=== PATIENT | male | born 1940 | race Two or more races ===

== ENCOUNTER → 2016-10-25 | Outpatient (CLI) | payer OTHER ==
[2016-10-25 13:36] LABS: BASO % 0.5 %; BASO ABS # 0.03 K/uL (0-0.2); COMPLETE YES; EOS % 5.6 %; HEMATOCRIT 38.6 % (42-52); IG% 0.2 %; LYMPH % 40.2 %; LYMPH ABS # 2.28 K/uL (1.2-3.4); MEAN CORPUSCULAR HEMOGLOBIN 32.6 pg (25-34); MEAN CORPUSCULAR HGB CONC 33.9 g/dl (32-36); MEAN PLATELET VOLUME 10.4 fL (7.4-10.4); MONO % 11.1 %; NEUT % 42.4 %; PLATELET COUNT 248 K/uL (130-400); RED BLOOD COUNT 4.02 M/uL (4.7-6.1); WHITE BLOOD COUNT 5.67 K/uL (4.8-10.8)
[2016-10-25 13:40] LABS: PROTHROMBIN TIME (PATIENT) 11.2 SECONDS (9.0-12.0)
[2016-10-25 14:06] LABS: ALB/GLOB RATIO 0.8 (0.9-2); ALT/SGPT 30 U/L (12-78); AST/SGOT 23 U/L (15-37); BLOOD UREA NITROGEN 22 mg/dl (7-18); BUN/CREATININE RATIO 18.2 (10-20); CALCIUM 9.4 mg/dl (8.5-10.1); CARBON DIOXIDE 30 mmol/L (21-32); CHLORIDE 107 mmol/L (98-107); CHOLESTEROL 169 mg/dl (0-200); GLUCOSE 85 mg/dl (70-99); POTASSIUM 4.1 mmol/L (3.5-5.1); SODIUM 141 mmol/L (136-145); TRIGLYCERIDES 74 mg/dl (0-150); VERY LOW DENSITY LIPOPROT CALC 15 mg/dl
[2016-10-25 14:10] LABS: ALKALINE PHOSPHATASE 66 U/L (45-117); CHOLESTEROL/HDL RATIO 3.3; HDL CHOLESTEROL 51 mg/dl; LDL CHOLESTEROL CALCULATED 103 mg/dl
== END | disposition home or self-care (01) ==
LOC: C.LABBC 10:56
PROVIDERS: ATTEND Internal Medicine Geriatric Medicine
DX: I10 Essential (primary) hypertension (principal); Z86.73 Personal history of transient ischemic attack (TIA), and cerebral infarction without residual deficits; Z86.718 Personal history of other venous thrombosis and embolism

== ENCOUNTER → 2016-11-01 | Outpatient (CLI) | payer OTHER ==
[2016-11-01 14:54] LABS: ALT/SGPT 28 U/L (12-78); AST/SGOT 20 U/L (15-37); BLOOD UREA NITROGEN 25 mg/dl (7-18); BUN/CREATININE RATIO 21.2 (10-20); CARBON DIOXIDE 26 mmol/L (21-32); CHLORIDE 109 mmol/L (98-107); GLUCOSE 98 mg/dl (70-99); SODIUM 142 mmol/L (136-145)
[2016-11-01 14:57] LABS: ALB/GLOB RATIO 0.8 (0.9-2); ALKALINE PHOSPHATASE 71 U/L (45-117)
== END | disposition home or self-care (01) ==
LOC: C.LABBC 10:45
PROVIDERS: ATTEND Physician Assistant Medical
DX: I10 Essential (primary) hypertension (principal)

== ENCOUNTER 2023-11-29 10:49 | Observation (INO) ==
[2023-11-29 11:25] LABS: Basophils # (auto) 0.05 K/uL (0.00-0.20); Basophils % (auto) 0.9 %; Eosinophils # (auto) 0.14 K/uL (0.00-0.50); Eosinophils % (auto) 2.4 %; Hematocrit (blood only) 36.3 % (42.0-52.0); Hemoglobin 11.5 g/dl (14.0-18.0); Immature Granulocytes # (auto) 0.01 K/uL (0.01-0.20); Immature Granulocytes % (auto) 0.2 %; Lymphocytes # (auto) 1.15 K/uL (1.20-3.40); Lymphocytes % (auto) 20.1 %; Mean Corpuscular Hemoglobin 27.6 pg (25.0-34.0); Mean Corpuscular Hgb Conc 31.7 g/dL (32.0-36.0); Mean Corpuscular Volume 87.1 fL (80.0-100.0); Mean Platelet Volume 10.2 fL (9.4-12.4); Monocytes # (auto) 0.69 K/uL (0.11-0.59); Monocytes % (auto) 12.1 %; Neutrophils # (auto) 3.68 K/uL (1.40-6.50); Neutrophils % (auto) 64.3 %; Platelet Count 219 K/uL (130-400); RDW Standard Deviation 51.1 fL (36.4-46.3); Red Blood Count 4.17 M/uL (4.70-6.10); White Blood Count 5.72 K/ul (4.8-10.8)
--- NOTE | 2023-11-29 11:46 | XRay Report ---
SINGLE VIEW CHEST CLINICAL HISTORY: Dyspnea FINDINGS: An AP, portable, upright chest radiograph is compared to study dated 05/09/2023. The examina tion is degraded by portable technique and apical lordotic positioning. The heart is mildly enlarged. The pulmonary vasculature is noncongested. Chronic interstitial thickening is similar to previous. T here is mild bibasilar scarring/atelectasis. The lungs and pleural spaces are otherwise clear. No pne umothorax is seen. The skeletal structures are osteopenic. The bony thorax is grossly intact. IMPRESSION: No acute cardiopulmonary abnormality. ACT 112: Negative or not required by law. Electronically signed by: Bharathi Nguyen M.D. 11/29/2023 11:44 AM
[2023-11-29 11:47] LABS: Albumin Globulin Ratio 1.3 (0.9-2); Albumin Level 3.9 gm/dl (3.4-5.0); BUN Creatinine Ratio 27.4 (10-20); Bilirubin,Total 0.6 mg/dl (0.2-1.0); Calcium 9.2 mg/dl (8.6-10.3); Creatinine Clr Calc Pharmacy 57.2 ml/min; Est GFR (African American) 75.4 ml/min; Magnesium 1.9 mg/dl (1.7-2.4); Total Protein 6.9 gm/dl (6.0-8.3)
[2023-11-29 11:53] LABS: Troponin I High Sensitivity 8.3 pg/ml (0-20)
--- NOTE | 2023-11-29 12:06 | Emergency Department Note ---
Impression & Plan SOB (shortness of breath), Diaphoresis ED Provider Note NAME: FREDRICK DELCID AGE: 83 SEX: Male INFORMANT: Patient ED PROVIDER(S): Austen James MD CHIEF COMPLAINT: Shortness of breath/dyspnea PLAN: Disposition: Admitted Outpatient prescription management: none Referral: None MEDICAL DECISION MAKING: Patient presented because of exertional shortness of breath/dyspnea along with diaphoresis. Patient had blood work and chest imaging Workup was initiated. ECG was normal. Patient's CBC and chemistry panel were unremarkable. BNP and troponin were negative x 1. The patient symptoms do raise concerns about possible cardiac etiology. He has known coronary disease. Discussed further management and testing in the hospital. Patient in agreement. [facility] Patient was evaluated in the ER admitted for further management. Care/management discussed with: structural manager. Patient has a care alert for chronic liquid and solid dysphagia without aspiration. Diagnosed with esophageal dysfunction. Level of care consideration(s): After review of the information above and other included data, I feel the patient requires escalation of care to admission Triage Nursing notes: reviewed and agree them. Vital Signs: reviewed and remarkable for hypertension Additional History obtained from: none Chronic Medical/Social Conditions affecting care: Hypertension, CAD Prior/ Outside/ External records reviewed: none Differential Diagnosis: Reactive airway disease, pneumonia, pneumothorax, COPD, CHF, infections, cardiac ischemia, pulmonary embolism, musculoskeletal, gastrointestinal, as well as other pathologies. Diagnostics, independently interpreted by me: EC Lead ECG performed and revealed Normal sinus rhythm at 70, normal [place], QRS normal. No elevation or depression. No PACs or PVCs Cardiac Monitoring: Cardiac monitoring ordered by me: The patient was placed on continuous cardiac monitoring and observed. It revealed a normal sinus rhythm at 77 beats per minute without ectopy or evidence of dysrhythmia. Medical decision rules: none Imaging studies: Chest x-ray. Findings: A chest x-ray was performed and revealed no pneumothorax, effusion, infiltrate, pulmonary edema, free air under the diaphragm, or wide mediastinum. Impression: No acute disease. HPI: 83 year old Male arrives for evaluation of shortness of breath/dyspnea. Patient states he was moving furniture and it was heavy. He became diaphoretic and short of breath. He also noted some left-sided neck pain. He laid down and raise his legs up. He also used his inhaler. Patient states after about an hour his symptoms abated. Patient denies any significant history like this before. He does note feeling some discomfort with swallowing. Patient does have a history of dysphagia. He states he does have a calcium blockages in his coronaries. Patient does take isosorbide and did take it today. Pt denies LOC, headache, fevers, chills, visual changes, neck pain, chest pain, nausea, vomiting, abdominal pain, back pain, melena, hematochezia, urinary symptoms, numbness, weakness, lymphadenopathy, rash, or other complaints.. PAST MEDICAL HISTORY: See Below, TIA, hypertension PAST SURGICAL HISTORY: See Below, SOCIAL HISTORY: See Below, HOME MEDICATIONS: See Below ALLERGIES: See Below VITALS: See Below PHYSICAL EXAMINATION: GENERAL: Awake, alert, well-appearing, in no distress HENT: Normocephalic, atraumatic. Oropharynx unremarkable. EYES: Normal conjunctiva. Sclera non-icteric. NECK: Inspection normal. Non-tender. Supple. No nuchal rigidity. FROM. No masses. RESPIRATORY: Clear to auscultation. No wheezes. No rales. Normal respiratory effort. CARDIAC: Normal rate. Normal rhythm. No murmurs. No rubs. Extremities warm and well perfused. Pulses equal. No JVD. GI: Soft, non-distended. No tenderness to palpation. No rebound or guarding. No masses. RECTAL: Deferred. MUSCULOSKELETAL: Atraumatic. Chest examination reveals no tenderness. The back is symmetrical on inspection without obvious abnormality. There is no CVA tenderness to palpation. No joint edema. LOWER EXTREMITIES: Calves are equal size bilaterally and non-tender. No edema. No discoloration. NEURO: Normal sensorium. No sensory or motor deficits noted. SKIN: No rash or jaundice noted. PROCEDURES: none CRITICAL CARE: none OBSERVATION NOTE: none Past Med/Surg History Medical History (Updated 11/29/23 @ 15:35 by Divine Spencer PA-C) History of stroke History of GI bleed Tremor MGUS (monoclonal gammopathy of unknown significance) Asthma Hx TIA/stroke w/o resid Anemia Anxiety Depression Hypertension Sleep apnea Migraine Surgical History History of esophagogastroduodenoscopy (EGD) Family History Other Stroke Social History Smoking Status: Former smoker Tobacco Type: Cigarettes Second Hand Exposure: No; Do You Dip or Chew Tobacco: No; Tobacco Cessation Education Requested by Patient: No Hx Alcohol Use: No Hx Substance Use: No Preferred Language: Lao Communication Ability: Effective Railroader Required: No Beliefs That Will Affect Care: Uatsdin Uatsdin Beliefs: does not eat Pork marital status: Current Living Situation: Spouse and Family Current Living Situation Comment: , daughter and son current occupational status: retired Other Information That Helps Us Care for You: No (does not eat pork) Feels Safe at Home: Yes Assistive Devices: Cane Allergies Allergies Allergy/AdvReac Type Severity Reaction Status Date / Time amlodipine Allergy Unknown Verified 11/29/23 13:41 Home Meds Home Medications Medication Instructions Recorded Confirmed carvedilol 6.25 mg tablet 6.25 mg PO BID 05/09/23 11/29/23 clopidogrel 75 mg tablet 75 mg PO DAILY 05/09/23 11/29/23 nitroglycerin 0.4 mg sublingual 0.4 mg sublingual DIRECTED PRN 05/09/23 11/29/23 tablet Chest Pain rosuvastatin 20 mg tablet 20 mg PO HS 05/09/23 11/29/23 vitamin E 268 mg (400 unit) capsule 268 mg PO DAILY 05/09/23 11/29/23 zinc 50 mg tablet 50 mg PO DAILY 05/09/23 11/29/23 albuterol sulfate 90 mcg/actuation 2 puff inhalation Q6H PRN 11/29/23 11/29/23 aerosol inhaler shortness of breath or coughing carbidopa 25 mg-levodopa 100 mg 1 tab PO TID 11/29/23 11/29/23 tablet montelukast 10 mg tablet 10 mg PO HS 11/29/23 11/29/23 quetiapine 25 mg tablet 50 mg PO HS 11/29/23 11/29/23 valsartan 160 mg tablet 160 mg PO QAM 11/29/23 11/29/23 Previous Rx's Medication Instructions Recorded isosorbide mononitrate 30 mg 30 mg PO QAM #30 tabs 05/11/23 tablet,extended release 24 hr simethicone 80 mg chewable tablet 80 mg PO Q6H PRN dyspepsia #30 tabs 05/11/23 (Gas Relief (simethicone)) Results & Data (ED) Vital Signs Vital Signs - 24 hr 11/29/23 10:55 11/29/23 10:58 11/29/23 11:03 Temperature 36.6 C Temperature Source Oral Pulse Rate 77 76 76 Pulse Rate [Right Finger] Pulse Rhythm [Right Finger] Pulse Strength [Right Finger] Respiratory Rate 22 22 Respiratory Effort / Characteristics Non-Labored Respiratory Depth Normal Respiratory Pattern Blood Pressure 150/76 H Blood Pressure [Right Arm] Blood Pressure Mean 100 Blood Pressure Mean [Right Arm] Blood Pressure Position [Right Arm] Pulse Oximetry 97 97 Oxygen Delivery Method Room Air Room Air Sepsis Recent Fever Within 48 Hours No Sepsis New/Unexplained Change in Mental Status N/A Sepsis Action Taken by Nursing No Action Required 11/29/23 11:36 11/29/23 11:36 11/29/23 12:10 Temperature Temperature Source Pulse Rate Pulse Rate [Right Finger] Pulse Rhythm [Right Finger] Pulse Strength [Right Finger] Respiratory Rate Respiratory Effort / Characteristics Non-Labored Spontaneous Respiratory Depth Respiratory Pattern Blood Pressure Blood Pressure [Right Arm] Blood Pressure Mean Blood Pressure Mean [Right Arm] Blood Pressure Position [Right Arm] Pulse Oximetry 96 97 Oxygen Delivery Method Room Air Sepsis Recent Fever Within 48 Hours Sepsis New/Unexplained Change in Mental Status Sepsis Action Taken by Nursing 11/29/23 12:14 11/29/23 12:45 11/29/23 13:10 Temperature Temperature Source Pulse Rate Pulse Rate [Right Finger] 64 66 76 Pulse Rhythm [Right Finger] Regular Regular Pulse Strength [Right Finger] Normal Respiratory Rate 18 17 18 Respiratory Effort / Characteristics Non-Labored Spontaneous Non-Labored Spontaneous Non-Labored Spontaneous Respiratory Depth Normal Normal Normal Respiratory Pattern Regular Regular Regular Blood Pressure Blood Pressure [Right Arm] 157/82 H 170/77 H Blood Pressure Mean Blood Pressure Mean [Right Arm] 107 108 Blood Pressure Position [Right Arm] Sitting Lying Pulse Oximetry 98 96 96 Oxygen Delivery Method Room Air Room Air Room Air Sepsis Recent Fever Within 48 Hours Sepsis New/Unexplained Change in Mental Status Sepsis Action Taken by Nursing Laboratory Data 11/29/23 11:03 11/29/23 11:03 Lab Results 11/29/23 11/29/23 Range/Units 11:03 14:04 WBC 5.72 (4.8-10.8) K/ul RBC 4.17 L (4.70-6.10) M/uL Hgb 11.5 L (14.0-18.0) g/dl Hct 36.3 L (42.0-52.0) % MCV 87.1 (80.0-100.0) fL MCH 27.6 (25.0-34.0) pg MCHC 31.7 L (32.0-36.0) g/dL RDW Std Deviation 51.1 H (36.4-46.3) fL RDW Coeff of Claire 16.0 H (11.5-14.5) % Plt Count 219 (130-400) K/uL MPV 10.2 (9.4-12.4) fL Immature Gran % (Auto) 0.2 % Neut % (Auto) 64.3 % Lymph % (Auto) 20.1 % [place] % (Auto) 12.1 % Eos % (Auto) 2.4 % Baso % (Auto) 0.9 % Neut # (Auto) 3.68 (1.40-6.50) K/uL Lymph # (Auto) 1.15 L (1.20-3.40) K/uL [place] # (Auto) 0.69 H (0.11-0.59) K/uL Eos # (Auto) 0.14 (0.00-0.50) K/uL Baso # (Auto) 0.05 (0.00-0.20) K/uL Immature Gran # (Auto) 0.01 (0.01-0.20) K/uL Sodium 137 (136-145) mmol/L Potassium 4.0 (3.5-5.1) mmol/L Chloride 107 (98-107) mmol/L Carbon Dioxide 25 (21-32) mmol/L Anion Gap 5 (3-11) BUN 29 H (6-23) mg/dl Creatinine 1.06 (0.6-1.4) mg/dl Est Cr Clr Drug Dosing 57.2 ml/min Est GFR ( Amer) 75.4 ml/min Est GFR (Non-Af Amer) 65.0 ml/min BUN/Creatinine Ratio 27.4 H (10-20) Glucose 96 (70-99(Fasting)) mg/dl Calcium 9.2 (8.6-10.3) mg/dl Magnesium 1.9 (1.7-2.4) mg/dl Total Bilirubin 0.6 (0.2-1.0) mg/dl AST 21 (13-39) U/L ALT 6 L (7-52) U/L Alkaline Phosphatase 58 (34-104) U/L Troponin I High Sens 8.3 10.7 (0-20) pg/ml B-Natriuretic Peptide 58 (0-100) pg/ml Total Protein 6.9 (6.0-8.3) gm/dl Albumin 3.9 (3.4-5.0) gm/dl Globulin 3.0 (2.5-4.0) gm/dl Albumin/Globulin Ratio 1.3 (0.9-2) Administered Medications Discontinued Medications Hydralazine HCl (Hydralazine Hcl 20 Mg/Ml Vial) 10 mg IV NOW STA Stop: 11/29/23 15:18 Last Admin: 11/29/23 16:44 Dose: 10 mg Documented By: SKPiper Hydralazine HCl (Hydralazine Hcl 20 Mg/Ml Vial) 10 mg IV NOW STA Stop: 11/29/23 19:05 Last Admin: 11/29/23 19:38 Dose: 10 mg Documented By: Imaging Data Radiologist's Impression: Chest X-Ray 11/29/23 11:11 SINGLE VIEW CHEST CLINICAL HISTORY: Dyspnea FINDINGS: An AP, portable, upright chest radiograph is compared to study dated 05/09/2023. The examination is degraded by portable technique and apical lordotic positioning. The heart is mildly enlarged. The pulmonary vasculature is noncongested. Chronic interstitial thickening is similar to previous. There is mild bibasilar scarring/atelectasis. The lungs and pleural spaces are otherwise clear. No pneumothorax is seen. The skeletal structures are osteopenic. The bony thorax is grossly intact. IMPRESSION: No acute cardiopulmonary abnormality. ACT 112: Negative or not required by law. Electronically signed by: Bharathi Nguyen M.D. 11/29/2023 11:44 AM Discharge Plan Visit Data Chief Complaint: Shortness of Breath/Dyspnea ED Provider: Austen James Discharge Problem: SOB (shortness of breath), Diaphoresis Discharge Instructions Interventions: ED Discharge Assessment Last Done: 11/29/23 15:40
--- NOTE | 2023-11-29 13:56 | History & Physical Report ---
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 In ER afebrile, BP's elevated, other vitals stable. No leukocytosis, Hgb: 11.5, Initial HS troponin negative. No signficant electrolyte changes. BNP: 58. EKG sinus rhythm without significant ST changes noted CXR: No infiltrate or significant pulmonary edema noted DDX: angina, hypertensive urgency/emergency, R/O ACS, esophageal spasm Currently in ER patient denies CP, SOB, dizziness, diaphoresis. Obtain CT head. CT head without acute abnormality Orthostatics Give dose hydralazine now and monitor BP Monitor Vitals Repeat EKG in am Will trend troponin Echo Continue rosuvastatin, carvedilol, Plavix If troponins uptrending or develops CP or EKG changes consider Cardiology consult CBC, BMP in am (3) Hypertension: Plan: BP elevated in ER Give dose hydralazine now and monitor BP Continue home carvedilol, valsartan (4) Asthma: (5) COPD (chronic obstructive pulmonary disease): Plan: No signs current exacerbation Continue montelukast (6) History of GI bleed: Plan: Reports 08/2023 melena, GI bleed while in [place] requiring EGD and blood trans fusions. Patient reports had ulcer Not currently on PPI as patient self discontinued. He denies melena, hematochezia, abdominal pain Hgb: 11.5. Uncertain of recent baseline since his GI bleed. Prior baseline last year was 13 Repeat CBC in a.m. (7) History of stroke: Plan: History of TIA and stroke Continue Plavix, rosuvastatin (8) Tremor: Plan: History tremor. Previously diagnosed with Parkinson's in [place] Has been on carbidopa/levodopa Following with neurology. Most recently saw [facility] neurology, Dr Kwan and suspects possible essential tremor instead of Parkinsonism. 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 See addendum I spent a total of 79 minutes reviewing notes, outpatient records, labs, medication, coordinating, documenting and providing care for this patient excluding time spent in the performance of separately billed services. 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 History obtained from patient, inpatient and outpatient chart review. Patient states this morning had intercourse and did not have any symptoms. States approximately 2 to 3 hours later he tried to push heavy furniture and he had onset of shortness of breath, diaphoresis and he reports some left neck discomfort and what he describes as dizziness. Patient states he lowered himself to floor and elevated his legs. He states tried to use albuterol inhaler but did not notice any improvement. Patient states symptoms lasted approximately 30-60 minutes. He denies any chest pain, headache, palpitations, syncope. He reports he typically uses elliptical machine 15 minutes twice a day and has not had any exertional chest pain or shortness of breath. Reports last year was having intermittent chest pains with exertion that was relieved by nitro however for the past 4 to 6 months has not noted any chest pain or exertional symptoms. Patient has not used nitro since last year. He does state sometimes he will have dizziness which resolves with him lying supine and elevating his legs. Patient denies recent trauma. History hospitalization 05/09/2023 for hypertensive urgency, chest pain. At that time it was recommended patient resume isosorbide and recommended patient have outpatient dobutamine stress echo for further workup. Patient states never had stress testing. He reports while in [place] in August 2023 had GI bleed, melena and required blood transfusion and had EGD revealing ulcer. Patient states previously on PPI however he discontinued at recommendation of his daughter who is pharmacist and instead eats cabbage and other items to "deal with stomach acid". He reports chronic back pain that he feels is at baseline. He reports chronic leg weakness and uses cane for ambulation. Denies increased extremity weakness. Denies any recent melena, hematochezia. Denies fever/chills, diaphoresis, N/V/D/C, vision changes, orthopnea, palpitations, cough, sore throat, rhinorrhea, abdominal pain, paresthesias, extremity edema, rashes, urinary symptoms. Allergies Allergy/AdvReac Type Severity Reaction Status Date / Time amlodipine Allergy Unknown Verified 11/29/23 13:41 Home Medications Medication Instructions Recorded Confirmed Type carvedilol 6.25 mg tablet 6.25 mg PO BID 05/09/23 11/29/23 History clopidogrel 75 mg tablet 75 mg PO DAILY 05/09/23 11/29/23 History nitroglycerin 0.4 mg sublingual 0.4 mg sublingual DIRECTED PRN 05/09/23 11/29/23 History tablet Chest Pain rosuvastatin 20 mg tablet 20 mg PO HS 05/09/23 11/29/23 History vitamin E 268 mg (400 unit) capsule 268 mg PO DAILY 05/09/23 11/29/23 History zinc 50 mg tablet 50 mg PO DAILY 05/09/23 11/29/23 History isosorbide mononitrate 30 mg 30 mg PO QAM #30 tabs 05/11/23 11/29/23 Rx tablet,extended release 24 hr simethicone 80 mg chewable tablet 80 mg PO Q6H PRN dyspepsia #30 tabs 05/11/23 11/29/23 Rx (Gas Relief (simethicone)) albuterol sulfate 90 mcg/actuation 2 puff inhalation Q6H PRN 11/29/23 11/29/23 History aerosol inhaler shortness of breath or coughing carbidopa 25 mg-levodopa 100 mg 1 tab PO TID 11/29/23 11/29/23 History tablet montelukast 10 mg tablet 10 mg PO HS 11/29/23 11/29/23 History quetiapine 25 mg tablet 50 mg PO HS 11/29/23 11/29/23 History valsartan 160 mg tablet 160 mg PO QAM 11/29/23 11/29/23 History Past Med/Surg History Medical History (Updated 11/29/23 @ 15:35 by Divine Spencer PA-C) History of stroke History of GI bleed Tremor MGUS (monoclonal gammopathy of unknown significance) Asthma Hx TIA/stroke w/o resid Anemia Anxiety Depression Hypertension Sleep apnea Migraine Surgical History History of esophagogastroduodenoscopy (EGD) Family History Other Stroke Social History Smoking Status: Former smoker Tobacco Type: Cigarettes Second Hand Exposure: No; Do You Dip or Chew Tobacco: No; Tobacco Cessation Education Requested by Patient: No Hx Alcohol Use: No Hx Substance Use: No Preferred Language: Belgian Communication Ability: Effective Software Architect Required: No Beliefs That Will Affect Care: Taoism Taoism Beliefs: does not eat Pork marital status: Current Living Situation: Spouse and Family Current Living Situation Comment: , daughter and son current occupational status: retired Other Information That Helps Us Care for You: No (does not eat pork) Feels Safe at Home: Yes Assistive Devices: Cane Review of Systems Review of Systems: All systems reviewed & are unremarkable except as noted in HPI & below Physical Exam Physical Exam: General: no acute distress, WDWN Head: normocephalic, atraumatic Eyes: PERRL, EOM's intact, conjunctiva non-injected, anicteric ENT: normal inspection external ears, nose, mucous membranes moist Neck: supple, trachea midline Lungs: clear, no respiratory distress, no wheezing/rhonchi/rales CV: RRR, + murmur, no JVD, no pretibial edema Abd: normal BS, soft, non-tender Ext: no cyanosis, no calf tenderness Neuro: A&O x 3, no focal deficits noted, normal affect Skin: warm, dry Results & Data Results & Data Vital Signs (Past 12 Hours) Vital Signs Temp Pulse Pulse Resp BP BP Pulse Ox 11/29/23 13:10 76 18 170/77 H 96 11/29/23 12:45 66 17 96 11/29/23 12:14 64 18 157/82 H 98 11/29/23 12:10 97 11/29/23 11:36 96 11/29/23 11:03 76 22 97 11/29/23 10:58 36.6 C 76 22 150/76 H 97 11/29/23 10:55 77 O2 Del Method 11/29/23 13:10 Room Air 11/29/23 12:45 Room Air 11/29/23 12:14 Room Air 11/29/23 12:10 Room Air 11/29/23 11:36 11/29/23 11:03 Room Air 11/29/23 10:58 Room Air 11/29/23 10:55 Laboratory Results Short CBC 11/29/23 Range/Units 11:03 WBC 5.72 (4.8-10.8) K/ul Hgb 11.5 L (14.0-18.0) g/dl Hct 36.3 L (42.0-52.0) % Plt Count 219 (130-400) K/uL BMP 11/29/23 11:03 Sodium 137 Potassium 4.0 Chloride 107 Carbon Dioxide 25 BUN 29 H Creatinine 1.06 Glucose 96 Calcium 9.2 Liver Function 11/29/23 Range/Units 11:03 Total Bilirubin 0.6 (0.2-1.0) mg/dl AST 21 (13-39) U/L ALT 6 L (7-52) U/L Alkaline Phosphatase 58 (34-104) U/L Albumin 3.9 (3.4-5.0) gm/dl Diagnostic Findings Chest X-Ray 11/29/23 11:11 SINGLE VIEW CHEST CLINICAL HISTORY: Dyspnea FINDINGS: An AP, portable, upright chest radiograph is compared to study dated 05/09/2023. The examination is degraded by portable technique and apical lordotic positioning. The heart is mildly enlarged. The pulmonary vasculature is noncongested. Chronic interstitial thickening is similar to previous. There is mild bibasilar scarring/atelectasis. The lungs and pleural spaces are otherwise clear. No pneumothorax is seen. The skeletal structures are osteopenic. The bony thorax is grossly intact. IMPRESSION: No acute cardiopulmonary abnormality. ACT 112: Negative or not required by law. Electronically signed by: Bharathi Nguyen M.D. 11/29/2023 11:44 AM ECG Additional Comments: sinus rhythm, rate 70, no significant ST changes noted Supervising Physician Co-Signing Physician Notes I have seen and examined the patient and have discussed the case with the provider above. I have reviewed the advanced practitioner's documentation, and I agree with, and take responsibility for that plan of care. 83 yo M with long standing h/o hypertension. He reports this is typically well controlled on his current antihypertensive regimen. He engaged in significant activity this morning and presents with elevated BP as high as 213/99. He has a h/o stroke in the past and is on medications for stroke prophylaxis. Prior visits reveal BP has been elevated while he was hospitalized last fall. He denies chest pain, shortness of breath or headache and workup today reveals no evidence of end-organ damage. BP has improved with two doses of hydralazine. Will cont his home antihypertensive regimen and monitor BP closely overnight. Specifically, he has no evidence of ACS (, negative troponins and normal EKG), CT head with no acute findings, normal CBC/BMP aside from some mild anemia which is expected after recent GI bleed. All labs/rads/meds reviewed and agree with plan as noted above. Cont followup with oncology regarding MGUS. DO Jaiden
[2023-11-29] MEDS ORDERED: ONDANSETRON INJ 2 MG/ML 2 ML VIAL IV PRN (15:40)
[2023-11-29] MEDS ORDERED: ACETAMINOPHEN 325 MG TAB PO PRN (15:40)
[2023-11-29] MEDS ORDERED: POLYETHYLENE (MIRALAX) 17 GM PACK PO PRN (15:40)
--- NOTE | 2023-11-29 16:21 | CT Scan Report ---
CT head/brain wo con CLINICAL HISTORY: 83 years-old Male with dizziness. Acute dizziness TECHNIQUE: Multiple axial CT images of the head were obtained without contrast. A dose lowering tech nique was utilized adhering to the principles of ALARA. CT DOSE: 625.8 mGy.cm COMPARISON: 05/09/2023 FINDINGS: No acute intracranial hemorrhage, midline shift, intracranial mass, hydrocephalus, territorial ischem ia or abnormal extra-axial collection. Involutional changes with chronic microvascular ischemic disea se. The calvarium is intact. Left-sided lens repair. Polypoid mucosal thickening of the maxillary sinuses . The mastoid air cells are clear. IMPRESSION: No acute intracranial abnormality. ACT 112: Negative or not required by law. The above report was generated using voice recognition software. It may contain grammatical, syntax o r spelling errors. Electronically signed by: Trevor Gibbons M.D. 11/29/2023 4:20 PM
[2023-11-29] MEDS: hydrALAZINE HCL 20 MG/ML VIAL IV STA ×2 (16:44→19:38)
[2023-11-29] MEDS ORDERED: CARBIDOPA/LEVODOPA 25-250 1 EA TAB PO SCH (21:00)
[2023-11-29] MEDS: QUEtiapine FUMARATE 25 MG TABLET PO SCH (21:21)
[2023-11-29] MEDS: carvediloL 6.25 MG TAB PO SCH (21:21)
[2023-11-29] MEDS: ROSUVASTATIN CALCIUM 20 MG TAB PO SCH (21:22)
[2023-11-29] MEDS: CARBIDOPA/LEVODOPA 25/100MG TAB PO SCH (21:22)
[2023-11-29] MEDS: MONTELUKAST SODIUM 10 MG TABLET PO SCH (21:23)
[2023-11-29] MEDS: HEPARIN SOD 5,000 UNIT/0.5 ML VIAL SQ SCH (21:24)
[2023-11-30] MEDS ORDERED: MELATONIN 3 MG TAB PO PRN (01:33)
--- NOTE | 2023-11-30 06:01 | Electrocardiogram Report ---
Test Reason : Blood Pressure : / mmHG Vent. Rate : 070 BPM Atrial Rate : 070 BPM P-R Int : 168 ms QRS Dur : 078 ms QT Int : 396 ms P-R-T Axes : 038 017 041 degrees QTc Int : 427 ms Normal sinus rhythm Normal ECG When compared with ECG of 11-MAY-2023 06:09, ST no longer elevated in Lateral leads Nonspecific T wave abnormality no longer evident in Lateral leads Confirmed by Rene Gonzalez ([id number]) on 11/30/2023 6:01:34 AM Referred By: Confirmed By:Jeffery Gonzalez
--- NOTE | 2023-11-30 06:07 | Electrocardiogram Report ---
Test Reason : Blood Pressure : / mmHG Vent. Rate : 066 BPM Atrial Rate : 066 BPM P-R Int : 168 ms QRS Dur : 080 ms QT Int : 410 ms P-R-T Axes : 052 018 023 degrees QTc Int : 429 ms Normal sinus rhythm Normal ECG When compared with ECG of 29-NOV-2023 10:55, (unconfirmed) No significant change was found Confirmed by Rene Gonzalez ([id number]) on 11/30/2023 6:07:20 AM Referred By: REFERRED SELF Confirmed By:Jeffery Gonzalez
--- NOTE | 2023-11-30 06:17 | Electrocardiogram Report ---
Test Reason : Blood Pressure : / mmHG Vent. Rate : 068 BPM Atrial Rate : 068 BPM P-R Int : 160 ms QRS Dur : 092 ms QT Int : 434 ms P-R-T Axes : 054 028 026 degrees QTc Int : 461 ms Normal sinus rhythm Normal ECG When compared with ECG of 29-NOV-2023 15:30, No significant change was found Confirmed by Rene Gonzalez ([id number]) on 11/30/2023 6:17:05 AM Referred By: REFERRED SELF Confirmed By:Jeffery Gonzalez
[2023-11-30 06:50] LABS: BUN Creatinine Ratio 21.9 (10-20); Calcium 9.2 mg/dl (8.6-10.3); Creatinine Clr Calc Pharmacy 57.8 ml/min; Est GFR (African American) 76.2 ml/min; Est GFR (Non-African American) 65.8 ml/min; Potassium 3.7 mmol/L (3.5-5.1)
[2023-11-30 07:39] LABS: Hematocrit (blood only) 36.4 % (42.0-52.0); Hemoglobin 11.8 g/dl (14.0-18.0); Mean Corpuscular Hemoglobin 27.7 pg (25.0-34.0); Mean Corpuscular Hgb Conc 32.4 g/dL (32.0-36.0); Mean Corpuscular Volume 85.4 fL (80.0-100.0); Mean Platelet Volume 10.1 fL (9.4-12.4); Platelet Count 225 K/uL (130-400); RDW Coefficient of Variation 16.3 % (11.5-14.5); RDW Standard Deviation 50.3 fL (36.4-46.3); Red Blood Count 4.26 M/uL (4.70-6.10); White Blood Count 5.42 K/ul (4.8-10.8)
--- OUTSIDE RECORDS SUMMARY | 2023-11-30 07:55 | External Medical Summary | Summary of Care ---
Author Name Unknown Organization [facility] Address [address] [place] [address] Phone [phone] Care Team Providers Care Vice President Lending Name Role Phone Jasmyn Rich MD Primary Care Provider Reason for Visit * Reason Onset Date Comments No Show 10/03/2023 Encounter Details Date Type Department Care Team (Late st Contact Info) Description 10/03/2023 Telephone Hematology/Oncology [facility] [place] [address] [facility] [place] [phone] Jun Martin [facility] [address] [facility] [address] No Show Allergies Active Allergy Reactions Criticality Noted Date Comments Amlodipine Unknown 05/09/2023 Hydrocortisone 07/09/2023 documented as of this encounter (statuses as of 2023) Medications Medication Sig Dispensed Refills Start Date End Date Status MULTIVITAMINS PO CAPS 1 tablet daily 0 Active B Complex 100 TR Oral Tablet Extended Release Take by mouth. 0 Acti ve Vitamin C 1000 MG Oral Tablet Take 1 Tablet by mouth in the morning. 0 Active Vitamin D 50 MCG (2000 UT) Oral Capsule Take 2,000 Units by mouth daily. 0 Active Selenium 200 MCG Oral Capsule Take by mouth . 0 Active Glucosamine 750 MG Oral Tablet Take by mouth . 0 Active L-Arginine 1000 MG Oral Tablet Take by mouth . 0 Active Ashwagandha 500 MG Oral Capsule Take by mouth. 0 Active Carboxymethylcellu lose Sod PF 0.5 % Ophthalmic Solution (Refresh Plus)Indications:D ry eyes Instill 1 Drop into both eyes daily as needed for Dry eyes. 70 Each 5 11/28/2022 Active Nitroglycerin 0.4 MG Sublingual Tablet Sublingual (Nitrostat)Indicat ions:Chest pain, unspecified type Place 1 Tablet under the tongue as needed for Pain, Chest. May repeat 3 times. If chest pain continues, call 911. 25 Tablet 11 11/28/2022 Active Clopidogrel Bisulfate 75 MG Oral Tablet (pLAVix)Indication s:Carotid atherosclerosis, bilateral,PVD (peripheral vascular disease) (HCC),History of transient ischemic attack (TIA) Take 1 Tablet by mouth in the morning. 90 Tablet 3 11/28/2022 Active Carvedilol 6.25 MG Oral Tablet (Coreg)Indications :HTN, goal below 130/80 Take 1 Tablet by mouth in the morning and 1 Tablet before bedtime. 180 Tablet 3 11/28/2022 Active Rosuvastatin Calcium 20 MG Oral Tablet (Crestor)Indicatio ns:PVD (peripheral vascular disease) ([facility]),History of transient ischemic attack (TIA) Take 1 Tablet by mouth at bedtime. 90 Tablet 3 12/07/2022 Active Additional Information Patient not taking.Reported on 08/20/2023 Vitamin E 100 UNIT Oral Capsule Take 1 Capsule by mouth in the morning. 0 Active Zinc 50 MG Oral Tablet Take 1 Tablet by mouth in the morning. 0 Active QUEtiapine Fumarate 25 MG Oral Tablet (SEROquel)Indicati ons:Panic disorder,RADHA (generalized anxiety disorder) Take 1 Tablet by mouth at bedtime. 90 Tablet 3 12/31/2022 Active Additional Information Patient not taking.Reported on 08/20/2023 Simethicone 80 MG Oral Tablet Chewable (Mylicon) Take 1 Tablet by mouth every 6 hours as needed for Gas. 0 Active Valsartan 160 MG Oral Tablet (Diovan)Indication s:HTN, goal below 130/80 Take 1 Tablet by mouth in the morning. 90 Tablet 3 05/16/2023 Active Gabapentin 100 MG Oral Capsule (Neurontin) 1 tab at bedtime x 5 days then 1 tab twice daily x 5 day, then 1 tab three times daily 90 Capsule 2 05/27/2023 Active Additional Information Patient not taking.Reported on 08/20/2023 Isosorbide Mononitrate ER 30 MG Oral Tablet Extended Release 24 Hour (Imdur)Indications :Angina pectoris (HCC) Take 1 Tablet by mouth in the morning. 90 Tablet 3 05/29/2023 Active Albuterol Sulfate HFA 108 (90 Base) MCG/ACT Inhalation Aerosol SolutionIndication s:COPD with asthma Inhale 2 Puffs by mouth every 6 hours as needed for Cough or Shortness of Breath. 18 g 5 05/29/2023 Active Additional Information Patient not taking.Reported on 08/20/2023 Carbidopa-Levodopa 25-100 MG Oral Tablet (Sinemet) Take 1 Tablet by mouth in the morning and 1 Tablet at noon and 1 Tablet before bedtime. 270 Tablet 2 06/19/2023 Active Apple Cider Vinegar Plus Oral Tablet Take by mouth. 1 tbsp daily with lemon water 0 Active Pantoprazole Sodium 40 MG Oral Tablet Delayed Release (Protonix) Take 1 Tablet by mouth in the morning and 1 Tablet before bedtime. For 8 weeks then take 1 time a day 1 hour prior to breakfast. 180 Tablet 0 07/05/2023 Active Tadalafil 5 MG Oral Tablet (Cialis) Take 1 Tablet by mouth daily as needed for Erectile Dysfunction. 0 Active Horny Goat [place] Oral Capsule Take by mouth. 0 Active Zuleika 500 MG Oral Capsule Take by mouth. 0 Active Fluticasone Propionate HFA 110 MCG/ACT Inhalation Aerosol (Flovent HFA)Indications:Wh eezing Inhale 2 Puffs by mouth in the morning and 2 Puffs before bedtime. 12 g 2 07/23/2023 Active Captopril 25 MG Oral Tablet (Capoten) 1 Tablet. 0 05/09/2023 Active Valsartan-hydroCHL OROthiazide 160-25 MG Oral Tablet 1 Tablet. 0 05/09/2023 Active Delsym Cough/Chest Congest DM 5-100 MG/5ML Oral Liquid (Dextromethorphan- guaiFENesin) Take by mouth. 0 Active Montelukast Sodium 10 MG Oral Tablet (Singulair) Take 1 Tablet by mouth at bedtime. 90 Tablet 3 08/15/2023 Active Nirmatrelvir&Riton avir 300/100 20 x 150 MG & 10 x 100MG Oral Tablet Therapy Pack (Paxlovid)Indicati ons:COVID-19 virus infection Take 2 pink tablets of Nirmatrelvir and 1 white tablet of Ritonavir two times a day by mouth. 30 Tablet 0 08/16/2023 Active busPIRone HCl 5 MG Oral Tablet (Buspar) Take 1 Tablet by mouth in the morning and 1 Tablet before bedtime. 0 Active Magnesium 250 MG Oral Tablet Take 1 Tablet by mouth in the morning. 0 Active Folic Acid 400 MCG Oral Tablet Take 1 Tablet by mouth in the morning. 0 Active Ibuprofen 200 MG Oral Tablet (Motrin) Take 1 Tablet by mouth every 4 hours as needed. 0 Active predniSONE 10 MG Oral Tablet (Deltasone)Indicat ions:Acute bronchitis due to COVID-19 virus Take 5 tabs for 2 days, 4 tabs for 2 days, 3 tabs for 2 days, 2 tabs for 2 days 1 tab for 2 days(was on pred in 2021) 30 Tablet 0 08/20/2023 Active Hospital, Clinic, or Other Facility Administered Medication Ordered Dose Route Frequency Start Date End Date Status Albuterol Sulfate (Proventil) (2.5 MG/3ML) 0.083% inhalation solution 2.5 mgIndications:COPD, frequent exacerbations (HCC) 2.5 mg NEBULIZER PRN 12/07/2022 12/07/2023 Active documented as of this encounter (statuses as of 2023) Active Problems Problem Noted Date Diagnosed Date 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 07/09/2023 Erectile dysfunction due to diseases classified elsewhere 07/09/2023 Bilateral carpal tunnel syndrome 05/16/2023 COPD, group B, by GOLD 2017 classification 12/17 Overview: Per COPD GOLD Classification Achalasia of esophagus 12/07/2022 Parkinson's disease 11/28/2022 Multiple myeloma not having achieved remission 0 11/28/2022 Dementia without behavioral disturbance 11/29/19 23 Fatty liver 05/14/2022 Primary insomnia 05/14/2022 RADHA (generalized anxiety disorder) 06/08/2019 Panic disorder 06/08/2019 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 History of transient ischemic attack (TIA) 04/20 HTN, goal below 130/80 01/25/2016 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 Allergic rhinitis 06/29/2013 Monoclonal gammopathy 09/25/2012 Neuropathy 09/25/2012 documented as of this encounter (statuses as of 2023) Resolved Problems Problem Noted Date Diagnosed Date Resolved Date Dementia without behavioral disturbance 11/28/2022 11/28/2022 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 06/08/2019 Syncope and collapse 11/28/2012 019 Anemia 09/25/2012 05/14/2022 Hypertension 09/25/2012 06/08/2019 TIA (transient ischemic attack) 09/25/2012 04/20/2019 documented as of this encounter (statuses as of 2023) Immunizations Name Administration Dates Next Due COVID-19, MRNA-LNP, 23-24, P F, 30 MCG/0.3 mL, 12 YRS AND ABOVE, IM (PFIZER-Comirnaty) 08/15/2023 Pneumococcal Polysaccharide PPV23 (Pneumovax) ,07/08/2013 RSV Vac., Bivalent, Perfusion F, Pf,0.5 Ml (Abry svo) 07/23/2023 Seasonal Influenza, Quadrivalent Hd (Fluzone Hd) 04/23/2022,09/01/2021 Seasonal Influenza, Split, IIV3, With Preserve, Inj 04/09/2013 Seasonal Influenza, Trivalent, Adjuvanted, 65+ y rs 04/28/2019 documented as of this encounter Social History Tobacco Use Types Packs/Day Years Used Date Smoking Tobacco: Former Cigarettes 3 17 1 - 05/30/1982 Smokeless Tobacco: Never Alcohol Use Standard Drinks/Week Comments No 0 (1 standard drink = 0.6 oz pur e alcohol) PHQ-2 Answer Date Recorded PHQ Adult Total Score 0 03/05/2022 Hunger Vital Sign Answer Date Recorded Within the past 12 months, y ou worried that your food would run out before you got the money to buy more. Never true 05/14/20 23 Within the past 12 months, t he food you bought just didn't last and you didn't have money to get more. Never true 05/14/2023 Sex and Gender Information Value Date Recorded Sex Assigned at Not on file Gender Identity Not on file Sexual Orientation Not on file Job Start Date Occupation Industry Not on file Not on file Not on file documented as of this encounter Miscellaneous Notes * Telephone Encounter - Lila Palencia OSA - 2023 11:39 AM EST Called [employer] Lmom for patient. Sent letter. * Telephone Encounter - Lila Palencia OSA - 10/08/2023 10:33 AM EST Called [employer] Lmom for patient. * Telephone Encounter - Lila Palencia OSA - 10/07/2023 9:30 AM EST Called and had to lmom for patient. * Telephone Encounter - Gabriella Rendon LPN - 10/03/2023 2:02 PM EST Sent patient message through portal to contact our office to reschedule missed appointment from 10/03/23 * Telephone Encounter - Amalia Reyes LPN - 10/03/2023 1:53 PM EST Pt did not show for MD appt with Dr. Martin. Scheduling: Can you please reach out to see if patient would like to reschedule? NS: FYI documented in this encounter Plan of Treatment Upcoming Encounters Date Type Department Care Team (Late st Contact Info) Description 10/11/2023 2:20 PM EST Office Visit General Internal Medicine [facility] [place] [facility] [address] [place] [address] Jasmyn Rich MD [address] [facility] [place] [address] 10/15/2023 3:20 PM EST Office Visit Pulmonary Medicine, [address] [place] [address] Kenrick Santos MD [address] [place] [address] 11/05/2023 11:15 AM EDT Office Visit Urology, [facility] [address] [place] [address] Tank Brandt MD [address] [facility] [address] [place], [place] [id number] 11/15/2023 2:20 PM EDT Office Visit General Internal Medicine [facility] 200 [facility] [place] [address] Jasmyn Rich MD [address] [facility] [place] [address] 11/27/2023 10:40 AM EDT Office Visit Neurology [facility] [address] [facility] [place] [address] Nitish Kwan MD [address] [place] [address] 12/03/2023 1:40 PM EDT Office Visit Gastroenterology, [facility] [address] [place] [address] Adriana Marte MD 132 [place] [address] Health Maintenance Due Date Last Done Comments Albumin/Creatinine Ratio 1958 Alpha-1 Antitrypsin 1959 DTaP,Tdap,and Td Vaccines (1 - Tdap) 1960 Zoster Vaccines (1 of 2) 1960 *COPD SEVERITY VERIFIED BY PFT 05/30/2019 *SPIROMETRY ONCE FOR ASTHMA-ADULT 07/05/2022 Pneumococcal Vaccine: 65+ Years (3 of 3 - PCV) 09/01/2022 09/01/2021, 07/08/2013 Depression Screening 03/05/2023 03/05/2022 Influenza Vaccine (FLU shot) (#1) 2023 04/23/2022, 09/01/2021, 04/28/2019, Additional history exists COVID-19 Vaccine (2 - Pfizer risk series) 09/05/2023 08/15/2023 GFR 05/16/2024 05/16/2023, 11/11, 10/04/2022, Additional history exists O2 ASSESSMENT COMPLETED IN PAST YEAR FOR COPD 06/25/2024 06/25/2023 GARDASIL-HPV IMMUNIZATION SERIES Aged Out No longer eligible based on patient's age to complete this topic Hepatitis B Aged Out No longer eligi ble based on patient's age to complete this topic MENINGOCOCCAL (MENACTRA/MENVEO) Aged Out No longer eligible based on patient's age to complete this topic documented as of this encounter Medical Devices Not on filedocumented as of this encounter Advance Directives Latest Code Status on File Code Status Date Activated Date Inactivated Comments Full Code 11/28/2012 2:07 AM 11/28/2012 6:25 PM This order reflects the patients wishes and were consensually agreed upon. Question Answer Comments Discussion of Advance Directives occurred with: Patient Care Teams Vice President Lending Relationship Specialty Start Date End Date Jasmyn Rich MD [address] [facility] [place], [place] [address] PCP - General Internal Medicine 08/20/23 documented as of this encounter
--- OUTSIDE RECORDS SUMMARY | 2023-11-30 07:55 | External Medical Summary | Summary of Care ---
Author Name Unknown Organization [facility] Address [address] [place] [address] Phone [phone] Care Team Providers Care Commercial Real Estate Lender Name Role Phone Jasmyn Rich MD Primary Care Provider [phone] Reason for Visit * Reason Onset Date Comments No Show 10/03/2023 Encounter Details Date Type Department Care Team (Late st Contact Info) Description 10/03/2023 Telephone Hematology/Oncology [facility] [place] [address] [facility] [place] [phone] Jun Martin MD [address] [facility] [place] [address] No Show Allergies Active Allergy Reactions Criticality Noted Date Comments Amlodipine Unknown 05/09/2023 Hydrocortisone 07/09/2023 documented as of this encounter (statuses as of 10/08/2023) Medications Medication Sig Dispensed Refills Start Date [...] Oral Tablet (Crestor)Indicatio ns:PVD (peripheral vascular disease) ([facility]),History of transient ischemic attack (TIA) Take 1 [...] for Erectile Dysfunction. 0 Active Horny Goat [place] Oral Capsule Take by mouth. 0 Active [...] as of this encounter (statuses as of 10/08/2023) Active Problems Problem Noted Date Diagnosed Date [...] as of this encounter (statuses as of 10/08/2023) Resolved Problems Problem Noted Date Diagnosed Date Resolved Date Dementia without behavioral disturbance 11/28/2022 11/28/2022 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 06/08/2019 Syncope and collapse 11/28/2012 019 Anemia 09/25/2012 05/14/2022 Hypertension 09/25/2012 06/08/2019 TIA (transient ischemic attack) 09/25/2012 04/20/2019 documented as of this encounter (statuses as of 10/08/2023) Immunizations Name Administration Dates Next Due COVID-19, [...] PM EST Office Visit General Internal Medicine [address] [place] [address] Jasmyn Rich MD 200 [facility] [place] [address] 10/15/2023 3:20 PM EST Office Visit Pulmonary Medicine, [address] [place] [address] Kenrick Santos MD [address] [place] [address] 11/05/2023 11:15 AM EDT Office Visit Urology, [facility] [address] [place] [address] Tank Brandt MD [address] [facility] [address] [place] [address] 11/15/2023 2:20 PM EDT Office Visit General Internal Medicine [facility] [address] [facility] [place] [address] Jasmyn Rich MD [address] [facility] [place] [address] 11/27/2023 10:40 AM EDT Office Visit Neurology [facility] [address] [facility] [place] [address] Nitish Kwan MD [address] [place] [address] 12/03/2023 1:40 PM EDT Office Visit Gastroenterology, [facility] 132 [facility] [place] [address] Adriana Marte MD [address] [place] [address] Health Maintenance Due Date Last Done Comments [...] Advance Directives occurred with: Patient Care Teams Commercial Real Estate Lender Relationship Specialty Start Date End Date Jasmyn Rich MD [address] [place] [address] PCP - General Internal Medicine 08/20/23 documented as of this encounter
--- OUTSIDE RECORDS SUMMARY | 2023-11-30 07:55 | External Medical Summary | Summary of Care ---
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 Name Role Phone Jasmyn Rich MD Primary Care Provider [phone] Reason for Referral * Precert (Within 10 days (routine)) - Authorized Specialty Diagnoses / Procedures Referred By David stovall Referred To Contact Radiology Diagnoses Secondary parkinsonism, unspecified secondary Parkinsonism type (HCC) Procedures NM BRAIN SPECT WITH DATSCAN Nitish Kwan MD [address] [place] [address] Referral ID Status Reason Start Date Expiration Date V isits Requested Visits Authorized [id number] Authorized 12/04/2023 999 999 Reason for Visit * Reason Comments NEW PATIENT Referred by Mayi Dyer for parkinson's disease with dyskinesia and fluctuating manifestations Encounter Details Date Type Department Care Team (Late st Contact Info) Description 11/27/2023 10:40 AM EDT Office Visit Neurology [facility] [address] [place] [address] Nitish wKan MD [address] [place] [address] Secondary parkinsonism, unspecified secondary Parkinsonism type (HCC)*; Spinal stenosis of lumbar region with neurogenic claudication Allergies Active Allergy Reactions Criticality Noted Date Comments Amlodipine Unknown 05/09/2023 Hydrocortisone 07/09/2023 documented as of this encounter (statuses as of 11/27/2023) Medications Medication Sig Dispensed Refills Start Date [...] Glucosamine 750 MG Oral Tablet Take by mouth. 0 Active L-Arginine 1000 MG Oral Tablet Take by mouth. 0 Active Ashwagandha 500 MG Oral Capsule Take by mouth. 0 Activ e Carboxymethylcell ulose Sod PF 0.5 % Ophthalmic Solution (Refresh Plus)Indications: Dry eyes Instill 1 Drop into both eyes daily as needed for Dry eyes. 70 Each 5 11/28/2022 Active Nitroglycerin 0.4 MG Sublingual Tablet Sublingual (Nitrostat)Indica tions:Chest pain, unspecified type Place 1 Tablet under the tongue as needed for Pain, Chest. May repeat 3 times. If chest pain continues, call 911. 25 Tablet 11 11/28/2022 Active Additional Information Patient not taking.Reported on 11/27/2023 Clopidogrel Bisulfate 75 MG Oral Tablet (pLAVix)Indicatio ns:Carotid atherosclerosis, bilateral,PVD (peripheral vascular disease) (HCC),History of transient ischemic attack (TIA) Take 1 Tablet by mouth in the morning. 90 Tablet 3 11/28/2022 Active Rosuvastatin Calcium 20 MG Oral Tablet (Crestor)Indicati ons:PVD (peripheral vascular disease) (HCC),History of transient ischemic attack (TIA) Take 1 Tablet by mouth at bedtime. 90 Tablet 3 12/07/2022 Active Vitamin E 100 UNIT Oral Capsule Take 1 Capsule by mouth in the morning. 0 Active Zinc 50 MG Oral Tablet Take 1 Tablet by mouth in the morning. 0 Active QUEtiapine Fumarate 25 MG Oral Tablet (SEROquel)Indicat ions:Panic disorder,RADHA (generalized anxiety disorder) Take 1 Tablet by mouth at bedtime. 90 Tablet 3 12/31/2022 Active Simethicone 80 MG Oral Tablet Chewable (Mylicon) Take 1 Tablet by mouth every 6 hours as needed for Gas. 0 Active Valsartan 160 MG Oral Tablet (Diovan)Indicatio ns:HTN, goal below 130/80 Take 1 Tablet by [...] MG Oral Tablet Extended Release 24 Hour (Imdur)Indication s:Angina pectoris (HCC) Take 1 Tablet by mouth in the morning. 90 Tablet 3 05/29/2023 Active Albuterol Sulfate HFA 108 (90 Base) MCG/ACT Inhalation Aerosol SolutionIndicatio ns:COPD with asthma (HCC) Inhale 2 Puffs by mouth every 6 hours as needed for Cough or Shortness of Breath. 18 g 5 05/29/2023 Active Carbidopa-Levodop a 25-100 MG Oral Tablet (Sinemet) Take 1 [...] for Erectile Dysfunction. 0 Active Horny Goat [place] Oral Capsule Take by mouth. 0 Active Zuleika 500 MG Oral Capsule Take by mouth. 0 Active Fluticasone Propionate HFA 110 MCG/ACT Inhalation Aerosol (Flovent HFA)Indications:W heezing Inhale 2 Puffs by mouth in the morning and 2 Puffs before bedtime. 12 g 2 07/23/2023 Active Captopril 25 MG Oral Tablet (Capoten) 1 Tablet. 0 05/09/2023 Active Valsartan-hydroCH LOROthiazide 160-25 MG Oral Tablet 1 Tablet. 0 05/09/2023 Active Delsym Cough/Chest Congest DM 5-100 MG/5ML Oral Liquid (Dextromethorphan -guaiFENesin) Take by mouth. 0 Active Montelukast Sodium 10 MG Oral Tablet (Singulair) Take 1 Tablet by mouth at bedtime. 90 Tablet 3 08/15/2023 Active Additional Information Patient not taking.Reported on 11/27/2023 busPIRone HCl 5 MG Oral Tablet (Buspar) [...] 0 Active predniSONE 10 MG Oral Tablet (Deltasone)Indica tions:Acute bronchitis due to COVID-19 virus Take 5 tabs for 2 days, 4 tabs for 2 days, 3 tabs for 2 days, 2 tabs for 2 days 1 tab for 2 days(was on pred in 2021) 30 Tablet 0 08/20/2023 Active Additional Information Patient not taking.Reported on 11/27/2023 Carvedilol 6.25 MG Oral Tablet (Coreg)Indication s:HTN, goal below 130/80 TAKE 1 TABLET BY MOUTH IN THE MORNING AND BEFORE BEDTIME 180 Tablet 3 11/15/2023 Active Kristen Root 550 MG Oral Capsule Take by mouth. 0 Activ e B-12 1000 MCG Oral Tablet Take by mouth. 0 Active Triple [place]-3-6-9 Oral Capsule Take by mouth. 0 Active NATURAL SUPPLEMENT Take by mouth daily. Baclofen tablets from Rachael for muscle relaxant and antipastic 0 Active Milk Thistle 300 MG Oral Capsule Take by mouth. 0 Activ e Caltrate 600+D Plus Minerals 600-800 MG-UNIT Oral Tablet Chewable Take by mouth. 0 Active NATURAL SUPPLEMENT Take by mouth daily. Modern mushrooms 0 Active Turmeric Curcumin 500 MG Oral Capsule Take by mouth. 0 Active Vitamin A 3 MG (58345 UT) Oral Capsule (Aquasol-A) Take 1 Capsule by mouth in the morning. 0 Active Nirmatrelvir&Keaton navir 300/100 20 x 150 MG & 10 x 100MG Oral Tablet Therapy Pack (Paxlovid)Indicat ions:COVID-19 virus infection Take 2 pink tablets of Nirmatrelvir and 1 white tablet of Ritonavir two times a day by mouth. 30 Tablet 0 08/16/2023 4 Discontinue d(Medicatio n List Clean Up) Hospital, Clinic, or Other Facility Administered Medication Ordered Dose Route Frequency Start Date End Date Status Albuterol Sulfate (Proventil) (2.5 MG/3ML) 0.083% inhalation solution 2.5 mgIndications:COPD, frequent exacerbations (HCC) 2.5 mg NEBULIZER PRN 12/07/2022 12/07/2023 Active documented as of this encounter (statuses as of 11/27/2023) Active Problems Problem Noted Date Diagnosed Date [...] as of this encounter (statuses as of 11/27/2023) Resolved Problems Problem Noted Date Diagnosed Date Resolved Date Dementia without behavioral disturbance 11/28/2022 11/28/2022 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 06/08/2019 Syncope and collapse 11/28/2012 019 Anemia 09/25/2012 05/14/2022 Hypertension 09/25/2012 06/08/2019 TIA (transient ischemic attack) 09/25/2012 04/20/2019 documented as of this encounter (statuses as of 11/27/2023) Immunizations Name Administration Dates Next Due COVID-19, [...] 17 1 - 05/30/1982 Smokeless Tobacco: Never Tobacco Cessation:Counseling Given: Not Answered Alcohol Use Standard Drinks/Week Comments No 0 [...] on file documented as of this encounter Last Filed Vital Signs Vital Sign Reading Time Taken Comments Blood Pressure 128/82 11/27/2023 10:46 AM EDT Pulse 74 11/27/2023 10:46 AM EDT Temperature 36.8 C (98.2 F) 11/27/2023 10:46 AM E DT Respiratory Rate 16 11/27/2023 10:46 AM EDT Oxygen Saturation 96% 11/27/2023 10:46 AM EDT Inhaled Oxygen Concentration - - Weight 84.4 kg (186 lb) 11/27/2023 10:46 AM EDT Height - - Body Mass Index 28.49 08/15/2023 1:01 PM EST documented in this encounter Progress Notes * Nitish Kwan MD - 11/27/2023 10:51 AM EDT 11/27/2023 10:51 AM Amanda Bhagat 83 year old male Ref: MAYI DYER[[id number]] [address] [place] [address] (office) [phone] (fax) Asked by Jasmyn Rich MD to render opinion regarding evaluation and management of tremors CC: Chief Complaint Patient presents with NEW PATIENT Referred by Mayi Dyer for parkinson's disease with dyskinesia and fluctuating manifestations HPI: The patient is an 83-year-old gentleman with Parkinson's which was diagnosed by a doctor in [place]. . He was started on Sinemet when he was in [place], was initially only taking 2 tablets a day. Luca, Ms. Dyer increased him to carbidopa levodopa 25/100 3 times a day. He was seen by other providers of this clinic 10 years ago for headache management. He also has a history of TIA in 1989 with transient left-sided weakness affecting primarily the arm. History of longstanding hypertension over 35 years. His son has spinal muscular atrophy, his daughter is mentally challenged. His mother had a stroke. 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 Nonsmoker since 1981, no alcohol intake or drugs. He has a history of multiple myeloma and COPD. Has chronic back pain issues. My colleague felt that the tremor also has an essential tremor element affecting both hands, right more than left. She recommended gabapentin but he has not on it any longer. He had a cranial MRI without contrast August 10 of last year. Overall moderate degree of microvascular ischemic changes and mild global volume loss and ex vacuo enlargement of the ventricles.He tested positive for COVID 19 in early August. He struggles with constipation. Shaking started 2 years ago. Takes Plavix for stroke prevention. His father also had tremors. He has walking difficulty because his legs give out on him. He uses a cane. 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] 07/23/2023 BPH with obstruction/lower urinary tract symptoms [N40.1, N13.8] 07/09/2023 Erectile dysfunction due to diseases classified elsewhere [N52.1] 07/09/2023 Bilateral carpal tunnel syndrome [G56.03] 05/16/2023 COPD, group B, by GOLD 2017 classification (HCC) [J44.9] 12/17/2022 Per COPD GOLD Classification Achalasia of esophagus [K22.0] 12/07/2022 Parkinson's disease (HCC) [G20.A1] 11/28/2022 Multiple myeloma not having achieved remission (HCC) [C90.00] 11/28/2022 Dementia without behavioral disturbance (HCC) [F03.90] 11/28/2022 Fatty liver [K76.0] 05/14/2022 Primary insomnia [F51.01] 05/14/2022 RADHA (generalized anxiety disorder) [F41.1] 06/08/2019 Panic disorder [F41.0] 06/08/2019 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 Glucosamine 750 MG Oral Tablet Take by mouth. L-Arginine 1000 MG Oral Tablet Take by mouth. Ashwagandha 500 MG Oral Capsule Take by mouth. Carboxymethylcellulose Sod PF 0.5 % Ophthalmic Solution (Refresh Plus) Instill 1 Drop into both eyes daily as needed for Dry eyes. 70 Each 5 Clopidogrel Bisulfate 75 MG Oral Tablet (pLAVix) Take 1 Tablet by mouth in the morning. 90 Tablet 3 Rosuvastatin Calcium 20 MG Oral Tablet (Crestor) Take 1 Tablet by mouth at bedtime. 90 Tablet 3 Vitamin E 100 UNIT Oral Capsule Take 1 Capsule by mouth in the morning. QUEtiapine Fumarate 25 MG Oral Tablet (SEROquel) Take 1 Tablet by mouth at bedtime. 90 Tablet 3 Valsartan 160 MG Oral Tablet (Diovan) Take 1 Tablet by mouth in the morning. 90 Tablet 3 Isosorbide Mononitrate ER 30 MG Oral Tablet Extended Release 24 Hour (Imdur) Take 1 Tablet by mouthin the morning. 90 Tablet 3 Albuterol Sulfate HFA 108 (90 Base) MCG/ACT Inhalation Aerosol Solution Inhale 2 Puffs by mouth every 6 hours as needed for Cough or Shortness of Breath. 18 g 5 Carbidopa-Levodopa 25-100 MG Oral Tablet (Sinemet) Take 1 Tablet by mouth in the morning and 1 Tablet at noon and 1 Tablet before bedtime. 270 Tablet 2 Pantoprazole Sodium 40 MG Oral Tablet Delayed Release (Protonix) Take 1 Tablet by mouth in the morning and 1 Tablet before bedtime. For 8 weeks then take 1 time a day 1 hour prior to breakfast. 180 Tablet 0 Zuleika 500 MG Oral Capsule Take by mouth. Fluticasone Propionate HFA 110 MCG/ACT Inhalation Aerosol (Flovent HFA) Inhale 2 Puffs by mouth in the morning and 2 Puffs before bedtime. 12 g 2 Magnesium 250 MG Oral Tablet Take 1 Tablet by mouth in the morning. Folic Acid 400 MCG Oral Tablet Take 1 Tablet by mouth in the morning. Carvedilol 6.25 MG Oral Tablet (Coreg) TAKE 1 TABLET BY MOUTH IN THE MORNING AND BEFORE BEDTIME 180Tablet 3 Kristen Root 550 MG Oral Capsule Take by mouth. B-12 1000 MCG Oral Tablet Take by mouth. Triple [place]-3-6-9 Oral Capsule Take by mouth. NATURAL SUPPLEMENT Take by mouth daily. Baclofen tablets from Rachael for muscle relaxant and antipastic Milk Thistle 300 MG Oral Capsule Take by mouth. Caltrate 600+D Plus Minerals 600-800 MG-UNIT Oral Tablet Chewable Take by mouth. NATURAL SUPPLEMENT Take by mouth daily. Modern mushrooms Turmeric Curcumin 500 MG Oral Capsule Take by mouth. Vitamin A 3 MG (97895 UT) Oral Capsule (Aquasol-A) Take 1 Capsule by mouth in the morning. MULTIVITAMINS PO CAPS 1 tablet daily (Patient not taking: Reported on 08/20/2023) Vitamin C 1000 MG Oral Tablet Take 1 Tablet by mouth in the morning. (Patient not taking: Reported on 08/20/2023) Vitamin D 50 MCG (2000 UT) Oral Capsule Take 2,000 Units by mouth daily. (Patient not taking: Reported on 08/20/2023) Selenium 200 MCG Oral Capsule Take by mouth . (Patient not taking: Reported on 11/27/2023) Nitroglycerin 0.4 MG Sublingual Tablet Sublingual (Nitrostat) Place 1 Tablet under the tongue as needed for Pain, Chest. May repeat 3 times. If chest pain continues, call 911. (Patient not taking: Reported on 11/27/2023) 25 Tablet 11 Zinc 50 MG Oral Tablet Take 1 Tablet by mouth in the morning. (Patient not taking: Reported on 08/20/2023) Simethicone 80 MG Oral Tablet Chewable (Mylicon) Take 1 Tablet by mouth every 6 hours as needed forGas. (Patient not taking: Reported on 08/20/2023) Gabapentin 100 MG Oral Capsule (Neurontin) 1 tab at bedtime x 5 days then 1 tab twice daily x 5 day, then 1 tab three times daily (Patient not taking: Reported on 08/20/2023) 90 Capsule 2 Apple Cider Vinegar Plus Oral Tablet Take by mouth. 1 tbsp daily with lemon water (Patient not taking: Reported on 08/20/2023) Tadalafil 5 MG Oral Tablet (Cialis) Take 1 Tablet by mouth daily as needed for Erectile Dysfunction. (Patient not taking: Reported on 11/27/2023) Horny Goat [place] Oral Capsule Take by mouth. (Patient not taking: Reported on 08/20/2023) Captopril 25 MG Oral Tablet (Capoten) 1 Tablet. (Patient not taking: Reported on 11/27/2023) Valsartan-hydroCHLOROthiazide 160-25 MG Oral Tablet 1 Tablet. (Patient not taking: Reported on 08/20/2023) Delsym Cough/Chest Congest DM 5-100 MG/5ML Oral Liquid (Dextromethorphan- guaiFENesin) Take by mouth. (Patient not taking: Reported on 11/27/2023) Montelukast Sodium 10 MG Oral Tablet (Singulair) Take 1 Tablet by mouth at bedtime. (Patient not taking: Reported on 11/27/2023) 90 Tablet 3 busPIRone HCl 5 MG Oral Tablet (Buspar) Take 1 Tablet by mouth in the morning and 1 Tablet before bedtime. (Patient not taking: Reported on 11/27/2023) Ibuprofen 200 MG Oral Tablet (Motrin) Take 1 Tablet by mouth every 4 hours as needed. (Patient not taking: Reported on 11/27/2023) predniSONE 10 MG Oral Tablet (Deltasone) Take 5 tabs for 2 days, 4 tabs for 2 days, 3 tabs for 2 days, 2 tabs for 2 days 1 tab for 2 days(was on pred in 2021) (Patient not taking: Reported on 11/27/2023) 30 Tablet 0 Current Facility-Administered Medications Medication Dose Route Frequency Provider Last Rate Last Admin Albuterol Sulfate (Proventil) (2.5 MG/3ML) 0.083% inhalation solution 2.5 mg 2.5 mg Nebulizer PRN Kenrick Santos MD ALLERGIES: Review of patient's allergies indicates: Allergen Reactions Amlodipine Unknown Hydrocortisone Social History Socioeconomic History Marital status: Spouse name: Not on file Number of children: 2 Years of education: Not on file Highest education level: Not on file Occupational History 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 Tobacco Use Smoking status: Former Current packs/day: 0.00 Average packs/day: 3.0 packs/day for 17.0 years (51.0 ttl pk-yrs) Types: Cigarettes Start date: 05/30/1965 Quit date: 05/30/1982 Years since quittin.5 Smokeless tobacco: Never Substance and Sexual Activity Alcohol use: No Drug use: No Sexual activity: Not on file Other Topics Concern Service Not Asked Blood Transfusions Not Asked Caffeine Concern Not Asked Occupational Exposure Not Asked Hobby Hazards Not Asked Sleep Concern Yes Comment: takes clonopin Stress Concern No Weight Concern Not Asked Special Diet Not Asked Back Care Not Asked Exercise Not Asked Bike Helmet Not Asked Seat Belt Yes Self-Exams Not Asked Social History Narrative He lives in [place], and his family lives nearby. 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 Otherwise, all other systems are negative or as noted above. BP 128/82 (BP Site: Right Arm, BP Position: Sitting) | Pulse 74 | Temp 36.8 C (98.2 F) (Tympanic) | Resp 16 | Wt 84.4 kg (186 lb) | SpO2 96% | BMI 28.49 kg/m | BSA 2.01 m The patient is a 83 year old male who is well developed and appears to be their stated age. NEUROLOGIC EXAMINATION: Mental status: Intact higher integrative functions. Orientated to person, place, and time. Recent and remote memory functions are intact. Attention, concentration, language, and fund of knowledge arenormal. Judgment and insight are intact. Mood and affect are normal. No clear hypomimia or hypophonia No voice tremor, mild side to side head tremor Bilateral action > postural hand tremor. Bilateral overflow cogging. Some difficulty with rapid alternating movements on the R. Mild bradykinesia LE with good strength but with walking he has some shuffling tendency. Reduced ROM in R>L shoulder. I have personally reviewed his cranial MRI which showed a moderate degree of small vessel ischemic demyelinizations. IMPRESSION: He has essential tremors, not sure whether he also has Parkinson's He has small vessel cerebrovascular disease. He has likely lumbar spinal claudication. RECOMMENDATIONS: I will order a JOSE scan to rule out Parkinson's. I will also order an EMG of both lower limbs. He can stay on Carbidopa/Levodopa for now as it does not interfere with JOSE scan. Once he is ruled out for Parkinson's we will stop Carbidopa/Levodopa and start him on Primidone. Propranolol is relatively contraindicated because of COPD. He should stay on Clopidogrel. Next f/u in 4 months. I spent approximately 45 minutes with this patient greater than half the time was spent reviewing diagnosis, physical exam, imaging, and treatment Thank-you for the pleasure of this consultation. I will keep you updated on your patient's progress. Nitish Kwan MD Neurology [facility] [address] [facility] [address] Please send copy to requesting physician, Jasmyn Rich MD documented in this encounter Nursing Notes * Elida Espitia LPN - 11/27/2023 10:34 AM EDT Chief Complaint Patient presents with NEW PATIENT Referred by Mayi Dyer for parkinson's disease with dyskinesia and fluctuating manifestations documented in this encounter Plan of Treatment Upcoming Encounters Date Type Department Care Team (Late st Contact Info) Description 12/03/2023 1:40 PM EDT Office Visit Gastroenterology, [facility] [address] [facility] [place] [address] Adriana Marte MD [address] [place] [address] 12/10/2023 4:20 PM EDT Office Visit General Internal Medicine [facility] [address] [place] [address] Jasmyn Rich MD [address] [facility] [place] [address] 12/19/2023 2:30 PM EDT Office Visit Ophthalmology, [facility] [address] [facility] [place] [address] Abdias Catherine, DO [address] [facility] [address] 12/20/2023 2:05 PM EDT NeuroDiagnostic Study Neurophysiology [facility] [address] [place] [address] Austen Cox MD [address] [facility] [address] [place] [address] 12/31/2023 7:45 AM EDT Office Visit Hematology/Oncology [facility] [address] [place] [id number] Jun Martin MD [address] [facility] [place] [address] 04/02/2024 3:40 PM EDT Office Visit Neurology [facility] [address] [facility] [place] [address] Nitish Kwan MD [address] [place] [address] Scheduled Orders Name Type Priority Associated Diagnoses Orde r Schedule NM BRAIN SPECT WITH DATSCAN Medical Imaging Routine Secondary parkinsonism, unspecified secondary Parkinsonism type (HCC) Expected: 12/04/2023, Expires: 12/26/2024 Health Maintenance Due Date Last Done Comments Albumin/Creatinine Ratio 1958 Alpha-1 Antitrypsin 1959 DTaP,Tdap,and Td Vaccines (1 - Tdap) 1960 Zoster Vaccines (1 of 2) 1960 *COPD SEVERITY VERIFIED BY PFT 05/30/2019 *SPIROMETRY ONCE FOR ASTHMA-ADULT 07/05/2022 Pneumococcal Vaccine: 65+ Years (3 of 3 - PCV) 09/01/2022 09/01/2021, 07/08/2013 Depression Screening 03/05/2023 03/05/2022 COVID-19 Vaccine (2 - Pfizer risk series) 09/05/2023 08/15/2023 Influenza Vaccine (FLU shot) (Season Ended) 2024 04/23/2022, 09/01/2021, 04/28/2019, Additional history exists GFR 05/16/2024 05/16/2023, 11/11, 10/04/2022, Additional history [...] Not on filedocumented as of this encounter Visit Diagnoses Diagnosis Secondary parkinsonism, unspecified secondary Parkinsonism type (HCC)- Primary Spinal stenosis of lumbar region with neurogenic claudication Spinal stenosis, lumbar region, with neurogenic claudication documented in this encounter Advance Directives Latest Code Status on File Code Status Date Activated Date Inactivated Comments Full Code 11/28/2012 2:07 AM 11/28/2012 6:25 PM This order reflects the patients wishes and were consensually agreed upon. Question Answer Comments Discussion of Advance Directives occurred with: Patient Care Teams Tilting Saw Operator Relationship Specialty Start Date End Date Jasmyn Rich MD [address] [place] [address] PCP - General Internal Medicine 08/20/23 documented as of this encounter"
--- OUTSIDE RECORDS SUMMARY | 2023-11-30 07:55 | External Medical Summary | Summary of Care ---
Author Name Unknown Organization [facility] Address [address] [place] [address] Phone [phone] Care Team Providers Care Turntable Worker Name Role Phone Jasymn Rich MD Primary Care Provider [phone] Reason for Visit * Reason Onset Date Comments Insurance 11/28/2023 Encounter Details Date Type Department Care Team (Late st Contact Info) Description 11/28/2023 Telephone Family Practice [address] [facility], Elvie [address] [place] [address] Zuhair Nelson DO [address] [place] [address] Insurance Allergies Active Allergy Reactions Criticality Noted Date Comments Amlodipine Unknown 05/09/2023 Hydrocortisone 07/09/2023 documented as of this encounter (statuses as of 11/28/2023) Medications Medication Sig Dispensed Refills Start Date [...] Oral Capsule Take by mouth. 0 Active Carboxymethylcellul ose Sod PF 0.5 % Ophthalmic Solution (Refresh Plus)Indications:Dr erwin eyes Instill 1 Drop into both eyes daily as needed for Dry eyes. 70 Each 5 11/28/2022 Active Nitroglycerin 0.4 MG Sublingual Tablet Sublingual (Nitrostat)Indicati ons:Chest pain, unspecified type Place 1 Tablet under the tongue as needed for Pain, Chest. May repeat 3 times. If chest pain continues, call 911. 25 Tablet 11 11/28/2022 Active Additional Information Patient not taking.Reported on 11/27/2023 Clopidogrel Bisulfate 75 MG Oral Tablet (pLAVix)Indications :Carotid atherosclerosis, bilateral,PVD (peripheral vascular disease) ([facility]),History of transient ischemic attack (TIA) Take 1 Tablet by mouth in the morning. 90 Tablet 3 11/28/2022 Active Rosuvastatin Calcium 20 MG Oral Tablet (Crestor)Indication s:PVD (peripheral vascular disease) ([facility]),History of transient ischemic attack (TIA) Take 1 Tablet by mouth at bedtime. 90 Tablet 3 12/07/2022 Active Vitamin E 100 UNIT Oral Capsule Take 1 Capsule by mouth in the morning. 0 Active Zinc 50 MG Oral Tablet Take 1 Tablet by mouth in the morning. 0 Active QUEtiapine Fumarate 25 MG Oral Tablet (SEROquel)Indicatio ns:Panic disorder,RADHA (generalized anxiety disorder) Take 1 Tablet by mouth at bedtime. 90 Tablet 3 12/31/2022 Active Simethicone 80 MG Oral Tablet Chewable (Mylicon) Take 1 Tablet by mouth every 6 hours as needed for Gas. 0 Active Valsartan 160 MG Oral Tablet (Diovan)Indications :HTN, goal below 130/80 Take 1 Tablet [...] MG Oral Tablet Extended Release 24 Hour (Imdur)Indications: Angina pectoris (HCC) Take 1 Tablet by mouth in the morning. 90 Tablet 3 05/29/2023 Active Albuterol Sulfate HFA 108 (90 Base) MCG/ACT Inhalation Aerosol SolutionIndications :COPD with asthma ([facility]) Inhale 2 Puffs by mouth every 6 hours as needed for Cough or Shortness of Breath. 18 g 5 05/29/2023 Active Carbidopa-Levodopa 25-100 MG Oral Tablet (Sinemet) Take [...] for Erectile Dysfunction. 0 Active Horny Goat [place] Oral Capsule Take by mouth. 0 Active Zuleika 500 MG Oral Capsule Take by mouth. 0 Active Fluticasone Propionate HFA 110 MCG/ACT Inhalation Aerosol (Flovent HFA)Indications:Whe ezing Inhale 2 Puffs by mouth in the morning and 2 Puffs before bedtime. 12 g 2 07/23/2023 Active Captopril 25 MG Oral Tablet (Capoten) 1 Tablet. 0 05/09/2023 Active Valsartan-hydroCHLO ROthiazide 160-25 MG Oral Tablet 1 Tablet. 0 05/09/2023 Active Delsym Cough/Chest Congest DM 5-100 MG/5ML Oral Liquid (Dextromethorphan-g uaiFENesin) Take by mouth. 0 Active Montelukast Sodium [...] 0 Active predniSONE 10 MG Oral Tablet (Deltasone)Indicati ons:Acute bronchitis due to COVID-19 virus Take 5 tabs for 2 days, 4 tabs for 2 days, 3 tabs for 2 days, 2 tabs for 2 days 1 tab for 2 days(was on pred in 2021) 30 Tablet 0 08/20/2023 Active Additional Information Patient not taking.Reported on 11/27/2023 Carvedilol 6.25 MG Oral Tablet (Coreg)Indications: HTN, goal below 130/80 TAKE 1 TABLET BY MOUTH IN THE MORNING AND BEFORE BEDTIME 180 Tablet 3 11/15/2023 Active Kristen Root 550 MG Oral Capsule Take by mouth. 0 Active B-12 1000 MCG Oral Tablet Take by mouth. 0 Active Triple [place]-3-6-9 Oral Capsule Take by mouth. 0 Active NATURAL SUPPLEMENT Take by mouth daily. Baclofen tablets from Rachael for muscle relaxant and antipastic 0 Active Milk Thistle 300 MG Oral Capsule Take by mouth. 0 Active Caltrate 600+D Plus Minerals 600-800 MG-UNIT Oral Tablet Chewable Take by mouth. 0 Active NATURAL SUPPLEMENT Take by mouth daily. Modern mushrooms 0 Active Turmeric Curcumin 500 MG Oral Capsule Take by mouth. 0 A ctive Vitamin A 3 MG (00645 UT) Oral Capsule (Aquasol-A) Take 1 Capsule by mouth in the morning. 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 Gave patient son Lopez Vasquez the [facility] Gold advisor phone number. documented in this encounter Plan of Treatment Upcoming Encounters Date Type Department Care Team (Late st Contact Info) Description 12/02/2023 2:00 PM EDT Nurse Only [facility] [address] [place] [address] [place] [address] [place] [id number] Nurse Elvie [facility] Pr[address] [place] [address] 12/02/2023 2:20 PM EDT Office Visit Family Practice Elvie Sequeira [address] [place] [address] Zuhair Nelson DO [address] [place] [address] 12/03/2023 1:40 PM EDT Office Visit Gastroenterology, [facility] 132 [facility] [place] [address] Adriana Marte MD 132 [facility] [place] [address] 12/10/2023 4:20 PM EDT Office Visit General Internal Medicine [facility]ia [place] [address] [place] [address] Jasmyn Rich MD [address] [facility] [place] [address] 12/19/2023 2:30 PM EDT Office Visit Ophthalmology, [facility] 132 [place] [address] Abdias Catherine, DO [facility] [place] [address] 12/20/2023 2:05 PM EDT NeuroDiagnostic Study Neurophysiology [facility] [address] [place] [address] Austen Cox MD [address] [place] [address] 12/24/2023 10:30 AM EDT Imaging [facility] 2nd Floor Cardiology, [address] [place] [address] 12/24/2023 2:30 PM EDT Imaging [facility] 2nd Floor [facility], [address] [place] [address] 12/31/2023 7:45 AM EDT Office Visit Hematology/Oncology [facility] [address] [place] [phone] Jun Martin MD 200 [facility] [place] [address] 04/02/2024 3:40 PM EDT Office Visit Neurology [facility] 200 [facility] [place] [address] Nitish Kwan MD [address] [place] [address] Health Maintenance Due Date Last Done Comments [...] Advance Directives occurred with: Patient Care Teams Turntable Worker Relationship Specialty Start Date End Date Jasmyn Rich MD 200 [facility] [place] [address] PCP - General Internal Medicine 08/20/23 documented as of this encounter
--- OUTSIDE RECORDS SUMMARY | 2023-11-30 07:55 | External Medical Summary | Summary of Care ---
Author Name Unknown Organization [facility] Address [address] [place] [address] Phone [phone] Care Team Providers Care Landscaping Supervisor Name Role Phone Jasmyn Rich MD Primary Care Provider [phone] Reason for Visit * Reason Onset Date Comments No Show 10/03/2023 Encounter Details Date Type Department Care Team (Late st Contact Info) Description 10/03/2023 Telephone Hematology/Oncology [facility] [place] 200 [facility] [place] [phone] Jun Martin [facility] [address] [facility] [address] No Show Allergies Active Allergy Reactions Criticality Noted Date Comments Amlodipine Unknown 05/09/2023 Hydrocortisone 07/09/2023 documented as of this encounter (statuses as of 10/29/2023) Medications Medication Sig Dispensed Refills Start Date [...] for Erectile Dysfunction. 0 Active Horny Goat [place] Oral Capsule Take by mouth. 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 Patient is rescheduled for 12/31/23. * Telephone Encounter - Lila Palencia KARISHMA - 2023 11:39 AM EST Called X3. [...] if patient would like to reschedule? NS: [email or web address] documented in this encounter Plan of Treatment Upcoming Encounters Date Type Department Care Team (Late st Contact Info) Description 11/05/2023 11:15 AM EDT Office Visit Urology, [facility] [address] [place] [address] Tank Brandt MD 27 [facility] [address] [place] [address] 11/27/2023 10:40 AM EDT Office Visit Neurology [facility] 200 [facility] [place] [address] Nitish Kwan MD [address] [place] [address] 12/03/2023 1:40 PM EDT Office Visit Gastroenterology, [facility] 132 [place] [address] Adriana Marte MD 132 [place] [address] 12/03/2023 3:00 PM EDT Office Visit General Internal Medicine [facility] 200 [facility] [place] [address] Jasmyn Rich MD [address] [place] [address] [place] [address] 12/31/2023 7:45 AM EDT Office Visit Hematology/Oncology [address] [place] [address] Jun Martin MD 200 [facility] [place] [address] Health Maintenance Due Date Last Done Comments [...] risk series) 09/05/2023 08/15/2023 GFR 05/16/2024 05/16/2023, /, 10/04/2022, Additional history exists O2 ASSESSMENT COMPLETED [...] Advance Directives occurred with: Patient Care Teams Landscaping Supervisor Relationship Specialty Start Date End Date Jasmyn Rich MD 200 [facility] [place], [place] [address] PCP - General Internal Medicine 08/20/23 documented as of this encounter
--- OUTSIDE RECORDS SUMMARY | 2023-11-30 07:55 | External Medical Summary | Summary of Care ---
Author Name Unknown Organization [facility] Address [address] [place] [address] Phone [phone] Care Team Providers Care Deaf And Hard Of Hearing Teacher Name Role Phone Jasmyn Rich MD Primary Care Provider [phone] Reason for Visit * Reason Onset Date Comments Appointment 11/28/2023 Encounter Details Date Type Department Care Team (Late st Contact Info) Description 11/28/2023 Telephone [facility] [place] [address] [place] [address] Nitish Kwan MD [address] [place] [address] Appointment Allergies Active Allergy Reactions Criticality Noted Date [...] morning. 0 Active Vitamin D 50 MCG (1999 UT) Oral Capsule Take 2,000 Units by [...] (pLAVix)Indications :Carotid atherosclerosis, bilateral,PVD (peripheral vascular disease) ([facility]),History of transient ischemic attack (TIA) Take 1 Tablet by mouth in the morning. 90 Tablet 3 11/28/2022 Active Rosuvastatin Calcium 20 MG Oral Tablet (Crestor)Indication s:PVD (peripheral vascular disease) ([facility]),History of transient ischemic attack (TIA) Take [...] MCG/ACT Inhalation Aerosol SolutionIndications :COPD with asthma ([facility]) Inhale 2 Puffs by mouth every [...] for Erectile Dysfunction. 0 Active Horny Goat [place] Oral Capsule Take by mouth. 0 Active [...] Tablet Take by mouth. 0 Active Triple [place]-3-6-9 Oral Capsule Take by mouth. 0 Active [...] 0 A ctive Vitamin A 3 MG (17290 UT) Oral Capsule (Aquasol-A) Take 1 Capsule [...] encounter Miscellaneous Notes * Telephone Encounter - Chey Alejandre OSA - 11/28/2023 9:14 AM EDT Please call and schedule a datscan documented in this encounter Plan of Treatment Upcoming Encounters Date Type Department Care Team (Late st Contact Info) Description 12/03/2023 1:40 PM EDT Office Visit Gastroenterology, [facility] 132 [facility] [place] [address] Adriana Marte MD 132 [facility] [place] [address] 12/10/2023 4:20 PM EDT Office Visit General Internal Medicine [facility] [address] [place] [address] Jasmyn Rich MD [address] [place] [address] 12/19/2023 2:30 PM EDT Office Visit Ophthalmology, [facility] 132 [facility] [place] [address] Abdias Catherine, 21 [facility] [place] [address] 12/20/2023 2:05 PM EDT NeuroDiagnostic Study Neurophysiology [facility] [address] [place] [address] Austen Cox MD [address] [place] [address] 12/31/2023 7:45 AM EDT Office Visit Hematology/Oncology [facility] [place] [address] [place] [phone] Jun Martin MD [address] [place] [address] 04/02/2024 3:40 PM EDT Office Visit Neurology [facility] 200 [place] [address] Nitish Kwan MD [address] [place] [address] Health Maintenance Due Date Last Done Comments [...] 04/28/2019, Additional history exists GFR 05/16/2024 05/16/2023, 04/, 10/04/2022, Additional history exists O2 ASSESSMENT COMPLETED [...] Advance Directives occurred with: Patient Care Teams Deaf And Hard Of Hearing Teacher Relationship Specialty Start Date End Date Jasmyn Rich MD 200 [facility], [place] [id number] PCP - General Internal Medicine 08/20/23 documented as of this encounter
--- OUTSIDE RECORDS SUMMARY | 2023-11-30 07:55 | External Medical Summary | Summary of Care ---
Author Name Unknown Organization [facility] Address [address] [place] [address] Phone [phone] Care Team Providers Care Cook Cold Meat Name Role Phone Jasmyn Rich MD Primary Care Provider [phone] Reason for Visit * Reason Comments eRx-Medication Refill Encounter Details Date Type Department Care Team (Late st Contact Info) Description 11/15/2023 Refill General Internal Medicine [facility] 200 [facility] [place] [address] Jasmyn Rich MD 200 [place] [address] HTN, goal below 130/80 Allergies Active Allergy Reactions Criticality Noted Date Comments Amlodipine Unknown 05/09/2023 Hydrocortisone 07/09/2023 documented as of this encounter (statuses as of 11/15/2023) Medications Medication Sig Dispensed Refills Start Date [...] Oral Tablet Take by mouth . 0 Activ e L-Arginine 1000 MG Oral Tablet Take by mouth . 0 Activ e Ashwagandha 500 MG Oral Capsule Take by mouth. 0 Activ e Carboxymethylcel lulose Sod PF 0.5 % Ophthalmic Solution (Refresh Plus)Indications :Dry eyes Instill 1 Drop into both eyes daily as needed for Dry eyes. 70 Each 5 11/28/2022 Active Nitroglycerin 0.4 MG Sublingual Tablet Sublingual (Nitrostat)Indic ations:Chest pain, unspecified type Place 1 Tablet under the tongue as needed for Pain, Chest. May repeat 3 times. If chest pain continues, call 911. 25 Tablet 11 11/28/2022 Active Clopidogrel Bisulfate 75 MG Oral Tablet (pLAVix)Indicati ons:Carotid atherosclerosis, bilateral,PVD (peripheral vascular disease) ([facility]),History of transient ischemic attack (TIA) Take 1 Tablet by mouth in the morning. 90 Tablet 3 11/28/2022 Active Rosuvastatin Calcium 20 MG Oral Tablet (Crestor)Indicat ions:PVD (peripheral vascular disease) ([facility]),History of transient ischemic attack (TIA) Take 1 Tablet by mouth at bedtime. 90 Tablet 3 12/07/2022 Active Additional Information Patient not taking.Reported on 08/20/2023 Vitamin E 100 UNIT Oral Capsule Take 1 Capsule by mouth in the morning. 0 Active Zinc 50 MG Oral Tablet Take 1 Tablet by mouth in the morning. 0 Active QUEtiapine Fumarate 25 MG Oral Tablet (SEROquel)Indica tions:Panic disorder,RADHA (generalized anxiety disorder) Take 1 Tablet by mouth at bedtime. 90 Tablet 3 12/31/2022 Active Additional Information Patient not taking.Reported on 08/20/2023 Simethicone 80 MG Oral Tablet Chewable (Mylicon) Take 1 Tablet by mouth every 6 hours as needed for Gas. 0 Active Valsartan 160 MG Oral Tablet (Diovan)Indicati ons:HTN, goal below 130/80 Take 1 Tablet by [...] MG Oral Tablet Extended Release 24 Hour (Imdur)Indicatio ns:Angina pectoris (HCC) Take 1 Tablet by mouth in the morning. 90 Tablet 3 05/29/2023 Active Albuterol Sulfate HFA 108 (90 Base) MCG/ACT Inhalation Aerosol SolutionIndicati ons:COPD with asthma ([facility]) Inhale 2 Puffs by mouth every 6 hours as needed for Cough or Shortness of Breath. 18 g 5 05/29/2023 Active Additional Information Patient not taking.Reported on 08/20/2023 Carbidopa-Levodo pa 25-100 MG Oral Tablet (Sinemet) Take 1 [...] for Erectile Dysfunction. 0 Active Horny Goat [place] Oral Capsule Take by mouth. 0 Active Zuleika 500 MG Oral Capsule Take by mouth. 0 Active Fluticasone Propionate HFA 110 MCG/ACT Inhalation Aerosol (Flovent HFA)Indications: Wheezing Inhale 2 Puffs by mouth in the morning and 2 Puffs before bedtime. 12 g 2 07/23/2023 Active Captopril 25 MG Oral Tablet (Capoten) 1 Tablet. 0 05/09/2023 Active Valsartan-hydroC HLOROthiazide 160-25 MG Oral Tablet 1 Tablet. 0 05/09/2023 Active Delsym Cough/Chest Congest DM 5-100 MG/5ML Oral Liquid (Dextromethorpha n-guaiFENesin) Take by mouth. 0 Active Montelukast Sodium 10 MG Oral Tablet (Singulair) Take 1 Tablet by mouth at bedtime. 90 Tablet 3 08/15/2023 Active Nirmatrelvir&Rit onavir 300/100 20 x 150 MG & 10 x 100MG Oral Tablet Therapy Pack (Paxlovid)Indica tions:COVID-19 virus infection Take 2 pink tablets of [...] 0 Active predniSONE 10 MG Oral Tablet (Deltasone)Indic ations:Acute bronchitis due to COVID-19 virus Take 5 tabs for 2 days, 4 tabs for 2 days, 3 tabs for 2 days, 2 tabs for 2 days 1 tab for 2 days(was on pred in 2021) 30 Tablet 0 08/20/2023 Active Carvedilol 6.25 MG Oral Tablet (Coreg)Indicatio ns:HTN, goal below 130/80 TAKE 1 TABLET BY MOUTH IN THE MORNING AND BEFORE BEDTIME 180 Tablet 3 11/15/2023 Active Carvedilol 6.25 MG Oral Tablet (Coreg)Indicatio ns:HTN, goal below 130/80 Take 1 Tablet by mouth in the morning and 1 Tablet before bedtime. 180 Tablet 3 11/28/2022 11/15/19 24 Discontinued Hospital, Clinic, or Other Facility Administered Medication Ordered Dose Route Frequency Start Date End Date Status Albuterol Sulfate (Proventil) (2.5 MG/3ML) 0.083% inhalation solution 2.5 mgIndications:COPD, frequent exacerbations (HCC) 2.5 mg NEBULIZER PRN 12/07/2022 12/07/2023 Active documented as of this encounter (statuses as of 11/15/2023) Active Problems Problem Noted Date Diagnosed Date [...] as of this encounter (statuses as of 11/15/2023) Resolved Problems Problem Noted Date Diagnosed Date Resolved Date Dementia without behavioral disturbance 11/28/2022 11/28/2022 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 06/08/2019 Syncope and collapse 11/28/2012 019 Anemia 09/25/2012 05/14/2022 Hypertension 09/25/2012 06/08/2019 TIA (transient ischemic attack) 09/25/2012 04/20/2019 documented as of this encounter (statuses as of 11/15/2023) Immunizations Name Administration Dates Next Due COVID-19, [...] encounter Miscellaneous Notes * Telephone Encounter - Martita Boogie [facility] - 11/15/2023 2:45 PM EDT Signed Prescriptions: Disp Refills Carvedilol 6.25 MG Oral Tablet (Coreg) 180 Ta*3 Sig: TAKE 1 TABLET BY MOUTH IN THE MORNING AND BEFORE BEDTIMEAuthorizing Provider: Marilyn RICH User: MARTITA BOOGIE documented in this encounter Plan of Treatment Upcoming Encounters Date Type Department Care Team (Late st Contact Info) Description 11/27/2023 10:40 AM EDT Office Visit Neurology [address] [place] [address] Nitish Kwan MD [address] [place] [address] 12/03/2023 1:40 PM EDT Office Visit Gastroenterology, [facility] 132 [facility] [place] [address] Adriana Marte MD 132 [place] [address] 12/10/2023 4:40 PM EDT Office Visit General Internal Medicine [facility] 200 [facility] [place] [address] Jasmyn Rich MD 200 [facility] [place] [address] 12/19/2023 2:30 PM EDT Office Visit Ophthalmology, [facility] 132 [place] [address] Abdias Catherine, 21 [facility] [address] 12/31/2023 7:45 AM EDT Office Visit Hematology/Oncology [facility] [place] 200 [facility] [place] [phone] Jun Martin MD 200 [facility] [place] [address] Health Maintenance Due Date Last Done Comments [...] as of this encounter Visit Diagnoses Diagnosis HTN, goal below 130/80 Unspecified essential hypertension documented in this encounter Advance Directives Latest Code Status on File Code Status Date Activated Date Inactivated Comments Full Code 11/28/2012 2:07 AM 11/28/2012 6:25 PM This order reflects the patients wishes and were consensually agreed upon. Question Answer Comments Discussion of Advance Directives occurred with: Patient Care Teams Cook Cold Meat Relationship Specialty Start Date End Date Jasmyn Rich MD 200 [place] [address] PCP - General Internal Medicine 08/20/23 documented as of this encounter
--- OUTSIDE RECORDS SUMMARY | 2023-11-30 07:56 | External Medical Summary | Summary of Care ---
Author Name Unknown Organization [facility] Address [address] [place] [address] Phone [phone] Care Team Providers Care Customs Consultant Name Role Phone Jasmyn Rich MD Primary Care Provider [phone] Reason for Visit * Reason Comments Acute The pt stated he has been having severe stomach pain. The pt stated yesterday he had CP and SOB as well. Encounter Details Date Type Department Care Team (Late st Contact Info) Description 08/20/2023 11:00 AM EST Office Visit General Internal Medicine [facility] [address] [place] [address] Jasmyn Rich MD [address] [place] [address] Acute bronchitis due to COVID-19 virus*; Wheezing; History of abdominal pain; RADHA (generalized anxiety disorder) Allergies Active Allergy Reactions Criticality Noted Date Comments Amlodipine Unknown 05/09/2023 Hydrocortisone 07/09/2023 documented as of this encounter (statuses as of 08/20/2023) Medications Medication Sig Dispensed Refills Start Date [...] Oral Tablet (Crestor)Indicatio ns:PVD (peripheral vascular disease) (HCC),History of transient ischemic [...] for Erectile Dysfunction. 0 Active Horny Goat Levant Oral Capsule Take by mouth. 0 Active [...] as of this encounter (statuses as of 08/20/2023) Active Problems Problem Noted Date Diagnosed Date [...] as of this encounter (statuses as of 08/20/2023) Resolved Problems Problem Noted Date Diagnosed Date Resolved Date Dementia without behavioral disturbance 11/28/2022 11/28/2022 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 06/08/2019 Syncope and collapse 11/28/2012 019 Anemia 09/25/2012 05/14/2022 Hypertension 09/25/2012 06/08/2019 TIA (transient ischemic attack) 09/25/2012 04/20/2019 documented as of this encounter (statuses as of 08/20/2023) Immunizations Name Administration Dates Next Due COVID-19, [...] Date Smoking Tobacco: Former Cigarettes 3 17 Q uit: 05/30/1982 Smokeless Tobacco: Never Alcohol Use Standard [...] Sign Reading Time Taken Comments Blood Pressure 158/82 08/20/2023 11:21 AM EST Pulse 66 08/20/2023 11:21 AM EST Temperature 35.6 C (96.1 F) 08/20/2023 11:[address] Respiratory Rate - - Oxygen Saturation 97% 08/20/2023 11:21 AM EST Inhaled Oxygen Concentration - - Weight 85.8 kg (189 lb 3.2 oz) 08/20/2023 11:21 AM EST Height - - Body Mass Index 28.98 08/15/2023 1:01 PM EST documented in this encounter Progress Notes * Jasmyn Rich MD - 08/20/2023 11:28 AM EST SUBJECTIVE: Amanda Bhagat is a 82 year old male. Chief Complaint Patient presents with Acute The pt stated he has been having severe stomach pain. The pt stated yesterday he had CP and SOB as well. HPI: Patient presents today for acute appointment for abdominal pain. Recently seen for acute coughon August 15, tested positive for COVID-19, given Paxlovid. Seroquel, atorvastatin on hold 7d Today presents with the symptoms of abdominal pain for the past few days, states is intermittent, can be 6/10, history of constipation took magnesium citrate, bowel movement was normal, had scant amount of bleeding per rectum on wiping. No blood in the stool. Home blood pressure was high, he took an medication that he had from [place] kcapoten 25 mg about 3-4 tablets for 3 days ago., has been urinat ing well. No fever or chills. States has chronic shortness of breath, has not been using albuterol inhaler. 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 RADHA (generalized anxiety disorder) F41.1 Panic disorder F41.0 Fatty liver K76.0 Primary insomnia F51.01 Parkinson's disease G20.A1 Multiple myeloma not having achieved remission (HCC) C90.00 Dementia without behavioral disturbance (HCC) F03.90 Achalasia of esophagus K22.0 COPD, group B, by GOLD 2017 classification ([facility]) J44.9 Bilateral carpal tunnel syndrome G56.03 BPH with obstruction/lower urinary tract symptoms N40.1, N13.8 Erectile dysfunction due to diseases classified elsewhere N52.1 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 Ashwagandha 500 MG Oral Capsule Take by mouth. Nitroglycerin 0.4 MG Sublingual Tablet Sublingual (Nitrostat) Place 1 Tablet under the tongue as needed for Pain, Chest. May repeat 3 times. If chest pain continues, call 911. 25 Tablet 11 Clopidogrel Bisulfate 75 MG Oral Tablet (pLAVix) Take 1 Tablet by mouth in the morning. 90 Tablet 3 Carvedilol 6.25 MG Oral Tablet (Coreg) Take 1 Tablet by mouth in the morning and 1 Tablet before bedtime. 180 Tablet 3 Valsartan 160 MG Oral Tablet (Diovan) Take 1 Tablet by mouth in the morning. 90 Tablet 3 Isosorbide Mononitrate ER 30 MG Oral Tablet Extended Release 24 Hour (Imdur) Take 1 Tablet by mouthin the morning. 90 Tablet 3 Carbidopa-Levodopa 25-100 MG Oral Tablet (Sinemet) Take 1 Tablet by mouth in the morning and 1 Tablet at noon and 1 Tablet before bedtime. 270 Tablet 2 Tadalafil 5 MG Oral Tablet (Cialis) Take 1 Tablet by mouth daily as needed for Erectile Dysfunction. Fluticasone Propionate HFA 110 MCG/ACT Inhalation Aerosol (Flovent HFA) Inhale 2 Puffs by mouth in the morning and 2 Puffs before bedtime. 12 g 2 Captopril 25 MG Oral Tablet (Capoten) 1 Tablet. Delsym Cough/Chest Congest DM 5-100 MG/5ML Oral Liquid (Dextromethorphan- guaiFENesin) Take by mouth. Montelukast Sodium 10 MG Oral Tablet (Singulair) Take 1 Tablet by mouth at bedtime. 90 Tablet 3 Nirmatrelvir&Ritonavir 300/100 20 x 150 MG & 10 x 100MG Oral Tablet Therapy Pack (Paxlovid)Take 2 pink tablets of Nirmatrelvir and 1 white tablet of Ritonavir two times a day by mouth. 30 Tablet 0 busPIRone HCl 5 MG Oral Tablet (Buspar) Take 1 Tablet by mouth in the morning and 1 Tablet before bedtime. Magnesium 250 MG Oral Tablet Take 1 Tablet by mouth in the morning. Folic Acid 400 MCG Oral Tablet Take 1 Tablet by mouth in the morning. Ibuprofen 200 MG Oral Tablet (Motrin) Take 1 Tablet by mouth every 4 hours as needed. MULTIVITAMINS PO CAPS 1 tablet daily (Patient not taking: Reported on 08/20/2023) B Complex 100 TR Oral Tablet Extended Release Take by mouth. Vitamin C 1000 MG Oral Tablet Take 1 Tablet by mouth in the morning. (Patient not taking: Reported on 08/20/2023) Vitamin D 50 MCG (2000 UT) Oral Capsule Take 2,000 Units by mouth daily. (Patient not taking: Reported on 08/20/2023) Glucosamine 750 MG Oral Tablet Take by mouth . (Patient not taking: Reported on 08/20/2023) L-Arginine 1000 MG Oral Tablet Take by mouth . (Patient not taking: Reported on 08/20/2023) Carboxymethylcellulose Sod PF 0.5 % Ophthalmic Solution (Refresh Plus) Instill 1 Drop into both eyes daily as needed for Dry eyes. 70 Each 5 Rosuvastatin Calcium 20 MG Oral Tablet (Crestor) Take 1 Tablet by mouth at bedtime. (Patient not taking: Reported on 08/20/2023) 90 Tablet 3 Vitamin E 100 UNIT Oral Capsule Take 1 Capsule by mouth in the morning. (Patient not taking: Reported on 08/20/2023) Zinc 50 MG Oral Tablet Take 1 Tablet by mouth in the morning. (Patient not taking: Reported on 08/20/2023) QUEtiapine Fumarate 25 MG Oral Tablet (SEROquel) Take 1 Tablet by mouth at bedtime. (Patient not taking: Reported on 08/20/2023) 90 Tablet 3 Simethicone 80 MG Oral Tablet Chewable (Mylicon) Take 1 Tablet by mouth every 6 hours as needed forGas. (Patient not taking: Reported on 08/20/2023) Gabapentin 100 MG Oral Capsule (Neurontin) 1 tab at bedtime x 5 days then 1 tab twice daily x 5 day, then 1 tab three times daily (Patient not taking: Reported on 08/20/2023) 90 Capsule 2 Albuterol Sulfate HFA 108 (90 Base) MCG/ACT Inhalation Aerosol Solution Inhale 2 Puffs by mouth every 6 hours as needed for Cough or Shortness of Breath. (Patient not taking: Reported on 08/20/2023) 18g 5 Apple Cider Vinegar Plus Oral Tablet Take by mouth. 1 tbsp daily with lemon water (Patient not taking: Reported on 08/20/2023) Pantoprazole Sodium 40 MG Oral Tablet Delayed Release (Protonix) Take 1 Tablet by mouth in the morning and 1 Tablet before bedtime. For 8 weeks then take 1 time a day 1 hour prior to breakfast. 180 Tablet 0 Horny Goat Levant Oral Capsule Take by mouth. (Patient not taking: Reported on 08/20/2023) Zuleika 500 MG Oral Capsule Take by mouth. (Patient not taking: Reported on 08/20/2023) Valsartan-hydroCHLOROthiazide 160-25 MG Oral Tablet 1 Tablet. (Patient not taking: Reported on 08/20/2023) Current Facility-Administered Medications Medication Dose Route Frequency Provider Last Rate Last Admin Albuterol Sulfate (Proventil) (2.5 MG/3ML) 0.083% inhalation solution 2.5 mg 2.5 mg Nebulizer PRN Kenrick Santos MD Review of patient's allergies indicates: Allergen Reactions Amlodipine Unknown Hydrocortisone OBJECTIVE: BP 158/82 | Pulse 66 | Temp 35.6 C (96.1 F) | Wt 85.8 kg (189 lb 3.2 oz) | SpO2 97% | BMI 28.98kg/m | BSA 2.03 m PHYSICAL EXAM: General: alert, healthy, no distress, well developed Heart: regular rhythm and rate,No murmurs. Lungs: Diffuse rhonchi throughout the lung palacios Extremities: no edema Abdomen: Soft, non-tender, normal bowel sounds, no masses or organomegaly ASSESSMENT/PLAN: Acute bronchitis due to COVID-19 virus (Primary) - predniSONE 10 MG Oral Tablet (Deltasone); Take 5 tabs for 2 days, 4 tabs for 2 days, 3 tabs for 2days, 2 tabs for 2 days 1 tab for 2 days(was on pred in 2021) Wheezing --recently completed Paxlovid, start Pred taper, start using albuterol inhaler he has. History of abdominal pain -may be from paxlovid -exam benign, has had normal bowel movement today, urinating well. Advised that if symptoms get worse he will need to go to the ER for evaluation RADHA (generalized anxiety disorder) Resume Seroquel in 3 days Follow Up: Return in about 1 month (around 09/20/2023), or if symptoms worsen or fail to improve, forReturn with Physician. | For: Return with Physician | Check- out note: 40 MIN new pt eval (This note was completed using the dictation program Fluency Direct. As such, there may be misspellings, word substitutions, or other variations that should not change the essence of the clinical content of this encounter note. If there is need for further clarification, please direct questions to the provider listed above.) Patient and / caregiver verbalize understanding of above instructions and agrees with plan of care. Jasmyn Rich MD 08/20/2023 documented in this encounter Nursing Notes * Brandan Waterman LPN - 08/20/2023 11:19 AM EST Chief Complaint Patient presents with Acute The pt stated he has been having severe stomach pain. The pt stated yesterday he had CP and SOB as well. documented in this encounter Plan of Treatment Upcoming Encounters Date Type Department Care Team (Late st Contact Info) Description 10/03/2023 1:15 PM EST Office Visit Hematology/Oncology [facility] [address] [place] [address] Jun Martin MD [address] [place] [address] 10/11/2023 2:20 PM EST Office Visit General Internal Medicine [facility] [address] [place] [address] Jasmyn Rich MD [address] [place] [address] 10/15/2023 3:20 PM EST Office Visit Pulmonary Medicine, [address] [place] [address] Kenrick Santos MD [address] [place] [address] 11/05/2023 11:15 AM EDT Office Visit Urology, [facility] [address] [place] [address] Tank Brandt MD 27 [facility] [address] [place] [address] 11/15/2023 2:20 PM EDT Office Visit General Internal Medicine [facility] 200 [facility] [place] [address] Jasmyn Rich MD [address] [facility] [place] [address] 11/27/2023 10:40 AM EDT Office Visit Neurology [facility] [address] [facility] [place] [address] Nitish Kwan MD [address] [place] [address] 12/03/2023 1:40 PM EDT Office Visit Gastroenterology, [facility] [address] [facility] [place] [address] Adriana Marte MD [address] [facility] [address] Health Maintenance Due Date Last Done Comments Albumin/Creatinine Ratio 1958 Alpha-1 Antitrypsin 1959 DTaP,Tdap,and Td Vaccines (1 - Tdap) 1960 Zoster Vaccines (1 of 2) 1960 *COPD SEVERITY VERIFIED BY PFT 05/30/2019 *SPIROMETRY ONCE FOR ASTHMA-ADULT 07/05/2022 Pneumococcal Vaccine: 65+ Years (3 - PCV) 09/01/2022 09/01/2021, 07/08/2013 Depression Screening [...] as of this encounter Visit Diagnoses Diagnosis Acute bronchitis due to COVID-19 virus- Primary Wheezing History of abdominal pain Personal history of other specified diseases RADHA (generalized anxiety disorder) Generalized anxiety disorder documented in this encounter Additional Health Concerns Infection Onset Date Last Indicated Resolved Time COVID-19 (confirmed) 08/15/2023 08/15/2023 documented as of this encounter Advance Directives Latest Code Status on File Code Status Date Activated Date Inactivated Comments Full Code 11/28/2012 2:07 AM 11/28/2012 6:25 PM This order reflects the patients wishes and were consensually agreed upon. Question Answer Comments Discussion of Advance Directives occurred with: Patient Care Teams Customs Consultant Relationship Specialty Start Date End Date Jasmyn Rich MD [address] [place], [place] [address] PCP - General Internal Medicine 08/20/23 documented as of this encounter"
--- OUTSIDE RECORDS SUMMARY | 2023-11-30 07:56 | External Medical Summary | Summary of Care ---
Author Name Unknown Organization [facility] Address [address] [place] [address] Phone [phone] Care Team Providers Care Process Engineer Name Role Phone Jasmyn Rich MD Primary Care Provider [phone] Reason for Visit * Reason Onset Date Comments Test Results Imaging Study 07/22/2023 Encounter Details Date Type Department Care Team (Latest Contact Info) Description 07/22/2023 Molded Goods Operator Telephone Care Coordination and Integration [address] [place] [address] Lila Gerardo, SHAUNA [address] [place] [address] Test Results Imaging Study Allergies Active Allergy Reactions Criticality Noted Date Comments Amlodipine Unknown 05/09/2023 Hydrocortisone 07/09/2023 documented as of this encounter (statuses as of 08/22/2023) Medications Medication Sig Dispensed Refills Start Date [...] (pLAVix)Indicati ons:Carotid atherosclerosis, bilateral,PVD (peripheral vascular disease) (HCC),History of transient ischemic attack (TIA) Take 1 Tablet by mouth in the morning. 90 Tablet 3 11/28/2022 Active Carvedilol 6.25 MG Oral Tablet (Coreg)Indicatio ns:HTN, goal below 130/80 Take 1 Tablet by mouth in the morning and 1 Tablet before bedtime. 180 Tablet 3 11/28/2022 Active Rosuvastatin Calcium 20 MG Oral Tablet (Crestor)Indicat ions:PVD (peripheral vascular disease) (HCC),History of transient ischemic [...] MCG/ACT Inhalation Aerosol SolutionIndicati ons:COPD with asthma Inhale 2 Puffs by mouth [...] for Erectile Dysfunction. 0 Active Horny Goat Riner Oral Capsule Take by mouth. 0 Active Aspirin 81 MG Oral Tablet Delayed Release Take 1 Tablet by mouth every other day. 0 4 Discontinued busPIRone HCl 5 MG Oral Tablet (Buspar)Indicati ons:Anxiety Take 1 Tablet by mouth in the morning and 1 Tablet before bedtime. 90 Tablet 1 06/11/2023 4 Discontinued Hospital, Clinic, or Other Facility Administered Medication Ordered Dose Route Frequency Start Date End Date Status Albuterol Sulfate (Proventil) (2.5 MG/3ML) 0.083% inhalation solution 2.5 mgIndications:COPD, frequent exacerbations (HCC) 2.5 mg NEBULIZER PRN 12/07/2022 12/07/2023 Active documented as of this encounter (statuses as of 08/22/2023) Active Problems Problem Noted Date Diagnosed Date [...] as of this encounter (statuses as of 08/22/2023) Resolved Problems Problem Noted Date Diagnosed Date Resolved Date Dementia without behavioral disturbance 11/28/2022 11/28/2022 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 06/08/2019 Syncope and collapse 11/28/2012 019 Anemia 09/25/2012 05/14/2022 Hypertension 09/25/2012 06/08/2019 TIA (transient ischemic attack) 09/25/2012 04/20/2019 documented as of this encounter (statuses as of 08/22/2023) Immunizations Name Administration Dates Next Due COVID-19, MRNA-LNP, 23-24, P F, 30 MCG/0.3 mL, 12 YRS AND ABOVE, IM (PFIZER-Comirnat) 08/15/2023 Pneumococcal Polysaccharide PPV23 (Pneumovax) ,07/08/2013 RSV [...] encounter Miscellaneous Notes * Telephone Encounter - Brandan Waterman LPN - 08/22/2023 3:05 PM EST Pt informed in other ENC on 07/25/2023 * Telephone Encounter - Chey More LPN - 07/23/2023 1:47 PM EST Attempted to contact pt l/m on answering machine for pt to call the office. Chey More LPN * Telephone Encounter - Shahana Martin MD - 07/23/2023 1:41 PM EST Xray shows no infection or any acute changes. Clinically had only some wheezing.Otherwise stable. Pt was started on Flovent and advised to use rescue inhaler as needed. If anything recurrent , will needs PFT, PCP f/u. No need for an antibiotic. * Telephone Encounter - Lila Gerardo RN - 07/22/2023 4:01 PM EST CM received t/c transferred from Pulmonary office nurse. No Pulm doctors available at this time and she was unable to get him in to be seen in their practice. Pt reports he is having shortness of breath, dry cough and wheezing. He has been using his inhaler but not having much relief. Denies fevers. He has been taking apple cider vinegar caps as he was told by his daughter, who is a pharmacist in [place], to use these to help prevent pneumonia. CM scheduled for acute appointment with Dr. Martin on 07/23 at 8am. Pt may need a COPD rescue kit and/or a chest X-ray. Thank you in advanced, Lila Cedeno (Gott), RN [facility] Nurse Molded Goods Operator [facility] and [facility] [address] [place] [address] documented in this encounter Plan of Treatment Upcoming Encounters Date Type Department Care Team (Late st Contact Info) Description 10/03/2023 1:15 PM EST Office Visit Hematology/Oncology [address] [place] [address] Jun Martin MD [address] [place] [address] [place] [address] 10/11/2023 2:20 PM EST Office Visit General Internal Medicine [address] [place] [address] Jasmyn Rich MD [address] [place] [address] [place] [address] 10/15/2023 3:20 PM EST Office Visit Pulmonary Medicine, [facility] 132 [facility] [place] [address] Kenrick Santos MD [address] [place] [address] 11/05/2023 11:15 AM EDT Office Visit Urology, [facility] 132 [facility] [place] [address] Tank Brandt MD [address] [place] [address] [place] [address] 11/15/2023 2:20 PM EDT Office Visit General Internal Medicine [facility] 200 [facility] [place] [address] Jasmyn Rich MD 200 [facility] [place] [address] 11/27/2023 10:40 AM EDT Office Visit Neurology [facility] 200 [facility] [place] [address] Nitish Kwan MD [address] [place] [address] 12/03/2023 1:40 PM EDT Office Visit Gastroenterology, [facility] 132 [place] [address] Adriana Marte MD [address] [place] [address] Health Maintenance Due Date Last Done Comments [...] Not on filedocumented as of this encounter Additional Health Concerns Infection Onset [...] Advance Directives occurred with: Patient Care Teams Process Engineer Relationship Specialty Start Date End Date Jasmyn Rich MD 200 [place] [address] PCP - General Internal Medicine 08/20/23 documented as of this encounter
--- OUTSIDE RECORDS SUMMARY | 2023-11-30 07:56 | External Medical Summary | Summary of Care ---
Author Name Unknown Organization [facility] Address [address] [place] [address] Phone [phone] Care Team Providers Care Lath Hand Name Role Phone Jasmyn Rich MD Primary Care Provider [phone] Reason for Visit * Reason Onset Date Comments No Show 10/03/2023 Encounter Details Date Type Department Care Team (Late st Contact Info) Description 10/03/2023 Telephone Hematology/Oncology [facility] [place] [address] [facility] [place] [phone] Jun Martin MD [address] [facility] [address] No Show Allergies Active Allergy Reactions Criticality Noted Date Comments Amlodipine Unknown 05/09/2023 Hydrocortisone 07/09/2023 documented as of this encounter (statuses as of 10/07/2023) Medications Medication Sig Dispensed Refills Start Date [...] Oral Tablet (Crestor)Indicatio ns:PVD (peripheral vascular disease) ([facility]),History of transient ischemic attack (TIA) [...] for Erectile Dysfunction. 0 Active Horny Goat Sneads Oral Capsule Take by mouth. 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 06/08/2019 Syncope and collapse 11/28/2012 019 Anemia 09/25/2012 05/14/2022 Hypertension 09/25/2012 06/08/2019 TIA (transient ischemic attack) 09/25/2012 04/20/2019 documented as of this encounter (statuses as of 10/07/2023) Immunizations Name Administration Dates Next Due COVID-19, [...] PM EST Office Visit General Internal Medicine [facility] 200 [facility] [place] [address] Jasmyn Rich MD 200 [place] [address] 10/15/2023 3:20 PM EST Office Visit Pulmonary Medicine, [facility] 132 [facility] [place] [address] Kenrick Santos MD [address] [facility] [place] [address] 11/05/2023 11:15 AM EDT Office Visit Urology, [facility] 132 [facility] [place] [address] Tank Brandt MD 27 [facility] [address] [place] [address] 11/15/2023 2:20 PM EDT Office Visit General Internal Medicine [facility] 200 [facility] [place] [address] Jasmyn Rich MD 200 [facility] [place] [address] 11/27/2023 10:40 AM EDT Office Visit Neurology [facility] 200 [facility] [place] [address] Nitish Kwan MD [address] [place] [address] 12/03/2023 1:40 PM EDT Office Visit Gastroenterology, [facility] 132 [facility] [place] [address] Adriana Marte MD [facility] [address] Health Maintenance Due Date Last Done Comments [...] Advance Directives occurred with: Patient Care Teams Lath Hand Relationship Specialty Start Date End Date Jasmyn Rich MD 200 [facility] [place] [address] PCP - General Internal Medicine 08/20/23 documented as of this encounter
--- OUTSIDE RECORDS SUMMARY | 2023-11-30 07:56 | External Medical Summary | Summary of Care ---
Author Name Unknown Organization [facility] Address [address] [place] [address] Phone [phone] Care Team Providers Care Economic Geographer Name Role Phone Jasmyn Rich MD Primary Care Provider [phone] Reason for Visit * Reason Onset Date Comments No Show 10/03/2023 Encounter Details Date Type Department Care Team (Late st Contact Info) Description 10/03/2023 Telephone Hematology/Oncology [facility] [place] [address] [facility] [place] [id number] Jun Martin [facility] [address] [facility] [address] No Show Allergies Active Allergy Reactions Criticality Noted Date Comments Amlodipine Unknown 05/09/2023 Hydrocortisone 07/09/2023 documented as of this encounter (statuses as of 10/03/2023) Medications Medication Sig Dispensed Refills Start Date [...] (Crestor)Indicatio ns:PVD (peripheral vascular disease) ([facility]),History of transient ischemic attack (TIA) Take [...] for Erectile Dysfunction. 0 Active Horny Goat [place] Oral Capsule Take by mouth. 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 06/08/2019 Syncope and collapse 11/28/2012 019 Anemia 09/25/2012 05/14/2022 Hypertension 09/25/2012 06/08/2019 TIA (transient ischemic attack) 09/25/2012 04/20/2019 documented as of this encounter (statuses as of 10/03/2023) Immunizations Name Administration Dates Next Due COVID-19, [...] encounter Miscellaneous Notes * Telephone Encounter - Gabriella Rendon LPN [...] PM EST Office Visit [facility] 200 [place] [address] Jasmyn Rich MD [address] [place] [address] 10/15/2023 3:20 PM EST Office Visit Pulmonary Medicine, [facility] [address] [facility] [place] [address] Kenrick Santos MD [address] [facility] [place] [address] 11/05/2023 11:15 AM EDT Office Visit Urology, [facility] [address] [facility] [place] [address] Tank Brandt MD [address] [place] [address] 11/15/2023 2:20 PM EDT Office Visit [facility] 200 [place] [address] Jasmyn Rich MD 200 [place] [address] 11/27/2023 10:40 AM EDT Office Visit Neurology [facility] M[facility] [place] [address] [place] [facility] [place] [address] Nitish Kwan MD [address] [facility] [place] [address] 12/03/2023 1:40 PM EDT Office Visit Gastroenterology, [facility] [address] [place] [address] Adriana Marte MD [address] [place] [address] Health Maintenance Due Date Last Done Comments [...] Advance Directives occurred with: Patient Care Teams Economic Geographer Relationship Specialty Start Date End Date Jasmyn Rich MD 200 [facility], [place] [phone] PCP - General Internal Medicine 08/20/23 documented as of this encounter
--- OUTSIDE RECORDS SUMMARY | 2023-11-30 07:56 | External Medical Summary | Summary of Care ---
Author Name Unknown Organization [facility] Address [address] [place] [address] Phone [phone] Care Team Providers Care Product Assurance Engineer Name Role Phone Jasmyn Rich MD Primary Care Provider [phone] Encounter Details Date Type Department Care Team (Late st Contact Info) Description 07/30/2023 Top Bottom Attaching Machine Operator Telephone Care Coordination and Integration [address], [place] [phone] Lila Gerardo, RN [address], [place] [phone] Allergies Active Allergy Reactions Criticality Noted Date Comments Amlodipine Unknown 05/09/2023 Hydrocortisone 07/09/2023 documented as of this encounter (statuses as of 08/23/2023) Medications Medication Sig Dispensed Refills Start Date [...] Active Clopidogrel Bisulfate 75 MG Oral Tablet (pLAVix)Indications :Carotid atherosclerosis, bilateral,PVD (peripheral vascular disease) (HCC),History of transient ischemic attack (TIA) Take 1 Tablet by mouth in the morning. 90 Tablet 3 11/28/2022 Active Carvedilol 6.25 MG Oral Tablet (Coreg)Indications: HTN, goal below 130/80 Take 1 Tablet by mouth in the morning and 1 Tablet before bedtime. 180 Tablet 3 11/28/2022 Active Rosuvastatin Calcium 20 MG Oral Tablet (Crestor)Indication s:PVD (peripheral vascular disease) (HCC),History of transient ischemic [...] MCG/ACT Inhalation Aerosol SolutionIndications :COPD with asthma Inhale 2 Puffs by mouth [...] for Erectile Dysfunction. 0 Active Horny Goat [place] Oral Capsule Take by mouth. 0 Active Zuleika 500 MG Oral Capsule Take by mouth. 0 Active Fluticasone Propionate HFA 110 MCG/ACT Inhalation Aerosol (Flovent HFA)Indications:Whe ezing Inhale 2 Puffs by mouth in the morning and 2 Puffs before bedtime. 12 g 2 07/23/2023 Active Hospital, Clinic, or Other Facility Administered Medication Ordered Dose Route Frequency Start Date End Date Status Albuterol Sulfate (Proventil) (2.5 MG/3ML) 0.083% inhalation solution 2.5 mgIndications:COPD, frequent exacerbations (HCC) 2.5 mg NEBULIZER PRN 12/07/2022 12/07/2023 Active documented as of this encounter (statuses as of 08/23/2023) Active Problems Problem Noted Date Diagnosed Date [...] as of this encounter (statuses as of 08/23/2023) Resolved Problems Problem Noted Date Diagnosed Date Resolved Date Dementia without behavioral disturbance 11/28/2022 11/28/2022 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 Pt is going to be out of town and will not be backuntil October. Pt is scheduled for October 14. I told him if any cancellations come up, I will contacthim. Pt understood. * Telephone Encounter - Lila Gerardo RN - 07/30/2023 2:19 PM EST Scheduling, Please assist pt with getting scheduled for pulmonology appointment. He is agreeable to trying a video appointment if needed but would prefer to be seen in person if possible. Was seen by PCP but feels like the inhalers he is currently on are not working and would like to discuss other treatment options. Has COPD with recent hospitalization. Thank you, Lila Cedeno, RN [facility] Nurse Top Bottom Attaching Machine Operator Cecilia Shazia Mijares [phone] documented in this encounter Plan of Treatment Upcoming Encounters Date Type Department Care Team (Late st Contact Info) Description 10/03/2023 1:15 PM EST Office Visit Hematology/Oncology [facility] [address] [place], [place] [address] Jun Martin MD [address] [place] [address] [place], [place] [address] 10/11/2023 2:20 PM EST Office Visit General Internal Medicine [facility] [address] [place], [place] [address] Jasmyn Rich MD [address] [place] [address] [place], [place] [address] 10/15/2023 3:20 PM EST Office Visit Pulmonary Medicine, [facility] 132 [facility] [place] [place] [address] Kenrick Santos MD [address] [place] [address] 11/05/2023 11:15 AM EDT Office Visit Urology, [facility] [address] [place] [place] [address] Tank Brandt MD [address] [place] [address] [place] [address] 11/15/2023 2:20 PM EDT Office Visit General Internal Medicine [facility] 200 [facility] [place] [address] Jasmyn Rich MD 200 [facility] [place] [address] 11/27/2023 10:40 AM EDT Office Visit Neurology [facility] 200 [facility] [place] [address] Nitish Kwan MD [address] [place] [address] 12/03/2023 1:40 PM EDT Office Visit Gastroenterology, [facility] [address] [facility] [place] [address] Adriana Marte MD 132 [facility] [place] [address] Health Maintenance Due Date Last Done Comments [...] Advance Directives occurred with: Patient Care Teams Product Assurance Engineer Relationship Specialty Start Date End Date Jasmyn Rich MD 200 [place] [address] PCP - General Internal Medicine 08/20/23 documented as of this encounter
--- OUTSIDE RECORDS SUMMARY | 2023-11-30 07:56 | External Medical Summary | Summary of Care ---
Author Name Unknown Organization [facility] Address [address] [place] [address] Phone [phone] Care Team Providers Care Director Workforce Management Name Role Phone Scott Recinos PA-C Primary Care Provider [phone] Reason for Visit * Reason Onset Date Comments Advice 08/20/2023 Encounter Details Date Type Department Care Team (Late st Contact Info) Description 08/20/2023 Telephone General Internal Medicine [facility] 200 [facility] [place] [address] Jasmyn Rich MD 200 [place] [address] Advice Allergies Active Allergy Reactions Criticality Noted Date [...] (pLAVix)Indication s:Carotid atherosclerosis, bilateral,PVD (peripheral vascular disease) ([facility]),History of transient ischemic attack (TIA) Take 1 Tablet by mouth in the morning. 90 Tablet 3 11/28/2022 Active Carvedilol 6.25 MG Oral Tablet (Coreg)Indications :HTN, goal below 130/80 Take 1 Tablet by mouth in the morning and 1 Tablet before bedtime. 180 Tablet 3 11/28/2022 Active Rosuvastatin Calcium 20 MG Oral Tablet (Crestor)Indicatio ns:PVD (peripheral vascular disease) ([facility]),History of transient ischemic attack (TIA) Take 1 [...] times daily 90 Capsule 2 05/27/2023 Active Isosorbide Mononitrate ER 30 MG Oral Tablet [...] for Erectile Dysfunction. 0 Active Horny Goat [place] Oral Capsule Take by mouth. 0 Active [...] by mouth. 30 Tablet 0 08/16/2023 Active Hospital, Clinic, or Other Facility Administered [...] Telephone Encounter - Brandan Waterman LPN - 08/20/2023 10:40 AM EST Called pt and recommended video visit due to COVID 19 infection per provider instruction. Pt statedI felt like " I had heart attack" yesterday. Pt stating he has CP, SOB, and severe ABD pain. Consulted provider who recommended ED . Pt refused ED. Provider agreeable to seeing him. The pt was informed that this visit may still end up with him going to the ED per provider instruction. The patient would still like to be seen in person at 11am. documented in this encounter Plan of Treatment Upcoming Encounters Date Type Department Care Team (Late st Contact Info) Description 08/20/2023 11:00 AM EST Office Visit General Internal Medicine [facility] [address] [place] [address] Jasmyn Rich MD [address] [place] [address] 10/03/2023 1:15 PM EST Office Visit Hematology/Oncology [facility] 200 [facility] [place] [address] Jun Martin MD 200 [facility] [place] [address] 10/15/2023 3:20 PM EST Office Visit Pulmonary Medicine, [facility] 132 [place] [address] Kenrick Santos MD [address] [facility] [place] [address] 11/05/2023 11:15 AM EDT Office Visit Urology, [facility] 132 [place] [address] Tank Brandt MD [address] [address] 11/15/2023 2:20 PM EDT Office Visit General Internal Medicine [facility] 200 [facility] [place] [address] Jasmyn Rich MD 200 [facility] [place], [place] [address] 11/27/2023 10:40 AM EDT Office Visit Neurology [facility] [address] [facility] [place] [address] Nitish Kwan MD [address] [place] [address] 12/03/2023 1:40 PM EDT Office Visit Gastroenterology, [facility] 132 [place] [address] Adriana Marte MD 132 [place] [address] Health Maintenance Due Date Last Done Comments [...] Advance Directives occurred with: Patient Care Teams Director Workforce Management Relationship Specialty Start Date End Date Scott Recinos PA-C [address] [place] [place] [address] PCP - General Physician Talend Etl Developer 05/14/22 documented as of this encounter
--- OUTSIDE RECORDS SUMMARY | 2023-11-30 07:57 | External Medical Summary | Summary of Care ---
Author Name Unknown Organization [facility] Address [address] [place] [address] Phone [phone] Care Team Providers Care Account Technician Name Role Phone Scott Recinos PA-C Primary Care Provider [phone]- [phone] Reason for Visit * Reason Onset Date Comments Test Results 08/16/2023 Encounter Details Date Type Department Care Team (Late st Contact Info) Description 08/16/2023 Telephone General Internal Medicine [facility] [place] 200 [facility] [place] [address] Scott Recinos PA-C [address] [place] [address] Test Results Allergies Active Allergy Reactions Criticality Noted Date Comments Amlodipine Unknown 05/09/2023 Hydrocortisone 07/09/2023 documented as of this encounter (statuses as of 08/16/2023) Medications Medication Sig Dispensed Refills Start Date [...] Oral Tablet (Crestor)Indicatio ns:PVD (peripheral vascular disease) ([facility]),History of transient ischemic attack (TIA) Take 1 [...] for Erectile Dysfunction. 0 Active Horny Goat [place] Oral Capsule Take by mouth. 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 He would like Paxlovid. Will need to stop use of Seroquel while using Paxlovid. He will need to stop rosuvastatin while taking and not restart until three days after completing Paxlovid. documented in this encounter Plan of Treatment Upcoming Encounters Date Type Department Care Team (Late st Contact Info) Description 08/19/2023 8:00 AM EST Office Visit Orthopaedics [facility] [address] [place] [address] Juan Carlos Sy MD 132 [place] [address] 10/03/2023 1:15 PM EST Office Visit Hematology/Oncology [facility] [address] [place] [address] Jun Martin MD 200 [facility] [place] [address] 10/15/2023 3:20 PM EST Office Visit Pulmonary Medicine, [facility] [address] [employer] [address] Kenrick Santos MD [address] [place] [address] 11/05/2023 11:15 AM EDT Office Visit Urology, [facility] [address] [place] [address] Tank Brandt MD 27 [facility] [address] [place] [address] 11/15/2023 2:20 PM EDT Office Visit General Internal Medicine [facility] 200 [facility] [place], [place] [address] Jasmyn Rich MD [address] [place] [address] 11/27/2023 10:40 AM EDT Office Visit Neurology [facility] 200 [place] [address] Nitish Kwan MD [address] [place] [address] 12/03/2023 1:40 PM EDT Office Visit Gastroenterology, [facility] [address] [place] [address] Adriana Marte MD [address] [place] [address] Health Maintenance Due Date Last Done Comments [...] Advance Directives occurred with: Patient Care Teams Account Technician Relationship Specialty Start Date End Date Scott Recinos PA-C 200 [facility] [place] [address] PCP - General Physician Geoscientist 05/14/22 documented as of this encounter
--- OUTSIDE RECORDS SUMMARY | 2023-11-30 07:57 | External Medical Summary | Summary of Care ---
Author Name Unknown Organization [facility] Address [address] [place] [address] Phone [phone] Care Team Providers Care Advanced Manufacturing Engineer Name Role Phone Scott Recinos PA-C Primary Care Provider [phone] Reason for Visit * Reason Comments Follow Up 3 month. Cold sympto ms. Encounter Details Date Type Department Care Team (Latest Contact Info) Description 08/15/2023 1:00 PM EST Office Visit General Internal Medicine [facility] [place] [address] [facility] [place] [address] Scott Recinos PA-C [address] [place] [address] Acute cough*; COPD, group B, by GOLD 2017 classification ([facility]); COPD with asthma; Fatty liver; BPH with obstruction/lower urinary tract symptoms; Dementia without behavioral disturbance ([facility]); Parkinson's disease with dyskinesia and fluctuating manifestations; Multiple myeloma not having achieved remission ([facility]); RADHA (generalized anxiety disorder); History of transient ischemic attack (TIA); Primary insomnia Allergies Active Allergy Reactions Criticality Noted Date Comments Amlodipine Unknown 05/09/2023 Hydrocortisone 07/09/2023 documented as of this encounter (statuses as of 08/15/2023) Medications Medication Sig Dispensed Refills Start Date End Date Status MULTIVITAMINS PO CAPS 1 tablet daily 0 Active B Complex 100 TR Oral Tablet Extended Release Take by mouth. 0 Active Vitamin C 1000 MG Oral Tablet Take [...] needed for Dry eyes. 70 Each 5 3 Active Nitroglycerin 0.4 MG Sublingual Tablet Sublingual (Nitrostat)Indicat ions:Chest pain, unspecified type Place 1 Tablet under the tongue as needed for Pain, Chest. May repeat 3 times. If chest pain continues, call 911. 25 Tablet 11 3 Active Clopidogrel Bisulfate 75 MG Oral Tablet (pLAVix)Indication s:Carotid atherosclerosis, bilateral,PVD (peripheral vascular disease) (HCC),History of transient ischemic attack (TIA) Take 1 Tablet by mouth in the morning. 90 Tablet 3 3 Active Carvedilol 6.25 MG Oral Tablet (Coreg)Indications :HTN, goal below 130/80 Take 1 Tablet by mouth in the morning and 1 Tablet before bedtime. 180 Tablet 3 3 Active Rosuvastatin Calcium 20 MG Oral Tablet (Crestor)Indicatio ns:PVD (peripheral vascular disease) (HCC),History of transient ischemic attack (TIA) Take 1 Tablet by mouth at bedtime. 90 Tablet 3 3 Active Vitamin E 100 UNIT Oral Capsule Take 1 Capsule by mouth in the morning. 0 Active Zinc 50 MG Oral Tablet Take 1 Tablet by mouth in the morning. 0 Active QUEtiapine Fumarate 25 MG Oral Tablet (SEROquel)Indicati ons:Panic disorder,RADHA (generalized anxiety disorder) Take 1 Tablet by mouth at bedtime. 90 Tablet 3 3 Active Simethicone 80 MG Oral Tablet Chewable (Mylicon) Take 1 Tablet by mouth every 6 hours as needed for Gas. 0 Active Valsartan 160 MG Oral Tablet (Diovan)Indication s:HTN, goal below 130/80 Take 1 Tablet by mouth in the morning. 90 Tablet 3 3 Active Gabapentin 100 MG Oral Capsule (Neurontin) 1 tab at bedtime x 5 days then 1 tab twice daily x 5 day, then 1 tab three times daily 90 Capsule 2 3 Active Isosorbide Mononitrate ER 30 MG Oral Tablet Extended Release 24 Hour (Imdur)Indications :Angina pectoris (HCC) Take 1 Tablet by mouth in the morning. 90 Tablet 3 3 Active Albuterol Sulfate HFA 108 (90 Base) MCG/ACT Inhalation Aerosol SolutionIndication s:COPD with asthma Inhale 2 Puffs by mouth every 6 hours as needed for Cough or Shortness of Breath. 18 g 5 3 Active Carbidopa-Levodopa 25-100 MG Oral Tablet (Sinemet) Take 1 Tablet by mouth in the morning and 1 Tablet at noon and 1 Tablet before bedtime. 270 Tablet 2 3 Active Apple Cider Vinegar Plus Oral Tablet Take by mouth. 1 tbsp daily with lemon water 0 Active Pantoprazole Sodium 40 MG Oral Tablet Delayed Release (Protonix) Take 1 Tablet by mouth in the morning and 1 Tablet before bedtime. For 8 weeks then take 1 time a day 1 hour prior to breakfast. 180 Tablet 0 3 Active Tadalafil 5 MG Oral Tablet (Cialis) Take 1 Tablet by mouth daily as needed for Erectile Dysfunction. 0 Active Horny Goat New Deal Oral Capsule Take by mouth. 0 Active Zuleika 500 MG Oral Capsule Take by mouth. 0 Active Fluticasone Propionate HFA 110 MCG/ACT Inhalation Aerosol (Flovent HFA)Indications:Wh eezing Inhale 2 Puffs by mouth in the morning and 2 Puffs before bedtime. 12 g 2 3 Active Captopril 25 MG Oral Tablet (Capoten) 1 Tablet. 0 3 Active Valsartan-hydroCHL OROthiazide 160-25 MG Oral Tablet 1 Tablet. 0 3 Active Delsym Cough/Chest Congest DM 5-100 MG/5ML Oral Liquid (Dextromethorphan- guaiFENesin) Take by mouth. 0 Active Montelukast Sodium 10 MG Oral Tablet (Singulair) Take 1 Tablet by mouth at bedtime. 90 Tablet 3 4 Active Aspirin 81 MG Oral Tablet Delayed Release Take 1 Tablet by mouth every other day. 0 08/15/19 24 Discontinued busPIRone HCl 5 MG Oral Tablet (Buspar)Indication s:Anxiety Take 1 Tablet by mouth in the morning and 1 Tablet before bedtime. 90 Tablet 1 3 08/15/19 24 Discontinued Abrysvo 120 MCG/0.5ML Intramuscular Solution Reconstituted (RSV Pre-Fusion F A&B Vac Rcmb) Inject 0.5 mL into a large muscle once for 1 dose. 1 Each 0 3 08/15/19 24 Discontinued Montelukast Sodium 10 MG Oral Tablet (Singulair) Take 1 Tablet by mouth at bedtime. 0 08/15/19 24 Discontinued(Ref ill) Hospital, Clinic, or Other Facility Administered Medication Ordered Dose Route Frequency Start Date End Date Status Albuterol Sulfate (Proventil) (2.5 MG/3ML) 0.083% inhalation solution 2.5 mgIndications:COPD, frequent exacerbations (HCC) 2.5 mg NEBULIZER PRN 12/07/2022 12/07/2023 Active documented as of this encounter (statuses as of 08/15/2023) Active Problems Problem Noted Date Diagnosed Date [...] as of this encounter (statuses as of 08/15/2023) Resolved Problems Problem Noted Date Diagnosed Date Resolved Date Dementia without behavioral disturbance 11/28/2022 11/28/2022 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 06/08/2019 Syncope and collapse 11/28/2012 019 Anemia 09/25/2012 05/14/2022 Hypertension 09/25/2012 06/08/2019 TIA (transient ischemic attack) 09/25/2012 04/20/2019 documented as of this encounter (statuses as of 08/15/2023) Immunizations Name Administration Dates Next Due COVID-19, [...] 17 Q uit: 05/30/1982 Smokeless Tobacco: Never Tobacco Cessation:Counseling Given: [...] Sign Reading Time Taken Comments Blood Pressure 124/60 08/15/2023 1:01 PM EST Pulse 74 08/15/2023 1:01 PM EST Temperature 36.2 C (97.1 F) 08/15/2023 1:01 PM ES T Respiratory Rate - - Oxygen Saturation 96% 08/15/2023 1:01 PM EST Inhaled Oxygen Concentration - - Weight 87.7 kg (193 lb 4.8 oz) 08/15/2023 1:01 P M EST Height 172.1 cm (5' 7.75") 08/15/2023 1:01 PM ES T Body Mass Index 29.61 08/15/2023 1:01 PM EST documented in this encounter Progress Notes * Scott Recinos PA-C - 08/15/2023 12:54 PM EST Subjective: Amanda Bhagat is a 82 year old male. Chief Complaint Patient presents with Follow Up 3 month. Cold symptoms. HPI: 82 y/o male with hx below seen today with complaint of dry cough and rhinitis for about 24 hours. , daughter, and son have COVID. Seen at ER where he declined symptoms and tested negative. He is concerned as his brother from COVID. No fever, sore throat, shortness of breath, n/v/d. 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 HTN, goal below 130/80 I10 History of transient ischemic attack (TIA) Z86.73 COPD with asthma J44.89 RADHA (generalized anxiety disorder) F41.1 Panic disorder F41.0 Fatty liver K76.0 Primary insomnia F51.01 Parkinson's disease G20.A1 Multiple myeloma not having achieved remission ([facility]) C90.00 Dementia without behavioral disturbance ([facility]) F03.90 Achalasia of esophagus K22.0 COPD, group B, by GOLD 2017 classification ([facility]) J44.9 Bilateral carpal tunnel syndrome G56.03 BPH with obstruction/lower urinary tract symptoms N40.1, N13.8 Erectile dysfunction due to diseases classified elsewhere N52.1 Selective deficiency of immunoglobulin a (iga) ([facility]) D80.2 Current Outpatient Medications Medication Sig Dispense Refill MULTIVITAMINS PO CAPS 1 tablet daily B Complex 100 TR Oral Tablet Extended Release Take by mouth. Vitamin C 1000 MG Oral Tablet Take 1 Tablet by mouth in the morning. Vitamin D 50 MCG (2000 UT) Oral Capsule Take 2,000 Units by mouth daily. Selenium 200 MCG Oral Capsule Take by mouth . Glucosamine 750 MG Oral Tablet Take by mouth . L-Arginine 1000 MG Oral Tablet Take by mouth . Ashwagandha 500 MG Oral Capsule Take by mouth. Carboxymethylcellulose Sod PF 0.5 % Ophthalmic Solution (Refresh Plus) Instill 1 Drop into both eyes daily as needed for Dry eyes. 70 Each 5 Nitroglycerin 0.4 MG Sublingual Tablet Sublingual (Nitrostat) [...] 1 Tablet before bedtime. 180 Tablet 3 Rosuvastatin Calcium 20 MG Oral Tablet (Crestor) Take 1 Tablet by mouth at bedtime. 90 Tablet 3 Vitamin E 100 UNIT Oral Capsule Take 1 Capsule by mouth in the morning. Zinc 50 MG Oral Tablet Take 1 Tablet by mouth in the morning. QUEtiapine Fumarate 25 MG Oral Tablet (SEROquel) Take 1 Tablet by mouth at bedtime. 90 Tablet 3 Simethicone 80 MG Oral Tablet Chewable (Mylicon) Take 1 Tablet by mouth every 6 hours as needed forGas. Valsartan 160 MG Oral Tablet (Diovan) Take 1 Tablet by mouth in the morning. 90 Tablet 3 Gabapentin 100 MG Oral Capsule (Neurontin) 1 tab at bedtime x 5 days then 1 tab twice daily x 5 day, then 1 tab three times daily 90 Capsule 2 Isosorbide Mononitrate ER 30 MG Oral Tablet [...] 1 Tablet before bedtime. 270 Tablet 2 Apple Cider Vinegar Plus Oral Tablet Take by mouth. 1 tbsp daily with lemon water Pantoprazole Sodium 40 MG Oral Tablet Delayed Release (Protonix) Take 1 Tablet by mouth in the morning and 1 Tablet before bedtime. For 8 weeks then take 1 time a day 1 hour prior to breakfast. 180 Tablet 0 Tadalafil 5 MG Oral Tablet (Cialis) Take 1 Tablet by mouth daily as needed for Erectile Dysfunction. Horny Goat New Deal Oral Capsule Take by mouth. Zuleika 500 MG Oral Capsule Take by mouth. Fluticasone Propionate HFA 110 MCG/ACT Inhalation Aerosol (Flovent HFA) Inhale 2 Puffs by mouth in the morning and 2 Puffs before bedtime. 12 g 2 Captopril 25 MG Oral Tablet (Capoten) 1 Tablet. Valsartan-hydroCHLOROthiazide 160-25 MG Oral Tablet 1 Tablet. Delsym Cough/Chest Congest DM 5-100 MG/5ML Oral Liquid (Dextromethorphan- guaiFENesin) Take by mouth. Montelukast Sodium 10 MG Oral Tablet (Singulair) Take 1 Tablet by mouth at bedtime. 90 Tablet 3 Current Facility-Administered Medications Medication Dose Route Frequency Provider Last Rate Last Admin Albuterol Sulfate (Proventil) (2.5 MG/3ML) 0.083% inhalation solution 2.5 mg 2.5 mg Nebulizer PRN Kenrick Santos MD Review of patient's allergies indicates: Allergen Reactions Amlodipine Unknown Hydrocortisone All other review of systems reviewed and negative other than mentioned in HPI. Objective: BP 124/60 | Pulse 74 | Temp 36.2 C (97.1 F) | Ht 1.721 m (5' 7.75") | Wt 87.7 kg (193 lb 4.8 oz) | SpO2 96% | BMI 29.61 kg/m | BSA 2.05 m Physical Exam Constitutional: General: He is not in acute distress. Appearance: Normal appearance. He is normal weight. He is not ill-appearing or toxic-appearing. HENT: Head: Normocephalic and atraumatic. Right Ear: Tympanic membrane, ear canal and external ear normal. There is no impacted cerumen. Left Ear: Tympanic membrane, ear canal and external ear normal. There is no impacted cerumen. Nose: Nose normal. Mouth/Throat: Mouth: Mucous membranes are moist. Pharynx: Oropharynx is clear. No oropharyngeal exudate or posterior oropharyngeal erythema. Eyes: General: Right eye: No discharge. Left eye: No discharge. Extraocular Movements: Extraocular movements intact. Conjunctiva/sclera: Conjunctivae normal. Pupils: Pupils are equal, round, and reactive to light. Cardiovascular: Rate and Rhythm: Normal rate and regular rhythm. Pulses: Normal pulses. Heart sounds: Normal heart sounds. No murmur heard. No friction rub. No gallop. Pulmonary: Effort: Pulmonary effort is normal. No respiratory distress. Breath sounds: Wheezing present. No rhonchi or rales. Neurological: Mental Status: He is alert. ASSESSMENT: Acute cough (Primary) - SARS-COV-2 (COVID-19), NAAT High risk given exposure to develop COVID. Will retest. Would be candidate for Paxlovid, but would need to adjust plavix, seroquel, statin for his other chronic disease. COPD, group B, by GOLD 2017 classification ([facility]) Albuterol and flovent. COPD with asthma - Montelukast Sodium 10 MG Oral Tablet (Singulair); Take 1 Tablet by mouth at bedtime. Fatty liver BPH with obstruction/lower urinary tract symptoms Not on therapy that will need stopped Dementia without behavioral disturbance ([facility]) Seem stable. Parkinson's disease with dyskinesia and fluctuating manifestations Sinemet. Following with neurology. Multiple myeloma not having achieved remission (HCC) Following with hematology. RADHA (generalized anxiety disorder) History of transient ischemic attack (TIA) Primary insomnia Follow Up: Return in about 3 months (around 11/14/2023), or if symptoms worsen or fail to improve, for Return with Physician. | For: Return with Physician | Check-out note: Schedule with Dr. Rich to establish in three months Scott Recinos PA-C documented in this encounter Nursing Notes * Chey More LPN - 08/15/2023 1:00 PM EST Chief Complaint Patient presents with Follow Up 3 month. Cold symptoms. documented in this encounter Plan of Treatment Upcoming Encounters Date Type Department Care Team (Late st Contact Info) Description 08/19/2023 8:00 AM EST Office Visit Orthopaedics [facility] [address] [place] [address] Juan Carlos Sy MD [address] [place] [address] 10/03/2023 1:15 PM EST Office Visit Hematology/Oncology [facility] [address] [facility] [place] [address] Jun Martin MD [address] [facility] [address] 10/15/2023 3:20 PM EST Office Visit Pulmonary Medicine, [facility] [address] [place] [address] Kenrick Santos MD [address] [facility] [place] [address] 11/05/2023 11:15 AM EDT Office Visit Urology, [facility] [address] [place] [address] Tank Brandt MD [address] [address] 11/15/2023 2:20 PM EDT Office Visit General Internal Medicine [facility] [address] [facility] [place] [address] Jasmyn Rich MD [address] [facility] [place] [address] 11/27/2023 10:40 AM EDT Office Visit Neurology [facility] [address] [facility] [place] [address] Nitish Kwan MD [address] [place] [address] 12/03/2023 1:40 PM EDT Office [facility], [facility] [address] [facility] [address] Adriana Marte MD [address] [place] [address] Pending Results Name Type Priority Associated Diagnoses Date /Time SARS-COV-2 (COVID-19), NAAT Lab Routine Acute cough 08/15/2023 1:24 PM EST Health Maintenance Due Date Last Done Comments [...] of this encounter Visit Diagnoses Diagnosis Acute cough- Primary COPD, group B, by GOLD 2017 classification (HCC) COPD with asthma Chronic obstructive asthma, unspecified Fatty liver Other chronic nonalcoholic liver disease BPH with obstruction/lower urinary tract symptoms Hypertrophy of prostate with urinary obstruction and other lower urinary tract symptoms (LUTS) Dementia without behavioral disturbance (HCC) Dementia, unspecified, without behavioral disturbance Parkinson's disease with dyskinesia and fluctuating manifestations Multiple myeloma not having achieved remission (HCC) Multiple myeloma, without mention of having achieved remission RADHA (generalized anxiety disorder) Generalized anxiety disorder History of transient ischemic attack (TIA) Transient ischemic attack (TIA), and cerebral infarction without residual deficits Primary insomnia Persistent disorder of initiating or maintaining sleep documented in this encounter Advance Directives Latest Code Status on File Code Status Date Activated Date Inactivated Comments Full Code 11/28/2012 2:07 AM 11/28/2012 6:25 PM This order reflects the patients wishes and were consensually agreed upon. Question Answer Comments Discussion of Advance Directives occurred with: Patient Care Teams Advanced Manufacturing Engineer Relationship Specialty Start Date End Date Scott Recinos PA-C [facility] [address] [place] [address] PCP - General Physician Advisory Application Developer 05/14/22 documented as of this encounter
--- OUTSIDE RECORDS SUMMARY | 2023-11-30 07:57 | External Medical Summary ---
Author Name Unknown Address Unknown Organization [id number]:[facility] [place] - [address] [facility] [address] Laboratory Report Ordering Provider Test Date Status CHRISTA VALE 08/15/2023 13:24:07 Final For PreSurgery, Procedure, O B Admit, or Surveillance testing - Nasal Turbinate source preferred.

For Symptomatic testing - Nasopharyngeal source preferred.
null Observation Date Value Abnormality Reference (Units ) Status SARS Coronavirus 2 08/15/2023 13:24:07 Positive Abnormal N egative Final 2018 Novel Coronavirus detec milton. Test results reported to [facility].

This automated test was developed and its performance characteristics determined by [facility]. It has not been cleared or approved by the U.S. Food and Drug Administration (FDA). FDA does not require this test to go thru premarket FDA review. This test is used for clinical purposes. It should not be regarded as investigational or for research. This laboratory is certified under the Clinical Laboratory Improvement Amendments (CLIA) as qualified to perform high complexity clinical laboratory testing.

This test is a nucleic acid amplification test (NAAT), a reverse transcriptase polymerase chain reaction (RT-PCR) test, or a Centers for Disease Control-acceptable equivalent. The test is performed in a high complexity Clinical Laboratory Improvement Amendments-(CLIA) certified laboratory. The test is acceptable for SARS-CoV-2 diagnosis, surveillance, and travel within the [place] and to most countries. Please check with local testing authorities about requirements before travel. Performing Location [facility] [place] - [address] [facility] [address]
--- OUTSIDE RECORDS SUMMARY | 2023-11-30 07:57 | External Medical Summary | Summary of Care ---
Author Name Unknown Organization [facility] Address [address] [place] [address] Phone [phone] Care Team Providers Care Business Practices Supervisor Name Role Phone Akanksha Goodwin PA-C Primary Care Provider [phone] Reason for Visit * Reason Comments Follow Up 3 month. Cold sympto ms. Encounter Details Date Type Department Care Team (Latest Contact Info) Description 08/15/2023 1:00 PM EST Office Visit General Internal Medicine [facility] [place] [address] [facility] [place] [address] Akanksha Goodwin PA-C [address] [place] [address] Acute cough*; COPD, group B, by GOLD 2017 classification ([facility]); COPD with asthma; Fatty liver; BPH with obstruction/lower urinary tract symptoms; Dementia without behavioral disturbance ([facility]); Parkinson's disease with dyskinesia and fluctuating manifestations; Multiple myeloma not having achieved remission ([facility]); RADHA (generalized anxiety disorder); History of transient ischemic attack (TIA); Primary insomnia; COVID-19 virus infection Allergies Active Allergy Reactions Criticality Noted Date [...] Active Clopidogrel Bisulfate 75 MG Oral Tablet (pLAVix)Indicatio ns:Carotid atherosclerosis, bilateral,PVD (peripheral vascular disease) (HCC),History of transient ischemic attack (TIA) Take 1 Tablet by mouth in the morning. 90 Tablet 3 3 Active Carvedilol 6.25 MG Oral Tablet (Coreg)Indication s:HTN, goal below 130/80 Take 1 Tablet [...] tab three times daily 90 Capsule 2 10/16/202 3 Active Isosorbide Mononitrate ER 30 MG Oral Tablet Extended Release 24 Hour (Imdur)Indication s:Angina pectoris (HCC) Take 1 Tablet by mouth in the morning. 90 Tablet 3 3 Active Albuterol Sulfate HFA 108 (90 Base) MCG/ACT Inhalation Aerosol SolutionIndicatio ns:COPD with asthma Inhale 2 Puffs by mouth every 6 hours as needed for Cough or Shortness of Breath. 18 g 5 3 Active Carbidopa-Levodop a 25-100 MG Oral Tablet [...] for Erectile Dysfunction. 0 Active Horny Goat [place] Oral Capsule Take by mouth. 0 Active Zuleika 500 MG Oral Capsule Take by mouth. 0 Active Fluticasone Propionate HFA 110 MCG/ACT Inhalation Aerosol (Flovent HFA)Indications:W heezing Inhale 2 Puffs by mouth in the morning and 2 Puffs before bedtime. 12 g 2 3 Active Captopril 25 MG Oral Tablet (Capoten) 1 Tablet. 0 3 Active Valsartan-hydroCH LOROthiazide 160-25 MG Oral Tablet 1 Tablet. 0 3 Active Delsym Cough/Chest Congest DM 5-100 MG/5ML Oral Liquid (Dextromethorphan -guaiFENesin) Take by mouth. 0 Active Montelukast Sodium 10 MG Oral Tablet (Singulair) Take 1 Tablet by mouth at bedtime. 90 Tablet 3 4 Active Nirmatrelvir&Keaton navir 300/100 20 x 150 MG & 10 x 100MG Oral Tablet Therapy Pack (Paxlovid)Indicat ions:COVID-19 virus infection Take 2 pink tablets of Nirmatrelvir and 1 white tablet of Ritonavir two times a day by mouth. 30 Tablet 0 4 Active Aspirin 81 MG Oral Tablet Delayed Release Take 1 Tablet by mouth every other day. 0 024 Discontinued busPIRone HCl 5 MG Oral Tablet (Buspar)Indicatio ns:Anxiety Take 1 Tablet by mouth in the morning and 1 Tablet before bedtime. 90 Tablet 1 3 024 Discontinued Abrysvo 120 MCG/0.5ML Intramuscular Solution Reconstituted (RSV Pre-Fusion F A&B Vac Rcmb) Inject 0.5 mL into a large muscle once for 1 dose. 1 Each 0 3 024 Discontinued Montelukast Sodium 10 MG Oral Tablet (Singulair) Take 1 Tablet by mouth at bedtime. 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 Horny Goat [place] Oral Capsule Take by mouth. Zuleika 500 [...] COPD, group B, by GOLD 2017 classification ([facility]) Albuterol and flovent. COPD with asthma - Montelukast Sodium 10 MG Oral Tablet (Singulair); Take 1 Tablet by mouth at bedtime. Fatty liver BPH with obstruction/lower urinary tract symptoms Not on therapy that will need stopped Dementia without behavioral disturbance (HCC) Seem stable. Parkinson's disease with dyskinesia and [...] Dr. Rich to establish in three months Akanksha Goodwin PA-C documented in this encounter Nursing Notes * Chey More LPN - 08/15/2023 1:00 PM EST Chief Complaint Patient presents with Follow Up 3 month. Cold symptoms. documented in this encounter Miscellaneous Notes * Addendum Note - Akanksha Goodwin PA-C - 08/16/2023 12:08 PM ESTAddended by: AKANKSHA GOODWIN on: 08/16/2023 12:08 PM Modules accepted: Orders * Result Encounter Note - Akanksha Goodwin PA-C - 08/16/2023 12:08 PM EST Patient positive. He would like Paxlovid. Will need to stop use of Seroquel while using Paxlovid. He will need to stop rosuvastatin while taking and not restart until three days after completing Paxlovid. documented in this encounter Plan of Treatment Upcoming Encounters Date Type Department Care Team (Late st Contact Info) Description 08/19/2023 8:00 AM EST Office Visit Orthopaedics [facility] [address] [facility] [place] [address] Juan Carlos Sy MD [address] [facility] [place] [address] 10/03/2023 1:15 PM EST Office Visit Hematology/Oncology [facility] [place] [address] [facility] [place] [address] Jun Martin MD [address] [facility] [place] [address] 10/15/2023 3:20 PM EST Office Visit Pulmonary Medicine, [facility] [address] [facility] [place] [address] Kenrick Santos MD [address] [place] [address] 11/05/2023 11:15 AM EDT Office Visit Urology, [facility] [address] [place] [address] Tank Brandt MD [address] [facility] [address] [place] [address] 11/15/2023 2:20 PM EDT Office Visit General Internal Medicine [facility] [address] [facility] [place] [address] Jasmyn Rich MD [address] [place] [address] 11/27/2023 10:40 AM EDT Office Visit Neurology [facility] [address] [facility] [place] [address] Nitish Kwan MD [address] [place] [address] 12/03/2023 1:40 PM EDT Office Visit Gastroenterology, [facility] [address] [place] [address] Adriana Marte MD [address] [place] [address] Health Maintenance Due Date Last Done Comments [...] Not on filedocumented as of this encounter Procedures Procedure Name Priority Date/Time Associated Diagnosis Comments SARS-COV-2 (COVID-19), NAAT Routine 08/15/2023 1:24 PM EST Acute cough documented in this encounter Results * (ABNORMAL) SARS-COV-2 (COVID-19), NAAT (08/15/2023 1:24 PM EST) SARS-CoV-2 (COVID-19) Result Positive( A) Negative 08/16/2023 12:00 PM EST [facility] Comment: 2019 Novel Coronavirus detected. Test results reported to [facility]. This automated test was developed and its performance characteristics determined by [employer]. It has not been cleared or approved [...] (RT-PCR) test, or a Centers for Disease Control- acceptable equivalent. The test is performed in a high complexity Clinical Laboratory Improvement Amendments-(CLIA) certified laboratory. The test is acceptable for SARS-CoV-2 diagnosis, surveillance, and travel within the [place] and to most countries. Please check with local testing authorities about requirements before travel. Upper Respiratory Nasopharyngeal swab / Unknown Non-blood Collection / Unknown 08/15/2023 1:24 PM EST 08/15/2023 1:26 PM EST Akanksha Goodwin PA-C LAB MICRO - GENERA L ORDERABLES [facility] [address] [place] [address] documented in this encounter Visit Diagnoses Diagnosis Acute cough- [...] Persistent disorder of initiating or maintaining sleep COVID-19 virus infection documented in this encounter Additional Health Concerns [...] Advance Directives occurred with: Patient Care Teams Business Practices Supervisor Relationship Specialty Start Date End Date Akanksha Goodwin PA-[place] [place] [address] PCP - General Physician Neck Cutter 05/14/22 documented as of this encounter
[2023-11-30] MEDS: VALSARTAN 80 MG TAB PO SCH (08:24)
[2023-11-30] MEDS: ISOSORBIDE MONO EXTENDED REL 30 MG TABCR PO SCH (08:24)
[2023-11-30] MEDS: CLOPIDOGREL BISULFATE 75 MG TAB PO SCH (08:25)
[2023-11-30] MEDS: busPIRone 5 MG TAB PO STA (09:58)
--- NOTE | 2023-11-30 14:02 | Discharge Summary ---
Discharge Summary Date of Service November 30, 2023 Notes For Next Care Provider Please ensure follow up of anxiety- per pt has been very anxious lately. Likely contributory to Hypertensive Urgency. Please ensure close cardiology follow up, no hypertensive medication changes made at this time as blood pressure improved to normal range (and remained improved) with two doses of IV hydralazine 10mg and anxiety treatment, and continuing home antihypertensive medications. 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 History obtained from patient, inpatient and outpatient chart review. Patient states this morning had intercourse and did not have any symptoms. States approximately 2 to 3 hours later he tried to push heavy furniture and he had onset of shortness of breath, diaphoresis and he reports some left neck discomfort and what he describes as dizziness. Patient states he lowered himself to floor and elevated his legs. He states tried to use albuterol inhaler but did not notice any improvement. Patient states symptoms lasted approximately 30-60 minutes. He denies any chest pain, headache, palpitations, syncope. He reports he typically uses elliptical machine 15 minutes twice a day and has not had any exertional chest pain or shortness of breath. Reports last year was having intermittent chest pains with exertion that was relieved by nitro however for the past 4 to 6 months has not noted any chest pain or exertional symptoms. Patient has not used nitro since last year. He does state sometimes he will have dizziness which resolves with him lying supine and elevating his legs. Patient denies recent trauma. History hospitalization 05/09/2023 for hypertensive urgency, chest pain. At that time it was recommended patient resume isosorbide and recommended patient have outpatient dobutamine stress echo for further workup. Patient states never had stress testing. He reports while in [place] in August 2023 had GI bleed, melena and required blood transfusion and had EGD revealing ulcer. Patient states previously on PPI however he discontinued at recommendation of his daughter who is pharmacist and instead eats cabbage and other items to "deal with stomach acid". He reports chronic back pain that he feels is at baseline. He reports chronic leg weakness and uses cane for ambulation. Denies increased extremity weakness. Denies any recent melena, hematochezia. Denies fever/chills, diaphoresis, N/V/D/C, vision changes, orthopnea, palpitations, cough, sore throat, rhinorrhea, abdominal pain, paresthesias, extremity edema, rashes, urinary symptoms. Admission Exam Per Admitting Provider General: no acute distress, WDWN Head: normocephalic, atraumatic Eyes: PERRL, EOM's intact, conjunctiva non-injected, anicteric ENT: normal inspection external ears, nose, mucous membranes moist Neck: supple, trachea midline Lungs: clear, no respiratory distress, no wheezing/rhonchi/rales CV: RRR, + murmur, no JVD, no pretibial edema Abd: normal BS, soft, non-tender Ext: no cyanosis, no calf tenderness Neuro: A&O x 3, no focal deficits noted, normal affect Skin: warm, dry Principal Dx & Hospital Course #1 = Principal Diagnosis (1) SOB (shortness of breath): (2) Diaphoresis: (3) Hypertension: (4) Asthma: (5) COPD (chronic obstructive pulmonary disease): (6) History of GI bleed: (7) History of stroke: (8) Tremor: (9) MGUS (monoclonal gammopathy of unknown significance): (10) Anxiety: (11) Dysphagia: Plan Patient is 83-year-old male with PMHx significant for HTN, TIA, stroke, asthma, COPD, 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 SOB (shortness of breath) Diaphoresis Hypertensive Urgency ACS rule-out Per pt, episode of SOB and diaphoresis for 30-60 minutes BP as high as 213/99 Notes he has lots of "life stressors", asking for anxiety med treatment Symptoms possibly related to a panic attack however ACS ruled out In ER afebrile, BP's elevated, other vitals stable. No leukocytosis, Hgb: 11.5, Initial HS troponin negative. No significant electrolyte changes. BNP: 58. EKG sinus rhythm without significant ST changes noted CXR: No infiltrate or significant pulmonary edema noted DDX: angina, hypertensive urgency/emergency, Panic Attack, R/O ACS, esophageal spasm On admission in the ER patient denied CP, SOB, dizziness, diaphoresis. CT head without acute abnormality Orthostatics negative Troponins remained within normal limits and flat x3 EKG with NSR Echo with EF 65-7-%, moderate LVH, Grade 1 diastolic dysfunction Received 2 doses of IV hydralazine 10mg and continued home antihypertensive medications with restart of anxiety medication Buspar per pt request. BP improved dramatically and was 123/58 on discharge. Continue home carvedilol, and Valsartan Continue home Plavix and statin in setting of cardiac Hx PCP and Cardiology followup after discharge Please ensure follow up of anxiety- per pt has been very anxious lately. Likely contributory to Hypertensive Urgency. Please ensure close cardiology follow up, no hypertensive medication changes made at this time as blood pressure improved to normal range (and remained improved) with two doses of IV hydralazine 10mg and anxiety treatment, and continuing home antihypertensive medications. Anxiety Pt with known Hx, not currently on medications States he feels like he gets a feeling in his throat with it and symptoms above/globus sensation Pt requesting treatment for his anxiety as he notes he has been having lots of life stressors recently, would like to re-start medications EPIC chart review notes past use of Buspar, Prozac, Celexa, Klonipin and Ativan Per pt his previous PCP had prescribed one many years ago that helped. Discussed with pt which past med provided most benefit He would like restart Buspar Likely pt's presentation could be related to a panic attack as well Started on Buspar per pt request and discharged with the same with PCP followup for med titration or adjustment as needed Also discharged with PRN daily Lorazepam 0.5mg for SEVERE Anxiety, given a week's supply Close PCP followup for needed refills, consider psychiatry referral. Asthma COPD (chronic obstructive pulmonary disease) No signs of current exacerbation Continue montelukast History of GI bleed Reports 08/2023 melena, GI bleed while in [place] requiring EGD and blood transfusions. Patient reports had ulcer Not currently on PPI as patient self discontinued. He denies melena, hematochezia, abdominal pain Hgb: 11.5. Uncertain of recent baseline since his GI bleed. Prior baseline last year was 13 Stable PCP followup History of stroke History of TIA and stroke Continue Plavix, rosuvastatin Tremor History tremor. Previously diagnosed with Parkinson's in [place] Has been on carbidopa/levodopa Following with neurology. [place] [facility] [place], Dr Kwan and suspects possible essential tremor instead of Parkinsonism. 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 No acute distress Skin: No noted rashes or bruises Psych: Appropriate mood and affect Neuro: No gross deficits HEENT: NC/AT Chest: Nontender to palpation. CV: RRR Resp: Breath sounds clear bilaterally, no increased effort of breathing. Abdomen: Soft, nontender, nondistended. Extremities: No edema in lower extremities bilaterally. Updated Medication List Medication Instructions Recorded Confirmed Type carvedilol 6.25 mg tablet 6.25 mg PO BID 05/09/23 11/29/23 History clopidogrel 75 mg tablet 75 mg PO DAILY 05/09/23 11/29/23 History nitroglycerin 0.4 mg sublingual 0.4 mg sublingual DIRECTED PRN 05/09/23 11/29/23 History tablet Chest Pain rosuvastatin 20 mg tablet 20 mg PO HS 05/09/23 11/29/23 History vitamin E 268 mg (400 unit) capsule 268 mg PO DAILY 05/09/23 11/29/23 History zinc 50 mg tablet 50 mg PO DAILY 05/09/23 11/29/23 History isosorbide mononitrate 30 mg 30 mg PO QAM #30 tabs 05/11/23 11/29/23 Rx tablet,extended release 24 hr simethicone 80 mg chewable tablet 80 mg PO Q6H PRN dyspepsia #30 tabs 05/11/23 11/29/23 Rx (Gas Relief (simethicone)) albuterol sulfate 90 mcg/actuation 2 puff inhalation Q6H PRN 11/29/23 11/29/23 History aerosol inhaler shortness of breath or coughing carbidopa 25 mg-levodopa 100 mg 1 tab PO TID 11/29/23 11/29/23 History tablet montelukast 10 mg tablet 10 mg PO HS 11/29/23 11/29/23 History quetiapine 25 mg tablet 50 mg PO HS 11/29/23 11/29/23 History valsartan 160 mg tablet 160 mg PO QAM 11/29/23 11/29/23 History buspirone 5 mg tablet 5 mg PO DAILY #30 tabs 11/30/23 Rx lorazepam 0.5 mg tablet (Ativan) 0.5 mg PO DAILY PRN severe 11/30/23 Rx anxiety #7 tabs Hospital Stay Data Consultations 11/29/23 13:47 ED Decision to Admit Stat Diagnostic Imagining Performed 11/29/23 15:15 CT head/brain wo con Stat Chest X-Ray 11/29/23 11:11 SINGLE VIEW CHEST CLINICAL HISTORY: Dyspnea FINDINGS: An AP, portable, upright chest radiograph is compared to study dated 05/09/2023. The examination is degraded by portable technique and apical lordotic positioning. The heart is mildly enlarged. The pulmonary vasculature is noncongested. Chronic interstitial thickening is similar to previous. There is mild bibasilar scarring/atelectasis. The lungs and pleural spaces are otherwise clear. No pneumothorax is seen. The skeletal structures are osteopenic. The bony thorax is grossly intact. IMPRESSION: No acute cardiopulmonary abnormality. ACT 112: Negative or not required by law. Electronically signed by: Bharathi Nguyen M.D. 11/29/2023 11:[address] 11/29/23 15:15 CT head/brain wo con CLINICAL HISTORY: 83 years-old Male with dizziness. Acute dizziness TECHNIQUE: Multiple axial CT images of the head were obtained without contrast. A dose lowering technique was utilized adhering to the principles of ALARA. CT DOSE: 625.8 mGy.cm COMPARISON: 05/09/2023 FINDINGS: No acute intracranial hemorrhage, midline shift, intracranial mass, hydrocephalus, territorial ischemia or abnormal extra-axial collection. Involutional changes with chronic microvascular ischemic disease. The calvarium is intact. Left-sided lens repair. Polypoid mucosal thickening of the maxillary sinuses. The mastoid air cells are clear. IMPRESSION: No acute intracranial abnormality. ACT 112: Negative or not required by law. The above report was generated using voice recognition software. It may contain grammatical, syntax or spelling errors. Electronically signed by: Trevor Gibbons M.D. 11/29/2023 4:20 PM Discharge Instructions Given to Patient (Per Discharging Provider) Mr. Bhagat, You were admitted with concerning blood pressures. Your blood pressure improved with IV medication treatments. You also noted that you felt very anxious and that was causing your blood pressure to go high. You requested medications to help with that. We looked back through your outpatient chart and discussed the medications that you have tried in the past to help with your anxiety. You indicated that you wanted to try to medication Buspar again with close followup with your primary care provider. We prescribed you the medication buspar to take daily and advise that you follow up with your primary care provider if that medication needs to be adjusted. We are also discharging you with a few pills of NEEDED lorazepam to help with severe anxiety. Again, please keep close follow up with your primary care provider for further evaluation and refills as needed. Again, please keep close follow up with your primary care provider after discharge. Please do not hesitate to come back to the emergency room if your symptoms worsen or return. It was a pleasure taking care of you while you were here. Total Time Total Time Spent Total Time Spent (In Minutes): > 30 minutes
--- NOTE | 2023-11-30 16:24 | Communication Note ---
Date of Service: November 30, 2023 By CMS guidelines, a determination that the admission or continued stay is not medically necessary has been made by a member of the UR committee and a phys ician for this hospital stay, therefore a Code 44 will be completed and the Inpatient admission will be changed to outpatient.
--- NOTE | 2023-12-01 13:56 | Communication Note ---
Date of Service: December 01, 2023 By CMS guidelines, a determination that the admission or continued stay is not medically necessary has been made by a member of the UR committee and a phy sician for this hospital stay, therefore a Code 44 will be completed and the Inpatient admission will be changed to outpatient.
== END 2023-11-30 14:35 | disposition home or self-care (01) | DRG 305 ==
LOC: ED 10:49 → SUATTDRO 14:31 → EDINP 14:31 → INTOOBSV 14:31 → 2N 15:40

== ENCOUNTER 2024-08-02 02:26 | Inpatient (IN) ==
--- OUTSIDE RECORDS SUMMARY | 2024-08-02 02:31 | External Medical Summary | Summary of Care ---
Author Name Unknown Organization [facility] Address [address] [place] [address] Phone [phone] Care Team Providers Care Management Planner Name Role Phone Zuhair Nelson DO Primary Care Provider [phone] Reason for Visit * Reason Onset Date Comments Medication Update 07/29/2024 Encounter Details Date Type Department Care Team (Late st Contact Info) Description 07/29/2024 Telephone Family Practice [address] [facility] [address] [place] [address] Zuhair Nelson DO [address] [place] [address] Medication Update Allergies Active Allergy Reactions Criticality Noted Date Comments Amlodipine Unknown 05/09/2023 Hydrocortisone 07/09/2023 documented as of this encounter (statuses as of 07/29/2024) Medications Nitroglycerin 0.4 MG Sublingual Tablet Sublingual (Nitrostat)Indicat ions:Chest pain, unspecified type PLACE 1 TABLET UNDER TONGUE NEEDED FOR PAIN, CHEST. MAY REPEAT X.3 IF PAIN CONTINUES, CALL 911. 25 Tablet 11 12/04/19 24 Active Selenium 50 MCG Oral Tablet Take by mouth daily. Active Dexter 3-6-9 Complex Oral Capsule Take 1 Capsule by mouth in the morning. Active Vitamin E 6.75 MG/0.3ML Oral Solution (Aquasol E) Take 8 mL by mouth in the morning. Active HM Super Vitamin B12 2500 MCG Oral Tablet Chewable (Cyanocobalamin) Take by mouth. Active Clopidogrel Bisulfate 75 MG Oral Tablet (pLAVix)Indication s:Carotid atherosclerosis, bilateral,PVD (peripheral vascular disease) ([facility]),History of transient ischemic attack (TIA) Take 1 Tablet by mouth in the morning. 90 Tablet 1 12/31/19 24 Active Magnesium Glycinate 100 MG Oral Capsule Take by mouth. 200 mg Active NATURAL SUPPLEMENT Take by mouth daily. CERVETOLKA PLUS Active Montelukast Sodium 10 MG Oral Tablet (Singulair)Indicat ions:COPD, group B, by GOLD 2017 classification ([facility]) Take 1 Tablet by mouth at bedtime. 90 Tablet 3 07/20/20 24 Active Bisoprolol Fumarate 5 MG Oral Tablet (Zebeta)Indication s:HTN, goal below 140/90,Coronary artery disease involving [place] coronary artery of [place] heart without angina pectoris Take 1 Tablet by mouth in the morning and 1 Tablet at noon and 1 Tablet before bedtime. 270 Tablet 1 07/20/20 24 Active Colchicine 0.6 MG Oral Tablet Take 1 Tablet by mouth in the morning. 500 mcg. 90 Tablet 1 07/20/20 24 Active Albuterol Sulfate HFA 108 (90 Base) MCG/ACT Inhalation Aerosol SolutionIndication s:COPD with asthma ([facility]) Inhale 2 Puffs by mouth every 6 hours as needed for Cough or Shortness of Breath. 18 g 5 07/21/20 24 Active QUEtiapine Fumarate 25 MG Oral Tablet (SEROquel) Take 1 Tablet by mouth at bedtime. 90 Tablet 1 07/21/20 24 Active Memantine HCl 10 MG Oral Tablet (Namenda) Take 1 Tablet by mouth 2 times a day with morning and evening meals. 180 Tablet 1 07/21/20 24 Active Isosorbide Mononitrate ER 60 MG Oral Tablet Extended Release 24 Hour (Imdur)Indications :Coronary artery disease involving [place] coronary artery of [place] heart without angina pectoris Take 1 Tablet by mouth in the morning. Do not cut, crush or chew. 90 Tablet 3 07/21/20 24 Active Rosuvastatin Calcium 20 MG Oral Tablet (Crestor)Indicatio ns:HTN, goal below 140/90,Coronary artery disease involving [place] coronary artery of [place] heart without angina pectoris Take 1 Tablet by mouth in the morning. 90 Tablet 3 07/21/20 24 Active Vitamin B-1 250 MG Oral Tablet Take by mouth. Act jimy Vitamin K2 100 MCG Oral Capsule Take by mouth. Ac tive Famotidine 20 MG Oral Tablet (Pepcid) Take 1 Tablet by mouth daily before breakfast. 90 Tablet 1 07/27/20 24 Active amLODIPine Besylate-Valsartan 5-160 MG Oral Tablet Take 1 Tablet by mouth in the morning. 90 Tablet 1 07/29/20 24 Active amLODIPine Besylate-Valsartan 5-160 MG Oral Tablet Take 1 Tablet by mouth in the morning. 90 Tablet 1 07/27/20 24 024 Discontin ued(Refil l) documented as of this encounter (statuses as of 07/29/2024) Active Problems Problem Noted Date Diagnosed Date Combined forms of age-related cataract of right eye 12/19/2023 Esophagitis 12/02/2023 Lumbar degenerative disc disease 12/02/2023 Gait disturbance 12/02/2023 History of GI bleed 12/02/2023 Iron deficiency anemia due to chronic blood loss 12/02/2023 Coronary artery disease invo lving [place] coronary artery of [place] heart without angina pectoris 12/02/2023 Benign essential tremor 12/02/2023 Primary osteoarthritis of both shoulders 024 BPH with obstruction/lower urinary tract symptom s 07/09/2023 COPD, group B, by GOLD 2017 classification 12/17 Overview: Per COPD GOLD Classification Esophageal dysmotility 12/07/2022 Fatty liver 05/14/2022 Primary insomnia 05/14/2022 RADHA (generalized anxiety disorder) 06/08/2019 Panic disorder 06/08/2019 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 History of TIA (transient ischemic attack) 04/20 HTN, goal below 140/90 01/25/2016 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 Allergic rhinitis 06/29/2013 Monoclonal gammopathy 09/25/2012 documented as of this encounter (statuses as of 07/29/2024) Resolved Problems Problem Noted Date Diagnosed Date Resolved Date 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/02/2023 Bilateral carpal tunnel syndrome 05/16/2023 12/02/2023 Parkinson's disease 11/28/2022 12/02/19 24 Dementia without behavioral disturbance 11/28/2022 12/02/2023 Dementia without behavioral disturbance 11/28/2022 11/28/2022 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 06/08/2019 Syncope and collapse 11/28/2012 019 Anemia 09/25/2012 05/14/2022 Hypertension 09/25/2012 06/08/2019 Neuropathy 09/25/2012 12/02/2023 TIA (transient ischemic attack) 09/25/2012 04/20/2019 documented as of this encounter (statuses as of 07/29/2024) Immunizations Name Administration Dates Next Due COVID-19 mRNA, LNP-s, No Pre serve, 2-Dose Series ([employer]) 08/10/2021 COVID-19, MRNA-LNP, PF, 30 M CG/0.3 mL, 12 YRS AND ABOVE, IM ([facility]) 08/15/2023 Covid-19, Mrna, Lnp-s, Pf, B ivalent, 30 Mcg, IM, 12 yrs and above ([employer]) 06/09/2022 Pneumococcal Polysaccharide PPV23 (Pneumovax) ,07/08/2013 RSV Vac., Bivalent, Perfusion F, Pf,0.5 Ml ([facility]) 07/23/2023 Season Influenza, Quad, PF, Adjuvanted, 65+ Yrs, IM ([facility]) 05/06/2023 Seasonal Influenza Vac., MDV, IM, 0.5 mL (Fluzon e) 04/09/2013 Seasonal Influenza, Quadrivalent Hd (Fluzone Hd) 04/23/2022,09/01/2021 Seasonal Influenza, Trivalen t, Adjuvanted, 65+ YRS, PF, (Fluad) 04/28/2019 documented as of this encounter Social History Tobacco Use Types Packs/Day Years Used Date Smoking Tobacco: Former Cigarettes 3 17 1 - 05/30/1982 Smokeless Tobacco: Never Alcohol Use Standard Drinks/Week Comments No 0 (1 standard drink = 0.6 oz pur e alcohol) PHQ-2 Answer Date Recorded PHQ Adult Total Score 1 12/02/2023 Hunger Vital Sign Answer Date Recorded Within the past 12 months, y ou worried that your food would run out before you got the money to buy more. Never true 12/10/19 24 Within the past 12 months, t he food you bought just didn't last and you didn't have money to get more. Never true 12/10/2023 Childcare Answer Date Recorded Do you feel overwhelmed with taking care of a child, family member or friend? No 12/10/2023 Does your family need help f inding childcare? (Household - for ages 0-17 years) Not on file 12/10/2023 Clothing Answer Date Recorded Have you been unable to get clothing when it was really needed? No 12/10/2023 Is your family able to get c lothes or diapers when needed? (Household - for ages 0-17 years) Not on file 12/10/2023 Personal Safety Answer Date Recorded Do you feel unsafe or have concerns for your saf ety? No 12/10/2023 Do you have concerns for you r family's safety? (Household - for ages 0-17 years) Not on file 12/10/2023 Utilities Answer Date Recorded Do you have trouble paying y our heating, water, or electric bill? No 12/10/2023 Is your family able to pay t he heat, water, or electric bill? (Household - for ages 0-17 years) Not on file 12/10/2023 Does your family have access to good internet? (Household - for ages 0-17 years) Not on file 12/10/2023 Employment Status Answer Date Recorded Are you unemployed or without regular income? No 12/10/2023 Does the household have a re lar source of income? (Household - for ages 0-17 years) Not on file 12/10/2023 Social Connections Answer Date Recorded How often do you feel lonely or isolated from th ose around you? Never 12/10/2023 Financial Resource Strain Answer Date R ecorded Do you have any trouble payi ng for your medications, or do you think you might in the future? No 12/10/2023 Does your family have troubl e paying for medicine? (Household - for ages 0-17 years) Not on file 12/10/2023 Transportation Needs Answer Date Record ed READ ONLY Do you have troubl e getting a ride to medical visits or work? Never True 12/10/2023 Does your family have a hard time getting a ride to doctors visits? (Household - for ages 0-17 years) Not on file 12/10/2023 Has lack of transportation k ept you from medical appointments, meetings, work, or from getting things needed for daily living? Check all that apply. (Adult - for ages 18 years and over) Not on file 12/10/2023 Do you (or your family) have trouble finding or paying for a ride (transportation)? (Household - for ages 0-17 years) Not on file 12/10/2023 Housing Stability Answer Date Recorded Do you currently live in a s helter or have no steady place to sleep at night? No 12/10/2023 READ ONLY Do you think you a re at risk of becoming homeless? No 12/10/2023 Does your family worry about paying for your home or becoming homeless? (Household - for ages 0-17 years) Not on file 0 12/10/2023 Are you homeless or worried that you might be in the future? (Adult - for ages 18 years and over) Not on file Are you (or your family) [place] el[place] or worried that you might be in the future? (Household - for ages 0-17 years) Not on file Food Insecurity Answer Date Recorded Do you need food for this week? No 12/10/2023 Are you able to get enough f ood for your family? (Household - for ages 0-17 years) Not on file 12/10/2023 Does your family need food t his week? (Household - for ages 0-17 years) Not on file 12/10/2023 Do you always have enough fo od for your family? 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 [facility] says it was cancelled in their system. Thank You, Salvador Cortez, Pharm-D Clinical Pharmacist [facility] [phone] 07/29/2024, 1:07 PM * Telephone Encounter - Melina Rahman PHARM Tech - 07/29/2024 1:03 PM EST Pharmacy calling regarding amLODIPine Besylate-Valsartan 5-160 MG Oral Tablet They received script 07/27/2024. Then script was cancelled today. Calling to check if this is correct. Thank you, Melina Rahman [employer] Repairer I [facility] 07/29/2024,1:04 PM documented in this encounter Plan of Treatment Upcoming Encounters Date Type Department Care Team (Late st Contact Info) Description 11/19/2024 4:20 PM EDT Office Visit General Internal Medicine [facility] [address] [facility] [place] [address] Loan Cherry PA-C [address] [facility] [place] [address] 11/23/2024 1:30 PM EDT Office Visit Orthopaedics [facility] [address] [facility] [place] [address] Juan Carlos Sy MD [address] [place] [address] 01/07/2025 1:30 PM EDT Office Visit Hematology/Oncology [facility] [address] [place] [phone] Jun Martin MD [address] [facility] [place] [address] 02/09/2025 3:30 PM EDT [facility], [facility] [place] [address] Sam Sanchez MD [address] [place] [address] Health Maintenance Due Date Last Done Comments Albumin/Creatinine Ratio 1959 Alpha-1 Antitrypsin 1959 DTap/Tdap Vaccines (1 - Tdap) 1960 Zoster Vaccines (1 of 2) 1991 Adult Wellness Visit 2007 *COPD SEVERITY VERIFIED BY PFT 05/30/2019 *SPIROMETRY ONCE FOR ASTHMA-ADULT 07/05/2022 Pneumococcal Vaccine: 65+ Years (2 of 2 - PCV) 09/01/2022 09/01/2021, 07/08/2013 COVID-19 Vaccine (4 - season) 2024 08/15/2023, 06/09/2022, 08/10/2021 Influenza Vaccine (FLU shot) (#1) 2024 05/06/2023, 04/23/2022, 09/01/2021, Additional history exists Depression Screening 12/01/2024 12/02/2023, 12/02/19 24 GFR 07/22/2025 07/22/2024, 06/13, 12/31/2023, Additional history exists O2 ASSESSMENT COMPLETED IN PAST YEAR FOR COPD 07/27/2025 07/27/2024 HPV (Gardasil) Vaccine Aged Out No lo nger eligible based on patient's age to complete this topic Hepatitis B Vaccine Aged Out No longe r eligible based on patient's age to complete this topic MENINGOCOCCAL (MENACTRA/MENVEO) Aged Out No longer eligible based on patient's age to complete this topic documented as of this encounter Medical Devices Not on filedocumented as of this encounter Advance Directives * Full Code (Latest Code Status on File) Date Activated Date Inactivated Comments 11/28/2012 2:07 AM 11/28/2012 6:25 PM This order r eflects the patients wishes and were consensually agreed upon. Question Answer Comments Discussion of Advance Directives occurred with: Patient Care Teams Management Planner Relationship Specialty Start Date End Date Zuhair Nelson DO [address] [place] [address] PCP - General Family Medicine 12/02/23 documented as of this encounter
--- OUTSIDE RECORDS SUMMARY | 2024-08-02 02:31 | External Medical Summary | Summary of Care ---
Author Name Unknown Organization [facility] Address [address] [place] [address] Phone [phone] Care Team Providers Care Cash Crop Farmer Name Role Phone Zuhair Nelson DO Primary Care Provider [phone] Reason for Visit * Reason Onset Date Comments Test Results 07/29/2024 Advice 07/29/2024 Encounter Details Date Type Department Care Team (Late st Contact Info) Description 07/29/2024 Telephone General Internal Medicine [facility] [address] [facility] [place] [address] Loan Cherry PA-C [address] [facility] [place] [address] Test Results; Advice Allergies Active Allergy Reactions Criticality Noted Date Comments Amlodipine Unknown 05/09/2023 Hydrocortisone 07/09/2023 documented as of this encounter (statuses as of 07/29/2024) Medications Nitroglycerin 0.4 MG Sublingual Tablet Sublingual (Nitrostat)Indicat ions:Chest pain, unspecified type PLACE 1 TABLET UNDER TONGUE NEEDED FOR PAIN, CHEST. MAY REPEAT X.3 IF PAIN CONTINUES, CALL 911. 25 Tablet 11 4 Active Selenium 50 MCG Oral Tablet Take by mouth daily. Active [place] 3-6-9 Complex Oral Capsule Take 1 Capsule by mouth in the morning. Active Vitamin E 6.75 MG/0.3ML Oral Solution (Aquasol E) Take 8 mL by mouth in the morning. Active HM Super Vitamin B12 2500 MCG Oral Tablet Chewable (Cyanocobalamin) Take by mouth. Active Clopidogrel Bisulfate 75 MG Oral Tablet (pLAVix)Indication s:Carotid atherosclerosis, bilateral,PVD (peripheral vascular disease) ([facility]),History of transient ischemic attack (TIA) Take 1 Tablet by mouth in the morning. 90 Tablet 1 4 Active Magnesium Glycinate 100 MG Oral Capsule Take by mouth. 200 mg Active NATURAL SUPPLEMENT Take by mouth daily. CERVETOLKA PLUS Active Montelukast Sodium 10 MG Oral Tablet (Singulair)Indicat ions:COPD, group B, by GOLD 2017 classification ([facility]) Take 1 Tablet by mouth at bedtime. 90 Tablet 3 4 Active Bisoprolol Fumarate 5 MG Oral Tablet (Zebeta)Indication s:HTN, goal below 140/90,Coronary artery disease involving [place] coronary artery of [place] heart without angina pectoris Take 1 Tablet by mouth in the morning and 1 Tablet at noon and 1 Tablet before bedtime. 270 Tablet 1 4 Active Colchicine 0.6 MG Oral Tablet Take 1 Tablet by mouth in the morning. 500 mcg. 90 Tablet 1 4 Active Albuterol Sulfate HFA 108 (90 Base) MCG/ACT Inhalation Aerosol SolutionIndication s:COPD with asthma ([facility]) Inhale 2 Puffs by mouth every 6 hours as needed for Cough or Shortness of Breath. 18 g 5 4 Active QUEtiapine Fumarate 25 MG Oral Tablet (SEROquel) Take 1 Tablet by mouth at bedtime. 90 Tablet 1 4 Active Memantine HCl 10 MG Oral Tablet (Namenda) Take 1 Tablet by mouth 2 times a day with morning and evening meals. 180 Tablet 1 4 Active Isosorbide Mononitrate ER 60 MG Oral Tablet Extended Release 24 Hour (Imdur)Indications :Coronary artery disease involving [place] coronary artery of [place] heart without angina pectoris Take 1 Tablet by mouth in the morning. Do not cut, crush or chew. 90 Tablet 3 4 Active Rosuvastatin Calcium 20 MG Oral Tablet (Crestor)Indicatio ns:HTN, goal below 140/90,Coronary artery disease involving [place] coronary artery of [place] heart without angina pectoris Take 1 Tablet by mouth in the morning. 90 Tablet 3 4 Active Vitamin B-1 250 MG Oral Tablet Take by mouth. Act jimy Vitamin K2 100 MCG Oral Capsule Take by mouth. Ac tive Famotidine 20 MG Oral Tablet (Pepcid) Take 1 Tablet by mouth daily before breakfast. 90 Tablet 1 4 Active amLODIPine Besylate-Valsartan 5-160 MG Oral Tablet Take 1 Tablet by mouth in the morning. 90 Tablet 1 4 Active documented as of this encounter (statuses as of 07/29/2024) Active Problems Problem Noted Date Diagnosed Date Combined forms of age-related cataract of right eye 12/19/2023 Esophagitis 12/02/2023 Lumbar degenerative disc disease 12/02/2023 Gait disturbance 12/02/2023 History of GI bleed 12/02/2023 Iron deficiency anemia due to chronic blood loss 12/02/2023 Coronary artery disease invo lving lumbee coronary artery of lumbee heart without angina pectoris 12/02/2023 Benign essential [...] mRNA, LNP-s, No Pre serve, 2-Dose Series ([employer]) 08/10/2021 COVID-19, MRNA-LNP, PF, 30 M CG/0.3 mL, 12 YRS AND ABOVE, IM ([employer]) 08/15/2023 Covid-19, Mrna, Lnp-s, Pf, B ivalent, 30 Mcg, IM, 12 yrs and above ([employer]) 06/09/2022 Pneumococcal Polysaccharide PPV23 (Pneumovax) ,07/08/2013 RSV [...] 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 Relayed message to him. He will call physical therapy to schedule an appointment when he is not driving. * Telephone Encounter - Tiffany Macias, MED ASSIST - 07/29/2024 1:00 PM EST Attempted to call patient, there was no answer, left voicemail. When patient returns call, ok for KARISHMA to relay message, please refer to below documentation. If needed, can transfer to dedicated nurse line. * Telephone Encounter - Tiffany Macias MED ASSIST - 07/29/2024 12:59 PM EST ----- Message from Loan Cherry sent at 07/29/2024 11:51 AM EST ----- Pt's xray showing moderate degenerative changes of lumbar spine at L4-L5. Would recommend proceeding with PT as we discussed at appt. documented in this encounter Plan of Treatment Upcoming Encounters Date Type Department Care Team (Late st Contact Info) Description 11/19/2024 4:20 PM EDT Office Visit General Internal Medicine [address] [place] [address] Loan Cherry PA-C [address] [place] [address] [place] [address] 11/23/2024 1:30 PM EDT Office Visit Orthopaedics [facility] [address] [place] [address] Juan Carlos Sy MD [address] [place] [address] 01/07/2025 1:30 PM EDT Office Visit Hematology/Oncology [address] [place] [phone] Jun Martin MD [address] [place] [address] [place] [address] 02/09/2025 3:30 PM EDT Office Visit Cardiology, [facility] [address] [place] [address] Sam Sanchez MD [address] [place] [address] Health Maintenance Due Date Last Done Comments [...] Advance Directives occurred with: Patient Care Teams Cash Crop Farmer Relationship Specialty Start Date End Date Omar, Zuhair, DO [address] [place] [phone] PCP - General Family Medicine 12/02/23 documented as of this encounter
--- OUTSIDE RECORDS SUMMARY | 2024-08-02 02:32 | External Medical Summary | Summary of Care ---
Author Name Unknown Organization [facility] Address [address] [place] [address] Phone [phone] Care Team Providers Care Information Technology Security Manager Name Role Phone OmarZuhair chapman DO Primary Care Provider + [phone] Reason for Referral * Evaluate & Treat - Unlimited Visits (Within 3 days (urgent)) - Authorized Specialty Diagnoses / Procedures Referred By David t Referred To Contact Physical Therapy / Physical Medicine And Rehab Diagnoses Acute bilateral low back pain with bilateral sciatica Jose Cherry PA-C [address] [place] [id number] Phone: tel: fax: Referral ID Status Reason Start Date Expiration Date Visits Requested Visits Authorized [id number] Authorized Specialty Services Required [phone] Question Answer Referral Priority Within 3 days (urgent) Where should this appointment be scheduled? External - [facility] Reason for Visit * Reason Comments Return Visit Patient return to [facility] anti-inflammatory medication alternative for pain. Reports he has severe pain in lower back that radiates into his legs bilaterally. Also reporting chest pain and SOB every other day. Has concerns about his shaking as well. Encounter Details Date Type Department Care Team (Late st Contact Info) Description 07/27/2024 4:00 PM EST Office Visit General Internal Medicine [facility] [address] [place] [id number] Jose Cherry PA-C [address] [place] [id number] Acute bilateral low back pain with bilateral sciatica*; Esophagitis; HTN, goal below 140/90; History of GI bleed; Iron deficiency anemia due to chronic blood loss; Coronary artery disease involving karuk coronary artery of karuk heart without angina pectoris Allergies Active Allergy Reactions Criticality Noted Date Comments Amlodipine Unknown 05/09/2023 Hydrocortisone 07/09/2023 documented as of this encounter (statuses as of 07/28/2024) Medications Nitroglycerin 0.4 MG Sublingual Tablet Sublingual (Nitrostat)Indicat ions:Chest pain, unspecified type PLACE 1 TABLET UNDER TONGUE NEEDED FOR PAIN, CHEST. MAY REPEAT X.3 IF PAIN CONTINUES, CALL 911. 25 Tablet 11 12/04/19 24 Active Selenium 50 MCG Oral Tablet Take by mouth daily. Active [place] 3-6-9 Complex Oral Capsule Take 1 Capsule by mouth in the morning. Active Vitamin E 6.75 MG/0.3ML Oral Solution (Aquasol E) Take 8 mL by mouth in the morning. Active HM Super Vitamin B12 2500 MCG Oral Tablet Chewable (Cyanocobalamin) Take by mouth. Active Clopidogrel Bisulfate 75 MG Oral Tablet (pLAVix)Indication s:Carotid atherosclerosis, bilateral,PVD (peripheral vascular disease) ([facility]),History of transient ischemic attack (TIA) Take 1 Tablet by mouth in the morning. 90 Tablet 1 12/31/19 24 Active Magnesium Glycinate 100 MG Oral Capsule Take by mouth. 200 mg Active NATURAL SUPPLEMENT Take by mouth daily. CERVETOLKA PLUS Active Montelukast Sodium 10 MG Oral Tablet (Singulair)Indicat ions:COPD, group B, by GOLD 2017 classification ([facility]) Take 1 Tablet by mouth at bedtime. 90 Tablet 3 07/20/20 24 Active Bisoprolol Fumarate 5 MG Oral Tablet (Zebeta)Indication s:HTN, goal below 140/90,Coronary artery disease involving karuk coronary artery of karuk heart without angina pectoris Take 1 Tablet by mouth in the morning and 1 Tablet at noon and 1 Tablet before bedtime. 270 Tablet 1 07/20/20 24 Active Colchicine 0.6 MG Oral Tablet Take 1 Tablet by mouth in the morning. 500 mcg. 90 Tablet 1 07/20/20 24 Active Albuterol Sulfate HFA 108 (90 Base) MCG/ACT Inhalation Aerosol SolutionIndication s:COPD with asthma ([facility]) Inhale 2 Puffs by mouth every 6 [...] 24 Hour (Imdur)Indications :Coronary artery disease involving karuk coronary artery of karuk heart without angina pectoris Take 1 Tablet by mouth in the morning. Do not cut, crush or chew. 90 Tablet 3 07/21/20 24 Active Rosuvastatin Calcium 20 MG Oral Tablet (Crestor)Indicatio ns:HTN, goal below 140/90,Coronary artery disease involving karuk coronary artery of karuk heart without angina pectoris Take 1 Tablet by mouth in the morning. 90 Tablet 3 07/21/20 24 Active Vitamin B-1 250 MG Oral Tablet Take by mouth. Act jimy Vitamin K2 100 MCG Oral Capsule Take by mouth. Ac tive amLODIPine Besylate-Valsartan 5-160 MG Oral Tablet Take 1 Tablet by mouth in the morning. 90 Tablet 1 07/27/20 24 Active Famotidine 20 MG Oral Tablet (Pepcid) Take 1 Tablet by mouth daily before breakfast. 90 Tablet 1 07/27/20 24 Active amLODIPine-Valsart an-HCTZ 5-160-12.5 MG Oral Tablet (Exforge HCT)Indications:HT N, goal below 140/90 Take 1 Tablet by mouth daily before breakfast. 90 Tablet 1 07/21/20 24 024 Discontin ued(Patie nt preferenc e/discont inuation) Dapagliflozin Propanediol 5 MG Oral Tablet (Farxiga)Piatio ns:Type 2 diabetes mellitus without complication, without long-term current use of insulin ([facility]) Take 1 Tablet by mouth in the morning. 90 Tablet 1 07/21/20 24 024 Discontin ued(Medic ation List Clean Up) Omeprazole 40 MG Oral Capsule Delayed Release (PriLOSEC) Take 1 Capsule by mouth in the morning. 1 hour before the first meal of the day. 90 Capsule 1 07/21/20 24 024 Discontin ued(Medic ation/Dos e Changed) documented as of this encounter (statuses as of 07/28/2024) Active Problems Problem Noted Date Diagnosed Date Combined forms of age-related cataract of right eye 12/19/2023 Esophagitis 12/02/2023 Lumbar degenerative disc disease 12/02/2023 Gait disturbance 12/02/2023 History of GI bleed 12/02/2023 Iron deficiency anemia due to chronic blood loss 12/02/2023 Coronary artery disease invo lving karuk coronary artery of karuk heart without angina pectoris 12/02/2023 Benign essential [...] as of this encounter (statuses as of 07/28/2024) Resolved Problems Problem Noted Date Diagnosed Date [...] as of this encounter (statuses as of 07/28/2024) Immunizations Name Administration Dates Next Due COVID-19 mRNA, LNP-s, No Pre serve, 2-Dose Series (Pfizer) 08/10/2021 COVID-19, MRNA-LNP, PF, 30 M CG/0.3 mL, 12 YRS AND ABOVE, IM [facility] 08/15/2023 Covid-19, Mrna, Lnp-s, Pf, B ivalent, [...] No 12/10/2023 Does the household have a [facility] income? (Household - for ages [...] Sign Reading Time Taken Comments Blood Pressure 144/64 07/27/2024 4:06 PM EST Pulse 68 07/27/2024 4:06 PM EST Temperature 36.7 C (98 F) 07/27/2024 4:06 PM EST Respiratory Rate - - Oxygen Saturation 95% 07/27/2024 4:06 PM EST Inhaled Oxygen Concentration - - Weight 85.8 kg (189 lb 3.2 oz) 07/27/2024 4:06 P M EST Height - - Body Mass Index 29.63 01/29/2024 2:14 PM EDT documented in this encounter Progress Notes * Jose Cherry PA-C - 07/27/2024 4:12 PM EST Images from the original note were not included. History of Present Illness Amanda Bhagat is a 83 year old male that presents for Return Visit (Patient return to discuss anti-inflammatory medication alternative for pain. Reports he has severe pain in lower back that radiates into his legs bilaterally. Also reporting chest pain and SOB every other day. Has concerns abouthis shaking as well. ) Pt here today to discuss bilateral low back and hip pain for the last couple of weeks. No recent trauma or injury. Was requesting an anti-inflammatory to take for pain when he stopped into the officelast week. With his medications and history of GI bleed, would like to avoid NSAIDs. Pain radiates down back of legs. Pt also again has several questions about his medications. Does not want to take omeprazole after reading the side effects. Also does not want the HCTZ in his combo BP med. Pt had labs done last week that all looked stable. Chol not quite at goal but did just recently restart the Crestor 20 mg. Pt's A1c and glucose also looked fine. I do not believe pt to be a diabetic.He insists he is taking the Farxiga for his blood sugar and not for his heart. Review of Systems: See HPI for pertinent positives. All other review of systems is negative. Physical Exam Vitals: 07/27/24 1606 Temp: 98 F (36.7 C) Pulse: 68 SpO2: 95% BP: 144/64 Physical Exam Constitutional: General: He is not in acute distress. Appearance: He is not diaphoretic. Cardiovascular: Rate and Rhythm: Normal rate and regular rhythm. Pulmonary: Effort: Pulmonary effort is normal. Breath sounds: Normal breath sounds. Musculoskeletal: Lumbar back: No tenderness or bony tenderness. Decreased range of motion. Negative right straight leg raise test and negative left straight leg raise test. Back: Comments: Location of pt's pain. Skin: General: Skin is warm and dry. Neurological: General: No focal deficit present. Mental Status: He is alert. Mental status is at baseline. I have reviewed the following results: Assessment and Plan Acute bilateral low back pain with bilateral sciatica L-spine xray. Also discussed course of PT. He is agreeable. - XR L SPINE 2-3 VIEWS - PHYSICAL THERAPY REFERRAL OP Esophagitis Pt does not want the omeprazole and is adamant about taking something else. Trial of famotidine. HTN, goal below 140/90 Exforge HCT changed to plain Exforge at pt's request. Continue to monitor. History of GI bleed Iron deficiency anemia due to chronic blood loss Coronary artery disease involving karuk coronary artery of karuk heart without angina pectoris Goal LDL less than 100. Will continue the rosuvastatin. oRhan also d/c'ed--do not feel pt is a diabetic. Will continue to monitor his labs. Wrap-Up Follow Up: Return if symptoms worsen or fail to improve. Time: I spent a total of Greater than 55 mins (exact time 56 mins) on the date of service in preparation,delivery, and documentation of the care provided to Amanda Bhagat excluding any time spent in the performance of separately billed services. documented in this encounter Nursing Notes * [facility] - 07/27/2024 4:10 PM EST Chief Complaint Patient presents with Return Visit Patient return to discuss anti-inflammatory medication alternative for pain. Reports he has severe pain in lower back that radiates into his legs bilaterally. Also reporting chest pain and SOB every other day. Has concerns about his shaking as well. Patient has been verbally educated on the need or importance of Flu Vaccine, Pneumococcal Vaccine, Tdap Vaccine, and Shingles Vaccine and has declined topic(s). documented in this encounter Miscellaneous Notes * Addendum Note - Jose Cherry PA-C - 07/28/2024 9:33 AM EST Addended by: JOSE CHERRY on: 07/28/2024 09:33 AM Modules accepted: Orders documented in this encounter Plan of Treatment Upcoming Encounters Date Type Department Care Team (Late st Contact Info) Description 11/19/2024 4:20 PM EDT Office Visit General Internal Medicine [facility] [address] [facility] [place], [place] [address] Jose Cherry PA-C [address] [facility] [place], [place] [address] 11/23/2024 1:30 PM EDT Office Visit Orthopaedics [facility] [address] [place] [address] Juan Carlos Sy MD [address] [facility] [place] [address] 01/07/2025 1:30 PM EDT Office Visit Hematology/Oncology [facility] [address] [facility] [place] [phone] Jun Martin MD [address] [facility] [place] [address] 02/09/2025 3:30 PM EDT Office Visit Cardiology, [facility] [address] [facility] [place] [address] Sam Sanchez MD [address] [facility] [address] Pending Results Name Type Priority Associated Diagnoses Date /Time XR L SPINE 2-3 VIEWS Medical Imaging Routine Acute bilateral low back pain with bilateral sciatica 07/28/2024 8:59 AM EST Scheduled Referrals Name Type Priority Associated Diagnoses Orde r Schedule PHYSICAL THERAPY REFERRAL OP Referral Within 3 days (urgent) Acute bilateral low back pain with bilateral sciatica Ordered: 07/28/2024 Health Maintenance Due Date Last Done Comments Albumin/Creatinine Ratio 1959 Alpha-1 Antitrypsin 1959 DTap/Tdap Vaccines (1 - Tdap) 1960 Zoster Vaccines (1 of 2) 1991 Adult Wellness Visit 2007 *COPD SEVERITY VERIFIED BY PFT 05/30/2019 *SPIROMETRY ONCE FOR ASTHMA-ADULT 07/05/2022 Pneumococcal Vaccine: 65+ Years (2 of 2 - PCV) 09/01/2022 09/01/2021, 07/08/2013 Influenza Vaccine (FLU shot) (#1) 2024 05/06/2023, 04/23/2022, 09/01/2021, Additional history exists COVID-19 Vaccine ( season) 2024 08/15/2023, 06/09/2022, 08/10/2021 Postponed from 04/12/2024 (Unavailable) Depression Screening 12/01/2024 12/02/2023, 12/02/19 24 GFR [...] of this encounter Visit Diagnoses Diagnosis Acute bilateral low back pain with bilateral sciatica- Primary Esophagitis Esophagitis, unspecified HTN, goal below 140/90 Unspecified essential hypertension History of GI bleed Personal history of other diseases of digestive system Iron deficiency anemia due to chronic blood loss Iron deficiency anemia secondary to blood loss (chronic) Coronary artery disease involving karuk coronary artery of karuk heart without angina pectoris documented in this encounter Advance Directives * Full Code (Latest Code Status on File) Date Activated Date Inactivated Comments 11/28/2012 2:07 AM 11/28/2012 6:25 PM This order r eflects the patients wishes and were consensually agreed upon. Question Answer Comments Discussion of Advance Directives occurred with: Patient Care Teams Information Technology Security Manager Relationship Specialty Start Date End Date Zuhair Nelson DO [address] [place] [id number] PCP - General Family Medicine 12/02/23 documented as of this encounter
--- OUTSIDE RECORDS SUMMARY | 2024-08-02 02:32 | External Medical Summary ---
Author Name Unknown Address Unknown Organization [id number]:[facility] [place] - [address] [place] [address] Laboratory Report Ordering Provider Test Date Status RODRÍGUEZ GARCIA 07/22/2024 11:32:25 Final Deficient: <20 ng/mL
Ins ufficient: 20-29 ng/mL
Recommended/Optimum:30-50 ng/mL

Vitamin D intoxication is rare. If suspicious of Vitamin D toxicity, evaluation of serum Calcium and PTH is recommended. Observation Date Value Abnormality Reference (Units ) Status 25-OH Vitamin D total 07/22/2024 11:32:25 34 >19 (ng/mL) Final Performing Location [facility] [place] - [address] [place] [address]
--- OUTSIDE RECORDS SUMMARY | 2024-08-02 02:32 | External Medical Summary | Summary of Care ---
Author Name Unknown Organization [facility] Address [address] [place] [address] Phone [phone] Care Team Providers Care Credit Control Assistant Name Role Phone Zuhair Nelson Primary Care Provider + [phone] Reason for Referral * Evaluate & Treat - Unlimited Visits (Within 10 days (routine)) - Authorized Specialty Diagnoses / Procedures Referred By David stovall Referred To Contact Cardiovascular Medicine / Cardiology Diagnoses Coronary artery disease involving [place] coronary artery of [place] heart without angina pectoris Shortness of breath Chest pain, unspecified type Jose Cherry PA-C [address] [place] [address] Phone: tel: fax: Sam Sanchez MD [address] [facility] [address] Phone: tel: fax: Referral ID Status Reason Start Date Expiration Date Visits Requested Visits Authorized [id number] Authorized Specialty Services Required 07/20/2024 999 999 Question Answer Referral Priority Within 10 days (routine) Where should this appointment be scheduled? [facility] To which of the following clinics are you referring your patient? General Cardiology Clinic * Precert (Diagnostic Medical) (Within 10 days (routine)) - Authorized Specialty Diagnoses / Procedures Referred By David stovall Referred To Contact Cardiac Studies Diagnoses Coronary artery disease involving [place] coronary artery of [place] heart without angina pectoris Shortness of breath Procedures ECHO, COMPLETE (2D), TRANS-THORACIC Jose Cherry PA-C [address] [place] [address] Phone: tel: fax: Referral ID Status Reason Start Date Expiration Date V isits Requested Visits Authorized [id number] Authorized Precert 07/20/2024 999 999 Reason for Visit * Reason Comments Acute Patient has concerns of high BP and chest pain. Had chest pain today at 1:00 PM and took a nitroglycerin tablet. High BP started 07/13. Has been taking all of his medications. Encounter Details Date Type Department Care Team (Latest Contact Info) Description 07/20/2024 4:00 PM EST Office Visit General Internal Medicine [facility] [place] [address] [facility] [place] [address] Jose Cherry PA-C [address] [facility] [place] [address] HTN, goal below 140/90*; Coronary artery disease involving [place] coronary artery of [place] heart without angina pectoris; Shortness of breath; Chest pain, unspecified type; COPD, group B, by GOLD 2017 classification ([facility]); History of TIA (transient ischemic attack); Esophagitis; History of GI bleed; Adrenal nodule ([facility]); Type 2 diabetes mellitus without complication, without long-term current use of insulin ([facility]); Hypomagnesemia; Encounter for long-term (current) use of medications; COPD with asthma ([facility]) Allergies Active Allergy Reactions Criticality Noted Date Comments Amlodipine Unknown 05/09/2023 Hydrocortisone 07/09/2023 documented as of this encounter (statuses as of 07/21/2024) Medications Nitroglycerin 0.4 MG Sublingual Tablet Sublingual (Nitrostat)Indicat ions:Chest pain, unspecified type PLACE 1 TABLET UNDER TONGUE NEEDED FOR PAIN, CHEST. MAY REPEAT X.3 IF PAIN CONTINUES, CALL 911. 25 Tablet 11 12/04/19 24 Active Selenium 50 MCG Oral Tablet Take by mouth daily. Active [place] 3-6-9 Complex Oral Capsule Take 1 Capsule by mouth in the morning. Active Vitamin E 6.75 MG/0.3ML Oral Solution (Aquasol E) Take 8 mL by mouth in the morning. Active HM Super Vitamin B12 2500 MCG Oral Tablet Chewable (Cyanocobalamin) Take by mouth. Active Clopidogrel Bisulfate 75 MG Oral Tablet (pLAVix)Indication s:Carotid atherosclerosis, bilateral,PVD (peripheral vascular disease) ([facility]),History of transient ischemic attack (TIA) Take 1 Tablet by mouth in the morning. 90 Tablet 1 12/31/19 24 Active Magnesium Glycinate 100 MG Oral Capsule Take by mouth. 200 mg Active NATURAL SUPPLEMENT Take by mouth daily. CERVETOLKA PLUS Active Montelukast Sodium 10 MG Oral Tablet (Singulair)Indicat ions:COPD, group B, by GOLD 2017 classification ([facility]) Take 1 Tablet by mouth at bedtime. [...] MCG/ACT Inhalation Aerosol SolutionIndication s:COPD with asthma ([facility]) Inhale 2 Puffs by mouth every 6 hours as needed for Cough or Shortness of Breath. 18 g 5 07/21/20 24 Active QUEtiapine Fumarate 25 MG Oral Tablet (SEROquel) Take 1 Tablet by mouth at bedtime. 90 Tablet 1 07/21/20 24 Active amLODIPine-Valsart an-HCTZ 5-160-12.5 MG Oral Tablet (Exforge HCT)Indications:HT N, goal below 140/90 Take 1 Tablet by mouth daily before breakfast. 90 Tablet 1 07/21/20 24 Active Dapagliflozin Propanediol 5 MG Oral Tablet (Farxiga)Indicatio ns:Type 2 diabetes mellitus without complication, without long-term current use of insulin ([facility]) Take 1 Tablet by mouth in the morning. 90 Tablet 1 07/21/20 24 Active Memantine [...] chew. 90 Tablet 3 07/21/20 24 Active Omeprazole 40 MG Oral Capsule Delayed Release (PriLOSEC) Take 1 Capsule by mouth in the morning. 1 hour before the first meal of the day. 90 Capsule 1 07/21/20 24 Active Rosuvastatin Calcium 20 MG Oral Tablet (Crestor)Indicatio ns:HTN, goal below 140/90,Coronary artery disease involving [place] coronary artery of [place] heart without angina pectoris Take 1 Tablet by mouth in the morning. 90 Tablet 3 07/21/20 24 Active Albuterol Sulfate HFA 108 (90 Base) MCG/ACT Inhalation Aerosol SolutionIndication s:COPD with asthma (HCC) Inhale 2 Puffs by mouth every 6 hours as needed for Cough or Shortness of Breath. 18 g 5 05/29/20 23 024 Discontin ued(Refil l) Montelukast Sodium 10 MG Oral Tablet (Singulair) Take 1 Tablet by mouth at bedtime. 90 Tablet 3 08/15/19 24 024 Discontin ued(Refil l) Citalopram Hydrobromide 20 MG Oral Tablet (CeleXA)Indication s:RADHA (generalized anxiety disorder) Take 1 Tablet by mouth in the morning. 90 Tablet 3 12/02/19 24 024 Discontin ued(Medic ation List Clean Up) busPIRone HCl 5 MG Oral Tablet (Buspar)Indication s:RADHA (generalized anxiety disorder) Take 1 Tablet by mouth in the morning and 1 Tablet before bedtime. 180 Tablet 3 12/02/19 24 024 Discontin ued(Medic ation List Clean Up) Pantoprazole Sodium 40 MG Oral Tablet Delayed Release (Protonix)Indicati ons:Esophagitis Take 1 Tablet by mouth in the morning. 90 Tablet 3 12/02/19 24 024 Discontin ued(Medic ation List Clean Up) Primidone 50 MG Oral Tablet (Mysoline)Indicati ons:Essential tremor Take half a tablet by mouth at bedtime for the first week, then increase to 1 tablet by mouth at bedtime afterwards. 30 Tablet 5 12/30/19 24 Discontin ued(Medic ation List Clean Up) theophylline SR 150 MG OR TB12 Take 0.5 Tablets by mouth in the morning and 0.5 Tablets before bedtime. Discontin ued(Medic ation List Clean Up) Ferrous Sulfate 325 (65 Fe) MG Oral Tablet (Feosol)Indication s:Acute blood loss anemia Take 1 Tablet by mouth in the morning and 1 Tablet before bedtime. 180 Tablet 01/02/20 24 024 Discontin ued(Medic ation List Clean Up) Rosuvastatin Calcium 20 MG Oral Tablet (Crestor)Indicatio ns:PVD (peripheral vascular disease) (HCC),History of transient ischemic attack (TIA) TAKE 1 TABLET BY MOUTH EVERYDAY AT BEDTIME 90 Tablet 3 01/24/20 24 024 Discontin ued(Medic ation List Clean Up) Carvedilol 25 MG Oral Tablet (Coreg) Take 1 Tablet by mouth in the morning and 1 Tablet before bedtime. with food. 180 Tablet 3 02/03/20 24 024 Discontin ued(Medic ation List Clean Up) Valsartan 320 MG Oral Tablet (Diovan) Take 1 Tablet by mouth in the morning. 90 Tablet 3 02/03/20 24 024 Discontin ued(Medic ation List Clean Up) Isosorbide Mononitrate ER 60 MG Oral Tablet Extended Release 24 Hour (Imdur) Take 1 Tablet by mouth in the morning. Do not cut, crush or chew. 90 Tablet 3 02/03/20 24 024 Discontin ued(Refil l) QUEtiapine Fumarate 50 MG Oral Tablet (SEROquel)Indicati ons:Psychophysiolo gic insomnia,RADHA (generalized anxiety disorder) TAKE 1 TABLET BY MOUTH EVERYDAY AT BEDTIME 90 Tablet 04/06/20 24 024 Discontin ued(Medic ation/Dos e Changed) amLODIPine-Valsart an-HCTZ 5-160-12.5 MG Oral Tablet (Exforge HCT) Take by mouth. 024 Discontin ued(Refil l) NSS 0.9 % SOLN 50 mL with alteplase 2 MG SOLR once. Discontin ued(Medic ation List Clean Up) Bisoprolol Fumarate 5 MG Oral Tablet (Zebeta) Take 1 Tablet by mouth in the morning. Discontin ued(Refil l) Memantine HCl 10 MG Oral Tablet (Namenda) Take 1 Tablet by mouth 2 times a day with morning and evening meals. Discontin ued(Refil l) Dapagliflozin Propanediol 5 MG Oral Tablet (Farxiga) Take 1 Tablet by mouth in the morning. 10 mg three times a day. Discontin ued(Refil l) Omeprazole 40 MG Oral Capsule Delayed Release (PriLOSEC) Take 1 Capsule by mouth in the morning. Discontin ued(Medic ation/Dos e Changed) Colchicine 0.6 MG Oral Tablet Take 1 Tablet by mouth in the morning. 500 mcg. Discontin ued(Refil l) Ezetimibe-Rosuvast atin 10-10 MG Oral TabletIndications: Coronary artery disease involving [place] coronary artery of [place] heart without angina pectoris,History of TIA (transient ischemic attack) Take 1 Tablet by mouth every evening. 90 Tablet 1 07/20/20 24 Discontin ued(Formu greta/Cost ) Omeprazole-Sodium Bicarbonate 40-1100 MG Oral CapsuleIndications :Esophagitis,Histo ry of GI bleed Take 1 Capsule by mouth daily before breakfast. 90 Capsule 1 07/20/20 24 Discontin ued(Formu greta/Cost ) documented as of this encounter (statuses as of 07/21/2024) Active Problems Problem Noted Date Diagnosed Date [...] tremor 12/02/2023 Primary osteoarthritis of both shoulders 04/22/2 024 BPH with obstruction/lower urinary tract symptom [...] as of this encounter (statuses as of 07/21/2024) Resolved Problems Problem Noted Date Diagnosed Date [...] as of this encounter (statuses as of 07/21/2024) Immunizations Name Administration Dates Next Due COVID-19, MRNA-LNP, PF, 30 M CG/0.3 mL, 12 YRS AND ABOVE, IM (PFIZER-Comirnaty) 08/15/2023 Pneumococcal Polysaccharide PPV23 (Pneumovax) ,07/08/2013 RSV Vac., Bivalent, Perfusion F, Pf,0.5 Ml (Abry svo) 07/23/2023 Seasonal Influenza Vac., MDV, IM, 0.5 mL [...] 12/10/2023 Does the household have a re gular source of income? 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 History of Present Illness Amanda Bhagat is a 83 year old male that presents for Acute (Patient has concerns of high BP andchest pain. Had chest pain today at 1:00 PM and took a nitroglycerin tablet. High BP started 07/13. Has been taking all of his medications. ) Pt here today with multiple concerns. Initial concern is about his BP. Reports it fluctuates a lot throughout the day. Looks acceptable today in the office. Pt also reports he had some chest pain earlier today and had to take Nitro x 2 with relief. Ongoing shortness of breath--has known COPD. Pt with significant changes to his med list. Pt was seen by a doctor in [place] while he was there and had most of his medications changed. Nursing and myself did an extended medication review. Pt fairly helpful but there was some confusion on some of the medications that needed to be sorted through. Review of Systems: See HPI for pertinent positives. All other review of systems is negative. Physical Exam Vitals: 07/20/24 1620 Temp: 97.9 F (36.6 C) Pulse: 60 SpO2: 95% BP: 148/74 Physical Exam Constitutional: General: He is not in acute distress. Appearance: He is not diaphoretic. HENT: Right Ear: Tympanic membrane, ear canal and external ear normal. Left Ear: Tympanic membrane, ear canal and external ear normal. Mouth/Throat: Mouth: Mucous membranes are moist. Pharynx: Oropharynx is clear. Cardiovascular: Rate and Rhythm: Normal rate and regular rhythm. Pulmonary: Effort: Pulmonary effort is normal. Breath sounds: Normal breath sounds. Abdominal: General: Bowel sounds are normal. Palpations: Abdomen is soft. Musculoskeletal: Cervical back: Normal range of motion and neck supple. Right lower leg: No edema. Left lower leg: No edema. Skin: General: Skin is warm and dry. Neurological: General: No focal deficit present. Mental Status: He is alert. Mental status is at baseline. 12 lead EKG sinus delicia. I have reviewed the following results: Assessment and Plan HTN, goal below 140/90 Continue current medications for now. Will have him update labs prior to next f/up. - Bisoprolol Fumarate 5 MG Oral Tablet (Zebeta); Take 1 Tablet by mouth in the morning and 1 Tabletat noon and 1 Tablet before bedtime. - LIPID PANEL WITH DIRECT LDL IF TG IS HIGH; Future - COMPREHENSIVE METABOLIC PANEL; Future Coronary artery disease involving [place] coronary artery of [place] heart without angina pectoris Continue current meds. EKG stable. Echo ordered. Referral back to cardiology placed. - Bisoprolol Fumarate 5 MG Oral Tablet (Zebeta); Take 1 Tablet by mouth in the morning and 1 Tabletat noon and 1 Tablet before bedtime. - Ezetimibe-Rosuvastatin 10-10 MG Oral Tablet; Take 1 Tablet by mouth every evening. - LIPID PANEL WITH DIRECT LDL IF TG IS HIGH; Future - COMPREHENSIVE METABOLIC PANEL; Future - ECHO, COMPLETE (2D), TRANS-THORACIC; Future - CARDIOLOGY REFERRAL OP - EKG Shortness of breath See above. - ECHO, COMPLETE (2D), TRANS-THORACIC; Future - CARDIOLOGY REFERRAL OP Chest pain, unspecified type See above. Continue Nitro PRN. If chest pain persists despite Nitro, to present to ER for eval. - CARDIOLOGY REFERRAL OP - EKG COPD, group B, by GOLD 2017 classification (HCC) - Montelukast Sodium 10 MG Oral Tablet (Singulair); Take 1 Tablet by mouth at bedtime. History of TIA (transient ischemic attack) - Ezetimibe-Rosuvastatin 10-10 MG Oral Tablet; Take 1 Tablet by mouth every evening. Esophagitis - Omeprazole-Sodium Bicarbonate 40-1100 MG Oral Capsule; Take 1 Capsule by mouth daily before breakfast. History of GI bleed - Omeprazole-Sodium Bicarbonate 40-1100 MG Oral Capsule; Take 1 Capsule by mouth daily before breakfast. Adrenal nodule (HCC) Pt requesting thyroid testing. Continue to follow with heme/onc for adrenal mass. - TSH WITH FREE T4 IF INDICATED; Future Type 2 diabetes mellitus without complication, without long-term current use of insulin (HCC) Pt on Farxiga. Reports they told him he had sugar issues when in [place]. No history of this noted inhis chart here. Will update HgbA1c. - HEMOGLOBIN A1C; Future Hypomagnesemia On Magnesium supplement. Monitor levels. - MAGNESIUM; Future Encounter for long-term (current) use of medications Pt also on Vit D supplement. Given his chronic PPI use, will monitor levels. - 25-HYDROXY VITAMIN D; Future Wrap-Up Follow Up: Return in about 3 months (around 10/18/2024) for Fasting Labs 2-5 Days Before Next Visit. | For: Fasting Labs 2-5 Days Before Next Visit Time: I spent a total of Greater than 55 mins (exact time 64 mins) on the date of service in preparation,delivery, and documentation of the care provided to Aamnda Bhagat excluding any time spent in the performance of separately billed services. ADDENDUM Pt walked in to the nursing station today when the door was open for another patient asking to speak to a nurse. Had several medication questions and issues. Nurse spent 30+ minutes sorting through issues with meds and what was needed. Necessary refills pended and sent. Also had to change 2 of patients medications as what he requested was not covered by his insurance. Pt also was requesting an anti-inflammatory for pain. Advised pt he needs to schedule an appt to discuss. Also had a discussion with the pt Re: the proper channels to deal with these issues going forward, and that walking back opportunistically to the clinical department without an appointment to speak to staff is not appropriate. He voiced understanding. Jose Cherry PA-C 07/21/2024 1630 documented in this encounter Procedure Notes * Sam Sanchez MD - 07/20/2024 5:13 PM ESTAssociated Order(s): EKG REASON FOR STUDY: CHST PAIN W/ CAD CONCLUSIONS: Sinus bradycardia Otherwise normal ECG When compared with ECG of 09-May-2023 14:50, Criteria for Septal infarct are no longer Present Ventricular Rate: 56 Atrial Rate: 56 [place] Interval: 172 QRS Duration: 84 QT/QTc: 434/418 ms P-R-T Eastman: 38 : 12 : 29 degrees documented in this encounter Nursing Notes * Tiffany Noguera MED ASSIST - 07/20/2024 4:22 PM EST Chief Complaint Patient presents with Acute Patient has concerns of high BP and chest pain. Had chest pain today at 1:00 PM and took a nitroglycerin tablet. High BP started 07/13. Has been taking all of his medications. documented in this encounter Miscellaneous Notes * Addendum Note - Jose Cherry PA-C - 07/21/2024 4:30 PM EST Addended by: JOSE CHERRY on: 07/21/2024 04:30 PM Modules accepted: Orders * Addendum Note - Tiffany Noguera MED ASSIST - 07/21/2024 4:09 PM EST Addended by: TIFFANY NOGUERA on: 07/21/2024 04:09 PM Modules accepted: Orders * Addendum Note - Tiffany Noguera MED ASSIST - 07/21/2024 3:54 PM EST Addended by: TIFFANY NOGUERA on: 07/21/2024 03:54 PM Modules accepted: Orders * Addendum Note - Jose Cherry PA-C - 07/21/2024 3:34 PM EST Addended by: JOSE CHERRY on: 07/21/2024 03:34 PM Modules accepted: Orders * Result Encounter Note - Jose Cherry PA-C - 07/21/2024 9:33 AM EST EKG sinus delicia. documented in this encounter Plan of Treatment Upcoming Encounters Date Type Department Care Team (Late st Contact Info) Description 07/23/2024 2:30 PM EST Cardiac Studies Cardiac Studies, [facility] [address] [facility] [place] [address] 07/27/2024 4:00 PM EST Office Visit General Internal Medicine [facility] [address] [place] [address] Jose Cherry PA-C [address] [place] [address] 11/19/2024 4:20 PM EDT Office Visit General Internal Medicine [facility] [address] [place] [address] Jose Cherry PA-C [address] [place] [address] 11/23/2024 1:30 PM EDT Office Visit Orthopaedics [facility] [address] [facility] [place] [address] Juan Carlos Sy MD [address] [place] [address] 01/07/2025 1:30 PM EDT Office Visit Hematology/Oncology [facility] [address] [facility] [place], [place] [id number] Jun Martin MD [address] [facility] [place] [address] 02/09/2025 3:30 PM EDT Office Visit Cardiology, [facility] [address] [place] [address] Sam Sanchez MD [address] [place] [address] Scheduled Orders Name Type Priority Associated Diagnoses Orde r Schedule LIPID PANEL WITH DIRECT LDL IF TG IS HIGH Lab Routine HTN, goal below 140/90 Coronary artery disease involving [place] coronary artery of [place] heart without angina pectoris Expected: 10/18/2024, Expires: 07/20/2025 COMPREHENSIVE METABOLIC PANEL Lab Routine HTN, goal below 140/90 Coronary artery disease involving [place] coronary artery of [place] heart without angina pectoris Expected: 10/18/2024 (Approximate), Expires: 07/20/2025 MAGNESIUM Lab Routine Hypomagnesemia Expected: 10/18/2024 (Approximate), Expires: 07/20/2025 25-HYDROXY VITAMIN D Lab Routine Encounter for long-term (current) use of medications Expected: 10/18/2024 (Approximate), Expires: 07/20/2025 HEMOGLOBIN A1C Lab Routine Type 2 diabetes mellitus without complication, without long-term current use of insulin (HCC) Expected: 10/18/2024 (Approximate), Expires: 07/20/2025 TSH WITH FREE T4 IF INDICATED Lab Routine Adrenal nodule (HCC) Expected: 10/18/2024 (Approximate), Expires: 07/20/2025 ECHO, COMPLETE (2D), TRANS-THORACIC Echocardiology Routine Coronary artery disease involving [place] coronary artery of [place] heart without angina pectoris Shortness of breath Expected: 07/20/2024, Expires: 08/20/2026 Scheduled Referrals Name Type Priority Associated Diagnoses Orde r Schedule CARDIOLOGY REFERRAL OP Referral Within 10 days (routine) Coronary artery disease involving [place] coronary artery of [place] heart without angina pectoris Shortness of breath Chest pain, unspecified type Ordered: 07/20/2024 Health Maintenance Due Date Last Done Comments [...] Depression Screening 12/01/2024 12/02/2023, 12/02/19 24 GFR 07/10/2025 07/10/2024, 12/11, 05/16/2023, Additional history exists O2 ASSESSMENT COMPLETED IN PAST YEAR FOR COPD 07/20/2025 07/20/2024 HPV (Gardasil) Vaccine Aged Out No lo [...] Procedure Name Priority Date/Time Associated Diagnosis Comments IL ECG ROUTINE ECG W/LEAST 12 LDS I&R ONLY Routine 07/20/2024 5:13 PM EST Coronary artery disease involving [place] coronary artery of [place] heart without angina pectoris Chest pain, unspecified type documented in this encounter Results * EKG (07/20/2024 5:13 PM EST) 07/20/2024 5:13 PM EST Narrative Procedure Note Sam Sanchez MD - 07/20/2024 5:13 PM EST REASON FOR STUDY: CHST PAIN W/ CAD CONCLUSIONS: Sinus bradycardia Otherwise normal ECG When compared with ECG of 09-May-2023 14:50, Criteria for Septal infarct are no longer Present Ventricular Rate: 56 Atrial Rate: 56 [place] Interval: 172 QRS Duration: 84 QT/QTc: 434/418 ms P-R-T Eastman: 38 : 12 : 29 degrees Jose Cherry PA-C EKG F inal Result [facility] documented in this encounter Visit Diagnoses Diagnosis HTN, goal below 140/90- Primary Unspecified essential hypertension Coronary artery disease involving [place] coronary artery of [place] heart without angina pectoris Shortness of breath Chest pain, unspecified type COPD, group B, by GOLD 2017 classification ([facility]) History of TIA (transient ischemic attack) Transient ischemic attack (TIA), and cerebral infarction without residual deficits Esophagitis Esophagitis, unspecified History of GI bleed Personal history of other diseases of digestive system Adrenal nodule (HCC) Other specified disorders of adrenal glands Type 2 diabetes mellitus without complication, without long-term current use of insulin (HCC) Hypomagnesemia Disorders of magnesium metabolism Encounter for long-term (current) use of medications Encounter for long-term (current) use of other medications COPD with asthma (HCC) Chronic obstructive asthma, unspecified documented in this encounter Advance Directives * Full Code (Latest Code Status on File) Date Activated Date Inactivated Comments 11/28/2012 2:07 AM 11/28/2012 6:25 PM This order r eflects the patients wishes and were consensually agreed upon. Question Answer Comments Discussion of Advance Directives occurred with: Patient Care Teams Credit Control Assistant Relationship Specialty Start Date End Date Zuhair Nelson DO [address] [place] [address] PCP - General Family Medicine 12/02/23 documented as of this encounter"
--- OUTSIDE RECORDS SUMMARY | 2024-08-02 02:32 | External Medical Summary ---
Author Name Unknown Address Unknown Organization K09:[facility] [address] [place] [address] Laboratory Report Ordering Provider Test Date Status RODRÍGUEZ GARCIA 07/22/2024 11:32:25 Final Observation Date Value Abnormality Reference (Units ) Status BUN 07/22/2024 11:32:25 28 Above high normal 6-20 (mg/dL) Final Creatinine 07/22/2024 11:32:25 1.1 0.6-1.2 (mg/dL) Final Glomerular filtration rate/1.73 sq M.predicted [Volume Rate/Area] in Serum, Plasma or Blood by Creatinine-based formula (CKD-EPI) 07/22/2024 11:32:25 65 >=60 (mL/min) Final eGFR is calculated based on the CKD-EPI 2020 equation. Sodium 07/22/2024 11:32:25 141 135-146 (m mol/L) Final Potassium 07/22/2024 11:32:25 4.1 3.5-5.1 (m mol/L) Final Cl 07/22/2024 11:32:25 105 98-107 (mm ol/L) Final CO2 07/22/2024 11:32:25 21 Below low normal 22- 32 (mmol/L) Final Anion gap 07/22/2024 11:32:25 15 7-15 (mmol /L) Final Glucose 07/22/2024 11:32:25 103 70-120 (mg /dL) Final Albumin 07/22/2024 11:32:25 4.5 3.8-5.0 (g /dL) Final AST (Aspartate aminotransferase) 07/22/2024 11:32:25 32 10-50 (U/L) Fin al Result may be falsely elevat ed due to hemolysis. Alk Phos 07/22/2024 11:32:25 86 35-130 (U/ L) Final Bilirubin, Total 07/22/2024 11:32:25 1.0 <=1 .2 (mg/dL) Final Calcium 07/22/2024 11:32:25 9.9 8.4-10.2 ( mg/dL) Final Protein 07/22/2024 11:32:25 7.8 6.0-8.3 (g /dL) Final ALT (Alanine aminotransferase) 07/22/2024 11:32:25 28 10-50 (U/L) Final Performing Location [facility] [address] [place] [address]
--- OUTSIDE RECORDS SUMMARY | 2024-08-02 02:32 | External Medical Summary ---
Author Name Unknown Address Unknown Organization K01:[facility] [place] [facility] [address] [facility] [address] Laboratory Report Ordering Provider Test Date Status RODRÍGUEZ GARCIA 07/22/2024 11:32:25 Final Observation Date Value Abnormality Reference (Units ) Status HbA1C 07/22/2024 11:32:25 5.5 4.0-5.6 (% ) Final The use of HbA1c to monitor glycemic status is based on normal hemoglobin and HbA composition. This test should not be used in patients with abnormal hemoglobin that affects the half life of the red blood cell or the in vivo glycation rates. Glucose, estimated average 07/22/2024 11:32:25 111 <126 (mg/dL) Final Performing Location [facility] [place] [facility] [address] [facility] [address]
--- OUTSIDE RECORDS SUMMARY | 2024-08-02 02:32 | External Medical Summary | Summary of Care ---
Author Name Unknown Organization [facility] Address [address] [place] [address] Phone [phone] Care Team Providers Care Robot Designer Name Role Phone Zuhair Nelson DO Primary Care Provider + [phone] Reason for Visit * Reason Comments Outpatient Testing Encounter Details Date Type Department Care Team (Late st Contact Info) Description 07/22/2024 11:30 AM EST Laboratory Laboratory [facility] [address] [place] [id number] [facility] Lab Scenery [address] [place] [address] HTN, goal below 140/90; Coronary artery disease involving [place] coronary artery of [place] heart without angina pectoris; Hypomagnesemia; Encounter for long-term (current) use of medications; Type 2 diabetes mellitus without complication, without long-term current use of insulin (HCC); Adrenal nodule (HCC) Allergies Active Allergy Reactions Criticality Noted Date Comments Amlodipine Unknown 05/09/2023 Hydrocortisone 07/09/2023 documented as of this encounter (statuses as of 07/22/2024) Medications Nitroglycerin 0.4 MG Sublingual Tablet Sublingual (Nitrostat)Indicat ions:Chest pain, unspecified type PLACE 1 TABLET UNDER TONGUE NEEDED FOR PAIN, CHEST. MAY REPEAT X.3 IF PAIN CONTINUES, CALL 911. 25 Tablet 11 4 Active Selenium 50 MCG Oral Tablet Take by mouth daily. Active Guthrie 3-6-9 Complex Oral Capsule Take 1 Capsule by mouth in the morning. Active Vitamin E 6.75 MG/0.3ML Oral Solution (Aquasol E) Take 8 mL by mouth in the morning. Active HM Super Vitamin B12 2500 MCG Oral Tablet Chewable (Cyanocobalamin) Take by mouth. Active Clopidogrel Bisulfate 75 MG Oral Tablet (pLAVix)Indication s:Carotid atherosclerosis, bilateral,PVD (peripheral vascular disease) ([facility]),History of transient ischemic attack (TIA) Take 1 Tablet by mouth in the morning. 90 Tablet 1 4 Active Magnesium Glycinate 100 MG Oral Capsule Take by mouth. 200 mg Active NATURAL SUPPLEMENT Take by mouth daily. CERVETOLKA PLUS Active Montelukast Sodium 10 MG Oral Tablet (Singulair)Indicat ions:COPD, group B, by GOLD 2017 classification ([facility]) Take 1 Tablet by mouth at bedtime. 90 Tablet 3 4 Active Bisoprolol Fumarate 5 MG Oral Tablet (Zebeta)Indication s:HTN, goal below 140/90,Coronary artery disease involving [place] coronary artery of [place] heart without angina pectoris Take 1 Tablet by mouth in the morning and 1 Tablet at noon and 1 Tablet before bedtime. 270 Tablet 1 4 Active Colchicine 0.6 MG Oral Tablet Take 1 Tablet by mouth in the morning. 500 mcg. 90 Tablet 1 4 Active Albuterol Sulfate HFA 108 (90 Base) MCG/ACT Inhalation Aerosol SolutionIndication s:COPD with asthma ([facility]) Inhale 2 Puffs by mouth every 6 hours as needed for Cough or Shortness of Breath. 18 g 5 4 Active QUEtiapine Fumarate 25 MG Oral Tablet (SEROquel) Take 1 Tablet by mouth at bedtime. 90 Tablet 1 4 Active amLODIPine-Valsart an-HCTZ 5-160-12.5 MG Oral Tablet (Exforge HCT)Indications:HT N, goal below 140/90 Take 1 Tablet by mouth daily before breakfast. 90 Tablet 1 4 Active Dapagliflozin Propanediol 5 MG Oral Tablet (Farxiga)Indicatio ns:Type 2 diabetes mellitus without complication, without long-term current use of insulin ([facility]) Take 1 Tablet by mouth in the morning. 90 Tablet 1 4 Active Memantine HCl 10 MG Oral Tablet (Namenda) Take 1 Tablet by mouth 2 times a day with morning and evening meals. 180 Tablet 1 4 Active Isosorbide Mononitrate ER 60 MG Oral Tablet Extended Release 24 Hour (Imdur)Indications :Coronary artery disease involving [place] coronary artery of [place] heart without angina pectoris Take 1 Tablet by mouth in the morning. Do not cut, crush or chew. 90 Tablet 3 4 Active Omeprazole 40 MG Oral Capsule Delayed Release (PriLOSEC) Take 1 Capsule by mouth in the morning. 1 hour before the first meal of the day. 90 Capsule 1 4 Active Rosuvastatin Calcium 20 MG Oral Tablet (Crestor)Indicatio ns:HTN, goal below 140/90,Coronary artery disease involving [place] coronary artery of [place] heart without angina pectoris Take 1 Tablet by mouth in the morning. 90 Tablet 3 4 Active documented as of this encounter (statuses as of 07/22/2024) Active Problems Problem Noted Date Diagnosed Date Combined forms of age-related cataract of right eye 12/19/2023 Esophagitis 12/02/2023 Lumbar degenerative disc disease 12/02/2023 Gait disturbance 12/02/2023 History of GI bleed 12/02/2023 Iron deficiency anemia due to chronic blood loss 12/02/2023 Coronary artery disease invo lving [place] coronary artery of [place] heart without angina pectoris 12/02/2023 Benign essential [...] as of this encounter (statuses as of 07/22/2024) Resolved Problems Problem Noted Date Diagnosed Date Resolved Date 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/02/2023 Bilateral carpal tunnel syndrome 05/16/2023 12/02/2023 Parkinson's disease 11/28/2022 12/02/19 Dementia without behavioral disturbance 11/28/2022 12/02/2023 Dementia without behavioral disturbance 11/28/2022 11/28/2022 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 06/08/2019 Syncope and collapse 11/28/2012 019 Anemia 09/25/2012 05/14/2022 Hypertension 09/25/2012 06/08/2019 Neuropathy 09/25/2012 12/02/2023 TIA (transient ischemic attack) 09/25/2012 04/20/2019 documented as of this encounter (statuses as of 07/22/2024) Immunizations Name Administration Dates Next Due COVID-19, [...] No 12/10/2023 Does the household have a [facility] source [facility] income? 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 Not on file Not on file documented as of this encounter Plan of Treatment Upcoming Encounters Date Type Department Care Team (Late st Contact Info) Description 07/23/2024 2:30 PM EST Cardiac Studies Cardiac Studies, [facility] [address] [facility] [place] [address] 07/27/2024 4:00 PM EST Office Visit General Internal Medicine [facility] [place] [address] [place] [address] Loan Cherry PA-C [address] [facility] [place] [address] 11/19/2024 4:20 PM EDT Office Visit General Internal Medicine [facility] [address] [facility] [place] [address] Loan Cherry PA-C [address] [facility] [place] [address] 11/23/2024 1:30 PM EDT Office Visit Orthopaedics [facility] [address] [place] [address] Juan Carlos Sy MD [address] [place] [address] 01/07/2025 1:30 PM EDT Office Visit Hematology/Oncology [facility] [address] [facility] [place] [phone] uJn Martin MD [address] [facility] [place] [address] 02/09/2025 3:30 PM EDT Office Visit Cardiology, [facility] [address] [place] [address] Sam Sanchez MD [address] [place] [address] Pending Results Name Type Priority Associated Diagnoses Date /Time LIPID PANEL WITH DIRECT LDL IF TG IS HIGH Lab Routine HTN, goal below 140/90 Coronary artery disease involving [place] coronary artery of [place] heart without angina pectoris 07/22/2024 11:32 AM EST COMPREHENSIVE METABOLIC PANEL Lab Routine HTN, goal below 140/90 Coronary artery disease involving [place] coronary artery of [place] heart without angina pectoris 07/22/2024 11:32 AM EST MAGNESIUM Lab Routine Hypomagnesemia 07/22/2024 11:32 AM EST 25-HYDROXY VITAMIN D Lab Routine Encounter for long-term (current) use of medications 07/22/2024 11:32 AM EST HEMOGLOBIN A1C Lab Routine Type 2 diabetes mellitus without complication, without long-term current use of insulin (HCC) 07/22/2024 11:32 AM EST TSH WITH FREE T4 IF INDICATED Lab Routine Adrenal nodule (HCC) 07/22/2024 11:32 AM EST Health Maintenance Due Date Last Done [...] encounter Visit Diagnoses Diagnosis HTN, goal below 140/90 Unspecified essential hypertension Coronary artery disease involving [place] coronary artery of [place] heart without angina pectoris Hypomagnesemia Disorders of magnesium metabolism Encounter for long-term (current) use of medications Encounter for long-term (current) use of other medications Type 2 diabetes mellitus without complication, without long-term current use of insulin (HCC) Adrenal nodule (HCC) Other specified disorders of adrenal glands documented in this encounter Advance Directives * Full Code (Latest Code Status on File) Date Activated Date Inactivated Comments 11/28/2012 2:07 AM 11/28/2012 6:25 PM This order r eflects the patients wishes and were consensually agreed upon. Question Answer Comments Discussion of Advance Directives occurred with: Patient Care Teams Robot Designer Relationship Specialty Start Date End Date Zuhair Nelson DO [address] [place] [phone] PCP - General Family Medicine 12/02/23 documented as of this encounter
--- OUTSIDE RECORDS SUMMARY | 2024-08-02 02:32 | External Medical Summary | Summary of Care ---
Author Name Unknown Organization [facility] Address [address] [place] [address] Phone [phone] Care Team Providers Care Software Test Developer Name Role Phone Zuhair Nelson DO Primary Care Provider + [phone] Reason for Referral * Evaluate & Treat - Unlimited Visits (Within 3 days (urgent)) - Authorized Specialty Diagnoses / Procedures Referred By David t Referred To Contact Physical Therapy / Physical Medicine And Rehab Diagnoses Acute bilateral low back pain with bilateral sciatica Loan Cherry PA-C [address] [place] [address] Phone: tel: fax: Referral ID Status Reason Start Date Expiration Date Visits Requested Visits Authorized [id number] Authorized Specialty Services Required 4 [phone] Question Answer Referral Priority Within 3 days (urgent) Where should this appointment be scheduled? External - [facility] Reason for Visit * Reason Comments Return Visit Patient return to [facility] anti-inflammatory medication alternative for pain. Reports he has severe pain in lower back that radiates into his legs bilaterally. Also reporting chest pain and SOB every other day. Has concerns about his shaking as well. Encounter Details Date Type Department Care Team (Late st Contact Info) Description 07/27/2024 4:00 PM EST Office Visit General Internal Medicine [facility] [address] [place] [address] Loan Cherry PA-C [address] [place] [address] Acute bilateral low back pain with bilateral sciatica*; Esophagitis; HTN, goal below 140/90; History of GI bleed; Iron deficiency anemia due to chronic blood loss; Coronary artery disease involving [place] coronary artery of [place] heart without angina pectoris Allergies Active Allergy Reactions Criticality Noted Date Comments Amlodipine Unknown 05/09/2023 Hydrocortisone 07/09/2023 documented as of this encounter (statuses as of 07/27/2024) Medications Nitroglycerin 0.4 MG Sublingual Tablet Sublingual (Nitrostat)Indicat ions:Chest pain, unspecified type PLACE 1 TABLET UNDER TONGUE NEEDED FOR PAIN, CHEST. MAY REPEAT X.3 IF PAIN CONTINUES, CALL 911. 25 Tablet 11 12/04/19 24 Active Selenium 50 MCG Oral Tablet Take by mouth daily. Active Viola 3-6-9 Complex Oral Capsule Take 1 Capsule by mouth in the morning. Active Vitamin E 6.75 MG/0.3ML Oral Solution (Aquasol E) Take 8 mL by mouth in the morning. Active HM Super Vitamin B12 2500 MCG Oral Tablet Chewable (Cyanocobalamin) Take by mouth. Active Clopidogrel Bisulfate 75 MG Oral Tablet (pLAVix)Indication s:Carotid atherosclerosis, bilateral,PVD (peripheral vascular disease) ([facility]),History of transient ischemic attack (TIA) Take 1 Tablet by mouth in the morning. 90 Tablet 1 12/31/19 24 Active Magnesium Glycinate 100 MG Oral Capsule Take by mouth. 200 mg Active NATURAL SUPPLEMENT Take by mouth daily. CERVETOLKA PLUS Active Montelukast Sodium 10 MG Oral Tablet (Singulair)Indicat ions:COPD, group B, by GOLD 2017 classification ([facility]) Take 1 Tablet by mouth at bedtime. 90 Tablet 3 07/20/20 24 Active Bisoprolol Fumarate 5 MG Oral Tablet (Zebeta)Indication s:HTN, goal below 140/90,Coronary artery disease involving [place] coronary artery of [place] heart without angina pectoris Take 1 Tablet [...] 24 Hour (Imdur)Indications :Coronary artery disease involving [place] coronary artery of [place] heart without angina pectoris Take 1 Tablet by mouth in the morning. Do not cut, crush or chew. 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 12/19/2023 Esophagitis 12/02/2023 Lumbar degenerative disc disease 12/02/2023 Gait disturbance 12/02/2023 History of GI bleed 12/02/2023 Iron deficiency anemia due to chronic blood loss 12/02/2023 Coronary artery disease invo lving [place] coronary artery of [place] heart without angina pectoris 12/02/2023 Benign essential [...] as of this encounter (statuses as of 07/27/2024) Resolved Problems Problem Noted Date Diagnosed Date [...] as of this encounter (statuses as of 07/27/2024) Immunizations Name Administration Dates Next Due COVID-19 mRNA, LNP-s, No Pre serve, 2-Dose Series (Pfizer) 08/10/2021 COVID-19, MRNA-LNP, PF, 30 M CG/0.3 mL, 12 YRS AND ABOVE, IM ([facility] 08/15/2023 Covid-19, Mrna, Lnp-s, Pf, B ivalent, [...] No 12/10/2023 Does the household have a [facility] source of income? 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 Will continue the rosuvastatin. Rohan also d/c'ed--do not feel pt is a [...] this encounter Nursing Notes * Tiffany Macias MED ASSIST - 07/27/2024 4:10 PM EST Chief Complaint [...] has declined topic(s). documented in this encounter Plan of Treatment Upcoming Encounters Date Type Department Care Team (Late st Contact Info) Description 11/19/2024 4:20 PM EDT Office Visit General Internal Medicine [facility] [address] [place] [address] Loan Cherry PA-C 200 [facility] [place] [address] 11/23/2024 1:30 PM EDT Office Visit Orthopaedics [facility] [address] [facility] [place] [address] Juan Carlos Sy MD [address] [place] [address] 01/07/2025 1:30 PM EDT Office Visit Hematology/Oncology [facility] [address] [facility] [place], [place] [phone] Jun Martin MD [address] [place] [address] 02/09/2025 3:30 PM EDT Office Visit Cardiology, [facility] [address] [place] [address] Sam Sanchez MD [address] [place] [address] Scheduled Orders Name Type Priority Associated Diagnoses Orde r Schedule XR L SPINE 2-3 VIEWS Medical Imaging Routine Acute bilateral low back pain with bilateral sciatica Ordered: 07/27/2024 Scheduled Referrals Name Type Priority Associated Diagnoses Orde r Schedule PHYSICAL THERAPY REFERRAL OP Referral Within 3 days (urgent) Acute bilateral low back pain with bilateral sciatica Ordered: 07/27/2024 Health Maintenance Due Date Last Done Comments [...] blood loss (chronic) Coronary artery disease involving [place] coronary artery of [place] heart without angina pectoris documented in this encounter Advance Directives * Full Code (Latest Code Status on File) Date Activated Date Inactivated Comments 11/28/2012 2:07 AM 11/28/2012 6:25 PM This order r eflects the patients wishes and were consensually agreed upon. Question Answer Comments Discussion of Advance Directives occurred with: Patient Care Teams Software Test Developer Relationship Specialty Start Date End Date Zuhair Nelson DO [address] [place] [phone] PCP - General Family Medicine 12/02/23 documented as of this encounter
--- OUTSIDE RECORDS SUMMARY | 2024-08-02 02:32 | External Medical Summary | Summary of Care ---
Author Name Unknown Organization [facility] Address [address] [place] [address] Phone [phone] Care Team Providers Care Hand Screen Printer Name Role Phone Zuhair Nelson Primary Care Provider + [phone] Reason for Referral * Evaluate & Treat - Unlimited Visits (Within 10 days (routine)) - Authorized Specialty Diagnoses / Procedures Referred By David stovall Referred To Contact Cardiovascular Medicine / Cardiology Diagnoses Coronary artery disease involving [place] coronary artery of [place] heart without angina pectoris Shortness of breath Chest pain, unspecified type Jose Cherry PA-C [address] [place] [address] Phone: tel: fax: Sam Sanchez MD [address] [place] [address] Phone: tel: fax: Referral ID Status Reason Start Date Expiration Date Visits Requested Visits Authorized [id number] Authorized Specialty Services Required 07/20/2024 999 999 [...] Cardiac Studies Diagnoses Coronary artery disease involving [place] coronary artery of [place] heart without angina pectoris Shortness of breath Procedures ECHO, COMPLETE (2D), TRANS-THORACIC Jose Cherry PA-C [address] [place] [address] Phone: tel: fax: Referral ID Status Reason Start Date Expiration Date V isits Requested Visits Authorized [id number] Authorized Precert 07/20/2024 999 999 Reason for [...] PM EST Office Visit General Internal Medicine [facility] [place] [address] [facility] [place] [address] Jose Cherry PA-C [address] [facility] [place] [place] [address] HTN, goal below 140/90*; Coronary artery disease involving [place] coronary artery of [place] heart without angina pectoris; Shortness of breath; Chest pain, unspecified type; COPD, group B, by GOLD 2017 classification ([facility]); History of TIA (transient ischemic attack); Esophagitis; History of GI bleed; Adrenal nodule ([facility]); Type 2 diabetes mellitus without complication, without long-term current use of insulin ([facility]); Hypomagnesemia; Encounter for long-term (current) use of medications; COPD with asthma ([facility]) Allergies Active Allergy Reactions Criticality Noted Date [...] Oral Tablet Take by mouth daily. Active [place] 3-6-9 Complex Oral Capsule Take 1 Capsule by mouth in the morning. Active Vitamin E 6.75 MG/0.3ML Oral Solution (Aquasol E) Take 8 mL by mouth in the morning. Active HM Super Vitamin B12 2500 MCG Oral Tablet Chewable (Cyanocobalamin) Take by mouth. Active Clopidogrel Bisulfate 75 MG Oral Tablet (pLAVix)Indication s:Carotid atherosclerosis, bilateral,PVD (peripheral vascular disease) ([facility]),History of transient ischemic attack (TIA) Take 1 Tablet by mouth in the morning. 90 Tablet 1 12/31/19 24 Active Isosorbide Mononitrate ER 60 MG Oral Tablet Extended Release 24 Hour (Imdur) Take 1 Tablet by mouth in the morning. Do not cut, crush or chew. 90 Tablet 3 02/03/20 24 Active amLODIPine-Valsart an-HCTZ 5-160-12.5 MG Oral Tablet (Exforge HCT) Take by mouth. A ctive Memantine HCl 10 MG Oral Tablet (Namenda) Take 1 Tablet by mouth 2 times a day with morning and evening meals. Active Dapagliflozin Propanediol 5 MG Oral Tablet (Farxiga) Take 1 Tablet by mouth in the morning. 10 mg three times a day. Active Magnesium Glycinate 100 MG Oral Capsule Take by mouth. 200 mg Active NATURAL SUPPLEMENT Take by mouth daily. CERVETOLKA PLUS Active Montelukast Sodium 10 MG Oral Tablet (Singulair)Indicat ions:COPD, group B, by GOLD 2017 classification ([facility]) Take 1 Tablet by mouth at bedtime. 90 Tablet 3 07/20/20 24 Active Bisoprolol Fumarate 5 MG Oral Tablet (Zebeta)Indication s:HTN, goal below 140/90,Coronary artery disease involving [place] coronary artery of [place] heart without angina pectoris Take 1 Tablet by mouth in the morning and 1 Tablet at noon and 1 Tablet before bedtime. 270 Tablet 1 07/20/20 24 Active Ezetimibe-Rosuvast atin 10-10 MG Oral TabletIndications: Coronary artery disease involving [place] coronary artery of [place] heart without angina pectoris,History of TIA (transient ischemic attack) Take 1 Tablet by mouth every evening. 90 Tablet 1 07/20/20 24 Active Omeprazole-Sodium Bicarbonate 40-1100 MG Oral CapsuleIndications :Esophagitis,Histo ry of GI bleed Take 1 Capsule by mouth daily before breakfast. 90 Capsule 1 07/20/20 24 Active Colchicine 0.6 MG [...] bedtime. 90 Tablet 1 07/21/20 24 Active Albuterol Sulfate HFA 108 [...] bedtime afterwards. 30 Tablet 5 12/30/19 24 024 Discontin ued(Medic ation List Clean Up) theophylline SR 150 MG OR TB12 Take 0.5 Tablets by mouth in the morning and 0.5 Tablets before bedtime. Discontin ued(Medic ation List Clean Up) Ferrous Sulfate 325 (65 Fe) MG Oral Tablet (Feosol)Indication s:Acute blood loss anemia Take 1 Tablet by mouth in the morning and 1 Tablet before bedtime. 180 Tablet 01/02/20 24 Discontin ued(Medic ation List Clean Up) Rosuvastatin Calcium 20 MG Oral Tablet (Crestor)Indicatio ns:PVD (peripheral vascular disease) (HCC),History of transient ischemic attack (TIA) TAKE 1 TABLET BY MOUTH EVERYDAY AT BEDTIME 90 Tablet 3 01/24/20 24 Discontin ued(Medic ation List Clean Up) Carvedilol 25 MG Oral Tablet (Coreg) Take 1 Tablet by mouth in the morning and 1 Tablet before bedtime. with food. 180 Tablet 3 02/03/20 24 Discontin ued(Medic ation List Clean Up) Valsartan 320 MG Oral Tablet (Diovan) Take 1 Tablet by mouth in the morning. 90 Tablet 3 02/03/20 24 Discontin ued(Medic ation List Clean Up) QUEtiapine Fumarate 50 MG Oral Tablet (SEROquel)Indicati ons:Psychophysiolo gic insomnia,RADHA (generalized anxiety disorder) TAKE 1 TABLET BY MOUTH EVERYDAY AT BEDTIME 90 Tablet 04/06/20 24 Discontin ued(Medic ation/Dos e Changed) NSS 0.9 % SOLN 50 mL with alteplase 2 MG SOLR once. Discontin ued(Medic ation List Clean Up) Bisoprolol Fumarate 5 MG Oral Tablet (Zebeta) Take 1 Tablet by mouth in the morning. Discontin ued(Refil l) Omeprazole 40 MG Oral Capsule Delayed Release (PriLOSEC) Take 1 Capsule by mouth in the morning. Discontin ued(Medic ation/Dos e Changed) Colchicine 0.6 MG Oral Tablet Take 1 Tablet by mouth in the morning. 500 mcg. 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 [...] him he had sugar issues when in [place]. No history of this noted inhis chart [...] separately billed services. documented in this encounter Procedure Notes * Sam Sanchez MD - 07/20/2024 5:13 PM ESTAssociated Order(s): EKG REASON FOR STUDY: CHST PAIN W/ CAD CONCLUSIONS: Sinus bradycardia Otherwise normal ECG When compared with ECG of 09-May-2023 14:50, Criteria for Septal infarct are no longer Present Ventricular Rate: 56 Atrial Rate: 56 SD Interval: 172 QRS Duration: 84 QT/QTc: 434/418 ms P-R-T Baker: 38 : 12 : 29 degrees documented [...] encounter Miscellaneous Notes * Addendum Note - Tiffany Noguera MED [...] 2:30 PM EST Cardiac Studies Cardiac Studies, [facility] [address] [place] [address] 11/19/2024 4:20 PM EDT Office Visit General Internal Medicine [facility] [address] [facility] [place] [place] [address] Jose Cherry PA-C [address] [facility] [place] [address] 11/23/2024 1:30 PM EDT Office Visit Orthopaedics [facility] [place] [address] Juan Carlos Sy MD [address] [place] [address] 01/07/2025 1:30 PM EDT Office Visit Hematology/Oncology [facility] [address] [facility] [place] [place] [id number] Jun Martin MD [address] [facility] [place] [address] 02/09/2025 3:30 PM EDT Office Visit Cardiology, [facility] [address] [place] [address] Sam Sanchez MD [address] [facility] [place] [address] Scheduled Orders Name Type Priority Associated Diagnoses Orde r Schedule LIPID PANEL WITH DIRECT LDL IF TG IS HIGH Lab Routine HTN, goal below 140/90 Coronary artery disease involving [place] coronary artery of [place] heart without angina pectoris Expected: 10/18/2024, Expires: 07/20/2025 COMPREHENSIVE METABOLIC PANEL Lab Routine HTN, goal below 140/90 Coronary artery disease involving [place] coronary artery of [place] heart without angina pectoris Expected: 10/18/2024 (Approximate), [...] TRANS-THORACIC Echocardiology Routine Coronary artery disease involving [place] coronary artery of [place] heart without angina pectoris Shortness of breath Expected: 07/20/2024, Expires: 08/20/2026 Scheduled Referrals Name Type Priority Associated Diagnoses Orde r Schedule CARDIOLOGY REFERRAL OP Referral Within 10 days (routine) Coronary artery disease involving [place] coronary artery of [place] heart without angina pectoris Shortness of breath [...] 12/01/2024 12/02/2023, 12/02/19 24 GFR 07/10/2025 07/10/2024, 05/2 08/2023, 05/16/2023, Additional history exists O2 ASSESSMENT COMPLETED [...] Procedure Name Priority Date/Time Associated Diagnosis Comments SD ECG ROUTINE ECG W/LEAST 12 LDS I&R ONLY Routine 07/20/2024 5:13 PM EST Coronary artery disease involving [place] coronary artery of [place] heart without angina pectoris Chest pain, unspecified [...] Present Ventricular Rate: 56 Atrial Rate: 56 SD Interval: 172 QRS Duration: 84 QT/QTc: 434/418 ms P-R-T Baker: 38 : 12 : 29 degrees us Jose Cherry PA-C EKG F inal Result [facility] documented in this encounter Visit Diagnoses Diagnosis HTN, goal below 140/90- Primary Unspecified essential hypertension Coronary artery disease involving [place] coronary artery of [place] heart without angina pectoris Shortness of breath Chest pain, unspecified type COPD, group B, by GOLD 2017 classification ([facility]) History of TIA (transient ischemic attack) Transient [...] Advance Directives occurred with: Patient Care Teams Hand Screen Printer Relationship Specialty Start Date End Date Zuhair Nelson DO [address] [place] [address] PCP - General Family Medicine 12/02/23 documented as of this encounter"
--- OUTSIDE RECORDS SUMMARY | 2024-08-02 02:32 | External Medical Summary | Summary of Care ---
Author Name Unknown Organization [facility] Address [address] [place] [address] Phone [phone] Care Team Providers Care Hand Worker Name Role Phone Zuhair Nelson Primary Care Provider + [phone] Reason for Referral * Evaluate & Treat - Unlimited Visits (Within 10 days (routine)) - Authorized Specialty Diagnoses / Procedures Referred By David stovall Referred To Contact Cardiovascular Medicine / Cardiology Diagnoses Coronary artery disease involving [place] coronary artery of [place] heart without angina pectoris Shortness of breath Chest pain, unspecified type Jose Cherry PA-C [address] [place] [address] Phone: tel: fax: Sam Sanchez MD [address] [facility] [address] Phone: tel: fax: Referral ID Status Reason Start Date Expiration Date Visits Requested Visits Authorized [id number] Authorized Specialty Services Required 07/20/2024 999 999 Question Answer Referral Priority Within 10 days (routine) Where should this appointment be scheduled? Dat To which of the following clinics are you referring your patient? General Cardiology Clinic * Precert (Diagnostic Medical) (Within 10 days (routine)) - Authorized Specialty Diagnoses / Procedures Referred By David stovall Referred To Contact Cardiac Studies Diagnoses Coronary artery disease involving [place] coronary artery of [place] heart without angina pectoris Shortness of breath Procedures ECHO, COMPLETE (2D), TRANS-THORACIC Jose Cherry PA-C [address] [place] [address] Phone: tel: fax: Referral ID Status Reason Start Date Expiration Date V isits Requested Visits Authorized [id number] Authorized Precert 07/20/2024 999 999 Reason for [...] PM EST Office Visit General Internal Medicine [facility] [place] [address] [facility] [place] [address] Jose Cherry PA-C [address] [facility] [place] [address] HTN, goal below 140/90*; Coronary artery disease involving [place] coronary artery of [place] heart without angina pectoris; Shortness of breath; Chest pain, unspecified type; COPD, group B, by GOLD 2017 classification ([facility]); History of TIA (transient ischemic attack); Esophagitis; History of GI bleed; Adrenal nodule ([facility]); Type 2 diabetes mellitus without complication, without long-term current use of insulin ([facility]); Hypomagnesemia; Encounter for long-term (current) use of medications; COPD with asthma ([facility]) Allergies Active Allergy Reactions Criticality Noted Date [...] Oral Tablet Take by mouth daily. Active [place] 3-6-9 Complex Oral Capsule Take 1 Capsule by mouth in the morning. Active Vitamin E 6.75 MG/0.3ML Oral Solution (Aquasol E) Take 8 mL by mouth in the morning. Active HM Super Vitamin B12 2500 MCG Oral Tablet Chewable (Cyanocobalamin) Take by mouth. Active Clopidogrel Bisulfate 75 MG Oral Tablet (pLAVix)Indication s:Carotid atherosclerosis, bilateral,PVD (peripheral vascular disease) ([facility]),History of transient ischemic attack (TIA) Take 1 [...] ions:COPD, group B, by GOLD 2017 classification ([facility]) Take 1 Tablet by mouth at bedtime. 90 Tablet 3 07/20/20 24 Active Bisoprolol Fumarate 5 MG Oral Tablet (Zebeta)Indication s:HTN, goal below 140/90,Coronary artery disease involving [place] coronary artery of [place] heart without angina pectoris Take 1 Tablet by mouth in the morning and 1 Tablet at noon and 1 Tablet before bedtime. 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 [...] him he had sugar issues when in [place]. No history of this noted inhis chart [...] documented in this encounter Procedure Notes * aSm Sanchez MD - 07/20/2024 5:13 PM ESTAssociated Order(s): EKG REASON FOR STUDY: CHST PAIN W/ CAD CONCLUSIONS: Sinus bradycardia Otherwise normal ECG When compared with ECG of 09-May-2023 14:50, Criteria for Septal infarct are no longer Present Ventricular Rate: 56 Atrial Rate: 56 PA Interval: 172 QRS Duration: 84 QT/QTc: 434/418 ms P-R-T [place]: 38 : 12 : 29 degrees documented [...] 2:30 PM EST Cardiac Studies Cardiac Studies, [facility] [address] [facility] [place] [address] 07/27/2024 4:00 PM EST Office Visit General Internal Medicine [facility] [address] [facility] [address] [place] [address] Jose Cherry PA-C [address] [facility] [place] [address] 11/19/2024 4:20 PM EDT Office Visit General Internal Medicine [facility] [address] [place] [address] Jose Cherry PA-C [address] [facility] [place] [address] 11/23/2024 1:30 PM EDT Office Visit Orthopaedics [facility] [place] [address] Juan Carlos Sy MD [address] [place] [address] 01/07/2025 1:30 PM EDT Office Visit Hematology/Oncology [facility] [address] [place] [phone] Jun Martin MD [address] [facility] [place] [address] 02/09/2025 3:30 PM EDT Office Visit Cardiology, [facility] [address] [facility] [place] [address] Sam Sanchez MD [address] [facility] [address] [place] [address] Scheduled Orders Name Type Priority Associated Diagnoses Orde r Schedule LIPID PANEL WITH DIRECT LDL IF TG IS HIGH Lab Routine HTN, goal below 140/90 Coronary artery disease involving [place] coronary artery of [place] heart without angina pectoris Expected: 10/18/2024, Expires: 07/20/2025 COMPREHENSIVE METABOLIC PANEL Lab Routine HTN, goal below 140/90 Coronary artery disease involving [place] coronary artery of [place] heart without angina pectoris Expected: 10/18/2024 (Approximate), [...] TRANS-THORACIC Echocardiology Routine Coronary artery disease involving [place] coronary artery of [place] heart without angina pectoris Shortness of breath Expected: 07/20/2024, Expires: 08/20/2026 Scheduled Referrals Name Type Priority Associated Diagnoses Orde r Schedule CARDIOLOGY REFERRAL OP Referral Within 10 days (routine) Coronary artery disease involving [place] coronary artery of [place] heart without angina pectoris Shortness of breath [...] - PCV) 09/01/2022 09/01/2021, 07/08/2013 COVID-19 Vaccine ( season) 2024 08/15/2023, 06/09/2022, 08/10/2021 Influenza Vaccine (FLU shot) (#1) 2024 05/06/2023, 04/23/2022, 09/01/2021, Additional history exists Depression Screening 12/01/2024 12/02/2023, 12/02/19 24 GFR 07/10/2025 07/10/2024, 0508/2023, 05/16/2023, Additional history exists O2 ASSESSMENT COMPLETED [...] Procedure Name Priority Date/Time Associated Diagnosis Comments PA ECG ROUTINE ECG W/LEAST 12 LDS I&R ONLY Routine 07/20/2024 5:13 PM EST Coronary artery disease involving [place] coronary artery of [place] heart without angina pectoris Chest pain, unspecified [...] Present Ventricular Rate: 56 Atrial Rate: 56 PA Interval: 172 QRS Duration: 84 QT/QTc: 434/418 ms P-R-T [place]: 38 : 12 : 29 degrees us Jose Cherry PA-C EKG F inal Result [facility] documented in this encounter Visit Diagnoses Diagnosis HTN, goal below 140/90- Primary Unspecified essential hypertension Coronary artery disease involving [place] coronary artery of [place] heart without angina pectoris Shortness of breath Chest pain, unspecified type COPD, group B, by GOLD 2017 classification ([facility]) History of TIA (transient ischemic attack) Transient [...] Directives occurred with: Patient Care Teams Hand Worker Relationship Specialty Start Date End Date Zuhair Nelson DO [address] [place] [address] PCP - General Family Medicine 12/02/23 documented as of this encounter"
--- OUTSIDE RECORDS SUMMARY | 2024-08-02 02:32 | External Medical Summary ---
Author Name Unknown Address Unknown Organization [id number]:[facility] [place] [address] [facility] [address] Laboratory Report Ordering Provider Test Date Status RODRÍGUEZ GARCIA 07/22/2024 11:32:25 Final Observation Date Value Abnormality Reference (Units ) Status TSH 07/22/2024 11:32:25 0.67 0.27-4.20 (uIU/mL) Final Performing Location [facility] [place] - [address] [facility] [address]
--- OUTSIDE RECORDS SUMMARY | 2024-08-02 02:32 | External Medical Summary ---
Author Name Unknown Address Unknown Organization K09:[facility] [place] [address] Laboratory Report Ordering Provider Test Date Status RODRÍGUEZ GARCIA 07/22/2024 11:32:25 Final Observation Date Value Abnormality Reference (Units ) Status Magnesium 07/22/2024 11:32:25 2.2 1.5-2.6 (m g/dL) Final Performing Location [facility] [place] [address]
--- OUTSIDE RECORDS SUMMARY | 2024-08-02 02:32 | External Medical Summary | Summary of Care ---
Author Name Unknown Organization [facility] Address [address] [place] [address] Phone [phone] Care Team Providers Care Endbander Name Role Phone Zuhair Nelson DO Primary Care Provider + [phone] Reason for Visit * Reason Comments Outpatient Testing Encounter Details Date Type Department Care Team (Late st Contact Info) Description 07/22/2024 11:30 AM EST Laboratory Laboratory Scenery [facility] [address] [place] [phone] [facility] Lab Scenery [address] [place] [address] HTN, goal below 140/90; Coronary artery disease involving benton coronary artery of benton heart without angina pectoris; Hypomagnesemia; Encounter for [...] Oral Tablet Take by mouth daily. Active [place] 3-6-9 Complex Oral Capsule Take 1 Capsule by mouth in the morning. Active Vitamin E 6.75 MG/0.3ML Oral Solution (Aquasol E) Take 8 mL by mouth in the morning. Active HM Super Vitamin B12 2500 MCG Oral Tablet Chewable (Cyanocobalamin) Take by mouth. Active Clopidogrel Bisulfate 75 MG Oral Tablet (pLAVix)Indication s:Carotid atherosclerosis, bilateral,PVD (peripheral vascular disease) ([facility]),History of transient ischemic attack (TIA) Take 1 Tablet by mouth in the morning. 90 Tablet 1 4 Active Magnesium Glycinate 100 MG Oral Capsule Take by mouth. 200 mg Active NATURAL SUPPLEMENT Take by mouth daily. CERVETOLKA PLUS Active Montelukast Sodium 10 MG Oral Tablet (Singulair)Indicat ions:COPD, group B, by GOLD 2017 classification ([facility]) Take 1 Tablet by mouth at bedtime. 90 Tablet 3 4 Active Bisoprolol Fumarate 5 MG Oral Tablet (Zebeta)Indication s:HTN, goal below 140/90,Coronary artery disease involving benton coronary artery of benton heart without angina pectoris Take 1 Tablet by mouth in the morning and 1 Tablet at noon and 1 Tablet before bedtime. 270 Tablet 1 4 Active Colchicine 0.6 MG Oral Tablet Take 1 Tablet by mouth in the morning. 500 mcg. 90 Tablet 1 4 Active Albuterol Sulfate HFA 108 (90 Base) MCG/ACT Inhalation Aerosol SolutionIndication s:COPD with asthma ([facility]) Inhale 2 Puffs by mouth [...] long-term current use of insulin ([facility]) Take 1 Tablet by mouth in the morning. 90 Tablet 1 4 Active Memantine HCl 10 MG Oral Tablet (Namenda) Take 1 Tablet by mouth 2 times a day with morning and evening meals. 180 Tablet 1 4 Active Isosorbide Mononitrate ER 60 MG Oral Tablet Extended Release 24 Hour (Imdur)Indications :Coronary artery disease involving benton coronary artery of benton heart without angina pectoris Take 1 Tablet [...] ns:HTN, goal below 140/90,Coronary artery disease involving benton coronary artery of benton heart without angina pectoris Take 1 Tablet [...] loss 12/02/2023 Coronary artery disease invo lving benton coronary artery of benton heart without angina pectoris 12/02/2023 Benign essential [...] No 12/10/2023 Does the household have a [facility] source of income? 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 Not on file documented as of this encounter Plan of Treatment Upcoming Encounters Date Type Department Care Team (Late st Contact Info) Description 07/23/2024 2:30 PM EST Cardiac Studies Cardiac Studies, [facility] [address] [facility] [place] [address] 07/27/2024 4:00 PM EST Office Visit General Internal Medicine [facility] [address] [place] [address] [place] [address] Loan Cherry PA-C 200 [facility] [place] [address] 11/19/2024 4:20 PM EDT Office Visit General Internal Medicine [facility] [address] [facility] [place] [address] Loan Cherry PA-C 200 [facility] [place] [address] 11/23/2024 1:30 PM EDT Office Visit Orthopaedics [facility] [address] [place] [address] Juan Carlos Sy MD [address] [place] [address] 01/07/2025 1:30 PM EDT Office Visit Hematology/Oncology [facility] [address] [facility] [place] [phone] Jun Martin MD [address] [facility] [place] [address] 02/09/2025 3:30 PM EDT Office Visit Cardiology, [facility] [address] [place] [address] Sam Sanchez MD [address] [place] [address] Pending Results Name Type Priority Associated Diagnoses Date /Time LIPID PANEL WITH DIRECT LDL IF TG IS HIGH Lab Routine HTN, goal below 140/90 Coronary artery disease involving benton coronary artery of benton heart without angina pectoris 07/22/2024 11:32 AM EST COMPREHENSIVE METABOLIC PANEL Lab Routine HTN, goal below 140/90 Coronary artery disease involving benton coronary artery of benton heart without angina pectoris 07/22/2024 11:32 AM [...] Unspecified essential hypertension Coronary artery disease involving benton coronary artery of benton heart without angina pectoris Hypomagnesemia Disorders of [...] Advance Directives occurred with: Patient Care Teams Endbander Relationship Specialty Start Date End Date Zuhair Nelson DO [address] [place] [phone] PCP - General Family Medicine 12/02/23 documented as of this encounter
--- OUTSIDE RECORDS SUMMARY | 2024-08-02 02:32 | External Medical Summary | Summary of Care ---
Author Name Unknown Organization [facility] Address [address] [place] [address] Phone [phone] Care Team Providers Care Poured Wall Foreman Name Role Phone OmarZuhair chapman DO Primary Care Provider + [phone] Reason for Referral * Evaluate & Treat - Unlimited Visits (Within 3 days (urgent)) - Authorized Specialty Diagnoses / Procedures Referred By David t Referred To Contact Physical Therapy / Physical Medicine And Rehab Diagnoses Acute bilateral low back pain with bilateral sciatica Jose Cherry PA-C [address] [place] [id number] Phone: tel: fax: Referral ID Status Reason Start Date Expiration Date Visits Requested Visits Authorized [id number] Authorized Specialty Services Required 4 999 999 Question Answer Referral Priority Within 3 days (urgent) Where should this appointment be scheduled? External - [facility] Reason for Visit * Reason Comments Return Visit Patient return to [facility] anti-inflammatory medication alternative for pain. Reports [...] State [place] [address] [place] [id number] Jose Cherry PA-C [address] [place] [address] [id number] Acute bilateral low back pain with bilateral sciatica*; Esophagitis; HTN, goal below 140/90; History of GI bleed; Iron deficiency anemia due to chronic blood loss; Coronary artery disease involving [place] coronary artery of [place] heart without angina pectoris Allergies Active Allergy [...] Oral Tablet Take by mouth daily. Active [place] 3-6-9 Complex Oral Capsule Take 1 Capsule by mouth in the morning. Active Vitamin E 6.75 MG/0.3ML Oral Solution (Aquasol E) Take 8 mL by mouth in the morning. Active HM Super Vitamin B12 2500 MCG Oral Tablet Chewable (Cyanocobalamin) Take by mouth. Active Clopidogrel Bisulfate 75 MG Oral Tablet (pLAVix)Indication s:Carotid atherosclerosis, bilateral,PVD (peripheral vascular disease) ([facility]),History of transient ischemic attack (TIA) Take 1 Tablet by mouth in the morning. 90 Tablet 1 12/31/19 24 Active Magnesium Glycinate 100 MG Oral Capsule Take by mouth. 200 mg Active NATURAL SUPPLEMENT Take by mouth daily. CERVETOLKA PLUS Active Montelukast Sodium 10 MG Oral Tablet (Singulair)Indicat ions:COPD, group B, by GOLD 2017 classification ([facility]) Take 1 Tablet by mouth at bedtime. 90 Tablet 3 07/20/20 24 Active Bisoprolol Fumarate 5 MG Oral Tablet (Zebeta)Indication s:HTN, goal below 140/90,Coronary artery disease involving [place] coronary artery of [place] heart without angina pectoris Take 1 Tablet [...] Aerosol SolutionIndication s:COPD with asthma ([facility]) Inhale 2 Puffs by mouth [...] 24 Hour (Imdur)Indications :Coronary artery disease involving [place] coronary artery of [place]ogn[place] heart without angina pectoris Take 1 Tablet by mouth in the morning. Do not cut, crush or chew. 90 Tablet 3 07/21/20 24 Active Rosuvastatin Calcium 20 MG Oral Tablet (Crestor)Indicatio ns:HTN, goal below 140/90,Coronary artery disease involving [place] coronary artery of [place] heart without angina pectoris Take 1 Tablet [...] long-term current use of insulin ([facility]) Take 1 Tablet by mouth in [...] loss 12/02/2023 Coronary artery disease invo lving [place] coronary artery of [place] heart without angina pectoris 12/02/2023 Benign essential [...] CG/0.3 mL, 12 YRS AND ABOVE, IM ([employer] 08/15/2023 Covid-19, Mrna, Lnp-s, Pf, B ivalent, [...] No 12/10/2023 Does the household have a [facility] source [facility] income? 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 History of Present Illness Amanad Bhagat is a 83 year old male [...] chronic blood loss Coronary artery disease involving afogn[place] coronary artery of afogn[place] heart without angina pectoris Goal LDL less [...] this encounter Nursing Notes * Tiffany Macias [employer] - 07/27/2024 4:10 PM EST Chief Complaint [...] EDT Office Visit General Internal Medicine [facility] [address] [facility] [place], [place] [address] Jose Cherry PA-C [address] [facility] [place], [place] [address] 11/23/2024 1:30 PM EDT Office Visit Orthopaedics [facility] [address] [place] [address] Juan Carlos Sy MD [address] [facility] [place] [address] 01/07/2025 1:30 PM EDT Office Visit Hematology/Oncology [facility] [address] [facility] [place] [phone] Jun Martin MD [address] [facility] [place] [address] 02/09/2025 3:30 PM EDT Office Visit Cardiology, [facility] 132 [facility] [place] [address] Sam Sanchez MD 132 [facility] [place] [address] Pending Results Name Type Priority Associated Diagnoses [...] blood loss (chronic) Coronary artery disease involving afogn[place] coronary artery of afogn[place] heart without angina pectoris documented in this encounter Advance Directives * Full Code (Latest Code Status on File) Date Activated Date Inactivated Comments 11/28/2012 2:07 AM 11/28/2012 6:25 PM This order r eflects the patients wishes and were consensually agreed upon. Question Answer Comments Discussion of Advance Directives occurred with: Patient Care Teams Poured Wall Foreman Relationship Specialty Start Date End Date Zuhair Nelson DO [address] [place] [phone] PCP - General Family Medicine 12/02/23 documented as of this encounter
--- OUTSIDE RECORDS SUMMARY | 2024-08-02 02:33 | External Medical Summary | Summary of Care ---
Author Name Unknown Organization [facility] Address [address] [place] [address] Phone [phone] Care Team Providers Care Commercial Artist Lettering Name Role Phone Zuhair Nelson Primary Care Provider + [phone] Reason for Referral * Evaluate & Treat - Unlimited Visits (Within 10 days (routine)) - Authorized Specialty Diagnoses / Procedures Referred By David stovall Referred To Contact Cardiovascular Medicine / Cardiology Diagnoses Coronary artery disease involving [place] coronary artery of [place] heart without angina pectoris Shortness of breath Chest pain, unspecified type Jose Cherry PA-C [address] [place] [address] Phone: tel: fax: Sam Sanchez MD [address] [facility] [address] Phone: tel: fax: Referral ID Status Reason Start Date Expiration Date Visits Requested Visits Authorized [id number] Authorized Specialty Services Required 07/20/2024 999 999 [...] Cardiac Studies Diagnoses Coronary artery disease involving [place] coronary artery of [place] heart without angina pectoris Shortness of breath Procedures ECHO, COMPLETE (2D), TRANS-THORACIC Jose Cherry PA-C [address] [place] [address] Phone: tel: fax: Referral ID Status Reason Start Date Expiration Date V isits Requested Visits Authorized [id number] Authorized Precert 07/20/2024 999 999 Reason for [...] PM EST Office Visit General Internal Medicine [facility] [place] [address] [facility] [place] [address] Jose Cherry PA-C [address] [facility] [place] [address] HTN, goal below 140/90*; Coronary artery disease involving [place] coronary artery of [place] heart without angina pectoris; Shortness of breath; Chest pain, unspecified type; COPD, group B, by GOLD 2017 classification ([facility]); History of TIA (transient ischemic attack); Esophagitis; History of GI bleed; Adrenal nodule ([facility]); Type 2 diabetes mellitus without complication, without long-term current use of insulin ([facility]); Hypomagnesemia; Encounter for long-term (current) use of medications; COPD with asthma ([facility]) Allergies Active Allergy Reactions Criticality Noted Date [...] Oral Tablet Take by mouth daily. Active [place] 3-6-9 Complex Oral Capsule Take 1 Capsule by mouth in the morning. Active Vitamin E 6.75 MG/0.3ML Oral Solution (Aquasol E) Take 8 mL by mouth in the morning. Active HM Super Vitamin B12 2500 MCG Oral Tablet Chewable (Cyanocobalamin) Take by mouth. Active Clopidogrel Bisulfate 75 MG Oral Tablet (pLAVix)Indication s:Carotid atherosclerosis, bilateral,PVD (peripheral vascular disease) ([facility]),History of transient ischemic attack (TIA) [...] ions:COPD, group B, by GOLD 2017 classification ([facility]) Take 1 Tablet by mouth at bedtime. 90 Tablet 3 07/20/20 24 Active Bisoprolol Fumarate 5 MG Oral Tablet (Zebeta)Indication s:HTN, goal below 140/90,Coronary artery disease involving [place] coronary artery of [place] heart without angina pectoris Take 1 Tablet by mouth in the morning and 1 Tablet at noon and 1 Tablet before bedtime. 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 12 lead EKG sinus deliica. I have reviewed the following results: Assessment [...] METABOLIC PANEL; Future Coronary artery disease involving [place] coronary artery of [place] heart without angina pectoris Continue current meds. [...] him he had sugar issues when in [place]. No history of this noted inhis chart [...] Present Ventricular Rate: 56 Atrial Rate: 56 [place] Interval: 172 QRS Duration: 84 QT/QTc: 434/418 ms P-R-T Lag[place]: 38 : 12 : 29 degrees documented in this encounter Nursing Notes * Tiffany Macias MED ASSIST - 07/20/2024 4:22 PM EST [...] 2:30 PM EST Cardiac Studies Cardiac Studies, [facility] [address] [facility] [place] [address] 11/19/2024 4:20 PM EDT Office Visit General Internal Medicine [facility] [address] [place] [address] Jose Cherry PA-C 200 [facility] [place] [address] 11/23/2024 1:30 PM EDT Office Visit Orthopaedics [facility] [address] [place] [address] Juan Carlos Sy MD [address] [place] [address] 01/07/2025 1:30 PM EDT Office Visit Hematology/Oncology [facility] [address] [facility] [place], [place] [phone] Jun Martin MD 200 [facility], [place] [address] 02/09/2025 3:30 PM EDT Office Visit Cardiology, [facility] [address] [place] [address] Sam Sanchez MD [address] [place] [address] Scheduled Orders Name Type Priority Associated Diagnoses Orde r Schedule LIPID PANEL WITH DIRECT LDL IF TG IS HIGH Lab Routine HTN, goal below 140/90 Coronary artery disease involving [place] coronary artery of [place] heart without angina pectoris Expected: 10/18/2024, Expires: 07/20/2025 COMPREHENSIVE METABOLIC PANEL Lab Routine HTN, goal below 140/90 Coronary artery disease involving [place] coronary artery of [place] heart without angina pectoris Expected: 10/18/2024 (Approximate), [...] TRANS-THORACIC Echocardiology Routine Coronary artery disease involving [place] coronary artery of [place] heart without angina pectoris Shortness of breath Expected: 07/20/2024, Expires: 08/20/2026 Scheduled Referrals Name Type Priority Associated Diagnoses Orde r Schedule CARDIOLOGY REFERRAL OP Referral Within 10 days (routine) Coronary artery disease involving [place] coronary artery of [place] heart without angina pectoris Shortness of breath [...] 12/01/2024 12/02/2023, 12/02/19 24 GFR 07/10/2025 07/10/2024, 05/08/2023, 05/16/2023, Additional history exists O2 ASSESSMENT COMPLETED [...] Procedure Name Priority Date/Time Associated Diagnosis Comments [place] ECG ROUTINE ECG W/LEAST 12 LDS I&R ONLY Routine 07/20/2024 5:13 PM EST Coronary artery disease involving [place] coronary artery of [place] heart without angina pectoris Chest pain, unspecified [...] Present Ventricular Rate: 56 Atrial Rate: 56 [place] Interval: 172 QRS Duration: 84 QT/QTc: 434/418 ms P-R-T [place]: 38 : 12 : 29 degrees Jose Cherry PA-C EKG F inal Result [facility] documented in this encounter Visit Diagnoses Diagnosis HTN, goal below 140/90- Primary Unspecified essential hypertension Coronary artery disease involving [place] coronary artery of [place] heart without angina pectoris Shortness of breath Chest pain, unspecified type COPD, group B, by GOLD 2017 classification ([facility]) History of TIA (transient ischemic attack) Transient [...] Directives occurred with: Patient Care Teams Commercial Artist Lettering Relationship Specialty Start Date End Date Zuhair Nelson DO [address] [place] [address] PCP - General Family Medicine 12/02/23 documented as of this encounter"
--- OUTSIDE RECORDS SUMMARY | 2024-08-02 02:33 | External Medical Summary | Summary of Care ---
Author Name Unknown Organization [facility] Address [address] [place] [address] Phone [phone] Care Team Providers Care Poultry Process Worker Name Role Phone Zuhair Nelson Primary Care Provider + [phone] Reason for Referral * Evaluate & Treat - Unlimited Visits (Within 10 days (routine)) - Authorized Specialty Diagnoses / Procedures Referred By David stovall Referred To Contact Cardiovascular Medicine / Cardiology Diagnoses Coronary artery disease involving [place] coronary artery of [place] heart without angina pectoris Shortness of breath Chest pain, unspecified type Loan Cherry PA-C [address] [place] [address] Phone: tel: fax: Sam Sanchez MD [address] [facility] [address] Phone: tel: fax: Referral ID Status Reason Start Date Expiration Date Visits Requested Visits Authorized [id number] Authorized Specialty Services Required 07/20/2024 999 999 [...] Cardiac Studies Diagnoses Coronary artery disease involving [place] coronary artery of [place] heart without angina pectoris Shortness of breath Procedures ECHO, COMPLETE (2D), TRANS-THORACIC Loan Cherry PA-C [address] [place] [address] Phone: tel: fax: Referral ID Status Reason Start Date Expiration Date V isits Requested Visits Authorized [id number] Authorized Precert 07/20/2024 999 999 Reason for [...] PM EST Office Visit General Internal Medicine [facility] [place] [address] [facility] [place] [address] Loan Cherry PA-C [address] [facility] [place] [address] HTN, goal below 140/90*; Coronary artery disease involving [place] coronary artery of [place] heart without angina pectoris; Shortness of breath; Chest pain, unspecified type; COPD, group B, by GOLD 2017 classification ([facility]); History of TIA (transient ischemic attack); Esophagitis; History of GI bleed; Adrenal nodule ([facility]); Type 2 diabetes mellitus without complication, without long-term current use of insulin ([facility]); Hypomagnesemia; Encounter for long-term (current) use of medications Allergies Active Allergy Reactions Criticality Noted Date Comments Amlodipine Unknown 05/09/2023 Hydrocortisone 07/09/2023 documented as of this encounter (statuses as of 07/20/2024) Medications Albuterol Sulfate HFA 108 (90 Base) MCG/ACT Inhalation Aerosol SolutionIndication s:COPD with asthma ([facility]) Inhale 2 Puffs by mouth every 6 hours as needed for Cough or Shortness of Breath. 18 g 5 05/29/20 23 Active Nitroglycerin 0.4 MG Sublingual Tablet Sublingual (Nitrostat)Indicat ions:Chest pain, unspecified type PLACE 1 TABLET UNDER TONGUE NEEDED FOR PAIN, CHEST. MAY REPEAT X.3 IF PAIN CONTINUES, CALL 911. 25 Tablet 11 12/04/19 24 Active Selenium 50 MCG Oral Tablet Take by mouth daily. Active [place] 3-6-9 Complex Oral Capsule Take 1 Capsule by mouth in the morning. Active Vitamin E 6.75 MG/0.3ML Oral Solution (Aquasol E) Take 8 mL by mouth in the morning. Active HM Super Vitamin B12 2500 MCG Oral Tablet Chewable (Cyanocobalamin) Take by mouth. Active Clopidogrel Bisulfate 75 MG Oral Tablet (pLAVix)Indication s:Carotid atherosclerosis, bilateral,PVD (peripheral vascular disease) ([facility]),History of transient ischemic attack (TIA) Take 1 Tablet by mouth in the morning. 90 Tablet 1 12/31/19 24 Active Isosorbide Mononitrate ER 60 MG Oral Tablet Extended Release 24 Hour (Imdur) Take 1 Tablet by mouth in the morning. Do not cut, crush or chew. 90 Tablet 3 02/03/20 24 Active QUEtiapine Fumarate 50 MG Oral Tablet (SEROquel)Indicati ons:Psychophysiolo gic insomnia,RADHA (generalized anxiety disorder) TAKE 1 TABLET BY MOUTH EVERYDAY AT BEDTIME 90 Tablet 04/06/20 24 Active Additional Information Patient taking differently: 25 mg, Reported on 07/20/2024 amLODIPine-Valsart an-HCTZ 5-160-12.5 MG Oral Tablet (Exforge [...] B, by GOLD 2017 classification ([facility]) Take 1 Tablet by mouth at bedtime. 90 Tablet 3 07/20/20 24 Active Bisoprolol Fumarate 5 MG Oral Tablet (Zebeta)Indication s:HTN, goal below 140/90,Coronary artery disease involving [place] coronary artery of [place] heart without angina pectoris Take 1 Tablet by mouth in the morning and 1 Tablet at noon and 1 Tablet before bedtime. 270 Tablet 1 07/20/20 Active Ezetimibe-Rosuvast atin 10-10 MG Oral TabletIndications: Coronary artery disease involving [place] coronary artery of [place] heart without angina pectoris,History of TIA (transient [...] morning. 500 mcg. 90 Tablet 1 07/20/20 Active Montelukast Sodium 10 MG Oral Tablet [...] the morning and 0.5 Tablets before bedtime. 024 Discontin ued(Medic ation List Clean Up) Ferrous [...] 24 Discontin ued(Medic ation List Clean Up) NSS 0.9 % SOLN 50 mL with [...] as of this encounter (statuses as of 07/20/2024) Active Problems Problem Noted Date Diagnosed Date Combined forms of age-related cataract of right eye 12/19/2023 Esophagitis 12/02/2023 Lumbar degenerative disc disease 12/02/2023 Gait disturbance 12/02/2023 History of GI bleed 12/02/2023 Iron deficiency anemia due to chronic blood loss 12/02/2023 Coronary artery disease invo lving [place] coronary artery of [place] heart without angina pectoris 12/02/2023 Benign essential tremor 12/02/2023 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 s [...] as of this encounter (statuses as of 07/20/2024) Resolved Problems Problem Noted Date Diagnosed Date [...] as of this encounter (statuses as of 07/20/2024) Immunizations Name Administration Dates Next Due COVID-19, [...] 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 [...] current use of insulin (HCC) Pt on . Reports they told him he had sugar issues when in [place]. No history of this noted inhis chart [...] of his medications. documented in this encounter Plan of Treatment Upcoming Encounters Date Type Department Care Team (Late st Contact Info) Description 07/23/2024 2:30 PM EST Cardiac Studies Cardiac Studies, [facility] [address] [place] [address] 11/19/2024 4:20 PM EDT Office Visit General Internal Medicine [facility] [address] [facility] [place], [place] [address] Loan Cherry PA-C [address] [facility] [place] [address] 01/07/2025 1:30 PM EDT Office Visit Hematology/Oncology [facility] [address] [facility] [place], [place] [phone] Jun Martin MD [address] [facility] [place] [address] 02/09/2025 3:30 PM EDT Office Visit Cardiology, [facility] [address] [facility] [place] [address] Sam Sanchez MD [address] [facility] [place] [address] Scheduled Orders Name Type Priority Associated Diagnoses Orde r Schedule LIPID PANEL WITH DIRECT LDL IF TG IS HIGH Lab Routine HTN, goal below 140/90 Coronary artery disease involving [place] coronary artery of [place] heart without angina pectoris Expected: 10/18/2024, Expires: 07/20/2025 COMPREHENSIVE METABOLIC PANEL Lab Routine HTN, goal below 140/90 Coronary artery disease involving [place] coronary artery of [place] heart without angina pectoris Expected: 10/18/2024 (Approximate), [...] TRANS-THORACIC Echocardiology Routine Coronary artery disease involving [place] coronary artery of [place] heart without angina pectoris Shortness of breath Expected: 07/20/2024, Expires: 08/20/2026 EKG EKG Routine Coronary artery disease involving [place] coronary artery of [place] heart without angina pectoris Chest pain, unspecified type Ordered: 07/20/2024 Scheduled Referrals Name Type Priority Associated Diagnoses Orde r Schedule CARDIOLOGY REFERRAL OP Referral Within 10 days (routine) Coronary artery disease involving [place] coronary artery of [place] heart without angina pectoris Shortness of breath [...] 09/01/2022 09/01/2021, 07/08/2013 COVID-19 Vaccine (4 - 2023- season) 2024 08/15/2023, 06/09/2022, 08/10/2021 Influenza Vaccine [...] Unspecified essential hypertension Coronary artery disease involving [place] coronary artery of [place] heart without angina pectoris Shortness of breath Chest pain, unspecified type COPD, group B, by GOLD 2017 classification ([facility]) History of TIA (transient ischemic attack) Transient ischemic attack (TIA), and cerebral infarction without residual deficits Esophagitis Esophagitis, unspecified History of GI bleed Personal history of other diseases of digestive system Adrenal nodule (HCC) Other specified disorders of adrenal glands Type 2 diabetes mellitus without complication, without long-term current use of insulin ([facility]) Hypomagnesemia Disorders of magnesium metabolism Encounter for long-term (current) use of medications Encounter for long-term (current) use of other medications documented in this encounter Advance Directives * Full Code (Latest Code Status on File) Date Activated Date Inactivated Comments 11/28/2012 2:07 AM 11/28/2012 6:25 PM This order r eflects the patients wishes and were consensually agreed upon. Question Answer Comments Discussion of Advance Directives occurred with: Patient Care Teams Poultry Process Worker Relationship Specialty Start Date End Date Zuhair Nelson DO [address] [place] [address] PCP - General Family Medicine 12/02/23 documented as of this encounter"
--- OUTSIDE RECORDS SUMMARY | 2024-08-02 02:33 | External Medical Summary | Summary of Care ---
Author Name Unknown Organization [facility] Address [address] [place] [address] Phone [phone] Care Team Providers Care Unit Controller Name Role Phone Zuhair Nelson Primary Care Provider + [phone] Reason for Referral * Evaluate & Treat - Unlimited Visits (Within 10 days (routine)) - Authorized Specialty Diagnoses / Procedures Referred By David stovall Referred To Contact Cardiovascular Medicine / Cardiology Diagnoses Coronary artery disease involving [place] coronary artery of [place] heart without angina pectoris Shortness of breath Chest pain, unspecified type Jose Cherry PA-C [address] [place] [address] Phone: tel: fax: Sam Sanchez MD [address] [facility] [address] Phone: tel: fax: Referral ID Status Reason Start Date Expiration Date Visits Requested Visits Authorized [id number] Authorized Specialty Services Required 07/20/2024 999 999 [...] Cardiac Studies Diagnoses Coronary artery disease involving [place] coronary artery of [place] heart without angina pectoris Shortness of breath Procedures ECHO, COMPLETE (2D), TRANS-THORACIC Jose Cherry PA-C [address] [place] [address] Phone: tel: fax: Referral ID Status Reason Start Date Expiration Date V isits Requested Visits Authorized [id number] Authorized Precert 07/20/2024 999 999 Reason for [...] PM EST Office Visit General Internal Medicine [facility] [place] [address] [facility] [place] [address] Jose Cherry PA-C [address] [facility] [place] [address] HTN, goal below 140/90*; Coronary artery disease involving [place] coronary artery of [place] heart without angina pectoris; Shortness of breath; Chest pain, unspecified type; COPD, group B, by GOLD 2017 classification ([facility]); History of TIA (transient ischemic attack); Esophagitis; History of GI bleed; Adrenal nodule ([facility]); Type 2 diabetes mellitus without complication, without long-term current use of insulin ([facility]); Hypomagnesemia; Encounter for long-term (current) use of medications; COPD with asthma ([facility]) Allergies Active Allergy Reactions Criticality Noted [...] Oral Tablet Take by mouth daily. Active [place] 3-6-9 Complex Oral Capsule Take 1 Capsule by mouth in the morning. Active Vitamin E 6.75 MG/0.3ML Oral Solution (Aquasol E) Take 8 mL by mouth in the morning. Active HM Super Vitamin B12 2500 MCG Oral Tablet Chewable (Cyanocobalamin) Take by mouth. Active Clopidogrel Bisulfate 75 MG Oral Tablet (pLAVix)Indication s:Carotid atherosclerosis, bilateral,PVD (peripheral vascular disease) ([facility]),History of transient ischemic attack (TIA) Take [...] ions:COPD, group B, by GOLD 2017 classification ([facility]) Take 1 Tablet by mouth at bedtime. 90 Tablet 3 07/20/20 24 Active Bisoprolol Fumarate 5 MG Oral Tablet (Zebeta)Indication s:HTN, goal below 140/90,Coronary artery disease involving [place] coronary artery of [place] heart without angina pectoris Take 1 Tablet by mouth in the morning and 1 Tablet at noon and 1 Tablet before bedtime. 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 [...] him he had sugar issues when in [place]. No history of this noted inhis chart [...] Present Ventricular Rate: 56 Atrial Rate: 56 RI Interval: 172 QRS Duration: 84 QT/QTc: 434/418 ms P-R-T [place]: 38 : 12 : 29 degrees documented [...] 2:30 PM EST Cardiac Studies Cardiac Studies, [facility] [address] [facility] [place] [address] 11/19/2024 4:20 PM EDT Office Visit General Internal Medicine [facility] [address] [place] [address] Jose Cherry PA-C [address] [facility] [place] [address] 11/23/2024 1:30 PM EDT Office Visit Orthopaedics [facility] [address] [place] [address] Juan Carlos Sy MD [address] [place] [address] 01/07/2025 1:30 PM EDT Office Visit Hematology/Oncology [facility] [address] [facility] [place], [place] [phone] Jun Martin MD [address] [facility], [place] [address] 02/09/2025 3:30 PM EDT Office Visit Cardiology, [facility] [address] [place] [address] Sam Sanchez MD [address] [place] [address] Scheduled Orders Name Type Priority Associated Diagnoses Orde r Schedule LIPID PANEL WITH DIRECT LDL IF TG IS HIGH Lab Routine HTN, goal below 140/90 Coronary artery disease involving [place] coronary artery of unga heart without angina pectoris Expected: 10/18/2024, Expires: 07/20/2025 COMPREHENSIVE METABOLIC PANEL Lab Routine HTN, goal below 140/90 Coronary artery disease involving [place] coronary artery of un[place] heart without angina pectoris Expected: 10/18/2024 (Approximate), [...] TRANS-THORACIC Echocardiology Routine Coronary artery disease involving [place] coronary artery of unga heart without angina pectoris Shortness of breath Expected: 07/20/2024, Expires: 08/20/2026 Scheduled Referrals Name Type Priority Associated Diagnoses Orde r Schedule CARDIOLOGY REFERRAL OP Referral Within 10 days (routine) Coronary artery disease involving [place] coronary artery of un[place] heart without angina pectoris Shortness of breath [...] Procedure Name Priority Date/Time Associated Diagnosis Comments RI ECG ROUTINE ECG W/LEAST 12 LDS I&R ONLY Routine 07/20/2024 5:13 PM EST Coronary artery disease involving [place] coronary artery of un[place] heart without angina pectoris Chest pain, unspecified [...] Present Ventricular Rate: 56 Atrial Rate: 56 RI Interval: 172 QRS Duration: 84 QT/QTc: 434/418 ms P-R-T [place]: 38 : 12 : 29 degrees Jose Cherry PA-C EKG F inal Result [facility] CARD[facility]OLOG[facility] documented in this encounter Visit Diagnoses Diagnosis HTN, goal below 140/90- Primary Unspecified essential hypertension Coronary artery disease involving [place] coronary artery of un[place] heart without angina pectoris Shortness of breath Chest pain, unspecified type COPD, group B, by GOLD 2017 classification ([facility]) History of TIA (transient ischemic attack) [...] Advance Directives occurred with: Patient Care Teams Unit Controller Relationship Specialty Start Date End Date Zuhair Nelson DO [address] [place] [address] PCP - General Family Medicine 12/02/23 documented as of this encounter"
--- OUTSIDE RECORDS SUMMARY | 2024-08-02 02:33 | External Medical Summary | Summary of Care ---
Author Name Unknown Organization [facility] Address [address] [place] [address] Phone [phone] Care Team Providers Care Full Service Vending Driver Name Role Phone Zuhair Nelson DO Primary Care Provider + [phone] Encounter Details Date Type Department Care Team (Late st Contact Info) Description 07/21/2024 Orders Only PATIENT PORTAL DO NOT DELETE THIS DEPT USED BY [place] [address] Allergies Active Allergy Reactions Criticality Noted Date Comments Amlodipine Unknown 05/09/2023 Hydrocortisone 07/09/2023 documented as of this encounter (statuses as of 07/21/2024) Medications Albuterol Sulfate HFA 108 (90 Base) [...] Oral Tablet Take by mouth daily. Active [place] 3-6-9 Complex Oral Capsule Take 1 Capsule by mouth in the morning. Active Vitamin E 6.75 MG/0.3ML Oral Solution (Aquasol E) Take 8 mL by mouth in the morning. Active HM Super Vitamin B12 2500 MCG Oral Tablet Chewable (Cyanocobalamin) Take by mouth. Active Clopidogrel Bisulfate 75 MG Oral Tablet (pLAVix)Indication s:Carotid atherosclerosis, bilateral,PVD (peripheral vascular disease) ([facility]),History of transient ischemic attack (TIA) Take [...] B, by GOLD 2017 classification ([facility]) Take 1 Tablet by mouth at bedtime. 90 Tablet 3 07/20/20 24 Active Bisoprolol Fumarate 5 MG Oral Tablet (Zebeta)Indication s:HTN, goal below 140/90,Coronary artery disease involving [place] coronary artery of [place] heart without angina pectoris Take 1 Tablet by mouth in the morning and 1 Tablet at noon and 1 Tablet before bedtime. 270 Tablet 1 07/20/20 24 Active Ezetimibe-Rosuvast atin 10-10 MG Oral TabletIndications: Coronary artery disease involving [place] coronary artery of [place] heart without angina pectoris,History of TIA (transient [...] mcg. 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 file Not on file documented as of this encounter Plan of Treatment Upcoming Encounters Date Type Department Care Team (Late st Contact Info) Description 07/23/2024 2:30 PM EST Cardiac Studies Cardiac Studies, [facility] [place] [address] [place] [address] 11/19/2024 4:20 PM EDT Office Visit General Internal Medicine [facility] [address] [place] [address] Loan Cherry PA-C [address] [place] [address] 01/07/2025 1:30 PM EDT Office Visit Hematology/Oncology [facility] [place] [address] [place] [id number] Jun Martin MD [address] [place] [address] 02/09/2025 3:30 PM EDT [facility] [place] [address] [place] [address] Sam Sanchez MD [address] [place] [address] Health Maintenance Due Date Last Done Comments [...] Advance Directives occurred with: Patient Care Teams Full Service Vending Driver Relationship Specialty Start Date End Date Zuhair Nelson DO [address] [place] [address] PCP - General Family Medicine 12/02/23 documented as of this encounter
--- OUTSIDE RECORDS SUMMARY | 2024-08-02 02:33 | External Medical Summary | Summary of Care ---
Author Name Unknown Organization [facility] Address [address] [place] [address] Phone [phone] Care Team Providers Care Diesel Lube Tech Name Role Phone Zuhair Nelson Primary Care Provider + [phone] Reason for Referral * Evaluate & Treat - Unlimited Visits (Within 10 days (routine)) - Authorized Specialty Diagnoses / Procedures Referred By David stovall Referred To Contact Cardiovascular Medicine / Cardiology Diagnoses Coronary artery disease involving iliamna coronary artery of iliamna heart without angina pectoris Shortness of breath Chest pain, unspecified type Loan Cherry PA-C [address] [place] [address] Phone: tel: fax: Sam Sanchez MD [address] [facility] [address] Phone: tel: fax: Referral ID Status Reason Start Date Expiration Date Visits Requested Visits Authorized [id number] Authorized Specialty Services Required 07/20/2024 999 999 [...] Cardiac Studies Diagnoses Coronary artery disease involving iliamna coronary artery of iliamna heart without angina pectoris Shortness of breath Procedures ECHO, COMPLETE (2D), TRANS-THORACIC Loan Cherry PA-C [address] [place] [address] Phone: tel: fax: Referral ID Status Reason Start Date Expiration Date V isits Requested Visits Authorized [id number] Authorized Precert 07/20/2024 999 999 Reason for [...] PM EST Office Visit General Internal Medicine [facility] [place] [address] [facility] [place] [address] Loan Cherry PA-C [address] [facility] [place] [address] HTN, goal below 140/90*; Coronary artery disease involving iliamna coronary artery of iliamna heart without angina pectoris; Shortness of breath; Chest pain, unspecified type; COPD, group B, by GOLD 2017 classification ([facility]); History of TIA (transient ischemic attack); Esophagitis; History of GI bleed; Adrenal nodule ([facility]); Type 2 diabetes mellitus without complication, without long-term current use of insulin ([facility]); Hypomagnesemia; Encounter for long-term (current) use of medications Allergies Active Allergy Reactions Criticality Noted Date Comments Amlodipine Unknown 05/09/2023 Hydrocortisone 07/09/2023 documented as of this encounter (statuses as of 07/21/2024) Medications Albuterol Sulfate HFA 108 (90 Base) MCG/ACT Inhalation Aerosol SolutionIndication s:COPD with asthma ([facility]) Inhale 2 Puffs by mouth every 6 [...] Oral Tablet Take by mouth daily. Active Magnolia 3-6-9 Complex Oral Capsule Take 1 Capsule by mouth in the morning. Active Vitamin E 6.75 MG/0.3ML Oral Solution (Aquasol E) Take 8 mL by mouth in the morning. Active HM Super Vitamin B12 2500 MCG Oral Tablet Chewable (Cyanocobalamin) Take by mouth. Active Clopidogrel Bisulfate 75 MG Oral Tablet (pLAVix)Indication s:Carotid atherosclerosis, bilateral,PVD (peripheral vascular disease) ([facility]),History of transient ischemic attack (TIA) Take 1 [...] ions:COPD, group B, by GOLD 2017 classification ([facility]) Take 1 Tablet by mouth at bedtime. 90 Tablet 3 07/20/20 24 Active Bisoprolol Fumarate 5 MG Oral Tablet (Zebeta)Indication s:HTN, goal below 140/90,Coronary artery disease involving iliamna coronary artery of iliamna heart without angina pectoris Take 1 Tablet by mouth in the morning and 1 Tablet at noon and 1 Tablet before bedtime. 270 Tablet 1 07/20/20 Active Ezetimibe-Rosuvast atin 10-10 MG Oral TabletIndications: Coronary artery disease involving iliamna coronary artery of iliamna heart without angina pectoris,History of TIA (transient [...] loss 12/02/2023 Coronary artery disease invo lving iliamna coronary artery of iliamna heart without angina pectoris 12/02/2023 Benign essential [...] Pt was seen by a doctor in [place] while he was there and had most [...] METABOLIC PANEL; Future Coronary artery disease involving iliamna coronary artery of iliamna heart without angina pectoris Continue current meds. [...] him he had sugar issues when in [place]. No history of this noted inhis chart [...] Present Ventricular Rate: 56 Atrial Rate: 56 CA Interval: 172 QRS Duration: 84 QT/QTc: 434/418 ms P-R-T [place]: 38 : 12 : 29 degrees documented [...] documented in this encounter Miscellaneous Notes * Result Encounter Note - Loan Cherry PA-C - 07/21/2024 9:33 AM EST EKG sinus delicia. documented in this encounter Plan of Treatment Upcoming Encounters Date Type Department Care Team (Late st Contact Info) Description 07/23/2024 2:30 PM EST Cardiac Studies Cardiac Studies, [facility] [address] [place] [address] 11/19/2024 4:20 PM EDT Office Visit General Internal Medicine [facility] [address] [facility] [place] [address] Loan Cherry PA-C [address] [facility] [place] [address] 11/23/2024 1:30 PM EDT Office Visit Orthopaedics [facility] [address] [place] [address] Juan Carlos Sy MD [address] [place] [address] 01/07/2025 1:30 PM EDT Office Visit Hematology/Oncology [facility] [address] [facility] [place] [address] Jun Martin MD [address] [facility] [place] [address] 02/09/2025 3:30 PM EDT Office Visit Cardiology, [facility] [address] [place] [address] Sam Sanchez MD [address] [place] [address] Scheduled Orders Name Type Priority Associated Diagnoses Orde r Schedule LIPID PANEL WITH DIRECT LDL IF TG IS HIGH Lab Routine HTN, goal below 140/90 Coronary artery disease involving iliamna coronary artery of iliamna heart without angina pectoris Expected: 10/18/2024, Expires: 07/20/2025 COMPREHENSIVE METABOLIC PANEL Lab Routine HTN, goal below 140/90 Coronary artery disease involving iliamna coronary artery of iliamna heart without angina pectoris Expected: 10/18/2024 (Approximate), [...] TRANS-THORACIC Echocardiology Routine Coronary artery disease involving iliamna coronary artery of iliamna heart without angina pectoris Shortness of breath Expected: 07/20/2024, Expires: 08/20/2026 Scheduled Referrals Name Type Priority Associated Diagnoses Orde r Schedule CARDIOLOGY REFERRAL OP Referral Within 10 days (routine) Coronary artery disease involving iliamna coronary artery of iliamna heart without angina pectoris Shortness of breath [...] Procedure Name Priority Date/Time Associated Diagnosis Comments CA ECG ROUTINE ECG W/LEAST 12 LDS I&R ONLY Routine 07/20/2024 5:13 PM EST Coronary artery disease involving iliamna coronary artery of iliamna heart without angina pectoris Chest pain, unspecified [...] Present Ventricular Rate: 56 Atrial Rate: 56 CA Interval: 172 QRS Duration: 84 QT/QTc: 434/418 ms P-R-T [place]: 38 : 12 : 29 degrees Loan Cherry PA-C EKG F inal Result [facility] documented in this encounter Visit Diagnoses Diagnosis HTN, goal below 140/90- Primary Unspecified essential hypertension Coronary artery disease involving iliamna coronary artery of iliamna heart without angina pectoris Shortness of breath Chest pain, unspecified type COPD, group B, by GOLD 2017 classification ([facility]) History of TIA (transient ischemic attack) Transient ischemic attack (TIA), and cerebral infarction without residual deficits Esophagitis Esophagitis, unspecified History of GI bleed Personal history of other diseases of digestive system Adrenal nodule ([facility]) Other specified disorders of adrenal glands Type [...] Advance Directives occurred with: Patient Care Teams Diesel Lube Tech Relationship Specialty Start Date End Date Zuhair Nelson DO [address] [place] [id number] PCP - General Family Medicine 12/02/23 documented as of this encounter"
--- OUTSIDE RECORDS SUMMARY | 2024-08-02 02:34 | External Medical Summary ---
Author Name Unknown Address Unknown Organization K09:[facility] [place] [address] Laboratory Report Ordering Provider Test Date Status RAJANI LOVELL 07/10/2024 11:58:01 Final Observation Date Value Abnormality Reference (Units ) Status SYNC LEUKOCYTES IN BLOOD BY AUTOMATED COUNT 07/10/2024 11:58:01 6.86 4.00-10.80 (K/uL) Final Segs 07/10/2024 11:58:01 45.6 40.0-75.0 (%) Final Lymphs % 07/10/2024 11:58:01 35.9 18.0-42.0 (%) Final Monos 07/10/2024 11:58:01 13.0 Above high normal 1.0-11.0 (%) Final Eosinophils 07/10/2024 11:58:01 5.1 0.0-6.0 (%) Final Basos 07/10/2024 11:58:01 0.4 0.0-2.0 (%) Final Absolute Segs 07/10/2024 11:58:01 3.13 1.80-7.70 (K/uL) Final Lymphs, absolute 07/10/2024 11:58:01 2.46 1.00-4.80 (K/ul) Final Monos, Abs 07/10/2024 11:58:01 0.89 0.00-1.10 (K/uL) Final Eos, Abs 07/10/2024 11:58:01 0.35 0.00-0.70 (K/uL) Final Basos, Abs 07/10/2024 11:58:01 0.03 0.00-0.20 (K/uL) Final Performing Location [facility] [place] [address]
--- OUTSIDE RECORDS SUMMARY | 2024-08-02 02:34 | External Medical Summary | Summary of Care ---
Author Name Unknown Organization [facility] Address [address] [place] [address] Phone [phone] Care Team Providers Care Supervisor Quality Control Name Role Phone Zuhair Nelson DO Primary Care Provider [phone] Reason for Visit * Reason Comments eRx-Medication Refill Encounter Details Date Type Department Care Team (Late st Contact Info) Description 04/05/2024 Refill Family Practice [address] [place] [address] [place] [address] Zuhair Nelson DO [address] [place] [address] Psychophysiologic insomnia; RADHA (generalized anxiety disorder) Allergies Active Allergy Reactions Criticality Noted Date Comments Amlodipine Unknown 05/09/2023 Hydrocortisone 07/09/2023 documented as of this encounter (statuses as of 04/06/2024) Medications Medication Sig Dispensed Refills Start Date End Date Status Albuterol Sulfate HFA 108 (90 Base) MCG/ACT Inhalation Aerosol SolutionIndication s:COPD with asthma (HCC) Inhale 2 Puffs by mouth every 6 hours as needed for Cough or Shortness of Breath. 18 g 5 05/29/2023 Active Montelukast Sodium 10 MG Oral Tablet (Singulair) Take 1 Tablet by mouth at bedtime. 90 Tablet 3 08/15/2023 Active Citalopram Hydrobromide 20 MG Oral Tablet (CeleXA)Indication s:RADHA (generalized anxiety disorder) Take 1 Tablet by mouth in the morning. 90 Tablet 3 12/02/2023 Active busPIRone HCl 5 MG Oral Tablet (Buspar)Indication s:RADHA (generalized anxiety disorder) Take 1 Tablet by mouth in the morning and 1 Tablet before bedtime. 180 Tablet 3 12/02/2023 Active Pantoprazole Sodium 40 MG Oral Tablet Delayed Release (Protonix)Indicati ons:Esophagitis Take 1 Tablet by mouth in the morning. 90 Tablet 3 12/02/2023 Active Nitroglycerin 0.4 MG Sublingual Tablet Sublingual (Nitrostat)Indicat ions:Chest pain, unspecified type PLACE 1 TABLET UNDER TONGUE NEEDED FOR PAIN, CHEST. MAY REPEAT X.3 IF PAIN CONTINUES, CALL 911. 25 Tablet 11 12/04/2023 Active Selenium 50 MCG Oral Tablet Take by mouth daily. Active [place] 3-6-9 Complex Oral Capsule Take 1 Capsule by mouth in the morning. Active Vitamin E 6.75 MG/0.3ML Oral Solution (Aquasol E) Take 8 mL by mouth in the morning. Active HM Super Vitamin B12 2500 MCG Oral Tablet Chewable (Cyanocobalamin) Take by mouth. Acti ve Primidone 50 MG Oral Tablet (Mysoline)Indicati ons:Essential tremor Take half a tablet by mouth at bedtime for the first week, then increase to 1 tablet by mouth at bedtime afterwards. 30 Tablet 5 12/30/2023 Active Clopidogrel Bisulfate 75 MG Oral Tablet (pLAVix)Indication s:Carotid atherosclerosis, bilateral,PVD (peripheral vascular disease) (HCC),History of transient ischemic attack (TIA) Take 1 Tablet by mouth in the morning. 90 Tablet 1 12/31/2023 Active theophylline SR 150 MG OR TB12 Take 0.5 Tablets by mouth in the morning and 0.5 Tablets before bedtime. Active Ferrous Sulfate 325 (65 Fe) MG Oral Tablet (Feosol)Indication s:Acute blood loss anemia Take 1 Tablet by mouth in the morning and 1 Tablet before bedtime. 180 Tablet 01/02/2024 Active Rosuvastatin Calcium 20 MG Oral Tablet (Crestor)Indicatio ns:PVD (peripheral vascular disease) (HCC),History of transient ischemic attack (TIA) TAKE 1 TABLET BY MOUTH EVERYDAY AT BEDTIME 90 Tablet 3 01/24/2024 Active Carvedilol 25 MG Oral Tablet (Coreg) Take 1 Tablet by mouth in the morning and 1 Tablet before bedtime. with food. 180 Tablet 3 02/03/2024 Active Valsartan 320 MG Oral Tablet (Diovan) Take 1 Tablet by mouth in the morning. 90 Tablet 3 02/03/2024 Active Isosorbide Mononitrate ER 60 MG Oral Tablet Extended Release 24 Hour (Imdur) Take 1 Tablet by mouth in the morning. Do not cut, crush or chew. 90 Tablet 3 02/03/2024 Active QUEtiapine Fumarate 50 MG Oral Tablet (SEROquel)Indicati ons:Psychophysiolo gic insomnia,RADHA (generalized anxiety disorder) TAKE 1 TABLET BY MOUTH EVERYDAY AT BEDTIME 90 Tablet 04/06/2024 Active QUEtiapine Fumarate 50 MG Oral Tablet (SEROquel)Indicati ons:Psychophysiolo gic insomnia,RADHA (generalized anxiety disorder) Take 1 Tablet by mouth at bedtime. 90 Tablet 01/08/2024 Discontinued documented as of this encounter (statuses as of 04/06/2024) Active Problems Problem Noted Date Diagnosed Date Combined forms of age-related cataract of right eye 12/19/2023 Esophagitis 12/02/2023 Lumbar degenerative disc disease 12/02/2023 Gait disturbance 12/02/2023 History of GI bleed 12/02/2023 Iron deficiency anemia due to chronic blood loss 12/02/2023 Coronary artery disease invo lving [place]ipe[place] coronary artery of [place]ipe[place] heart without angina pectoris 12/02/2023 Benign essential [...] as of this encounter (statuses as of 04/06/2024) Resolved Problems Problem Noted Date Diagnosed Date [...] as of this encounter (statuses as of 04/06/2024) Immunizations Name Administration Dates Next Due COVID-19, [...] encounter Miscellaneous Notes * Telephone Encounter - Zuhair Nelson DO - 04/06/2024 11:12 AM EDTSigned Prescriptions: Disp Refills QUEtiapine Fumarate 50 MG Oral Tablet (SER*90 Tab*0 Sig: TAKE 1 TABLET BY MOUTH EVERYDAY AT BEDTIME Authorizing Provider: ZUHAIR NELSON * Telephone Encounter - Yara Puentes LPN - 04/06/2024 8:30 AM EDT Pending Prescriptions: Disp Refills QUEtiapine Fumarate 50 MG Oral Tablet [Pha*90 Tab*0 Sig: TAKE 1 TABLET BY MOUTH EVERYDAY AT BEDTIME * Telephone Encounter - Yara Puentes LPN - 04/06/2024 8:30 AM EDT Did you pend patient's preferred pharmacy and medication before forwarding?yes Pharmacy: [id number] [address] [place] [address] Pending Prescriptions: Disp Refills QUEtiapine Fumarate 50 MG Oral Tablet (SE*90 Tab*0 Sig: TAKE 1 TABLET BY MOUTH EVERYDAY AT BEDTIME Last Visit: 12/02/2023 (in office), Visit date not found (telemedicine) Next Visit: Visit date not found If no future appointments scheduled, and last appointment is greater than a year ago, please schedule patient for a follow-up appointment Last date the medication was ordered: 01/08/24 Is this request for a controlled substance?No Urine Drug Screen:No results found for this or any previous visit. Patient Phone Numbers Labs: Lab Results Component Value Date/Time CREAT 1.1 12/31/2023 08:49 AM CREAT 1.24 10/04/2022 12:00 AM CREAT 1.2 04/28/2019 04:00 PM POTASSIUM 3.9 12/31/2023 08:49 AM POTASSIUM 4.1 06/28/2021 12:00 AM POTASSIUM 4.1 04/28/2019 04:00 PM TSH 0.93 11/29/2022 10:35 AM TSH 0.474 04/01/2019 12:00 AM TSH 0.56 03/07/2015 11:05 AM LDLCALC 52 01/30/2024 10:14 AM LDLCALC 114 10/04/2022 12:00 AM LDLCALC 108 06/30/2013 08:44 AM LDLDIRECT NOT APPLICABLE 06/30/2013 08:44 AM ALT 10 12/31/2023 08:49 AM ALT 18 04/28/2019 04:00 PM HGBA1C 5.6 10/04/2022 12:00 AM HGBA1C 5.6 01/15/2015 10:05 AM documented in this encounter Plan of Treatment Upcoming Encounters Date Type Department Care Team (Latest Contact Info) Description 05/01/2024 10:45 AM EDT Hospital Encounter ENDO [facility], Endoscopy Room [facility] [address] [place] [address] Neal Weems, DO [address] [place] [address] 05/01/2024 10:45 AM EDT - 05/01/2024 11:15 AM EDT Surgery ENDO [facility], Endoscopy Room [facility] [address] [place] [address] Neal Weems DO [address] [place] [address] ESOPHAGOGASTRODUODENOSCOPY (EGD), FLEXIBLE, TRANSORAL, DIAGNOSTIC 05/14/2024 3:00 PM EDT Office Visit Ophthalmology, [facility] [address] [place] [address] Abdias Catherine, DO [address] [place] [address] 07/02/2024 1:45 PM EST Office Visit Hematology/Onco [facility] [place] [address] [place] [address] Jun Martin MD [address] [facility] [place] [address] Scheduled Procedures Name Priority Associated Diagnoses Date/Ti me ESOPHAGOGASTRODUODENOSCOPY ( EGD), FLEXIBLE, TRANSORAL, DIAGNOSTIC Dysphagia, unspecified type 05/01/2024 10:45 AM EDT EXTRACAPSULAR CATARACT REMOV AL WITH INTRAOCULAR LENS Combined forms of age-related cataract of right eye Health Maintenance Due Date Last Done Comments Albumin/Creatinine Ratio 1958 Alpha-1 Antitrypsin 1959 DTaP,Tdap,and Td Vaccines (1 - Tdap) 1960 Zoster Vaccines (1 of 2) 1991 Adult Wellness Visit 2007 *COPD SEVERITY VERIFIED BY PFT 05/30/2019 *SPIROMETRY ONCE FOR ASTHMA-ADULT 07/05/2022 Pneumococcal Vaccine: 65+ Years (2 of 2 - PCV) 09/01/2022 09/01/2021, 07/08/2013 COVID-19 Vaccine (4 - 2022- season) 2023 08/15/2023, 06/09/2022, 08/10/2021 Influenza Vaccine (FLU shot) (#1) 2024 05/06/2023, 04/23/2022, 09/01/2021, Additional history exists O2 ASSESSMENT COMPLETED IN PAST YEAR FOR COPD 06/25/2024 06/25/2023 Depression Screening 12/01/2024 12/02/2023, 12/02/19 24 GFR 12/30/2024 12/31/2023, 10/0 12/2022, 11/29/2022, Additional history exists HPV (Gardasil) Vaccine Aged Out No lo [...] as of this encounter Visit Diagnoses Diagnosis Psychophysiologic insomnia Persistent disorder of initiating or maintaining sleep RADHA (generalized anxiety disorder) Generalized anxiety disorder Dysphagia, unspecified type documented in this encounter Advance Directives * Full Code (Latest Code Status on File) Date Activated Date Inactivated Comments 11/28/2012 2:07 AM 11/28/2012 6:25 PM This order r eflects the patients wishes and were consensually agreed upon. Question Answer Comments Discussion of Advance Directives occurred with: Patient Care Teams Supervisor Quality Control Relationship Specialty Start Date End Date Zuhair Nelson DO [address] [place] [address] PCP - General Family Medicine 12/02/23 documented as of this encounter
--- OUTSIDE RECORDS SUMMARY | 2024-08-02 02:34 | External Medical Summary ---
Author Name Unknown Address Unknown Organization K01:[facility] [address] [place] [address] Laboratory Report Ordering Provider Test Date Status RAJANI LOVELL 07/10/2024 11:58:01 Final Observation Date Value Abnormality Reference (Units ) Status IgG 07/10/2024 11:58:01 1643 Above high normal 70 0-1600 (mg/dL) Final IgA 07/10/2024 11:58:01 48 Below low normal 70- 400 (mg/dL) Final IgM 07/10/2024 11:58:01 40 40-230 (mg /dL) Final Performing Location [facility] [address] [place] [address]
--- OUTSIDE RECORDS SUMMARY | 2024-08-02 02:34 | External Medical Summary ---
Author Name Unknown Address Unknown Organization : Laboratory Report Ordering Provider Test Date Status RAJANI LOVELL 07/10/2024 11:58:01 Final Observation Date Value Abnormality Reference (Units ) Status Metanephrine Free [Mass/volume] in Serum or Plasma 07/10/2024 11:58:01 49 <=57 (pg/mL) Final This test was developed and its analytical performance
characteristics have been determined by [employer]
[facility] [employer] [place], [place]. It has
not been cleared or approved by the U.S. Food and Drug
Administration. This assay has been validated pursuant
to the CLIA regulations and is used for clinical
purposes. Normetanephrine Free [Mass/volume] in Serum or Plasma 07/10/2024 11:58:01 162 Above high normal <=148 (pg/mL) Final This test was developed and its analytical performance
characteristics have been determined by [employer]
[facility] [place], [place]. It has
not been cleared or approved by the U.S. Food and Drug
Administration. This assay has been validated pursuant
to the CLIA regulations and is used for clinical
purposes. Metanephrines 07/10/2024 11:58:01 211 Above high roberto l <=205 (pg/mL) Final For additional information, please refer to
http://education.[employer]/faq/MetFractFree
(This link is being provided for informational/educatio
informational/educational purposes only.)
Elevations >4-fold upper reference range: strongly
suggestive of a pheochromocytoma(1).
Elevations >1- 4-fold upper reference range:
significant but not diagnostic, may be due to
medications or stress. Suggest running 24 hr urine
fractionated metanephrines and/or serum Chromagranin A
for confirmation.
Reference:
(1)Amy Vega et al, Plasma Chromogranin A
or Urine Fractionated Metanephrines Follow-Up Testing
Improves the Diagnostic Accuracy of Plasma Fractionated
Metanephrines for Pheochromocytoma. The Journal of
Clinical Endocrinology # Metabolism 93(1), 91-95, 2008.
This test was developed and its analytical performance
characteristics have been determined by [employer]
[place]. It has
not been cleared or approved by the U.S. Food and Drug
Administration. This assay has been validated pursuant
to the CLIA regulations and is used for clinical
purposes.

Test Performed at:
[facility]
[address] [facility]
[place] [address]
Antonio Pitts M.D., Ph.D.,Director of Laboratories Performing Location
--- OUTSIDE RECORDS SUMMARY | 2024-08-02 02:34 | External Medical Summary | Summary of Care ---
Author Name Unknown Organization [facility] Address [address] [place] [address] Phone [phone] Care Team Providers Care Publishing Systems Analyst Name Role Phone Zuhair Nelson DO Primary Care Provider + [phone] Reason for Visit * Reason Comments Outpatient Testing Encounter Details Date Type Department Care Team (Late st Contact Info) Description 07/10/2024 12:00 PM EST Laboratory Laboratory [facility] [address] [place] [id number] [facility] [address] [place] [address] Adrenal mass (HCC) Allergies Active Allergy Reactions Criticality Noted Date Comments Amlodipine Unknown 05/09/2023 Hydrocortisone 07/09/2023 documented as of this encounter (statuses as of 07/10/2024) Medications Albuterol Sulfate HFA 108 (90 Base) MCG/ACT Inhalation Aerosol SolutionIndicatio ns:COPD with asthma (HCC) Inhale 2 Puffs by mouth every 6 hours as needed for Cough or Shortness of Breath. 18 g 5 3 Active Montelukast Sodium 10 MG Oral Tablet (Singulair) Take 1 Tablet by mouth at bedtime. 90 Tablet 3 4 Active Citalopram Hydrobromide 20 MG Oral Tablet (CeleXA)Indicatio ns:RADHA (generalized anxiety disorder) Take 1 Tablet by mouth in the morning. 90 Tablet 3 4 Active busPIRone HCl 5 MG Oral Tablet (Buspar)Indicatio ns:RADHA (generalized anxiety disorder) Take 1 Tablet by mouth in the morning and 1 Tablet before bedtime. 180 Tablet 3 4 Active Pantoprazole Sodium 40 MG Oral Tablet Delayed Release (Protonix)Indicat ions:Esophagitis Take 1 Tablet by mouth in the morning. 90 Tablet 3 4 Active Nitroglycerin 0.4 MG Sublingual Tablet Sublingual (Nitrostat)Indica tions:Chest pain, unspecified type PLACE 1 TABLET UNDER TONGUE NEEDED FOR PAIN, CHEST. MAY REPEAT X.3 IF PAIN CONTINUES, CALL 911. 25 Tablet 11 4 Active Selenium 50 MCG Oral Tablet Take by mouth daily. Active [place] 3-6-9 Complex Oral Capsule Take 1 Capsule by mouth in the morning. Active Vitamin E 6.75 MG/0.3ML Oral Solution (Aquasol E) Take 8 mL by mouth in the morning. Active HM Super Vitamin B12 2500 MCG Oral Tablet Chewable (Cyanocobalamin) Take by mouth. Active Primidone 50 MG Oral Tablet (Mysoline)Indicat ions:Essential tremor Take half a tablet by mouth at bedtime for the first week, then increase to 1 tablet by mouth at bedtime afterwards. 30 Tablet 5 4 Active Clopidogrel Bisulfate 75 MG Oral Tablet (pLAVix)Indicatio ns:Carotid atherosclerosis, bilateral,PVD (peripheral vascular disease) (HCC),History of transient ischemic attack (TIA) Take 1 Tablet by mouth in the morning. 90 Tablet 1 4 Active theophylline SR 150 MG OR TB12 Take 0.5 Tablets by mouth in the morning and 0.5 Tablets before bedtime. Active Ferrous Sulfate 325 (65 Fe) MG Oral Tablet (Feosol)Indicatio ns:Acute blood loss anemia Take 1 Tablet by mouth in the morning and 1 Tablet before bedtime. 180 Tablet 4 Active Rosuvastatin Calcium 20 MG Oral Tablet (Crestor)Indicati ons:PVD (peripheral vascular disease) (HCC),History of transient ischemic attack (TIA) TAKE 1 TABLET BY MOUTH EVERYDAY AT BEDTIME 90 Tablet 3 4 Active Carvedilol 25 MG Oral Tablet (Coreg) Take 1 Tablet by mouth in the morning and 1 Tablet before bedtime. with food. 180 Tablet 3 4 Active Valsartan 320 MG Oral Tablet (Diovan) Take 1 Tablet by mouth in the morning. 90 Tablet 3 4 Active Isosorbide Mononitrate ER 60 MG Oral Tablet Extended Release 24 Hour (Imdur) Take 1 Tablet by mouth in the morning. Do not cut, crush or chew. 90 Tablet 3 4 Active QUEtiapine Fumarate 50 MG Oral Tablet (SEROquel)Indicat ions:Psychophysio logic insomnia,RADHA (generalized anxiety disorder) TAKE 1 TABLET BY MOUTH EVERYDAY AT BEDTIME 90 Tablet 4 Active amLODIPine-Valsar hameed-HCTZ 5-160-12.5 MG Oral Tablet (Exforge HCT) Take by mouth. A ctive NSS 0.9 % SOLN 50 mL with alteplase 2 MG SOLR once. 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 12/19/2023 Esophagitis 12/02/2023 Lumbar degenerative disc disease 12/02/2023 Gait disturbance 12/02/2023 History of GI bleed 12/02/2023 Iron deficiency anemia due to chronic blood loss 12/02/2023 Coronary artery disease invo lving [place] coronary artery of [place] heart without angina pectoris 12/02/2023 Benign essential [...] as of this encounter (statuses as of 07/10/2024) Resolved Problems Problem Noted Date Diagnosed Date [...] as of this encounter (statuses as of 07/10/2024) Immunizations Name Administration Dates Next Due COVID-19, [...] 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 Not on file documented as of this encounter Plan of Treatment Upcoming Encounters Date Type Department Care Team (Late st Contact Info) Description 07/15/2024 11:20 AM EST Office Visit Family Practice [address] [place] [address] Zuhair Nelson DO [address] [place] [address] 01/07/2025 1:30 PM EDT Office Visit Hematology/Oncology [facility] [address] [facility] [place] [phone] Jun Martin MD [address] [facility] [place] [address] Pending Results Name Type Priority Associated Diagnoses Date /Time METANEPHRINES, FRACTIONATED, FREE, LCMSMS, PLASMA Lab Routine Adrenal mass (HCC) 07/10/2024 11:58 AM EST Health Maintenance Due Date Last Done Comments Albumin/Creatinine Ratio 1959 Alpha-1 Antitrypsin 1959 DTap/Tdap Vaccines (1 - Tdap) 1960 Zoster Vaccines (1 of 2) 1991 Adult Wellness Visit 2007 *COPD SEVERITY VERIFIED BY PFT 05/30/2019 *SPIROMETRY ONCE FOR ASTHMA-ADULT 07/05/2022 Pneumococcal Vaccine: 65+ Years (2 of 2 - PCV) 09/01/2022 09/01/2021, 07/08/2013 COVID-19 Vaccine ( - 2023- season) 2024 08/15/2023, 06/09/2022, 08/10/2021 Influenza Vaccine (FLU shot) (#1) 2024 05/06/2023, 04/23/2022, 09/01/2021, Additional history exists Depression Screening 12/01/2024 12/02/2023, 12/02/19 24 GFR 12/30/2024 12/31/2023, 10/0 12/2022, 11/29/2022, Additional history exists O2 ASSESSMENT COMPLETED IN PAST YEAR FOR COPD 12/30/2024 12/31/2023 HPV (Gardasil) Vaccine Aged Out No lo [...] as of this encounter Visit Diagnoses Diagnosis Adrenal mass (HCC) Unspecified disorder of adrenal glands documented in this encounter Advance Directives * Full Code (Latest Code Status on File) Date Activated Date Inactivated Comments 11/28/2012 2:07 AM 11/28/2012 6:25 PM This order r eflects the patients wishes and were consensually agreed upon. Question Answer Comments Discussion of Advance Directives occurred with: Patient Care Teams Publishing Systems Analyst Relationship Specialty Start Date End Date Zuhair Nelson DO [address] [place] [phone] PCP - General Family Medicine 12/02/23 documented as of this encounter
--- OUTSIDE RECORDS SUMMARY | 2024-08-02 02:34 | External Medical Summary | Summary of Care ---
Author Name Unknown Organization [facility] Address [address] [place] [address] Phone [phone] Care Team Providers Care Domestic Housekeeper Name Role Phone Zuhair Leroy DO Primary Care Provider [phone] Reason for Visit * Reason Onset Date Comments Insurance 07/13/2024 Encounter Details Date Type Department Care Team (Late st Contact Info) Description 07/13/2024 Telephone Family Practice [address] [place] [address] [place] [address] Zuhair Leroy DO [address] [place] [address] Insurance Allergies Active Allergy Reactions Criticality Noted Date Comments Amlodipine Unknown 05/09/2023 Hydrocortisone 07/09/2023 documented as of this encounter (statuses as of 07/15/2024) Medications Albuterol Sulfate HFA 108 (90 Base) [...] Oral Tablet Take by mouth daily. 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 12/19/2023 Esophagitis 12/02/2023 Lumbar degenerative disc disease 12/02/2023 Gait disturbance 12/02/2023 History of GI bleed 12/02/2023 Iron deficiency anemia due to chronic blood loss 12/02/2023 Coronary artery disease invo lving [place] coronary artery of [place] heart without angina pectoris 12/02/2023 Benign essential [...] as of this encounter (statuses as of 07/15/2024) Resolved Problems Problem Noted Date Diagnosed Date [...] as of this encounter (statuses as of 07/15/2024) Immunizations Name Administration Dates Next Due COVID-19, [...] No 12/10/2023 Does the household have a [facility] source of income? 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 * Telephone Encounter - Rosalina Cox LPN - 07/13/2024 4:14 PM EST Spoke with patient regarding [facility] Gold requirement. Please also see 12/31/23 telephone encounter. I had spoken with patient about this requirement previously and he was switching back to Dr. Rich. He also met with P rep Thomas at the [place] [address] office. Patient seemed as if today was the first he was hearing about the requirement. Reviewed this with him again. Canceled appt with Dr. Leroy for 07/15. Pt asked me to send a message to Dr. Rich's office to be scheduled to get re-established with her. Please assist with scheduling. Thank you! documented in this encounter Plan of Treatment Upcoming Encounters Date Type Department Care Team (Late st Contact Info) Description 07/20/2024 4:00 PM EST Office Visit General Internal Medicine [address] [place] [address] Loan Cherry PA-C [address] [place] [address] [place] [address] 01/07/2025 1:30 PM EDT Office Visit Hematology/Oncology [address] [place] [phone] Jun Martin MD [address] [facility] [place] [address] Health Maintenance Due Date Last Done Comments [...] ASSESSMENT COMPLETED IN PAST YEAR FOR COPD 07/10/2025 07/10/2024 HPV (Gardasil) Vaccine Aged Out No lo [...] Advance Directives occurred with: Patient Care Teams Domestic Housekeeper Relationship Specialty Start Date End Date Zuhair Leroy DO [address] [place] [address] PCP - General Family Medicine 12/02/23 documented as of this encounter
--- OUTSIDE RECORDS SUMMARY | 2024-08-02 02:34 | External Medical Summary | Summary of Care ---
Author Name Unknown Organization [facility] Address [address] [place] [address] Phone [phone] Care Team Providers Care Fast Food Worker Name Role Phone OmarZuhair chapman Primary Care Provider + [phone] Encounter Details Date Type Department Care Team (Late st Contact Info) Description 04/15/2024 Telephone Gastroenterology, [facility] [address] [place] [address] Neal Weems DO [address] [place] [address] Allergies Active Allergy Reactions Criticality Noted Date Comments Amlodipine Unknown 05/09/2023 Hydrocortisone 07/09/2023 documented as of this encounter (statuses as of 04/15/2024) Medications Medication Sig Dispensed Refills Start Date End Date Status Albuterol Sulfate HFA 108 (90 Base) MCG/ACT Inhalation Aerosol SolutionIndications: COPD with asthma (HCC) Inhale 2 Puffs by mouth every 6 hours as needed for Cough or Shortness of Breath. 18 g 5 05/29/2023 Active Montelukast Sodium 10 MG Oral Tablet (Singulair) Take 1 Tablet by mouth at bedtime. 90 Tablet 3 08/15/2023 Active Citalopram Hydrobromide 20 MG Oral Tablet (CeleXA)Indications: RADHA (generalized anxiety disorder) Take 1 Tablet by mouth in the morning. 90 Tablet 3 12/02/2023 Active busPIRone HCl 5 MG Oral Tablet (Buspar)Indications: RADHA (generalized anxiety disorder) Take 1 Tablet by mouth in the morning and 1 Tablet before bedtime. 180 Tablet 3 12/02/2023 Active Pantoprazole Sodium 40 MG Oral Tablet Delayed Release (Protonix)Indication s:Esophagitis Take 1 Tablet by mouth in the morning. 90 Tablet 3 12/02/2023 Active Nitroglycerin 0.4 MG Sublingual Tablet Sublingual (Nitrostat)Indicatio ns:Chest pain, unspecified type PLACE 1 TABLET UNDER TONGUE NEEDED FOR PAIN, CHEST. MAY REPEAT X.3 IF PAIN CONTINUES, CALL 911. 25 Tablet 11 12/04/2023 Active Selenium 50 MCG Oral Tablet Take by mouth daily. Active [place] 3-6-9 Complex Oral Capsule Take 1 Capsule by mouth in the morning. Active Vitamin E 6.75 MG/0.3ML Oral Solution (Aquasol E) Take 8 mL by mouth in the morning. Active HM Super Vitamin B12 2500 MCG Oral Tablet Chewable (Cyanocobalamin) Take by mouth. Acti ve Primidone 50 MG Oral Tablet (Mysoline)Indication s:Essential tremor Take half a tablet by mouth at bedtime for the first week, then increase to 1 tablet by mouth at bedtime afterwards. 30 Tablet 5 12/30/2023 Active Clopidogrel Bisulfate 75 MG Oral Tablet (pLAVix)Indications: Carotid atherosclerosis, bilateral,PVD (peripheral vascular disease) (HCC),History of transient ischemic attack (TIA) Take 1 Tablet by mouth in the morning. 90 Tablet 1 12/31/2023 Active theophylline SR 150 MG OR TB12 Take 0.5 Tablets by mouth in the morning and 0.5 Tablets before bedtime. Active Ferrous Sulfate 325 (65 Fe) MG Oral Tablet (Feosol)Indications: Acute blood loss anemia Take 1 Tablet by mouth in the morning and 1 Tablet before bedtime. 180 Tablet 01/02/2024 Active Rosuvastatin Calcium 20 MG Oral Tablet (Crestor)Indications :PVD (peripheral vascular disease) (HCC),History of transient ischemic [...] Active QUEtiapine Fumarate 50 MG Oral Tablet (SEROquel)Indication s:Psychophysiologic insomnia,RADHA (generalized anxiety disorder) TAKE 1 TABLET BY MOUTH EVERYDAY AT BEDTIME 90 Tablet 04/06/2024 Active documented as of this encounter (statuses as of 04/15/2024) Active Problems Problem Noted Date Diagnosed Date Combined forms of age-related cataract of right eye 12/19/2023 Esophagitis 12/02/2023 Lumbar degenerative disc disease 12/02/2023 Gait disturbance 12/02/2023 History of GI bleed 12/02/2023 Iron deficiency anemia due to chronic blood loss 12/02/2023 Coronary artery disease invo lving [place] coronary artery of [place] heart without angina pectoris 12/02/2023 Benign essential [...] as of this encounter (statuses as of 04/15/2024) Resolved Problems Problem Noted Date Diagnosed Date [...] as of this encounter (statuses as of 04/15/2024) Immunizations Name Administration Dates Next Due COVID-19, MRNA-LNP, 23-24, P F, 30 MCG/0.3 mL, 12 YRS AND ABOVE, IM (PFIZER-Comirnaty) 08/15/2023 Pneumococcal Polysaccharide PPV23 (Pneumovax) ,07/08/2013 RSV Vac., Bivalent, Perfusion F, Pf,0.5 Ml (Abry svo) 07/23/2023 Seasonal Influenza, Quadrivalent Hd (Fluzone Hd) 04/23/2022,09/01/2021 Seasonal Influenza, Trivalen t, (IIV3), with Preserv, (Fluzone) 04/09/2013 Seasonal Influenza, Trivalen t, Adjuvanted, 65+ YRS, [...] 05/01/2024 10:45 AM EDT Hospital Encounter ENDO [facility], Endoscopy Room [facility] [address] [place] [phone] Neal Weems, DO [address] [place] [address] 05/01/2024 10:45 AM EDT - 05/01/2024 11:15 AM EDT Surgery ENDO [facility], Endoscopy Room [facility] [address] [place] [phone] Neal Weems, [address] [place] [address] ESOPHAGOGASTRODUODENOSCOPY (EGD), FLEXIBLE, TRANSORAL, DIAGNOSTIC 05/14/2024 3:00 PM EDT Office Visit Ophthalmology, [facility] [address] [place] [address] Abdias Catherine, DO [address] [place] [address] 07/02/2024 1:45 PM EST Office [facility] [address] [place] [phone] Jun Martin MD [address] [place] [address] Scheduled Procedures Name Priority Associated Diagnoses Date/Ti [...] 07/08/2013 COVID-19 Vaccine (4 - 2022- season) 2024 08/15/2023, 06/09/2022, 08/10/2021 Influenza Vaccine (FLU shot) (#1) 2024 05/06/2023, 04/23/2022, 09/01/2021, Additional history exists O2 ASSESSMENT COMPLETED IN PAST YEAR FOR COPD 06/25/2024 06/25/2023 Depression Screening 12/01/2024 12/02/2023, 12/02/19 24 GFR 12/30/2024 12/31/2023, 10/3, 11/29/2022, Additional history exists HPV (Gardasil) Vaccine [...] Advance Directives occurred with: Patient Care Teams Fast Food Worker Relationship Specialty Start Date End Date Zuhair Nelson DO [address] [place] [address] PCP - General Family Medicine 12/02/23 documented as of this encounter
--- OUTSIDE RECORDS SUMMARY | 2024-08-02 02:34 | External Medical Summary | Summary of Care ---
Author Name Unknown Organization [facility] Address [address] [place] [address] Phone [phone] Care Team Providers Care Flattening Machine Operator Name Role Phone Zuhair Nelson DO Primary Care Provider [phone] Reason for Referral * Evaluate & Treat - Unlimited Visits (Within 10 days (routine)) - Pending Review Specialty Diagnoses / Procedures Referred By David stovall Referred To Contact Dietitian / Nutrition Services Diagnoses HTN, goal below 140/90 Missy Ferguson RDN [address] [facility] [place] [address] Referral ID Status Reason Start Date Expiration Date Visits Requested Visits Authorized [id number] Pending Review Specialty Services Required 01/29/[phone] Question Answer Referral Priority Within 10 days (routine) Where should this appointment be scheduled? [facility] What condition is the patient being seen for? All other conditions Other: Manage HTN/ Decrease Lipids Is this for [address] [facility]? Yes Comments Medical Nutrition Therapy Reason for Visit * Reason Onset Date Comments Referral 01/29/2024 Encounter Details Date Type Department Care Team (Late st Contact Info) Description 01/29/2024 Telephone Nutrition Services [address] [place] [address] [facility] [place] [address] Missy Ferguson RDN [address] [facility] [address] Referral Allergies Active Allergy Reactions Criticality Noted Date Comments Amlodipine Unknown 05/09/2023 Hydrocortisone 07/09/2023 documented as of this encounter (statuses as of 04/29/2024) Medications Medication Sig Dispensed Refills Start Date End Date Status Albuterol Sulfate HFA 108 (90 Base) MCG/ACT Inhalation Aerosol SolutionIndications: COPD with asthma ([facility]) Inhale 2 Puffs by mouth every 6 [...] Oral Tablet Take by mouth daily. Active [place] 3-6-9 Complex Oral Capsule Take 1 Capsule [...] (pLAVix)Indications: Carotid atherosclerosis, bilateral,PVD (peripheral vascular disease) ([facility] [...] AT BEDTIME 90 Tablet 3 01/24/2024 Active documented as of this encounter (statuses as of 04/29/2024) Active Problems Problem Noted Date Diagnosed Date Combined forms of age-related cataract of right eye 12/19/2023 Esophagitis 12/02/2023 Lumbar degenerative disc disease 12/02/2023 Gait disturbance 12/02/2023 History of GI bleed 12/02/2023 Iron deficiency anemia due to chronic blood loss 12/02/2023 Coronary artery disease invo lving [place] coronary artery of [place] heart without angina pectoris 12/02/2023 Benign essential [...] as of this encounter (statuses as of 04/29/2024) Resolved Problems Problem Noted Date Diagnosed Date Resolved Date 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/02/2023 Bilateral carpal tunnel syndrome 05/16/2023 12/02/2023 Parkinson's disease 11/28/2022 04/22/20 24 Dementia without behavioral disturbance 11/28/2022 12/02/2023 Dementia without behavioral disturbance 11/28/2022 11/28/2022 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 06/08/2019 Syncope and collapse 11/28/2012 019 Anemia 09/25/2012 05/14/2022 Hypertension 09/25/2012 06/08/2019 Neuropathy 09/25/2012 12/02/2023 TIA (transient ischemic attack) 09/25/2012 04/20/2019 documented as of this encounter (statuses as of 04/29/2024) Immunizations Name Administration Dates Next Due COVID-19, [...] Telephone Encounter - Zuhair Nelson DO - 01/29/2024 3:39 PM EDT Nutrition referral authorized per request. Thank you * Telephone Encounter - Missy Ferguson RDN - 01/29/2024 1:55 PM EDT Carollynne Olayinka is on schedule today for initial nutrition appointment at [facility]. Clinical Nutrition referral pended, please sign. Thanks! Electronically signed by: Missy Ferguson RDN, NUTRITION SERVICES [address] [facility] documented in this encounter Plan of Treatment Upcoming Encounters Date Type Department Care Team (Latest Contact Info) Description 05/01/2024 10:45 AM EDT Hospital Encounter ENDO [facility], Endoscopy Room [facility] [address] [place] [phone] Neal Weems, DO [address] [place] [address] 05/01/2024 10:45 AM EDT - 05/01/2024 11:15 AM EDT Surgery ENDO [facility], Endoscopy Room [facility] [address] [place] [address] Neal Weems, DO [address] [place] [address] ESOPHAGOGASTRODUODENOSCOPY (EGD), FLEXIBLE, TRANSORAL, DIAGNOSTIC 07/02/2024 1:45 PM EST Office Visit Hematology/Oncol cate [place] [address] [facility] [place], [place] [phone] Jun Martin MD [address] [facility] [place] [address] Scheduled Procedures Name Priority Associated Diagnoses Date/Ti me ESOPHAGOGASTRODUODENOSCOPY ( EGD), FLEXIBLE, TRANSORAL, DIAGNOSTIC Dysphagia, unspecified type 05/01/2024 10:45 AM EDT EXTRACAPSULAR CATARACT REMOV AL WITH INTRAOCULAR LENS Combined forms of age-related cataract of right eye Scheduled Referrals Name Type Priority Associated Diagnoses Orde r Schedule NUTRITION-CLINICAL DIETITIAN REFERRAL OP Referral Within 10 days (routine) HTN, goal below 140/90 Ordered: 01/29/2024 Health Maintenance Due Date Last Done Comments [...] goal below 140/90- Primary Unspecified essential hypertension Dysphagia, unspecified type documented in this encounter Advance Directives * Full Code (Latest Code Status on File) Date Activated Date Inactivated Comments 11/28/2012 2:07 AM 11/28/2012 6:25 PM This order r eflects the patients wishes and were consensually agreed upon. Question Answer Comments Discussion of Advance Directives occurred with: Patient Care Teams Flattening Machine Operator Relationship Specialty Start Date End Date Zuhair Nelson DO [address] [place] [address] PCP - General Family Medicine 12/02/23 documented as of this encounter
--- OUTSIDE RECORDS SUMMARY | 2024-08-02 02:34 | External Medical Summary | Summary of Care ---
Author Name Unknown Organization [facility] Address [address] [place] [address] Phone [phone] Care Team Providers Care Power Brake Rebuilder Name Role Phone OmarZuhair chapman Primary Care Provider + [phone] Reason for Visit * Reason Onset Date Comments Preop Pt Assessment 04/27/2024 Encounter Details Date Type Department Care Team (Late st Contact Info) Description 04/27/2024 Telephone Pre Surgery Center, [facility] [address] [place] [address] Neal Weems DO [address] [place] [address] Preop Pt Assessment Allergies Active Allergy Reactions Criticality Noted Date Comments Amlodipine Unknown 05/09/2023 Hydrocortisone 07/09/2023 documented as of this encounter (statuses as of 05/01/2024) Medications Medication Sig Dispensed Refills Start Date [...] Oral Tablet Take by mouth daily. Active [place] 3-6-9 Complex Oral Capsule Take 1 Capsule [...] as of this encounter (statuses as of 05/01/2024) Active Problems Problem Noted Date Diagnosed Date Combined forms of age-related cataract of right eye 12/19/2023 Esophagitis 12/02/2023 Lumbar degenerative disc disease 12/02/2023 Gait disturbance 12/02/2023 History of GI bleed 12/02/2023 Iron deficiency anemia due to chronic blood loss 12/02/2023 Coronary artery disease invo lving [place] coronary artery of [place] heart without angina pectoris 12/02/2023 Benign essential [...] as of this encounter (statuses as of 05/01/2024) Resolved Problems Problem Noted Date Diagnosed Date [...] as of this encounter (statuses as of 05/01/2024) Immunizations Name Administration Dates Next Due COVID-19, [...] No 12/10/2023 Does the household have a [facility] source of income? (Household - for [...] Care Team (Late st Contact Info) Description 07/02/2024 1:45 PM EST Office Visit Hematology/Oncology [facility] [address] [place] [address] Jun Martin MD [address] [place] [id number] Scheduled Procedures Name Priority Associated Diagnoses Date/Ti me EXTRACAPSULAR CATARACT REMOV AL WITH INTRAOCULAR LENS [...] Advance Directives occurred with: Patient Care Teams Power Brake Rebuilder Relationship Specialty Start Date End Date Zuhair Nelson DO [address] [place] [address] PCP - General Family Medicine 12/02/23 documented as of this encounter
--- OUTSIDE RECORDS SUMMARY | 2024-08-02 02:34 | External Medical Summary ---
Author Name Unknown Address Unknown Organization K09:[facility] [place] [address] Laboratory Report Ordering Provider Test Date Status RAJANI LOVELL 07/10/2024 11:58:01 Final Observation Date Value Abnormality Reference (Units ) Status WBC, Total 07/10/2024 11:58:01 6.86 4.00-10.8 0 (K/uL) Final RBC 07/10/2024 11:58:01 4.53 4.50-5.25 (M/uL) Final Hemoglobin 07/10/2024 11:58:01 14.1 14.0-16.8 (g/dL) Final HCT 07/10/2024 11:58:01 42.2 40.0-48.4 (%) Final MCV 07/10/2024 11:58:01 93.2 82.0-99.5 (fL) Final MCH 07/10/2024 11:58:01 31.1 27.0-34.0 (pg) Final MCHC 07/10/2024 11:58:01 33.4 32.0-36.0 (g/dL) Final RDW 07/10/2024 11:58:01 16.1 11.5-15.5 (%) Final Platelets 07/10/2024 11:58:01 213 140-400 (K /uL) Final MPV 07/10/2024 11:58:01 10.2 6.6-11.1 ( fL) Final Performing Location [facility] [place] [address]
--- OUTSIDE RECORDS SUMMARY | 2024-08-02 02:34 | External Medical Summary | Summary of Care ---
Author Name Unknown Organization [facility] Address [address] [place] [address] Phone [phone] Care Team Providers Care Dermatology Technician Name Role Phone Zuhair Nelson DO Primary Care Provider + [phone] Reason for Visit * Reason Comments Appointment Encounter Details Date Type Department Care Team (Late st Contact Info) Description 07/10/2024 11:15 AM EST Office Visit [facility]ology[facility] [place] [place] [address] [facility] [place] [phone] Jun Martin MD [address] [place] [address] Smoldering multiple myeloma*; Adrenal mass (HCC) Allergies Active Allergy Reactions [...] loss 12/02/2023 Coronary artery disease invo lving [place] coronary artery of [place] heart without angina pectoris 12/02/2023 Benign essential [...] No 12/10/2023 Does the household have a [facility] source of income? 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 Not on file Not on file documented as of this encounter Last Filed Vital Signs Vital Sign Reading Time Taken Comments Blood Pressure 162/83 07/10/2024 11:26 AM EST Pulse 64 07/10/2024 11:26 AM EST Temperature 36.2 C (97.2 F) 07/10/2024 11:[address] Respiratory Rate - - Oxygen Saturation 95% 07/10/2024 11:26 AM EST Inhaled Oxygen Concentration - - Weight 85.7 kg (189 lb) 07/10/2024 11:26 AM EST Height - - Body Mass Index 29.6 01/29/2024 2:14 PM EDT documented in this encounter Progress Notes * Jun Martin MD - 07/10/2024 11:15 AM EST Hematology/Oncology Outpatient Clinic note [facility] [address] [place] [address] Name: Amanda Bhagat Date: 05/07/2022 CHIEF COMPLAINT: Amanda Bhagat is a 82 year old male patient of here today for f/u visit today. 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 CURRENT TREATMENT: Observation ONCOLOGY HISTORY: I saw him for the 1st time in October,, also had a 2nd opinion from [facility] in 2013, Diagnostic workup: Earlier he complained of generalized nonspecific weakness and chronic back pain, also has some blurring of vision, history of TIA in the past, he was seen by neurologist, blood workup showed IgG kappa paraprotein in the blood, he was seen by [facility] at [facility], workup as follows: Bone marrow examination done on 11/12/2012 --> slightly hypercellular bone marrow, increased plasma cells about 5-10 percent of the bone marrow cellularity, adequate iron storage, normal male chromosome, myeloma FISH --> negative. -SPEP --> IgG kappa paraprotein. No M spike reported. -Bone survey (09/29/2012) --> single lucent lesion involving the right glenoid process with some sclerotic changes, not typical of myeloma, may represent subchondral cyst, no other lytic lesions noted anywhere else. - [id number] --> 2.4 (09/25/2012) --> 2.1 (12/2012) --> 2.0 (05/2013). - Urine for Bence Gonzalez protein, intact immunoglobulin noted, no monoclonal free light chain noted. - IgG --> 2247 (09/2012) --> 2000 (12/2012) --> 2083 (05/2013). - IgA 32, IgM 21 (05/2013) - M spike --> 1.84 (12/2013 ). blood workup done in September,: -WBC 6300, H&H of 13/38.9, MCV 92.8, Platelet count of 240,000. -BUN/Creat: 18/1.1, calcium 9.2, albumin 4.3, normal liver function test. -ESR--> 40. Blood workup done on 03/07/2015: - WBC 6000, H&H of 13/38.6, Platelet count of 223,000. - BUN/Creat: 18/1.1, calcium 9.5, albumin 4.1, normal liver function test, total protein 7.9. - Ferritin level --> 82.7. - Serum iron: 98, TIBC: 291, iron saturation 34%. - TSH level --> 0.56 - IgG 2123, IgA 37, IgM 20 - Free kappa light chain --> 135, free lambda light chain --> 7.8, [place]/Lambda ratio --> 17.1 - M spike --> 1.72 g/dL Blood workup done in February 2015: - WBC 6000, H&H of 13/38.6, Platelet count of 223,000 - BUN/Creat: 18/1.1, calcium 9.5, total protein 7.9, normal liver function test - [id number] level --> 2.4 - IgG 2123, IgA 37, IgM 20 - Free kappa light chain --> 135, 3 lambda light chain --> 7.8, [place]/Lambda ratio 17.1 Blood workup done on 09/26/2018: - WBC 7900, H&H of 12.8/38, MCV 94, Platelet count of 272,000 - BUN/Creat: 19/1.2, calcium 9.7, normal liver function test - SPEP --> IgG [place] paraprotein - M spike --> 1.64 g/dL - IgG 2348, IgA 35, IgM 18 - Free kappa light chain 89.9, Free lambda light chain --> 8.9, [place]/Lambda ratio --> 10.0. Medical problem: -COPD, previous history of smoking noted -hypertension Fatty liver -achalasia of the esophagus -Parkinson's disease -neuropathy -history of TIA -anxiety disorder, panic disorder, HISTORY OF PRESENT ILLNESS: He has come the clinic for the follow-up, he came to clinic by himself Recently while he was visiting in [place], ( early August of 2023), he was admitted over there for GI bleed, he says that he had endoscopic evaluation but do not have the report, he was on aspirin Plavix which has been discontinued. Currently he takes oral iron replacement therapy. Tolerated well. Earlier he was diagnosed Parkinson's disease but he would some additional evaluation, he says that now neurologist suggest that he does not have Parkinson's disease and he will go off the treatment for that. Current weight around 189 lb. Past Medical History: Diagnosis Date Bilateral carpal tunnel syndrome RADHA (generalized anxiety disorder) 06/08/2019 Hypertension Monoclonal gammopathy Panic disorder 06/08/2019 TIA (transient ischemic attack) Past Surgical History: Procedure Laterality Date COLONOSCOPY, DIAGNOSTIC (RECTUM) 11/28/2012 COLONOSCOPY FLEXIBLE PROXIMAL DIAGNOSTIC performed by Austen Feldman MD at ENDOSCOPY [facility] CORONARY ANGIOGRAPHY W/LEFT HEART CATH 06/27/2012 CORONARY ANGIOGRAPHY W/LEFT HEART CATH performed by Marvin Booker DO at CARDIAC LABS [facility] EGD, FLEXIBLE, DIAGNOSTIC 06/25/2023 LA grade B reflux esophagitis/ESOPHAGOGASTRODUODENOSCOPY (EGD), FLEXIBLE, TRANSORAL, DIAGNOSTIC performed by John Deleon MD at ENDOSCOPY [facility] LAPAROSCOPY; REPAIR INITIAL INGUINAL HERNIA L Social History Tobacco Use Smoking status: Former Smoker Packs/day: 3.00 Years: 17.00 Pack years: 51.00 Types: Cigarettes Quit date: 05/30/1982 Years since quittin.9 Smokeless tobacco: Never Used Substance and Sexual Activity Alcohol use: No Drug use: No Review of patient's allergies indicates: Allergen Reactions Amlodipine Unknown Hydrocortisone Current Outpatient Medications Medication Sig Dispense Refill Albuterol Sulfate HFA 108 (90 Base) MCG/ACT Inhalation Aerosol Solution Inhale 2 Puffs by mouth every 6 hours as needed for Cough or Shortness of Breath. 18 g 5 Montelukast Sodium 10 MG Oral Tablet (Singulair) Take 1 Tablet by mouth at bedtime. 90 Tablet 3 Citalopram Hydrobromide 20 MG Oral Tablet (CeleXA) Take 1 Tablet by mouth in the morning. 90 Tablet3 busPIRone HCl 5 MG Oral Tablet (Buspar) Take 1 Tablet by mouth in the morning and 1 Tablet before bedtime. 180 Tablet 3 Pantoprazole Sodium 40 MG Oral Tablet Delayed Release (Protonix) Take 1 Tablet by mouth in the morning. 90 Tablet 3 Nitroglycerin 0.4 MG Sublingual Tablet Sublingual (Nitrostat) PLACE 1 TABLET UNDER TONGUE NEEDEDFOR PAIN, CHEST. MAY REPEAT X.3 IF PAIN CONTINUES, CALL 911. 25 Tablet 11 Selenium 50 MCG Oral Tablet Take by mouth daily. [place] 3-6-9 Complex Oral Capsule Take 1 Capsule by mouth in the morning. Vitamin E 6.75 MG/0.3ML Oral Solution (Aquasol E) Take 8 mL by mouth in the morning. HM Super Vitamin B12 2500 MCG Oral Tablet Chewable (Cyanocobalamin) Take by mouth. Primidone 50 MG Oral Tablet (Mysoline) Take half a tablet by mouth at bedtime for the first week, then increase to 1 tablet by mouth at bedtime afterwards. 30 Tablet 5 Clopidogrel Bisulfate 75 MG Oral Tablet (pLAVix) Take 1 Tablet by mouth in the morning. 90 Tablet 1 theophylline SR 150 MG OR TB12 Take 0.5 Tablets by mouth in the morning and 0.5 Tablets before bedtime. Ferrous Sulfate 325 (65 Fe) MG Oral Tablet (Feosol) Take 1 Tablet by mouth in the morning and 1 Tablet before bedtime. 180 Tablet 0 Rosuvastatin Calcium 20 MG Oral Tablet (Crestor) TAKE 1 TABLET BY MOUTH EVERYDAY AT BEDTIME 90 Tablet 3 Carvedilol 25 MG Oral Tablet (Coreg) Take 1 Tablet by mouth in the morning and 1 Tablet before bedtime. with food. 180 Tablet 3 Valsartan 320 MG Oral Tablet (Diovan) Take 1 Tablet by mouth in the morning. 90 Tablet 3 Isosorbide Mononitrate ER 60 MG Oral Tablet Extended Release 24 Hour (Imdur) Take 1 Tablet by mouthin the morning. Do not cut, crush or chew. 90 Tablet 3 QUEtiapine Fumarate 50 MG Oral Tablet (SEROquel) TAKE 1 TABLET BY MOUTH EVERYDAY AT BEDTIME 90 Tablet 0 No current facility-administered medications for this visit. OBJECTIVE: BP 162/83 (BP Site: Right Arm, BP Position: Sitting, BP Cuff Size: Regular) | Pulse 64 | Temp 36.2 C (97.2 F) (Tympanic) | Wt 85.7 kg (189 lb) | SpO2 95% | BMI 29.60 kg/m | BSA 2.01 m PHYSICAL EXAM: ECOG: Performance Status 1 = 80-90% Symptoms but nearly ambulatory General Appearance: No acute distress Lungs/Thorax: Normal respiratory effort Extremities: +trace BLE edema Neurologic: Normal - Grossly intact LABS: Blood workup done on 12/03/2023: -WBC 6400, H&H of 11.7/35, Platelet count of 254831. -Serum iron 30, TIBC 411, iron saturation 7%. Blood workup done on 12/31/2023: -IgG 1617, IgA 54, IgM 38 -M spike--> 1.0 g/dL -free kappa light chain--> 45.4, free lambda light chain--> 11.6, Calcium --> 3.9. Planning for additional blood workup today. PET-CT scan done on 06/18/2024 while he was in [place]: ( he has copy of the report as well as imagingon the desk). -small left adrenal gland nodule measuring 1.6 x 1.8 cm with SUV of 2.49. -no other metabolic active disease noted anywhere else. 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 Overall clinical picture appears to be MGUS. Reviewed the bone marrow done earlier in 2020 while hewas in [place]. Overall declining performed status, ambulates with the help of the cane, had uncontrolled hypertension now It is under control, ? Parkinson's disease, few other comorbid conditions Recently in earlier this year, when he was in [place], he had upper GI bleed, currently he is receiving oral iron replacement therapy. I reviewed with him regarding the PET-CT scan done recently in June 2024, left adrenal gland nodule noted. With his fluctuating blood pressure, underlying pheochromocytoma is suspected His son diagnosed with a von Willebrand disease, he does not have von Willebrand disease ( blood workup done in December 2023) Would like to send blood for metanephrine level in the plasma Will check CBCD, comprehensive metabolic panel, myeloma blood workup today. I am planning to see him back in about 6 months.\\ Dr. Jun Martin Hem/Onc (This note was completed using the dictation program Fluency Direct. As such, there may be misspellings word substitutions, or other variations that should not change the essence of the clinical content of this encounter note. If there is need for further clarification, please direct questions to the provider listed above.) documented in this encounter Nursing Notes * Amalia Schultz, MED ASSIST - 07/10/2024 11:34 AM EST Patient identifed by name and birthdate Do you have any concerns about pain management for today's visit? Yes. Patient instructed to discuss pain concerns with provider during the visit today Living Will or Advance Directive for Health Care as noted on the problem list. [facility] is a way you can talk to your provider on line through e-mail. Would you like to sign up? I can activate it for you? ALREADY ACTIVE Filed Vitals: 07/10/24 1126 BP: 162/83 Pulse: 64 Temp: 36.2 C (97.2 F) TempSrc: Tympanic SpO2: 95% Weight: 85.7 kg (189 lb) Patient was instructed to not get up on the exam table/exam chair until directed and assisted by their provider; patient is to remain seated in the chair/ wheelchair/ exam table/ exam chair for fall prevention and safety reasons. Patient is aware to have assistance to step down off exam table/exam chair with personnel. Patient voiced full comprehension of instructions. documented in this encounter Plan of Treatment Upcoming Encounters Date Type Department Care Team (Late st Contact Info) Description 07/15/2024 11:20 AM EST Office Visit Family Practice [address] [place] [address] [place] [address] Zuhair Nelson DO [address] [place] [address] 01/07/2025 1:30 PM EDT Office Visit Hematology/Oncology [facility] [place] [address] [facility] [place] [address] Jun Martin MD [address] [place] [address] Pending Results Name Type Priority Associated Diagnoses Date /Time METANEPHRINES, FRACTIONATED, FREE, LCMSMS, PLASMA Lab Routine Adrenal mass (HCC) 07/10/2024 11:58 AM EST SERUM FREE LIGHT CHAINS Lab Routine Smoldering multiple myeloma 07/10/2024 11:58 AM EST SERUM PROTEIN ELECTROPHORESIS REFLEX PROFILE Lab Routine Smoldering multiple myeloma 07/10/2024 11:58 AM EST IMMUNOGLOBULIN QUANTITATIVE Lab Routine Smoldering multiple myeloma 07/10/2024 11:58 AM EST Scheduled Orders Name Type Priority Associated Diagnoses Orde r Schedule METANEPHRINES, FRACTIONATED, FREE, LCMSMS, PLASMA Lab Routine Adrenal mass (HCC) Expected: 07/10/2024, Expires: 07/10/2025 Health Maintenance Due Date Last Done Comments [...] Procedure Name Priority Date/Time Associated Diagnosis Comments DIFFERENTIAL, AUTOMATED STAT 07/10/2024 11:58 AM EST Smoldering multiple myeloma COMPREHENSIVE METABOLIC PANEL STAT 07/10/2024 11:58 AM EST Smoldering multiple myeloma CBC STAT 07/10/2024 11:58 AM EST Smoldering multiple myeloma CBC STAT 07/10/2024 11:58 AM EST Smoldering multiple myeloma documented in this encounter Results * (ABNORMAL) DIFFERENTIAL, AUTOMATED (07/10/2024 11:58 AM EST) WBC 6.86 4.00 - 10.80 K/uL 07/10/2024 12:07 PM EST [facility]-02 Neutrophils % 45.6 40.0 - 75.0 % 07/10/2024 12:07 PM EST [facility]-02 Lymphocytes % 35.9 18.0 - 42.0 % 07/10/2024 12:07 PM EST [facility]-02 Monocytes % 13.0(H) 1.0 - 11.0 % 07/10/2024 12:07 PM [facility] 56- Eosinophils % 5.1 0.0 - 6.0 % 07/10/2024 12:07 PM [facility] 56- Basophils % 0.4 0.0 - 2.0 % 07/10/2024 12:07 PM [facility] 56- Absolute Neutrophils 3.13 1.80 - 7.70 K/uL 07/10/2024 12:07 PM [facility] 56- Absolute Lymphocytes 2.46 1.00 - 4.80 K/ul 07/10/2024 12:07 PM [facility] 56- Absolute Monocytes 0.89 0.00 - 1.10 K/uL 07/10/2024 12:07 PM [facility] 56- Absolute Eosinophils 0.35 0.00 - 0.70 K/uL 07/10/2024 12:07 PM [facility] 56- Absolute Basophils 0.03 0.00 - 0.20 K/uL 07/10/2024 12:07 PM [facility] 56- Blood Venous blood specimen / Unknown Venipuncture / Unknown 07/10/2024 11:58 AM EST 07/10/2024 11:58 AM EST us Jun Martin MD LAB BLOOD ORDERABLES Final Res ult [facility] [address] [place] [address] * CBC (07/10/2024 11:58 AM EST) WBC 6.86 4.00 - 10.80 K/uL 07/10/2024 12:07 PM [facility] 56- RBC 4.53 4.50 - 5.25 M/uL 07/10/2024 12:07 PM [facility] 56- HGB 14.1 14.0 - 16.8 g/dL 07/10/2024 12:07 PM [facility] 56- HCT 42.2 40.0 - 48.4 % 07/10/2024 12:07 PM EST [facility] 56 MCV 93.2 82.0 - 99.5 fL 07/10/2024 12:07 PM EST [facility] 56 MCH 31.1 27.0 - 34.0 pg 07/10/2024 12:07 PM EST [facility] 56 MCHC 33.4 32.0 - 36.0 g/dL 07/10/2024 12:07 PM EST [facility] 56 RDW 16.1 11.5 - 15.5 % 07/10/2024 12:07 PM EST [facility] 56 PLT 213 140 - 400 K/uL 07/10/2024 12:[address] MPV 10.2 6.6 - 11.1 fL 07/10/2024 12:07 PM [facility] Blood Venous blood specimen / Unknown Venipuncture / Unknown 07/10/2024 11:58 AM EST 07/10/2024 11:58 AM EST Jun Martin MD LAB BLOOD ORDERABLES Final Res ult [place] [address] [place] [address] * (ABNORMAL) COMPREHENSIVE METABOLIC PANEL (07/10/2024 11:58 AM EST) BUN 31(H) 6 - 20 mg/dL 07/10/2024 12:25 PM [facility] CREATININE 1.2 0.6 - 1.2 mg/dL 07/10/2024 12:25 PM [facility] 56 EGFR 63 >=60 mL/min 07/10/2024 12:25 PM [facility] 56 Comment:eGFR is calculated b ased on the CKD-EPI 2020 equation. SODIUM 140 135 - 146 mmol/L 07/10/2024 12:25 PM EST [facility] 56 POTASSIUM 4.2 3.5 - 5.1 mmol/L 07/10/2024 12:25 PM EST [facility] 56 CHLORIDE 104 98 - 107 mmol/L 07/10/2024 12:25 PM EST [place] [address] CO2 25 22 - 32 mmol/L 07/10/2024 12:25 PM EST [address] ANION GAP 11 7 - 15 mmol/L 07/10/2024 12:25 PM EST [address] GLUCOSE 115 70 - 120 mg/dL 07/10/2024 12:25 PM [place] [address] Albumin 4.2 3.8 - 5.0 g/dL 07/10/2024 12:25 PM EST [address] AST 31 10 - 50 U/L 07/10/2024 12:25 PM EST [place] [address] Alkaline Phosphatase 81 35 - 130 U/L 07/10/2024 12:[address] Bilirubin, Total 0.6 <=1.2 mg/dL 07/10/2024 12:25 PM EST [place] [address] CALCIUM 9.7 8.4 - 10.2 mg/dL 07/10/2024 12:25 PM [place] [address] Protein 7.7 6.0 - 8.3 g/dL 07/10/2024 12:25 PM [place] [address] ALT 23 10 - 50 U/L 07/10/2024 12:25 PM [place] [address] Blood Venous blood specimen / Unknown Venipuncture / Unknown 07/10/2024 11:58 AM EST 07/10/2024 11:58 AM EST Jun Martin MD LAB BLOOD ORDERABLES Final Res ult [place] [address] [place] [address] documented in this encounter Visit Diagnoses Diagnosis Smoldering multiple myeloma- Primary Multiple myeloma, without mention of having achieved remission Adrenal mass (HCC) Unspecified disorder of adrenal glands documented in this encounter Advance Directives * Full Code (Latest Code Status on File) Date Activated Date Inactivated Comments 11/28/2012 2:07 AM 11/28/2012 6:25 PM This order r eflects the patients wishes and were consensually agreed upon. Question Answer Comments Discussion of Advance Directives occurred with: Patient Care Teams Dermatology Technician Relationship Specialty Start Date End Date Zuhair Nelson DO [address] [place] [id number] PCP - General Family Medicine 12/02/23 documented as of this encounter
--- OUTSIDE RECORDS SUMMARY | 2024-08-02 02:34 | External Medical Summary ---
Author Name Unknown Address Unknown Organization K01:[facility] [address] [facility] [place] [address] Laboratory Report Ordering Provider Test Date Status RAJANI LOVELL 07/10/2024 11:58:01 Final Observation Date Value Abnormality Reference (Units) Status PARAPROTEIN NORMAL/ABNORMAL 07/10/2024 11:58:01 Abnormal Abnormal Normal Final Protein 07/10/2024 11:58:01 7.2 6.0-8.3 (g/dL) Final Albumin/Protein.total [Pure mass fraction] in Serum or Plasma by Electrophoresis 07/10/2024 11:58:01 3.74 3.30-4.40 (g/dL) Final Alpha 1 globulin/Protein.total [Pure mass fraction] in Serum or Plasma by Electrophoresis 07/10/2024 11:58:01 0.20 0.10-0.30 (g/dL) Final Alpha 2 globulin/Protein.total [Pure mass fraction] in Serum or Plasma by Electrophoresis 07/10/2024 11:58:01 1.00 0.60-1.00 (g/dL) Final Beta globulin/Protein.total [Pure mass fraction] in Serum or Plasma by Electrophoresis 07/10/2024 11:58:01 0.81 0.80-1.30 (g/dL) Final Gamma globulin/Protein.total [Pure mass fraction] in Serum or Plasma by Electrophoresis 07/10/2024 11:58:01 1.45 0.70-1.70 (g/dL) Final Monoclonal protein 07/10/2024 11:58:01 1.08 (g/dL) Final Protein Fractions [Interpretation] in Serum or Plasma by Electrophoresis Narrative 07/10/2024 11:58:01 Abnormal. A paraprotein is present that has been previously identified as a monoclonal IgG kappa. Final Performing Location [facility] - [address] [facility] [place] [address]
--- OUTSIDE RECORDS SUMMARY | 2024-08-02 02:34 | External Medical Summary ---
Author Name Unknown Address Unknown Organization K09:[facility] [address] [place] [address] Laboratory Report Ordering Provider Test Date Status RAJANI LOVELL 07/10/2024 11:58:01 Final Observation Date Value Abnormality Reference (Units ) Status BUN 07/10/2024 11:58:01 31 Above high normal 6-20 (mg/dL) Final Creatinine 07/10/2024 11:58:01 1.2 0.6-1.2 (mg/dL) Final Glomerular filtration rate/1.73 sq M.predicted [Volume Rate/Area] in Serum, Plasma or Blood by Creatinine-based formula (CKD-EPI) 07/10/2024 11:58:01 63 >=60 (mL/min) Final eGFR is calculated based on the CKD-EPI 2020 equation. Sodium 07/10/2024 11:58:01 140 135-146 (m mol/L) Final Potassium 07/10/2024 11:58:01 4.2 3.5-5.1 (m mol/L) Final Cl 07/10/2024 11:58:01 104 98-107 (mm ol/L) Final CO2 07/10/2024 11:58:01 25 22-32 (mmo l/L) Final Anion gap 07/10/2024 11:58:01 11 7-15 (mmol /L) Final Glucose 07/10/2024 11:58:01 115 70-120 (mg /dL) Final Albumin 07/10/2024 11:58:01 4.2 3.8-5.0 (g /dL) Final AST (Aspartate aminotransferase) 07/10/2024 11:58:01 31 10-50 (U/L) Final Alk Phos 07/10/2024 11:58:01 81 35-130 (U/ L) Final Bilirubin, Total 07/10/2024 11:58:01 0.6 <=1 .2 (mg/dL) Final Calcium 07/10/2024 11:58:01 9.7 8.4-10.2 ( mg/dL) Final Protein 07/10/2024 11:58:01 7.7 6.0-8.3 (g /dL) Final ALT (Alanine aminotransferase) 07/10/2024 11:58:01 23 10-50 (U/L) Final Performing Location [facility] [address] [place] [address]
--- OUTSIDE RECORDS SUMMARY | 2024-08-02 02:34 | External Medical Summary | Summary of Care ---
Author Name Unknown Organization [facility] Address [address] [place] [address] Phone [phone] Care Team Providers Care Chain Tender Name Role Phone Zuhair Nelson DO Primary Care Provider + [phone] Encounter Details Date Type Department Care Team (Late st Contact Info) Description 07/15/2024 Orders Only Hematology/Oncology [facility] [address] [place] [phone] Jun Martin MD [address] [place] [address] Adrenal mass (HCC)* Allergies Active Allergy Reactions Criticality Noted Date [...] Oral Tablet Take by mouth daily. 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 -free kappa light chain --> 45.2, free lambda light chain--> 10.7, Jeff/Lambda ratio --> 4.2 -M spike --> 1 g/dL ( IgG kappa ) -Ig, IgA: 48, IgM 40. - Serum free metanephrine --> 49 which is in the normal range -serum free normetanephrine--> 162 which is slightly on the higher side. -total ( metanephrine + normetanephrine ) --> 211 which is borderline up. Overall stable blood counts, no worsening anemia, no hypercalcemia. Stable paraprotein level in the blood. Borderline up total catecholamines noted. This is not diagnostic of underlying pheochromocytoma. We could consider for 24 hour urine fractionated metanephrine checkup. ( ordered). documented in this encounter Plan of Treatment Upcoming Encounters Date Type Department Care Team (Late st Contact Info) Description 07/20/2024 4:00 PM EST Office Visit General Internal Medicine [address] [place] [address] Loan Cherry PA-C [address] [place] [address] [place] [address] 01/07/2025 1:30 PM EDT Office Visit Hematology/Oncology [address] [place] [phone] Jun Martin MD [address] [place] [address] [place] [address] Scheduled Orders Name Type Priority Associated Diagnoses Orde r Schedule METANEPHRINES, FRACTIONATED, LC/MS/MS, 24-HOUR URINE Lab Routine Adrenal mass (HCC) Expected: 07/31/2024, Expires: 07/15/2025 Health Maintenance Due Date Last Done Comments [...] this encounter Visit Diagnoses Diagnosis Adrenal mass (HCC)- Primary Unspecified disorder of adrenal glands documented in this encounter Advance Directives * Full Code (Latest Code Status on File) Date Activated Date Inactivated Comments 11/28/2012 2:07 AM 11/28/2012 6:25 PM This order r eflects the patients wishes and were consensually agreed upon. Question Answer Comments Discussion of Advance Directives occurred with: Patient Care Teams Chain Tender Relationship Specialty Start Date End Date Zuhair Nelson DO [address] [place] [address] PCP - General Family Medicine 12/02/23 documented as of this encounter
--- OUTSIDE RECORDS SUMMARY | 2024-08-02 02:34 | External Medical Summary | Summary of Care ---
Author Name Unknown Organization [facility] Address [address] [place] [address] Phone [phone] Care Team Providers Care Senior Sales Manager Name Role Phone Zuhair Nelson DO Primary Care Provider + [phone] Reason for Visit * Reason Onset Date Comments No Show 07/02/2024 Encounter Details Date Type Department Care Team (Late st Contact Info) Description 07/02/2024 Telephone Hematology/Oncology [facility] [place] [facility] [place] [phone] Jun Martin MD [address] [place] [address] No Show Allergies Active Allergy Reactions Criticality Noted Date Comments Amlodipine Unknown 05/09/2023 Hydrocortisone 07/09/2023 documented as of this encounter (statuses as of 07/02/2024) Medications Albuterol Sulfate HFA 108 (90 Base) [...] Oral Tablet Take by mouth daily. Active [place] 3-6-9 Complex Oral Capsule Take 1 Capsule [...] EVERYDAY AT BEDTIME 90 Tablet 4 Active documented as of this encounter (statuses as of 07/02/2024) Active Problems Problem Noted Date Diagnosed Date Combined forms of age-related cataract of right eye 12/19/2023 Esophagitis 12/02/2023 Lumbar degenerative disc disease 12/02/2023 Gait disturbance 12/02/2023 History of GI bleed 12/02/2023 Iron deficiency anemia due to chronic blood loss 12/02/2023 Coronary artery disease invo lving [place] coronary artery of [place] heart without angina pectoris 12/02/2023 Benign essential [...] as of this encounter (statuses as of 07/02/2024) Resolved Problems Problem Noted Date Diagnosed Date [...] as of this encounter (statuses as of 07/02/2024) Immunizations Name Administration Dates Next Due COVID-19, [...] Does the household have a [facility] source of income? 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 MARTIN PLEASE CALL TO RESCHEDULE. THANKYOU documented in this encounter Plan of Treatment Upcoming Encounters Date Type Department Care Team (Late st Contact Info) Description 07/15/2024 11:20 AM EST Office Visit Family Practice [address] [address] Zuhair Nelson DO [address] [place] [address] Health Maintenance Due Date Last Done Comments [...] Advance Directives occurred with: Patient Care Teams Senior Sales Manager Relationship Specialty Start Date End Date Zuhair Nelson DO [address] [place] [address] PCP - General Family Medicine 12/02/23 documented as of this encounter
--- OUTSIDE RECORDS SUMMARY | 2024-08-02 02:34 | External Medical Summary ---
Author Name Unknown Address Unknown Organization K01:[facility] [place] [address] Laboratory Report Ordering Provider Test Date Status RAJANI LOVELL 07/10/2024 11:58:01 Final Observation Date Value Abnormality Reference (Units ) Status [place] light chains, Free, Serum 07/10/2024 11:58:01 45.21 Above high normal 3.30-19.40 (mg/L) Final Lambda light chains, free, Serum 07/10/2024 11:58:01 10.76 5.71-26.30 (mg/L) Final KAPPA LAMBDA [facility] RATIO 07/10/2024 11:58:01 4.20 Above high normal 0.26-1.65 Final Performing Location [facility] [place] [address] [place] [address]
--- OUTSIDE RECORDS SUMMARY | 2024-08-02 02:34 | External Medical Summary | Summary of Care ---
Author Name Unknown Organization [facility] Address [address] [place] [address] Phone [phone] Care Team Providers Care County Tax Assessor Name Role Phone Zuhair Nelson DO Primary Care Provider + [phone] Reason for Visit * Reason Onset Date Comments Outpatient Testing 07/15/2024 Encounter Details Date Type Department Care Team (Late st Contact Info) Description 07/15/2024 Telephone Hematology/Oncology Treatment, [place] [address] [place] [phone] Jun Martin MD [address] [place] [address] Outpatient Testing Allergies Active Allergy Reactions Criticality Noted Date [...] Oral Tablet Take by mouth daily. Active [place] 3-6-9 Complex Oral Capsule Take 1 Capsule [...] loss 12/02/2023 Coronary artery disease invo lving [place] coronary artery of [place] heart without angina pectoris 12/02/2023 Benign essential [...] No 12/10/2023 Does the household have a [facility] source of income? 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 -free kappa light chain --> 45.2, free lambda light chain--> 10.7, [place]/Lambda ratio --> 4.2 -M spike --> 1 [...] 24 hour urine fractionated metanephrine checkup. ( ordered)." Called patient- he will get 24 hour urine container when he goes for appt with PCP next week. documented in this encounter Plan of Treatment Upcoming Encounters Date Type Department Care Team (Late st Contact Info) Description 07/20/2024 4:00 PM EST Office Visit General Internal Medicine [facility] [address] [place] [address] Loan Cherry PA-C [address] [facility] [place] [address] 01/07/2025 1:30 PM EDT Office Visit Hematology/Oncology [facility] [place] [address] [place] [phone] Jun Martin MD [address] [place] [address] [place] [address] Health Maintenance Due Date Last Done Comments [...] Advance Directives occurred with: Patient Care Teams County Tax Assessor Relationship Specialty Start Date End Date Zuhair Nelson DO [address] [place] [phone] PCP - General Family Medicine 12/02/23 documented as of this encounter
--- OUTSIDE RECORDS SUMMARY | 2024-08-02 02:34 | External Medical Summary | Summary of Care ---
Author Name Unknown Organization [facility] Address [address] [place] [address] Phone [phone] Care Team Providers Care White Washer Name Role Phone OmarZuhair chapman Primary Care Provider + [phone] Reason for Visit * Reason Onset Date Comments Surgery Procedure Cancelled 04/23/2024 Encounter Details Date Type Department Care Team (Late st Contact Info) Description 04/23/2024 Telephone Ophthalmology, [facility] [address] [facility] [place] [address] Abdias Catherine DO [address] [facility] [place] [address] Surgery Procedure Cancelled Allergies Active Allergy Reactions Criticality Noted Date Comments Amlodipine Unknown 05/09/2023 Hydrocortisone 07/09/2023 documented as of this encounter (statuses as of 04/23/2024) Medications Medication Sig Dispensed Refills Start Date [...] Oral Tablet Take by mouth daily. Active [place] 3-6-9 Complex Oral Capsule Take 1 Capsule [...] as of this encounter (statuses as of 04/23/2024) Active Problems Problem Noted Date Diagnosed Date Combined forms of age-related cataract of right eye 12/19/2023 Esophagitis 12/02/2023 Lumbar degenerative disc disease 12/02/2023 Gait disturbance 12/02/2023 History of GI bleed 12/02/2023 Iron deficiency anemia due to chronic blood loss 12/02/2023 Coronary artery disease invo lving [place] coronary artery of [place] heart without angina pectoris 12/02/2023 Benign essential [...] as of this encounter (statuses as of 04/23/2024) Resolved Problems Problem Noted Date Diagnosed Date [...] as of this encounter (statuses as of 04/23/2024) Immunizations Name Administration Dates Next Due COVID-19, [...] No 12/10/2023 Does the household have a [facility] source of income? (Household - for [...] encounter Miscellaneous Notes * Telephone Encounter - Deidre Hallman COA - 04/23/2024 9:55 AM EDT Attempted to contact patient for the third regarding appointments for surgery. Patient again unavailable LVM advising that their appointments and surgeries have been cancelled. ANGELA Briceno 04/23/2024 9:57 AM documented in this encounter Plan of Treatment Upcoming Encounters Date Type Department Care Team (Latest Contact Info) Description 05/01/2024 10:45 AM EDT Hospital Encounter [facility], Endoscopy Room [facility] [address] [place] [phone] Weems, Marten B, DO [address] [place] [address] 05/01/2024 10:45 AM EDT - 05/01/2024 11:15 AM EDT Surgery ENDO [facility], Endoscopy Room [facility] [address] [place] [phone] Neal Weems, DO [address] [place] [address] ESOPHAGOGASTRODUODENOSCOPY (EGD), FLEXIBLE, TRANSORAL, DIAGNOSTIC 07/02/2024 1:45 PM EST Office Visit Hematology/Oncol [facility] [place] [address] [place] [phone] Jun Martin MD [address] [place] [address] Scheduled Procedures Name Priority Associated Diagnoses Date/Ti [...] Advance Directives occurred with: Patient Care Teams White Washer Relationship Specialty Start Date End Date Zuhair Nelson DO [address] [place] [address] [place] [address] PCP - General Family Medicine 12/02/23 documented as of this encounter
--- OUTSIDE RECORDS SUMMARY | 2024-08-02 02:35 | External Medical Summary | Summary of Care ---
Author Name Unknown Organization [facility] Address [address] [place] [address] Phone [phone] Care Team Providers Care Middle Stitcher Name Role Phone Zuhair Nelson DO Primary Care Provider + [phone] Reason for Visit * Reason Onset Date Comments Information 01/07/2024 Encounter Details Date Type Department Care Team (Late st Contact Info) Description 01/07/2024 Telephone Cardiology, [facility] [address] [facility] [place] [address] Sam Sanchez MD [address] [facility] [place], [place] [phone] Information Allergies Active Allergy Reactions Criticality Noted Date Comments Amlodipine Unknown 05/09/2023 Hydrocortisone 07/09/2023 documented as of this encounter (statuses as of 02/07/2024) Medications Medication Sig Dispensed Refills Start Date [...] Oral Tablet Take by mouth daily. Active [place] 3-6-9 Complex Oral Capsule Take 1 Capsule by mouth in the morning. Active Vitamin E 6.75 MG/0.3ML Oral Solution (Aquasol E) Take 8 mL by mouth in the morning. Active HM Super Vitamin B12 2500 MCG Oral Tablet Chewable (Cyanocobalamin) Take by mouth. Acti ve Primidone 50 MG Oral Tablet (Mysoline)Indicat ions:Essential [...] mouth at bedtime. 90 Tablet 3 3 01/24/20 24 Discontinued QUEtiapine Fumarate 25 MG Oral Tablet (SEROquel)Indicat ions:Panic disorder,RADHA (generalized anxiety disorder) Take 1 Tablet by mouth at bedtime. 90 Tablet 3 3 01/08/20 24 Discontinued(Med ication/Dose Changed) Isosorbide Mononitrate ER 30 MG Oral Tablet Extended Release 24 Hour (Imdur)Indication s:Angina pectoris (HCC) Take 1 Tablet by mouth in the morning. 90 Tablet 3 4 02/03/20 24 Discontinued(Med ication/Dose Changed) Carvedilol 6.25 MG Oral Tablet (Coreg)Indication s:HTN, goal below 140/90 Take 1 Tablet by mouth in the morning and 1 Tablet at noon and 1 Tablet in the evening. Take 2 tabs twice daily. 4 01/08/20 24 Discontinued(Med ication/Dose Changed) Valsartan 160 MG Oral Tablet (Diovan)Indicatio ns:HTN, goal below 130/80 Take 2 Tablets by mouth in the morning. 180 Tablet 1 4 02/03/20 24 Discontinued(Med ication/Dose Changed) Carbidopa-Levodop a 25-100 MG Oral Tablet (Sinemet) Take 1 Tablet by mouth in the morning and 1 Tablet at noon and 1 Tablet before bedtime. 01/07/20 24 Discontinued documented as of this encounter (statuses as of 02/07/2024) Active Problems Problem Noted Date Diagnosed Date Combined forms of age-related cataract of right eye 12/19/2023 Esophagitis 12/02/2023 Lumbar degenerative disc disease 12/02/2023 Gait disturbance 12/02/2023 History of GI bleed 12/02/2023 Iron deficiency anemia due to chronic blood loss 12/02/2023 Coronary artery disease invo lving [place] coronary artery of [place] heart without angina pectoris 12/02/2023 Benign essential [...] as of this encounter (statuses as of 02/07/2024) Resolved Problems Problem Noted Date Diagnosed Date [...] as of this encounter (statuses as of 02/07/2024) Immunizations Name Administration Dates Next Due COVID-19, [...] encounter Miscellaneous Notes * Telephone Encounter - Perlita Meng LPN - 01/07/2024 1:13 PM EDT "Stomach bleeding" when he was [place] in August. Hospitalized and received transfusions. Believes these transfusions are causing issues now. Recently hospitalized at [facility] 11/30/2023, Pt calling says he is "very concerned" about high BP. Pt c/o headache, "head is heavy," some dizziness and lightheadedness. 200/105 - last night 180/81 this morning 2 hours after morning medications. Takes carvedilol 6.25mg takes 1.5 tab AM, 1 tab 5pm, 1.5 at HS. Takes valsartan 160mg takes 2 tablets daily. Carbidopa-levodopa stopped by neurology. Advised pt to await return call, but if symptoms worsen or become emergent, seek treatment at nearest emergency department. documented in this encounter Plan of Treatment Upcoming Encounters Date Type Department Care Team (Latest Contact Info) Description 02/12/2024 1:00 PM EDT Office Visit Orthopaedics [facility] [address] [place] [address] Juan Carlos Sy MD [address] [place] [address] 04/02/2024 3:40 PM EDT Office Visit Neurology [facility] [address] [place] [address] Nitish Kwan MD [address] [place] [address] 05/01/2024 10:45 AM EDT Hospital Encounter ENDO [facility], Endoscopy Room [facility] [address] [place] [phone] Adriana Marte MD [address] [place] [address] 05/01/2024 10:45 AM EDT - 05/01/2024 11:15 AM EDT Surgery [facility]O [facility], Endoscopy Room [facility] [address] [place] [phone] Adriana Marte MD [address] [place] [address] ESOPHAGOGASTRODUODENOSCOPY (EGD), FLEXIBLE, TRANSORAL, DIAGNOSTIC 05/14/2024 3:00 PM EDT Office Visit Ophthalmology, [facility] [address] [facility] [place] [address] Abdias Catherine, DO [address] [place] [address] 07/02/2024 1:45 PM EST Office Visit Hematology/Onco logy [facility] [place] [address] [facility] [place] [address] Jun Martin MD [address] [facility] [place] [address] Scheduled Procedures Name Priority Associated Diagnoses Date/Ti me ESOPHAGOGASTRODUODENOSCOPY ( EGD), FLEXIBLE, TRANSORAL, DIAGNOSTIC Dysphagia, unspecified type 05/01/2024 10:45 AM EDT EXTRACAPSULAR CATARACT REMOV AL WITH INTRAOCULAR LENS Combined forms of age-related cataract of right eye Health Maintenance Due Date Last Done Comments Albumin/Creatinine Ratio 1959 Alpha-1 Antitrypsin 1959 DTaP,Tdap,and Td Vaccines (1 - Tdap) 1960 Zoster Vaccines (1 of 2) 1991 *COPD SEVERITY VERIFIED BY PFT 05/30/2019 *SPIROMETRY ONCE FOR ASTHMA-ADULT 07/05/2022 Pneumococcal Vaccine: 65+ Years (2 of 2 - PCV) 09/01/2022 09/01/2021, 07/08/2013 COVID-19 Vaccine (4 - 2022-24 season) 2023 08/15/2023, 06/09/2022, 08/10/2021 O2 ASSESSMENT COMPLETED IN PAST YEAR FOR COPD 06/25/2024 06/25/2023 Depression Screening 12/01/2024 12/02/2023, 12/02/19 24 GFR 12/30/2024 12/31/2023, 10/0 12/2022, 11/29/2022, Additional history exists Influenza Vaccine (FLU shot) Completed , 04/23/2022, 09/01/2021, Additional history exists GARDASIL-HPV IMMUNIZATION SERIES Aged Out No longer [...] Advance Directives occurred with: Patient Care Teams Middle Stitcher Relationship Specialty Start Date End Date Zuhair Nelson DO [address] [place] [address] PCP - General Family Medicine 12/02/23 documented as of this encounter
[2024-08-02 03:11] LABS: Basophils # (auto) 0.03 K/uL (0.00-0.20); Basophils % (auto) 0.3 %; Eosinophils # (auto) 0.14 K/uL (0.00-0.50); Eosinophils % (auto) 1.4 %; Hematocrit (blood only) 46.9 % (42.0-52.0); Hemoglobin 15.7 g/dl (14.0-18.0); Immature Granulocytes # (auto) 0.03 K/uL (0.01-0.20); Immature Granulocytes % (auto) 0.3 %; Lymphocytes # (auto) 0.57 K/uL (1.20-3.40); Lymphocytes % (auto) 5.5 %; Mean Corpuscular Hemoglobin 30.7 pg (25.0-34.0); Mean Corpuscular Hgb Conc 33.5 g/dL (32.0-36.0); Mean Corpuscular Volume 91.8 fL (80.0-100.0); Monocytes # (auto) 0.57 K/uL (0.11-0.59); Monocytes % (auto) 5.5 %; Neutrophils # (auto) 9.02 K/uL (1.40-6.50); Platelet Count 198 K/uL (130-400); RDW Coefficient of Variation 15.9 % (11.5-14.5); RDW Standard Deviation 54.3 fL (36.4-46.3); Red Blood Count 5.11 M/uL (4.70-6.10); White Blood Count 10.36 K/ul (4.8-10.8)
[2024-08-02] MEDS: PANTOprazole 40 MG/10 ML SYR IV ONE ×2 (03:12→09:04)
[2024-08-02] MEDS: SODIUM CHLORIDE 0.9% 1,000 ML IV SCH (03:14)
--- NOTE | 2024-08-02 03:24 | Emergency Department Note ---
Impression & Plan Chest pain, Dyspnea, Abdominal pain, GI bleed ED Provider Note ED Provider Note NAME: FREDRICK DELCID AGE:83 SEX: Male : 1940 ARRIVES VIA: EMS INFORMANT: Patient ED PROVIDER(s): Dahiana Reardon DO CHIEF COMPLAINT: Chest pain, shortness of breath, abdominal pain HPI: This is an 83-year-old male presents emergency department due to concern for chest pain, shortness of breath, abdominal pain, and diarrhea. Patient states when chest pain first began it was central and nonradiating and felt like prior episodes of reflux. Patient has had increased reflux symptoms recently. He states the pain occasionally goes into his back but did not tonight. He states he felt short of breath, weak, and lightheaded. He did feel nauseated but did not vomit. He states he then developed accompanying abdominal pain and had diarrhea. He states he did not notice any overt blood however there color appeared more orange. Patient states that beginning of the year while in [place] he did have an episode of GI bleed that did require endoscopy and he was diagnosed with stomach ulcers. He states he was placed on several medications for this. Patient does take Plavix additionally due to a history of TIA. He denies fevers, chills, recent URI symptoms. He states he did take his evening medications and by time of arrival here he felt improved. No known sick contacts. He states he also has a history of CHF. PAST MEDICAL HISTORY:See Below PAST SURGICAL HISTORY:See Below FAMILY HISTORY:See Below SOCIAL HISTORY:See Below HOME MEDICATIONS:See Below ALLERGIES:See Below VITALS:See Below PHYSICAL EXAMINATION: GENERAL: alert, well appearing, well nourished, no distress, non-toxic EYE EXAM: normal conjunctiva, PERRL and EOM's grossly intact OROPHARYNX: no exudate, no erythema, lips, buccal mucosa, and tongue normal and mucous membranes are dry NECK: supple, no nuchal rigidity, no adenopathy, non-tender LUNGS: Clear to auscultation. Normal chest wall mechanics, no w/r/r HEART: no murmurs, S1 normal and S2 normal ABDOMEN: abdomen soft, non-tender, normo-active bowel sounds, no masses, no rebound or guarding. BACK: Back is symmetrical on inspection and there is no deformity, no midline tenderness, no CVA tenderness. SKIN: no rashes, petechiae, orbruising UPPER EXTREMITIES: upper extremities are grossly normal. FROM, nml pulses b/l. LOWER EXTREMITIES: No pitting edema. FROM, nml pulses b/l. NEURO EXAM: Normal sensorium, cranial nerves II-XII grossly intact, normal speech, no facial droop,nogross weakness of arms, no gross weakness of legs. Gross sensation intact. No ataxia. Vital Signs: reviewed and remarkable Differential Diagnosis: acute coronary syndrome, pericarditis, pulmonary embolus, aortic dissection, pneumonia, pneumothorax, musculoskeletal pain, shingles, GERD, GI bleed, as well as others were considered MEDICAL DECISION MAKING: THis is an 83 yo male who presents to the ER with chest pain, shortness of breath, and abdominal pain. 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 VS stable and patient afebrile. Labs drawn and sent, IV established, EKG and CXR performed and interpreted at bedside, and patient placed on telemetry. EKG reassuring and troponin negative. Patient had recurrent abdominal pain here and had an episode of vomiting with small flecks of blood noted and heme positive on testing. He was sent for CT a/p additionally. CT reassuring. H/H appear stable compared to prior. MIld elevation of BUN, unclear if related to dehydration or GI bleed. He was started on PPI bolus and drip. Case discussed with the hospitalist for additional evaluation and mgmt. Consultation(s): 0750: Discussed with Dr. Trivedi, [facility] hospitalist team, for additional evaluation and management. ER Treatment Provided: See below Diagnostics Interpreted By Me: -ECG: Normal sinus at 69, normal axis, normal intervals, no acute ST/T wave changes -Cardiac Monitoring: An order was placed for continuous cardiac monitoring. The monitor shows a rate of 70 with normal sinus rhythm. -Laboratory studies: As stated above and show below. -Imaging studies: X-ray Chest: A single view study of the chest was reviewed and was negative for cardiomegaly, focal infiltrate, effusion, pulmonary edema, or wide mediastinum. Triage Nursing Note Reviewed Prior/Outside Records Reviewed - prior GI office visit reviewed from this year where PPI and f/u EGD recommended Critical Care: Critical care of 42 min performed to assess and manage high likelihood of life-threatening GI bleed, involving labs and imaging performed with assessment to evaluate GI bleed diagnosis with frequent reassessment. This time includes bedside time, treatment discussions with patient/family/consultants, documentation time and excludes procedure time. Past Med/Surg History Problem List (Updated 08/02/24 @ 08:58 by Janel Montenegro MD) Chronic gout Hyperlipidemia Parkinsons disease Hypertension, essential Upper GI bleed GI bleed (Acute) Abdominal pain (Acute) Dyspnea (Acute) Chest pain (Acute) History of stroke History of GI bleed Tremor Diaphoresis (Acute) SOB (shortness of breath) (Acute) Coronary artery calcification seen on CAT scan Dysphagia Hypertensive urgency (Acute) Chest pain (Acute) Weakness (Acute) Dizziness (Acute) Cough (Acute) Fall (Acute) COPD (chronic obstructive pulmonary disease) MGUS (monoclonal gammopathy of unknown significance) Asthma Hx TIA/stroke w/o resid Anemia (Acute) Anxiety (Acute) Depression (Acute) Hypertension (Acute) Sleep apnea (Acute) Medical History (Updated 08/02/24 @ 08:58 by Janel Montenegro MD) Migraine Surgical History History of esophagogastroduodenoscopy (EGD) Family History Other Stroke Social History Smoking Status: Former smoker Tobacco Type: Cigarettes Second Hand Exposure: No; Do You Dip or Chew Tobacco: No; Hx Alcohol Use: No Hx Substance Use: No Preferred Language: Vincentian Communication Ability: Effective Technology Trainer Required: No Beliefs That Will Affect Care: Holiness Holiness Beliefs: does not eat Pork marital status: Current Living Situation: Spouse and Family Current Living Situation Comment: , daughter and son current occupational status: retired Other Information That Helps Us Care for You: No Feels Safe at Home: Yes Safety Concerns: Feels Safe At This Time Assistive Devices: Cane and Glasses Allergies Allergies Allergy/AdvReac Type Severity Reaction Status Date / Time amlodipine Allergy Unknown Verified 11/29/23 13:41 pork derived (porcine) Allergy Verified 11/30/23 12:11 Pork/Porcine Containing Allergy Verified 11/30/23 12:11 Products Home Meds Home Medications Medication Instructions Recorded Confirmed carvedilol 6.25 mg tablet 6.25 mg PO BID 05/09/23 11/29/23 clopidogrel 75 mg tablet 75 mg PO DAILY 05/09/23 11/29/23 nitroglycerin 0.4 mg sublingual 0.4 mg sublingual DIRECTED PRN 05/09/23 11/29/23 tablet Chest Pain rosuvastatin 20 mg tablet 20 mg PO HS 05/09/23 11/29/23 vitamin E 268 mg (400 unit) capsule 268 mg PO DAILY 05/09/23 11/29/23 zinc 50 mg tablet 50 mg PO DAILY 05/09/23 11/29/23 albuterol sulfate 90 mcg/actuation 2 puff inhalation Q6H PRN 11/29/23 11/29/23 aerosol inhaler shortness of breath or coughing carbidopa 25 mg-levodopa 100 mg 1 tab PO TID 11/29/23 11/29/23 tablet montelukast 10 mg tablet 10 mg PO HS 11/29/23 11/29/23 quetiapine 25 mg tablet 50 mg PO HS 11/29/23 11/29/23 valsartan 160 mg tablet 160 mg PO QAM 11/29/23 11/29/23 amlodipine 5 mg-valsartan 160 mg 1 tab PO DAILY 08/02/24 tablet bisoprolol fumarate 5 mg tablet 5 mg PO TID 08/02/24 colchicine 0.6 mg tablet 0.6 mg PO QAM 08/02/24 dapagliflozin propanediol 5 mg 5 mg PO QAM 08/02/24 tablet (Farxiga) famotidine 20 mg tablet 20 mg PO QAM 08/02/24 isosorbide mononitrate 30 mg 60 mg PO QAM 08/02/24 tablet,extended release 24 hr memantine 10 mg tablet 10 mg PO BID 08/02/24 omeprazole 40 mg capsule,delayed 40 mg PO QAM 08/02/24 release Previous Rx's Medication Instructions Recorded simethicone 80 mg chewable tablet 80 mg PO Q6H PRN dyspepsia #30 tabs 05/11/23 (Gas Relief (simethicone)) buspirone 5 mg tablet 5 mg PO DAILY #30 tabs 11/30/23 lorazepam 0.5 mg tablet (Ativan) 0.5 mg PO DAILY PRN severe 11/30/23 anxiety #7 tabs Results & Data (ED) Vital Signs Vital Signs - 24 hr 08/02/24 02:28 08/02/24 02:42 08/02/24 03:47 Temperature 36.9 C Temperature Source Oral Pulse Rate 78 67 65 Pulse Rate from SpO2 Sensor Respiratory Rate 18 18 Blood Pressure 168/84 H 157/77 H Blood Pressure Mean 112 103 Pulse Oximetry 96 96 Oxygen Delivery Method Room Air Sepsis Recent Fever Within 48 Hours No Sepsis New/Unexplained Change in Mental Status N/A Sepsis Action Taken by Nursing No Action Required 08/02/24 04:50 08/02/24 05:36 08/02/24 06:21 Temperature 36.8 C Temperature Source Oral Pulse Rate 68 73 Pulse Rate from SpO2 Sensor Respiratory Rate 18 Blood Pressure 158/75 H Blood Pressure Mean 102 Pulse Oximetry 96 Oxygen Delivery Method Sepsis Recent Fever Within 48 Hours Sepsis New/Unexplained Change in Mental Status Sepsis Action Taken by Nursing 08/02/24 06:42 08/02/24 07:00 08/02/24 08:00 Temperature Temperature Source Pulse Rate 65 73 67 Pulse Rate from SpO2 Sensor 67 Respiratory Rate 20 22 21 Blood Pressure 175/84 H 158/68 H 145/72 H Blood Pressure Mean 114 104 96 Pulse Oximetry 95 97 96 Oxygen Delivery Method Sepsis Recent Fever Within 48 Hours Sepsis New/Unexplained Change in Mental Status Sepsis Action Taken by Nursing Laboratory Data 08/02/24 10:22 08/02/24 10:22 Lab Results 08/02/24 08/02/24 08/02/24 Range/Units 02:55 05:34 06:02 WBC 10.36 (4.8-10.8) K/ul RBC 5.11 (4.70-6.10) M/uL Hgb 15.7 (14.0-18.0) g/dl Hct 46.9 (42.0-52.0) % MCV 91.8 (80.0-100.0) fL MCH 30.7 (25.0-34.0) pg MCHC 33.5 (32.0-36.0) g/dL RDW Std Deviation 54.3 H (36.4-46.3) fL RDW Coeff of Claire 15.9 H (11.5-14.5) % Plt Count 198 (130-400) K/uL MPV 10.0 (9.4-12.4) fL Immature Gran % (Auto) 0.3 % Neut % (Auto) 87.0 % Lymph % (Auto) 5.5 % Hardin % (Auto) 5.5 % Eos % (Auto) 1.4 % Baso % (Auto) 0.3 % Neut # (Auto) 9.02 H (1.40-6.50) K/uL Lymph # (Auto) 0.57 L (1.20-3.40) K/uL Hardin # (Auto) 0.57 (0.11-0.59) K/uL Eos # (Auto) 0.14 (0.00-0.50) K/uL Baso # (Auto) 0.03 (0.00-0.20) K/uL Immature Gran # (Auto) 0.03 (0.01-0.20) K/uL PT 11.1 (9.0-12.0) Seconds INR 1.0 (0.9-1.1) Sodium 139 (136-145) mmol/L Potassium 3.8 (3.5-5.1) mmol/L Chloride 103 (98-107) mmol/L Carbon Dioxide 28 (21-32) mmol/L Anion Gap 8 (3-11) BUN 33 H (6-23) mg/dl Creatinine 1.12 (0.6-1.4) mg/dl Est Cr Clr Drug Dosing 54.2 ml/min eGFR 65.59 BUN/Creatinine Ratio 29.5 H (10-20) Glucose 123 H (70-99(Fasting)) mg/dl Calcium 9.7 (8.6-10.3) mg/dl Magnesium 1.8 (1.7-2.4) mg/dl Total Bilirubin 1.6 H (0.2-1.0) mg/dl AST 32 (13-39) U/L ALT 23 (7-52) U/L Alkaline Phosphatase 68 (34-104) U/L Troponin I High Sens 5.0 (0-20) pg/ml B-Natriuretic Peptide 44 (0-100) pg/ml Total Protein 8.0 (6.0-8.3) gm/dl Albumin 4.7 (3.4-5.0) gm/dl Globulin 3.3 (2.5-4.0) gm/dl Albumin/Globulin Ratio 1.4 (0.9-2) Lipase 23 (11-82) U/L TSH 0.511 (0.300-4.500) uIu/ml Urine Color Yellow Urine Appearance Clear (Clear) Urine pH 5.0 (4.5-7.5) Ur Specific [place] > 1.045 H (1.000-1.030) Urine Protein Trace H (Negative) Urine Glucose (UA) Negative (Negative) Urine Ketones Trace H (Negative) Urine Blood Negative (Negative) Urine Nitrite Negative (Negative) Urine Bilirubin Negative (Negative) Urine Urobilinogen Negative (Negative) Ur Leukocyte Esterase Negative (Negative) Urine WBC (Auto) 0-5 (0-5) /hpf Urine RBC (Auto) 0-2 (0-2) /hpf U Hyaline Cast (Auto) 0-2 (0-2) /lpf U Epithel Cells (Auto) 0-2 (0-2) /hpf Urine Bacteria (Auto) None Seen (None Seen) Gastric Fluid pH 3 Gastric Occult Blood Positive A (Negative) 08/02/24 Range/Units 06:05 WBC (4.8-10.8) K/ul RBC (4.70-6.10) M/uL Hgb (14.0-18.0) g/dl Hct (42.0-52.0) % MCV (80.0-100.0) fL MCH (25.0-34.0) pg MCHC (32.0-36.0) g/dL RDW Std Deviation (36.4-46.3) fL RDW Coeff of Claire (11.5-14.5) % Plt Count (130-400) K/uL MPV (9.4-12.4) fL Immature Gran % (Auto) % Neut % (Auto) % Lymph % (Auto) % Hardin % (Auto) % Eos % (Auto) % Baso % (Auto) % Neut # (Auto) (1.40-6.50) K/uL Lymph # (Auto) (1.20-3.40) K/uL Hardin # (Auto) (0.11-0.59) K/uL Eos # (Auto) (0.00-0.50) K/uL Baso # (Auto) (0.00-0.20) K/uL Immature Gran # (Auto) (0.01-0.20) K/uL PT (9.0-12.0) Seconds INR (0.9-1.1) Sodium (136-145) mmol/L Potassium (3.5-5.1) mmol/L Chloride (98-107) mmol/L Carbon Dioxide (21-32) mmol/L Anion Gap (3-11) BUN (6-23) mg/dl Creatinine (0.6-1.4) mg/dl Est Cr Clr Drug Dosing ml/min eGFR BUN/Creatinine Ratio (10-20) Glucose (70-99(Fasting)) mg/dl Calcium (8.6-10.3) mg/dl Magnesium (1.7-2.4) mg/dl Total Bilirubin (0.2-1.0) mg/dl AST (13-39) U/L ALT (7-52) U/L Alkaline Phosphatase (34-104) U/L Troponin I High Sens 4.5 (0-20) pg/ml B-Natriuretic Peptide (0-100) pg/ml Total Protein (6.0-8.3) gm/dl Albumin (3.4-5.0) gm/dl Globulin (2.5-4.0) gm/dl Albumin/Globulin Ratio (0.9-2) Lipase (11-82) U/L TSH (0.300-4.500) uIu/ml Urine Color Urine Appearance (Clear) Urine pH (4.5-7.5) Ur Specific [place] (1.000-1.030) Urine Protein (Negative) Urine Glucose (UA) (Negative) Urine Ketones (Negative) Urine Blood (Negative) Urine Nitrite (Negative) Urine Bilirubin (Negative) Urine Urobilinogen (Negative) Ur Leukocyte Esterase (Negative) Urine WBC (Auto) (0-5) /hpf Urine RBC (Auto) (0-2) /hpf U Hyaline Cast (Auto) (0-2) /lpf U Epithel Cells (Auto) (0-2) /hpf Urine Bacteria (Auto) (None Seen) Gastric Fluid pH Gastric Occult Blood (Negative) Administered Medications Amlodipine Besylate (Amlodipine Besylate 5 Mg Tab) [facility] [place] Stop: 09/01/24 08:59 Last Admin: 08/02/24 10:39 Dose: 5 mg Documented By: SAUL Bisoprolol Fumarate (Bisoprolol Fumarate 5 Mg Tab) 5 mg PO TID [facility] Stop: 09/01/24 08:59 Last Admin: 08/02/24 20:24 Dose: 5 mg Documented By: Admin: 08/02/24 14:12 Dose: 5 mg Documented By: Admin: 08/02/24 11:16 Dose: 5 mg Documented By: SAUL Buspirone HCl (Buspirone 5 Mg Tab) 5 mg PO DAILY [facility] Stop: 09/01/24 08:59 Last Admin: 08/02/24 10:39 Dose: 5 mg Documented By: SAUL Carbidopa/Levodopa (Carbidopa/Levodopa 25/100mg Tab) 1 tab PO TID [facility] Stop: 09/01/24 08:59 Last Admin: 08/02/24 20:23 Dose: 1 tab Documented By: Admin: 08/02/24 14:12 Dose: 1 tab Documented By: Admin: 08/02/24 10:39 Dose: 1 tab Documented By: SAUL Colchicine (Colchicine 0.6 Mg Tab) 0.6 mg [facility] [place] Stop: 09/01/24 08:59 Last Admin: 08/02/24 11:16 Dose: 0.6 mg Documented By: SAUL Pantoprazole Sodium (Protonix) 40 mg in 10 mls @ 5 mls/min IV BID [facility] Stop: 09/01/24 20:59 Last Admin: 08/02/24 20:24 Dose: 5 mls/min Documented By: JODI Isosorbide Mononitrate (Isosorbide [place] Extended Rel 30 Mg Tabcr) 30 mg PO QAM [facility] Stop: 09/01/24 08:59 Last Admin: 08/02/24 10:39 Dose: 30 mg Documented By: SAUL Memantine (Memantine Hcl 10 Mg Tab) 10 mg PO QAM [facility] Stop: 09/01/24 08:59 Last Admin: 08/02/24 10:39 Dose: 10 mg Documented By: SAUL Montelukast Sodium (Montelukast Sodium 10 Mg Tablet) 10 mg PO HS [facility] Stop: 09/01/24 20:59 Last Admin: 08/02/24 20:24 Dose: 10 mg Documented By: CF Quetiapine Fumarate (Quetiapine Fumarate 25 Mg Tablet) 50 mg PO HS [facility] Stop: 09/01/24 20:59 Last Admin: 08/02/24 20:23 Dose: 50 mg Documented By: CF Rosuvastatin Calcium (Rosuvastatin Calcium 20 Mg Tab) 20 mg PO QPM [facility] Stop: 09/01/24 20:59 Last Admin: 08/02/24 20:24 Dose: 20 mg Documented By: CF Valsartan (Valsartan 80 Mg Tab) 160 mg PO QAM [facility] Stop: 09/01/24 08:59 Last Admin: 08/02/24 10:39 Dose: 160 mg Documented By: KTS Discontinued Medications Al Hydrox/Mg Hydrox/Simethicone (Aluminum/Magnesium Susp 30 Ml Udc) 15 ml PO NOW STA Stop: 08/02/24 05:44 Last Admin: 08/02/24 05:50 Dose: 15 ml Documented By: LAF Sodium Chloride (Nss) 1,000 mls @ 125 mls/hr IV .Q8H [facility] Stop: 08/03/24 02:59 Last Infusion: 08/02/24 10:46 Dose: Infused Documented By: Admin: 08/02/24 03:14 Dose: 125 mls/hr Documented By: LAF Pantoprazole Sodium (Protonix) 40 mg in 10 mls @ 5 mls/min IV NOW ONE Stop: 08/02/24 02:56 Last Admin: 08/02/24 03:12 Dose: 5 mls/min Documented By: LAF Pantoprazole Sodium (Protonix) 40 mg in 10 mls @ 5 mls/min IV NOW ONE Stop: 08/02/24 07:16 Last Admin: 08/02/24 09:04 Dose: 5 mls/min Documented By: AMS Pantoprazole Sodium 40 mg/ (Dextrose) 100 mls @ 20 mls/hr IV Q5H [facility] Stop: 09/01/24 07:14 Last Infusion: 08/02/24 10:46 Dose: Infused Documented By: Admin: 08/02/24 09:05 Dose: 8 mg/hr, 20 mls/hr Documented By: AMS Ioversol (Optiray 320 100ml) 94 ml IV ONCE ONE Stop: 08/02/24 04:22 Last Admin: 08/02/24 04:21 Dose: 94 ml Documented By: PAULA Ondansetron HCl (Ondansetron Inj 2 Mg/Ml 2 Ml Vial) 4 mg IV NOW STA Stop: 08/02/24 05:58 Last Admin: 08/02/24 06:08 Dose: 4 mg Documented By: [facility] Imaging Data Radiologist's Impression: Chest X-Ray 08/02/24 02:55 EXAM: XR chest 1V portable CLINICAL HISTORY: CHEST PAIN, SOB. TECHNIQUE: An X-ray image of the chest is obtained in AP projection. COMPARISON: No prior studies are available for comparison. FINDINGS: Pulmonary Parenchyma: Partial obliteration of the left costophrenic angle, suggestive of small pleural effusion/thickening. Lungs are clear bilaterally. No evidence of consolidation, collapse, or focal opacities. No pulmonary nodules are identified. No evidence of right-sided pleural effusion or pleural thickening. Heart and Mediastinum: Heart size and shape are normal. No mediastinal widening or masses. No hilar or mediastinal lymphadenopathy. Bony Thorax: The bony thorax appears intact without fractures or deformities. Soft Tissues: Soft tissues overlying the chest wall are unremarkable. IMPRESSION: Partial obliteration of the left costophrenic angle, suggestive of small pleural thickening. As correlated with visualized chest in today's CT abdomen. Electronically signed by Chris Bueno 08-02-2024 05:45 AM Abdomen/Pelvis CT 08/02/24 04:05 EXAM: CT abd pelvis IV con only CLINICAL HISTORY: Abdomen pain, diarrhea, hx GI bleeding. TECHNIQUE: Contrast-enhanced CT of the abdomen and pelvis was performed, with the following protocol: axial images with, and reconstructed coronal and sagittal images. 94 ml optiray 320 intravenous contrast was administered. One of the following dose reduction techniques was utilized for this exam: Automated exposure control, adjustment of the mA and/or kV according to patient size, and use of iterative reconstruction. COMPARISON: None. FINDINGS: Visualized lower chest: Small hiatal hernia. Abdomen: Liver: Normal in size, shape, and density. No focal lesions, cysts, or masses were identified. Hepatic vasculature and biliary ducts are unremarkable. Gallbladder and Biliary System: The gallbladder is normal in size and shape. No wall thickening, pericholecystic fluid, or gallstones were identified. The common bile duct is normal in caliber, without dilation. Pancreas: Pancreatic head, body, and tail are visualized and appear normal in size and density. No pancreatic masses or calcifications were noted. The pancreatic duct is not dilated. Spleen: Normal in size, shape, and density. No splenic lesions or masses were identified. Kidneys and Adrenal Glands: Fullness of renal pelvises bilaterally. Multiple bilateral hypodense renal cysts. The largest is seen in the upper pole of the left kidney, measuring about 25 x 23 mm. Both kidneys are normal in size, shape, and position. Cortical thickness is within normal limits. No renal calculi or hydronephrosis. Right adrenal focal thickening measures about 12 x 9 mm. Left adrenal focal thickening, measuring about 18 x 14 cm. Atherosclerotic changes of the abdominal aorta and major branches. Pelvis: Urinary Bladder: Unremarkable. Prostate: Unremarkable. Rectum and Sigmoid Colon: Normal wall thickness and no evidence of mass. Peritoneal and Retroperitoneal Structures: No free fluid or abnormal fluid collections were identified within the abdomen or pelvis. No lymphadenopathy was noted. Bowel: Prominent caliber of the visualized small bowel loops. Measuring up to 2.7 cm in maximum caliber. No evidence of bowel obstruction. The appendix is unremarkable. No signs of inflammatory changes. Bones and Soft Tissues: Spots of calcification are seen in the abdominal wall in the pelvic region. Please correlate with prior intervention history. Right-sided hydrocele measuring about 7.8 x 6 cm. Spots of calcification seen at the penile root could be Peyronie disease. Degenerative changes of the visualized spine. Intervertebral disc vacuum phenomena. First-degree anterolisthesis of L4 over L5 vertebra. Small air foci seen in the spinal canal measured about 3 x 8 mm at the level of the L1. No fractures or abnormal masses were identified. IMPRESSION: 1. A prominent caliber of the small bowel loops with no definite zone of transitional Follow-up is advised. 2. Bulky adrenal glands. 3. Multiple bilateral small hypodense renal cysts. 4. Right-sided hydrocele. Need ultrasound correlation. Electronically signed by Chris Bueno 08-02-2024 06:00 AM Discharge Plan Visit Data Chief Complaint: Cardiac Assessment Stated Complaint: CHEST PAIN, SOB, DIARRHEA ED Provider: Dahiana Reardon Discharge Problem: Chest pain, Dyspnea, Abdominal pain, GI bleed Patient Disposition: Admitted As Inpatient Discharge Instructions Interventions: ED Discharge Assessment Last Done: 08/02/24 09:50
[2024-08-02 03:30] LABS: Albumin Globulin Ratio 1.4 (0.9-2); Albumin Level 4.7 gm/dl (3.4-5.0); BUN Creatinine Ratio 29.5 (10-20); Bilirubin,Total 1.6 mg/dl (0.2-1.0); Calcium 9.7 mg/dl (8.6-10.3); Creatinine Clr Calc Pharmacy 54.2 ml/min; Globulin 3.3 gm/dl (2.5-4.0); Magnesium 1.8 mg/dl (1.7-2.4); Potassium 3.8 mmol/L (3.5-5.1)
[2024-08-02 03:35] LABS: Prothrombin Time 11.1 Seconds (9.0-12.0)
[2024-08-02 03:45] LABS: Thyroid Stimulating Hormone 0.511 uIu/ml (0.300-4.500)
[2024-08-02] MEDS: OPTIRAY 320 100ml IV ONE (04:21)
--- NOTE | 2024-08-02 05:46 | XRay Report ---
EXAM: XR chest 1V portable CLINICAL HISTORY: CHEST PAIN, SOB. TECHNIQUE: An X-ray image of the chest is obtained in AP projection. COMPARISON: No prior studies are available for comparison. FINDINGS: Pulmonary Parenchyma: Partial obliteration of the left costophrenic angle, suggestive of small pleural effusion/thickening. Lungs are clear bilaterally. No evidence of consolidation, collapse, or focal opacities. No pulmonary nodules are identified. No evidence of right-sided pleural effusion or pleural thickening. Heart and Mediastinum: Heart size and shape are normal. No mediastinal widening or masses. No hilar or mediastinal lymphadenopathy. Bony Thorax: The bony thorax appears intact without fractures or deformities. Soft Tissues: Soft tissues overlying the chest wall are unremarkable. IMPRESSION: Partial obliteration of the left costophrenic angle, suggestive of small pleural thickening. As correlated with visualized chest in today's CT abdomen. Electronically signed by Chris Bueno 08-02-2024 05:45 AM
[2024-08-02] MEDS: ALUMINUM/MAGNESIUM SUSP 30 ML UDC PO STA (05:50)
--- NOTE | 2024-08-02 06:00 | CT Scan Report ---
EXAM: CT abd pelvis IV con only CLINICAL HISTORY: Abdomen pain, diarrhea, hx GI bleeding. TECHNIQUE: Contrast-enhanced CT of the abdomen and pelvis was performed, with the following protocol: axial images with, and reconstructed coronal and sagittal images. 94 ml optiray 320 intravenous contrast was administered. One of the following dose reduction techniques was utilized for this exam: Automated exposure control, adjustment of the mA and/or kV according to patient size, and use of iterative reconstruction. COMPARISON: None. FINDINGS: Visualized lower chest: Small hiatal hernia. Abdomen: Liver: Normal in size, shape, and density. No focal lesions, cysts, or masses were identified. Hepatic vasculature and biliary ducts are unremarkable. Gallbladder and Biliary System: The gallbladder is normal in size and shape. No wall thickening, pericholecystic fluid, or gallstones were identified. The common bile duct is normal in caliber, without dilation. Pancreas: Pancreatic head, body, and tail are visualized and appear normal in size and density. No pancreatic masses or calcifications were noted. The pancreatic duct is not dilated. Spleen: Normal in size, shape, and density. No splenic lesions or masses were identified. Kidneys and Adrenal Glands: Fullness of renal pelvises bilaterally. Multiple bilateral hypodense renal cysts. The largest is seen in the upper pole of the left kidney, measuring about 25 x 23 mm. Both kidneys are normal in size, shape, and position. Cortical thickness is within normal limits. No renal calculi or hydronephrosis. Right adrenal focal thickening measures about 12 x 9 mm. Left adrenal focal thickening, measuring about 18 x 14 cm. Atherosclerotic changes of the abdominal aorta and major branches. Pelvis: Urinary Bladder: Unremarkable. Prostate: Unremarkable. Rectum and Sigmoid Colon: Normal wall thickness and no evidence of mass. Peritoneal and Retroperitoneal Structures: No free fluid or abnormal fluid collections were identified within the abdomen or pelvis. No lymphadenopathy was noted. Bowel: Prominent caliber of the visualized small bowel loops. Measuring up to 2.7 cm in maximum caliber. No evidence of bowel obstruction. The appendix is unremarkable. No signs of inflammatory changes. Bones and Soft Tissues: Spots of calcification are seen in the abdominal wall in the pelvic region. Please correlate with prior intervention history. Right-sided hydrocele measuring about 7.8 x 6 cm. Spots of calcification seen at the penile root could be Peyronie disease. Degenerative changes of the visualized spine. Intervertebral disc vacuum phenomena. First-degree anterolisthesis of L4 over L5 vertebra. Small air foci seen in the spinal canal measured about 3 x 8 mm at the level of the L1. No fractures or abnormal masses were identified. IMPRESSION: 1. A prominent caliber of the small bowel loops with no definite zone of transitional Follow-up is advised. 2. Bulky adrenal glands. 3. Multiple bilateral small hypodense renal cysts. 4. Right-sided hydrocele. Need ultrasound correlation. Electronically signed by Chris Bueno 08-02-2024 06:00 AM
[2024-08-02 06:07] LABS: Appearance Urine Clear (Clear); Bacteria Urine Automated None Seen (None Seen); Bilirubin Urine Negative (Negative); Blood Urine Negative (Negative); Cast Urine Automated 0-2 /lpf (0-2); Color Urine Yellow; Epithelial Cell Urine Auto 0-2 /hpf (0-2); Glucose Urine UA Negative (Negative); Ketones Urine Trace (Negative); Leukocyte Esterase Urine Negative (Negative); Nitrite Urine Negative (Negative); Protein Urine Trace (Negative); RBC Urine Automated 0-2 /hpf (0-2); Specific Gravity Urine > 1.045 (1.000-1.030); Urobilinogen Urine Negative (Negative); WBC Urine Automated 0-5 /hpf (0-5)
[2024-08-02] MEDS: ONDANSETRON INJ 2 MG/ML 2 ML VIAL IV STA (06:08)
[2024-08-02 06:24] LABS: Gastric Occult Blood Positive (Negative); pH Gastric Fluid 3
[2024-08-02] MEDS ORDERED: hydrALAZINE HCL 20 MG/ML VIAL IV PRN (08:48)
--- NOTE | 2024-08-02 08:55 | History & Physical Report ---
Date of Service August 02, 2024 Assessment & Plan (1) Upper GI bleed: Plan: Patient is to be admitted, would manage with IV Protonix 40 mg IV twice daily, monitor H&H and transfuse as needed, hemodynamically he is stable, gastroenterology was notified and I spoke with the answering service however the person I spoke to was unaware of the name of the absence management consultant for the day but they are aware. N.p.o. postmidnight for possible need for EGD tomorrow. (2) Hypertension, essential: Plan: Blood pressure is a little elevated which is likely because of not taking his home medications in the morning, to the best of my knowledge after reviewing his medications, I have restarted him on Imdur 30 mg daily, amlodipine 5 mg daily, valsartan 160 mg daily, bisoprolol 5 mg 3 times daily and I have added hydralazine 10 mg IV every 6 hours for SBP more than 160 mmHg. Will reconcile his medication and adjust as we go. (3) Parkinsons disease: Plan: Resume Sinemet 25/100 mg 1 tablet 3 times daily. Patient probably has some element of dementia for which he is on memantine, buspirone and quetiapine at night which will be continued. (4) Hyperlipidemia: Plan: Continue with Crestor 20 mg daily. (5) Chronic gout: Plan: Resume home dose of colchicine 0.6 mg daily Plan Patient will be admitted, will run IV PPI twice daily, monitor H&H and transfuse as needed, gastroenterology was notified about a consult, n.p.o. at midnight for possible need for EGD tomorrow History of Present Illness Chief Complaint: Tiredness, short of breath and abdominal pain Primary Care Provider: Julianna Abel MD Patient is a 83-year-old gentleman with prior history of hypertension, prior stroke, multiple myeloma, Parkinson disease, coronary artery disease who started developing some abdominal discomfort which was associated with shortness of breath prior to this admission, reportedly he took nitroglycerin and that helped with his pain and shortness of breath. Here in the emergency room I was told that he had an episode of emesis which appeared to be positive for occult blood. Patient did have prior history of peptic ulcer disease but currently is on no treatment apparently. Initial H&H were stable, troponin was negative, EKG was unremarkable showing normal sinus rhythm, normal axis deviation, no ST-T changes. Patient was seen and examined, so far clinically stable, will be admitted for further evaluation and possible endoscopy if needed, patient will be managed with Protonix IV twice daily. Allergies Allergy/AdvReac Type Severity Reaction Status Date / Time amlodipine Allergy Unknown Verified 11/29/23 13:41 pork derived (porcine) Allergy Verified 11/30/23 12:11 Pork/Porcine Containing Allergy Verified 11/30/23 12:11 Products Home Medications Medication Instructions Recorded Confirmed Type carvedilol 6.25 mg tablet 6.25 mg PO BID 05/09/23 11/29/23 History clopidogrel 75 mg tablet 75 mg PO DAILY 05/09/23 11/29/23 History nitroglycerin 0.4 mg sublingual 0.4 mg sublingual DIRECTED PRN 05/09/23 11/29/23 History tablet Chest Pain rosuvastatin 20 mg tablet 20 mg PO HS 05/09/23 11/29/23 History vitamin E 268 mg (400 unit) capsule 268 mg PO DAILY 05/09/23 11/29/23 History zinc 50 mg tablet 50 mg PO DAILY 05/09/23 11/29/23 History simethicone 80 mg chewable tablet 80 mg PO Q6H PRN dyspepsia #30 tabs 05/11/23 11/29/23 Rx (Gas Relief (simethicone)) albuterol sulfate 90 mcg/actuation 2 puff inhalation Q6H PRN 11/29/23 11/29/23 History aerosol inhaler shortness of breath or coughing carbidopa 25 mg-levodopa 100 mg 1 tab PO TID 11/29/23 11/29/23 History tablet montelukast 10 mg tablet 10 mg PO HS 11/29/23 11/29/23 History quetiapine 25 mg tablet 50 mg PO HS 11/29/23 11/29/23 History valsartan 160 mg tablet 160 mg PO QAM 11/29/23 11/29/23 History buspirone 5 mg tablet 5 mg PO DAILY #30 tabs 11/30/23 Rx lorazepam 0.5 mg tablet (Ativan) 0.5 mg PO DAILY PRN severe 11/30/23 Rx anxiety #7 tabs amlodipine 5 mg-valsartan 160 mg 1 tab PO DAILY 08/02/24 History tablet bisoprolol fumarate 5 mg tablet 5 mg PO TID 08/02/24 History colchicine 0.6 mg tablet 0.6 mg PO QAM 08/02/24 History dapagliflozin propanediol 5 mg 5 mg PO QAM 08/02/24 History tablet (Farxiga) famotidine 20 mg tablet 20 mg PO QAM 08/02/24 History isosorbide mononitrate 30 mg 60 mg PO QAM 08/02/24 History tablet,extended release 24 hr memantine 10 mg tablet 10 mg PO BID 08/02/24 History omeprazole 40 mg capsule,delayed 40 mg PO QAM 08/02/24 History release Past Med/Surg History Problem List (Updated 08/02/24 @ 08:58 by Janel Montenegro MD) Chronic gout Hyperlipidemia Parkinsons disease Hypertension, essential Upper GI bleed GI bleed (Acute) Abdominal pain (Acute) Dyspnea (Acute) Chest pain (Acute) History of stroke History of GI bleed Tremor Diaphoresis (Acute) SOB (shortness of breath) (Acute) Coronary artery calcification seen on CAT scan Dysphagia Hypertensive urgency (Acute) Chest pain (Acute) Weakness (Acute) Dizziness (Acute) Cough (Acute) Fall (Acute) COPD (chronic obstructive pulmonary disease) MGUS (monoclonal gammopathy of unknown significance) Asthma Hx TIA/stroke w/o resid Anemia (Acute) Anxiety (Acute) Depression (Acute) Hypertension (Acute) Sleep apnea (Acute) Medical History (Updated 08/02/24 @ 08:58 by Janel Montenegro MD) Migraine Surgical History History of esophagogastroduodenoscopy (EGD) Family History Other Stroke Social History Smoking Status: Former smoker Tobacco Type: Cigarettes Second Hand Exposure: No; Do You Dip or Chew Tobacco: No; Hx Alcohol Use: No Hx Substance Use: No Preferred Language: Greenlandic Communication Ability: Effective [employer] Developer Required: No Beliefs That Will Affect Care: Mu-Ism Mu-Ism Beliefs: does not eat Pork marital status: Current Living Situation: Spouse and Family Current Living Situation Comment: , daughter and son current occupational status: retired Feels Safe at Home: Yes Assistive Devices: Cane Review of Systems Review of Systems: Constitutional: No Weight Change, No Fever, No Chills, No Night Sweats, No Fatigue, No Malaise ENT/Mouth: No Hearing Changes, No Ear Pain, No Nasal Congestion, No Sinus Pain, No Hoarseness, No sore throat, No Rhinorrhea, No Swallowing Difficulty Eyes: No Eye Pain, No Swelling, No Redness, No Foreign Body, No Discharge, No Vision Changes Cardiovascular: No Chest Pain, positive for transient shortness of breath, no PND, No Dyspnea on Exertion, No Orthopnea, No Claudication, No Edema, No Palpitations Respiratory: No Cough, No Sputum, No Wheezing, No Smoke Exposure, No Dyspnea Gastrointestinal: Positive for hematemesis, and abdominal pain Genitourinary: No Dysmenorrhea, No DUB, No Dyspareunia, No Dysuria, No Urinary Frequency, No Hematuria, No Urinary Incontinence, No Urgency, No Flank Pain, No Urinary Flow Changes, No Hesitancy Musculoskeletal: No Arthralgias, No Myalgias, No Joint Swelling, No Joint Stiffness, No Back Pain, No Neck Pain, No Injury History Skin: No Skin Lesions, No Pruritis, No Hair Changes, No Breast/Skin Changes, No Nipple Discharge Neuro: No Weakness, No Numbness, No Paresthesias, No Loss of Consciousness, No Syncope, No Dizziness, No Headache, No Coordination Changes, No Recent Falls Psych: No Anxiety/Panic, No Depression, No Insomnia, No Personality Changes, No Delusions, No Rumination, No SI/HI/AH/VH, No Social Issues, No Memory Changes, No Violence/Abuse Hx., No Eating Concerns Heme/Lymph: No Bruising, No Bleeding, No Transfusions History, No Lymphadenopathy Endocrine: No Polyuria, No Polydipsia, No Temperature Intolerance Physical Exam Physical Exam: VITALS: Reviewed. WEIGHT/BMI reviewed. GEN: Healthy appearing, well-developed, NAD. PSYCH: Good Judgment. AOx3. Normal memory, mood, and affect. HEENT -Head: NC/AT; -Eyes: PERRL, EOMI. No discharge or redn ess; -Ears: External ears are normal. Normal TMs. -Nose: Normal nares. -Mouth and throat: MMM. Normal gums, muc pedro, palate,. Good dentition. NECK: Supple, with no masses. CV: RRR, no m/r/g. LUNGS: CTAB, no w/r/c. ABD: Soft, NT/ND, NBS, no masses or organomegaly. : N/A SKIN: Warm, well perfused. No skin rashes or abnormal lesions. MSK: No deformities, Normal gait. EXT: No clubbing, cyanosis, or edema. NEURO: Ambulating with no limitations. Normal muscle strength and tone. No focal deficits. Results & Data Results & Data Vital Signs (Past 12 Hours) Vital Signs Temp Pulse Resp BP Pulse Ox O2 Del Method 08/02/24 06:42 65 20 175/84 H 95 08/02/24 06:21 73 08/02/24 05:36 68 18 158/75 H 96 08/02/24 04:50 36.8 C 08/02/24 03:47 65 18 157/77 H 96 08/02/24 02:42 67 08/02/24 02:28 36.9 C 78 18 168/84 H 96 Room Air Laboratory Results Laboratory Results - last 24 hr 08/02/24 08/02/24 08/02/24 02:55 05:34 06:02 WBC 10.36 RBC 5.11 Hgb 15.7 Hct 46.9 MCV 91.8 MCH 30.7 MCHC 33.5 RDW Std Deviation 54.3 H RDW Coeff of Claire 15.9 H Plt Count 198 MPV 10.0 Immature Gran % (Auto) 0.3 Neut % (Auto) 87.0 Lymph % (Auto) 5.5 [place] % (Auto) 5.5 Eos % (Auto) 1.4 Baso % (Auto) 0.3 Neut # (Auto) 9.02 H Lymph # (Auto) 0.57 L [place] # (Auto) 0.57 Eos # (Auto) 0.14 Baso # (Auto) 0.03 Immature Gran # (Auto) 0.03 PT 11.1 INR 1.0 Sodium 139 Potassium 3.8 Chloride 103 Carbon Dioxide 28 Anion Gap 8 BUN 33 H Creatinine 1.12 Est Cr Clr Drug Dosing 54.2 eGFR 65.59 BUN/Creatinine Ratio 29.5 H Glucose 123 H Calcium 9.7 Magnesium 1.8 Total Bilirubin 1.6 H AST 32 ALT 23 Alkaline Phosphatase 68 Troponin I High Sens 5.0 B-Natriuretic Peptide 44 Total Protein 8.0 Albumin 4.7 Globulin 3.3 Albumin/Globulin Ratio 1.4 Lipase 23 TSH 0.511 Urine Color Yellow Urine Appearance Clear Urine pH 5.0 Ur Specific [place] > 1.045 H Urine Protein Trace H Urine Glucose (UA) Negative Urine Ketones Trace H Urine Blood Negative Urine Nitrite Negative Urine Bilirubin Negative Urine Urobilinogen Negative Ur Leukocyte Esterase Negative Urine WBC (Auto) 0-5 Urine RBC (Auto) 0-2 U Hyaline Cast (Auto) 0-2 U Epithel Cells (Auto) 0-2 Urine Bacteria (Auto) None Seen Gastric Fluid pH 3 Gastric Occult Blood Positive A 08/02/24 06:05 WBC RBC Hgb Hct MCV MCH MCHC RDW Std Deviation RDW Coeff of Claire Plt Count MPV Immature Gran % (Auto) Neut % (Auto) Lymph % (Auto) [place] % (Auto) Eos % (Auto) Baso % (Auto) Neut # (Auto) Lymph # (Auto) [place] # (Auto) Eos # (Auto) Baso # (Auto) Immature Gran # (Auto) PT INR Sodium Potassium Chloride Carbon Dioxide Anion Gap BUN Creatinine Est Cr Clr Drug Dosing eGFR BUN/Creatinine Ratio Glucose Calcium Magnesium Total Bilirubin AST ALT Alkaline Phosphatase Troponin I High Sens 4.5 B-Natriuretic Peptide Total Protein Albumin Globulin Albumin/Globulin Ratio Lipase TSH Urine Color Urine Appearance Urine pH Ur Specific [place] Urine Protein Urine Glucose (UA) Urine Ketones Urine Blood Urine Nitrite Urine Bilirubin Urine Urobilinogen Ur Leukocyte Esterase Urine WBC (Auto) Urine RBC (Auto) U Hyaline Cast (Auto) U Epithel Cells (Auto) Urine Bacteria (Auto) Gastric Fluid pH Gastric Occult Blood Diagnostic Findings Chest X-Ray 08/02/24 02:55 EXAM: XR chest 1V portable CLINICAL HISTORY: CHEST PAIN, SOB. TECHNIQUE: An X-ray image of the chest is obtained in AP projection. COMPARISON: No prior studies are available for comparison. FINDINGS: Pulmonary Parenchyma: Partial obliteration of the left costophrenic angle, suggestive of small pleural effusion/thickening. Lungs are clear bilaterally. No evidence of consolidation, collapse, or focal opacities. No pulmonary nodules are identified. No evidence of right-sided pleural effusion or pleural thickening. Heart and Mediastinum: Heart size and shape are normal. No mediastinal widening or masses. No hilar or mediastinal lymphadenopathy. Bony Thorax: The bony thorax appears intact without fractures or deformities. Soft Tissues: Soft tissues overlying the chest wall are unremarkable. IMPRESSION: Partial obliteration of the left costophrenic angle, suggestive of small pleural thickening. As correlated with visualized chest in today's CT abdomen. Electronically signed by Chris Bueno 08-02-2024 05:45 AM Abdomen/Pelvis CT 08/02/24 04:05 EXAM: CT abd pelvis IV con only CLINICAL HISTORY: Abdomen pain, diarrhea, hx GI bleeding. TECHNIQUE: Contrast-enhanced CT of the abdomen and pelvis was performed, with the following protocol: axial images with, and reconstructed coronal and sagittal images. 94 ml optiray 320 intravenous contrast was administered. One of the following dose reduction techniques was utilized for this exam: Automated exposure control, adjustment of the mA and/or kV according to patient size, and use of iterative reconstruction. COMPARISON: None. FINDINGS: Visualized lower chest: Small hiatal hernia. Abdomen: Liver: Normal in size, shape, and density. No focal lesions, cysts, or masses were identified. Hepatic vasculature and biliary ducts are unremarkable. Gallbladder and Biliary System: The gallbladder is normal in size and shape. No wall thickening, pericholecystic fluid, or gallstones were identified. The common bile duct is normal in caliber, without dilation. Pancreas: Pancreatic head, body, and tail are visualized and appear normal in size and density. No pancreatic masses or calcifications were noted. The pancreatic duct is not dilated. Spleen: Normal in size, shape, and density. No splenic lesions or masses were identified. Kidneys and Adrenal Glands: Fullness of renal pelvises bilaterally. Multiple bilateral hypodense renal cysts. The largest is seen in the upper pole of the left kidney, measuring about 25 x 23 mm. Both kidneys are normal in size, shape, and position. Cortical thickness is within normal limits. No renal calculi or hydronephrosis. Right adrenal focal thickening measures about 12 x 9 mm. Left adrenal focal thickening, measuring about 18 x 14 cm. Atherosclerotic changes of the abdominal aorta and major branches. Pelvis: Urinary Bladder: Unremarkable. Prostate: Unremarkable. Rectum and Sigmoid Colon: Normal wall thickness and no evidence of mass. Peritoneal and Retroperitoneal Structures: No free fluid or abnormal fluid collections were identified within the abdomen or pelvis. No lymphadenopathy was noted. Bowel: Prominent caliber of the visualized small bowel loops. Measuring up to 2.7 cm in maximum caliber. No evidence of bowel obstruction. The appendix is unremarkable. No signs of inflammatory changes. Bones and Soft Tissues: Spots of calcification are seen in the abdominal wall in the pelvic region. Please correlate with prior intervention history. Right-sided hydrocele measuring about 7.8 x 6 cm. Spots of calcification seen at the penile root could be Peyronie disease. Degenerative changes of the visualized spine. Intervertebral disc vacuum phenomena. First-degree anterolisthesis of L4 over L5 vertebra. Small air foci seen in the spinal canal measured about 3 x 8 mm at the level of the L1. No fractures or abnormal masses were identified. IMPRESSION: 1. A prominent caliber of the small bowel loops with no definite zone of transitional Follow-up is advised. 2. Bulky adrenal glands. 3. Multiple bilateral small hypodense renal cysts. 4. Right-sided hydrocele. Need ultrasound correlation. Electronically signed by Chris Bueno 08-02-2024 06:00 AM Medications Administered Current Inpatient Medications Sodium Chloride (Nss) 1,000 mls @ 125 mls/hr IV .Q8H JOSÉ MIGUEL Stop: 08/03/24 02:59 Last Admin: 08/02/24 03:14 Dose: 125 mls/hr Pantoprazole Sodium 40 mg/ (Dextrose) 100 mls @ 20 mls/hr IV Q5H JOSÉ MIGUEL Stop: 09/01/24 07:14 Pantoprazole Sodium (Protonix) 40 mg in 10 mls @ 5 mls/min IV BID JOSÉ MIGUEL Stop: 09/01/24 08:59 Code Status & VTE Plan Code Status Full VTE Prophylaxis Plan VTE Prophylaxis will be ordered: Yes (3) Parkinsons disease Dyskinesia presence: without dyskinesia Fluctuating manifestations: without fluctuating manifestations Qualified Code(s): G20.A1 - Parkinson's disease without dyskinesia, without mention of fluctuations (4) Hyperlipidemia Hyperlipidemia type: mixed hyperlipidemia Qualified Code(s): E78.2 - Mixed hyperlipidemia (5) Chronic gout Gout site: unspecified site Gout etiology: idiopathic Presence of tophus: without tophus Qualified Code(s): M1A.00X0 - Idiopathic chronic gout, unspecified site, without tophus (tophi)
[2024-08-02] MEDS: PANTOprazole 40 MG in DEXTROSE 5% MINI-B 100 ML IV SCH (09:05)
[2024-08-02] MEDS ORDERED: ACETAMINOPHEN 325 MG TAB PO PRN (10:09)
[2024-08-02] MEDS: ISOSORBIDE MONO EXTENDED REL 30 MG TABCR PO SCH (10:39)
[2024-08-02] MEDS: busPIRone 5 MG TAB PO SCH (10:39)
[2024-08-02] MEDS: CARBIDOPA/LEVODOPA 25/100MG TAB PO SCH (10:39)
[2024-08-02] MEDS: amLODIPine BESYLATE 5 MG TAB PO SCH (10:39)
[2024-08-02] MEDS: VALSARTAN 80 MG TAB PO SCH (10:39)
[2024-08-02] MEDS: MEMANTINE HCL 10 MG TAB PO SCH (10:39)
[2024-08-02 10:43] LABS: Hematocrit (blood only) 43.6 % (42.0-52.0); Hemoglobin 14.7 g/dl (14.0-18.0); Mean Corpuscular Hemoglobin 30.7 pg (25.0-34.0); Mean Corpuscular Hgb Conc 33.7 g/dL (32.0-36.0); Platelet Count 187 K/uL (130-400); RDW Coefficient of Variation 16.1 % (11.5-14.5); RDW Standard Deviation 53.9 fL (36.4-46.3); Red Blood Count 4.79 M/uL (4.70-6.10); White Blood Count 6.67 K/ul (4.8-10.8)
[2024-08-02 10:57] LABS: Calcium 8.8 mg/dl (8.6-10.3); Creatinine Clr Calc Pharmacy 60.7 ml/min; Potassium 4.1 mmol/L (3.5-5.1)
[2024-08-02] MEDS: BISOPROLOL FUMARATE 5 MG TAB PO SCH (11:16)
[2024-08-02] MEDS: COLCHICINE 0.6 MG TAB PO SCH (11:16)
--- NOTE | 2024-08-02 13:11 | Electrocardiogram Report ---
Test Reason : Blood Pressure : */* mmHG Vent. Rate : 69 BPM Atrial Rate : 69 BPM P-R Int : 156 ms QRS Dur : 80 ms QT Int : 392 ms P-R-T Axes : 29 7 13 degrees QTcB Int : 420 ms Normal sinus rhythm Normal ECG When compared with ECG of 30-Nov-2023 06:00, No significant change was found Confirmed by Marvin Rasmussen ([id number]) on 08/02/2024 1:11:28 PM Referred By: REFERRED SELF Confirmed By: Marvin Rasmussen
--- NOTE | 2024-08-02 17:24 | Gastrointestinal Consultation ---
Date of Consultation August 02, 2024 Assessment & Plan (1) Upper GI bleed: Patient has a history of peptic ulcer disease he states he had an ulcer earlier this year in [place] where he was at an endoscopy currently is feeling better after getting a PPI H&H is stable allegedly he vomited in the ER that was Gastroccult positive at the current time I would 1. Keep on PPI twice daily 2. Plan for an upper endoscopy in a.m. 3. Monitor H&H serially Thank you for allowing us to take part in the care of your patient we will continue to follow him with you History of Present Illness Reason for Consultation: Vomiting with Gastroccult positive Requesting Physician: Kirill Birmingham Attending Physician: Janel Montenegro MD History of Present Illness A pleasant elderly ideation male who as per the patient has a history of peptic ulcer disease and he states earlier this year he was scoped in [place] and he was found to have an ulcer not sure if he is taking any medications for that at the current time. He states he was having some abdominal discomfort he also threw up he also has been complaining of heartburn he ever since being in the hospital and started on PPI he states he is feeling better denies any dysphagia does have heartburn has nausea and vomited has a nonspecific epigastric discomfort no melena or hematochezia currently he is feeling quite comfortable ever since getting the PPI as per the patient Allergies Allergy/AdvReac Type Severity Reaction Status Date / Time amlodipine Allergy Unknown Verified 11/29/23 13:41 pork derived (porcine) Allergy Verified 11/30/23 12:11 Pork/Porcine Containing Allergy Verified 11/30/23 12:11 Products Home Medications Medication Instructions Recorded Confirmed Type carvedilol 6.25 mg tablet 6.25 mg PO BID 05/09/23 11/29/23 History clopidogrel 75 mg tablet 75 mg PO DAILY 05/09/23 11/29/23 History nitroglycerin 0.4 mg sublingual 0.4 mg sublingual DIRECTED PRN 05/09/23 11/29/23 History tablet Chest Pain rosuvastatin 20 mg tablet 20 mg PO HS 05/09/23 11/29/23 History vitamin E 268 mg (400 unit) capsule 268 mg PO DAILY 05/09/23 11/29/23 History zinc 50 mg tablet 50 mg PO DAILY 05/09/23 11/29/23 History simethicone 80 mg chewable tablet 80 mg PO Q6H PRN dyspepsia #30 tabs 05/11/23 11/29/23 Rx (Gas Relief (simethicone)) albuterol sulfate 90 mcg/actuation 2 puff inhalation Q6H PRN 11/29/23 11/29/23 History aerosol inhaler shortness of breath or coughing carbidopa 25 mg-levodopa 100 mg 1 tab PO TID 11/29/23 11/29/23 History tablet montelukast 10 mg tablet 10 mg PO HS 11/29/23 11/29/23 History quetiapine 25 mg tablet 50 mg PO HS 11/29/23 11/29/23 History valsartan 160 mg tablet 160 mg PO QAM 11/29/23 11/29/23 History buspirone 5 mg tablet 5 mg PO DAILY #30 tabs 11/30/23 Rx lorazepam 0.5 mg tablet (Ativan) 0.5 mg PO DAILY PRN severe 11/30/23 Rx anxiety #7 tabs amlodipine 5 mg-valsartan 160 mg 1 tab PO DAILY 08/02/24 History tablet bisoprolol fumarate 5 mg tablet 5 mg PO TID 08/02/24 History colchicine 0.6 mg tablet 0.6 mg PO QAM 08/02/24 History dapagliflozin propanediol 5 mg 5 mg PO QAM 08/02/24 History tablet (Farxiga) famotidine 20 mg tablet 20 mg PO QAM 08/02/24 History isosorbide mononitrate 30 mg 60 mg PO QAM 08/02/24 History tablet,extended release 24 hr memantine 10 mg tablet 10 mg PO BID 08/02/24 History omeprazole 40 mg capsule,delayed 40 mg PO QAM 08/02/24 History release Patient History Medical History (Updated 08/02/24 @ 08:58 by Janel Montenegro MD) Migraine Surgical History History of esophagogastroduodenoscopy (EGD) Family History Other Stroke Social History Smoking Status: Former smoker Tobacco Type: Cigarettes Second Hand Exposure: No; Do You Dip or Chew Tobacco: No; Hx Alcohol Use: No Hx Substance Use: No Preferred Language: Hebrew Communication Ability: Effective Patient Support Tech Required: No Beliefs That Will Affect Care: Confucianist Confucianist Beliefs: does not eat Pork marital status: Current Living Situation: Spouse and Family Current Living Situation Comment: , daughter and son current occupational status: retired Other Information That Helps Us Care for You: No Feels Safe at Home: Yes Safety Concerns: Feels Safe At This Time Assistive Devices: Cane and Glasses Review of Systems Review of Systems: A 10 point review of systems was done Physical Exam Physical Exam: Christy male who appears comfortable and in no apparent distress Constitutional: Well-developed and well-nourished Eyes: Sclera nonicteric Neck: Supple Respiratory: Clear anteriorly Cardiovascular: S1 and S2 Gastrointestinal (Abdomen): Soft no tenderness or masses appreciated Results & Data Vital Signs (Past 12 Hours) Vital Signs Temp Pulse Pulse Resp BP BP Pulse Ox 08/02/24 15:50 36.9 C 67 20 147/66 H 93 08/02/24 11:41 08/02/24 10:39 37.2 C 20 164/73 H 93 08/02/24 09:50 64 20 137/72 95 08/02/24 09:33 66 22 95 08/02/24 09:00 66 20 134/64 96 08/02/24 08:00 67 21 145/72 H 96 08/02/24 07:00 73 22 158/68 H 97 08/02/24 06:42 65 20 175/84 H 95 08/02/24 06:21 73 08/02/24 05:36 68 18 158/75 H 96 O2 Del Method 08/02/24 15:50 Room Air 08/02/24 11:41 Room Air 08/02/24 10:39 Room Air 08/02/24 09:50 08/02/24 09:33 08/02/24 09:00 08/02/24 08:00 08/02/24 07:00 08/02/24 06:42 08/02/24 06:21 08/02/24 05:36 PG Care Time/CCT Total # of Minutes Spent Total Time Spent with Patient: Total time spent is greater than 50% in coordination of care (as documented) at patient's floor/unit and/or counseling patient: Coding Level of Care Code 69151 IN/OBS CONSULT LVL 3,45M Diagnoses Upper GI bleed K92.2
[2024-08-02] MEDS: QUEtiapine FUMARATE 25 MG TABLET PO SCH (20:23)
[2024-08-02] MEDS: PANTOprazole 40 MG/10 ML SYR IV SCH (20:24)
[2024-08-02] MEDS: ROSUVASTATIN CALCIUM 20 MG TAB PO SCH (20:24)
[2024-08-02] MEDS: MONTELUKAST SODIUM 10 MG TABLET PO SCH (20:24)
[2024-08-03 08:10] LABS: Hematocrit (blood only) 40.9 % (42.0-52.0); Hemoglobin 13.5 g/dl (14.0-18.0); Mean Corpuscular Hemoglobin 30.3 pg (25.0-34.0); Mean Corpuscular Volume 91.7 fL (80.0-100.0); Mean Platelet Volume 10.1 fL (9.4-12.4); Platelet Count 154 K/uL (130-400); RDW Standard Deviation 54.4 fL (36.4-46.3); Red Blood Count 4.46 M/uL (4.70-6.10); White Blood Count 4.02 K/ul (4.8-10.8)
[2024-08-03 08:24] LABS: BUN Creatinine Ratio 20.7 (10-20); Calcium 8.7 mg/dl (8.6-10.3); Creatinine Clr Calc Pharmacy 54.6 ml/min; Potassium 3.8 mmol/L (3.5-5.1)
--- NOTE | 2024-08-03 09:04 | Gastroenterology Progress Note ---
Date of Service August 03, 2024 Assessment & Plan (1) Upper GI bleed: Plan: 83 year old male w/ history of hypertension, prior stroke, multiple myeloma, Parkinson disease, coronary artery disease, PUD admitted w/ report of emesis w/ blood. NPO EGD evaluation Trend H&H Monitor and document GI output Transfuse PRN per primary team Continue IV PPI We appreciate assistance in the management of any serological abnormality and corrections to include: hemoglobin >7, INR <2, platelets >50,000, potassium levels >3.5 but <5.3, and sodium levels within 5 points of the reference range prior to endoscopic evaluation. Thank you for allowing us to participate in the care of this patient. Please call with any acute changes, questions or concerns. Please see addendum below with additional recommendation from my supervising physician. Admission and Anticipated Discharge Date Admission Date: August 02, 2024 Supervising Physician Co-Signing Physician Notes Patient seen and evaluated with with [facility] MGMT TECH agree with plan of care EGD done EGD showed diffuse gastritis as well as grade B esophagitis should be on PPI twice daily and follow-up as an outpatient with GI follow-up pathology results avoid NSAIDs okay to resume anticoagulation as per GI but will defer to primary team please see EGD notes for more details will sign off please recall if any questions and have patient follow-up with GI as outpatient Subjective Pt was seen and evaluated, chart reviewed. No further reports of emesis. No black or bloody stools. Recalls diagnosis of PUD in August 2023 in [place]. Review of Systems Review of Systems: All other findings negative except as noted in HPI. Physical Exam Constitutional: WD/WN, vitals as above Respiratory: normal respiratory effort, lungs clear to auscultation Cardiovascular: Rate/Rhythm: regular rate Gastrointestinal (Abdomen): normal bowel sounds, soft, nontender, no hepatosplenomegaly Skin: no rashes, warm and dry Results & Data Results & Data Vital Signs (Past 12 Hours) Vital Signs Temp Pulse Pulse Resp BP Pulse Ox O2 Del Method 08/03/24 07:46 36.4 C L 62 17 142/74 H 97 Room Air 08/03/24 03:05 36.7 C 65 18 157/61 H 94 Room Air 08/02/24 23:04 36.7 C 62 18 136/68 94 Room Air 08/02/24 23:00 62 Laboratory Results 08/03/24 08/02/24 Range/Units 07:18 10:22 WBC 4.02 L 6.67 (4.8-10.8) K/ul RBC 4.46 L 4.79 (4.70-6.10) M/uL Hgb 13.5 L 14.7 (14.0-18.0) g/dl Hct 40.9 L 43.6 (42.0-52.0) % MCV 91.7 91.0 (80.0-100.0) fL MCH 30.3 30.7 (25.0-34.0) pg MCHC 33.0 33.7 (32.0-36.0) g/dL RDW Std Deviation 54.4 H 53.9 H (36.4-46.3) fL RDW Coeff of Claire 16.0 H 16.1 H (11.5-14.5) % Plt Count 154 187 (130-400) K/uL MPV 10.1 10.0 (9.4-12.4) fL Sodium 139 138 (136-145) mmol/L Potassium 3.8 4.1 (3.5-5.1) mmol/L Chloride 107 107 (98-107) mmol/L Carbon Dioxide 28 26 (21-32) mmol/L Anion Gap 4 5 (3-11) BUN 23 30 H (6-23) mg/dl Creatinine 1.11 1.00 (0.6-1.4) mg/dl Est Cr Clr Drug Dosing 54.6 60.7 ml/min eGFR 66.30 75.14 BUN/Creatinine Ratio 20.7 H 30.0 H (10-20) Glucose 93 116 H (70-99(Fasting)) mg/dl Calcium 8.7 8.8 (8.6-10.3) mg/dl PG Care Time/CCT Total # of Minutes Spent Total Time Spent with Patient: Total time spent is greater than 50% in coordination of care (as documented) at patient's floor/unit and/or counseling patient: Coding Level of Care Code None Diagnoses Upper GI bleed K92.2
--- NOTE | 2024-08-03 09:28 | Hospitalist Progress Note ---
Date of Service August 03, 2024 Assessment & Plan (1) Upper GI bleed: Plan: Patient had an episode of vomiting which was Hemoccult positive. Hemoglobin of 13.5 today. BUNs/creatinine within normal limits. Continue on Protonix IV twice daily Plan for EGD today; will follow-up on GI recommendation after EGD Reports diarrhea; will hold colchicine. Obtain stool PCR and C. difficile. (2) Hypertension, essential: Plan: Continue on Imdur 30 mg daily, amlodipine 5 mg daily, valsartan 160 mg daily, bisoprolol 5 mg 3 times daily (3) Parkinsons disease: Plan: Resume Sinemet 25/100 mg 1 tablet 3 times daily. Patient probably has some element of dementia for which he is on memantine, buspirone and quetiapine at night which will be continued. (4) Hyperlipidemia: Plan: Continue with Crestor 20 mg daily. (5) Chronic gout: Plan: hold colchicine 0.6 mg once a day. Plan Full code DVT prophylaxis SCDs Please note the above document was generated using voice recognition software. It may contain grammatical, syntax or spelling errors. Any formal questions or concerns about the content, text or information contained within the body of this dictation should be directly addressed to the provider for clarification Admission and Anticipated Discharge Date Admission Date: August 02, 2024 Subjective Patient seen and examined at bedside He is comfortable; not in distress Vital signs are stable. No complaint of hematemesis or melena overnight Review of Systems Review of Systems: All systems reviewed & are unremarkable except as noted in Subjective Physical Exam Physical Exam: Constitutional: Alert oriented x 3; not in distress. Respiratory: normal respiratory effort, lungs clear to auscultation, no wheeze, rales, rhonchi. Normal insp/exp effort, no accessory muscle use Cardiovascular: RRR, no murmur, no edema Vessels: no JVD or carotid bruit Chest: normal inspection of chest Abdomen: normal bowel sounds, soft, nontender, no hepatosplenomegaly Musculoskeletal: no cyanosis or clubbing, extremities motor strength 5/5 Skin: no rashes, warm and dry normal turgor Neurologic: PERRL, EOMI, accommodation nl, no face palsy, no dysarthria CN's II- XI intact bilaterally and moves all extremities Psychiatric: A+Ox3, euthymic affect Results & Data Results & Data Vital Signs (Past 12 Hours) Vital Signs Temp Pulse Pulse Resp BP Pulse Ox O2 Del Method 08/03/24 07:46 36.4 C L 62 17 142/74 H 97 Room Air 08/03/24 03:05 36.7 C 65 18 157/61 H 94 Room Air 08/02/24 23:04 36.7 C 62 18 136/68 94 Room Air 08/02/24 23:00 62 (3) Parkinsons disease Dyskinesia presence: without dyskinesia Fluctuating manifestations: without fluctuating manifestations Qualified Code(s): G20.A1 - Parkinson's disease without dyskinesia, without mention of fluctuations (4) Hyperlipidemia Hyperlipidemia type: mixed hyperlipidemia Qualified Code(s): E78.2 - Mixed hyperlipidemia (5) Chronic gout Gout etiology: idiopathic Gout site: unspecified site Presence of tophus: without tophus Qualified Code(s): M1A.00X0 - Idiopathic chronic gout, unspecified site, without tophus (tophi)
--- NOTE | 2024-08-03 09:40 | Anesthesiology Consultation ---
Date of Service August 03, 2024 Assessment & Plan (1) Encounter for pre-operative examination: Chart Review Chart Review: Acceptable Risk for Surgery and Patient NOT seen in Pre Admission Testing Consults Requested none History Surgery Operation Date: 08/03/24 17:25 Proposed Procedures p Esophagogastroduodenoscopy Valencia Birmingham MD Height/Weight Height: 5 ft 11 in Weight: 88.6 kg Allergies Allergy/AdvReac Type Severity Reaction Status Date / Time amlodipine Allergy Unknown Verified 11/29/23 13:41 pork derived (porcine) Allergy Verified 11/30/23 12:11 Pork/Porcine Containing Allergy Verified 11/30/23 12:11 Products Medications Home Medications Medication Instructions Recorded Confirmed Last Taken carvedilol 6.25 mg tablet 6.25 mg PO BID 05/09/23 11/29/23 11/29/23 clopidogrel 75 mg tablet 75 mg PO DAILY 05/09/23 11/29/23 11/29/23 nitroglycerin 0.4 mg sublingual 0.4 mg sublingual DIRECTED PRN 05/09/23 11/29/23 Unknown tablet Chest Pain rosuvastatin 20 mg tablet 20 mg PO HS 05/09/23 11/29/23 11/28/23 vitamin E 268 mg (400 unit) capsule 268 mg PO DAILY 05/09/23 11/29/23 11/29/23 zinc 50 mg tablet 50 mg PO DAILY 05/09/23 11/29/23 11/29/23 simethicone 80 mg chewable tablet 80 mg PO Q6H PRN dyspepsia #30 tabs 05/11/23 11/29/23 Unknown (Gas Relief (simethicone)) albuterol sulfate 90 mcg/actuation 2 puff inhalation Q6H PRN 11/29/23 11/29/23 Unknown aerosol inhaler shortness of breath or coughing carbidopa 25 mg-levodopa 100 mg 1 tab PO TID 11/29/23 11/29/23 11/29/23 tablet montelukast 10 mg tablet 10 mg PO HS 11/29/23 11/29/23 11/28/23 quetiapine 25 mg tablet 50 mg PO HS 11/29/23 11/29/23 Unknown valsartan 160 mg tablet 160 mg PO QAM 11/29/23 11/29/23 11/29/23 buspirone 5 mg tablet 5 mg PO DAILY #30 tabs 11/30/23 Unknown lorazepam 0.5 mg tablet (Ativan) 0.5 mg PO DAILY PRN severe 11/30/23 Unknown anxiety #7 tabs amlodipine 5 mg-valsartan 160 mg 1 tab PO DAILY 08/02/24 Unknown tablet bisoprolol fumarate 5 mg tablet 5 mg PO TID 08/02/24 Unknown colchicine 0.6 mg tablet 0.6 mg PO QAM 08/02/24 Unknown dapagliflozin propanediol 5 mg 5 mg PO QAM 08/02/24 Unknown tablet (Farxiga) famotidine 20 mg tablet 20 mg PO QAM 08/02/24 Unknown isosorbide mononitrate 30 mg 60 mg PO QAM 08/02/24 Unknown tablet,extended release 24 hr memantine 10 mg tablet 10 mg PO BID 08/02/24 Unknown omeprazole 40 mg capsule,delayed 40 mg PO QAM 08/02/24 Unknown release Active Medications Generic Name Dose Route Start Last Admin Trade Name Rinku PRN Reason Stop Dose Admin Amlodipine Besylate 5 mg 08/02/24 09:00 08/03/24 08:29 Amlodipine Besylate 5 Mg Tab PO 09/01/24 08:59 5 mg QAM JOSÉ MIGUEL Administration Bisoprolol Fumarate 5 mg 08/02/24 09:00 08/03/24 08:29 Bisoprolol Fumarate 5 Mg Tab PO 09/01/24 08:59 5 mg TID JOSÉ MIGUEL Administration Buspirone HCl 5 mg 08/02/24 09:00 08/03/24 08:29 Buspirone 5 Mg Tab PO 09/01/24 08:59 5 mg DAILY JOSÉ MIGUEL Administration Carbidopa/Levodopa 1 tab 08/02/24 09:00 08/03/24 08:29 Carbidopa/Levodopa 25/100mg Tab PO 09/01/24 08:59 1 tab TID JOSÉ MIGUEL Administration Colchicine 0.6 mg 08/02/24 09:00 08/03/24 08:29 Colchicine 0.6 Mg Tab PO 09/01/24 08:59 0.6 mg QAM JOSÉ MIGUEL Administration Pantoprazole Sodium 40 mg in 10 mls @ 5 mls/min 08/02/24 21:00 08/03/24 08:30 Protonix IV 09/01/24 20:59 5 mls/min BID JOSÉ MIGUEL Administration Isosorbide Mononitrate 30 mg 08/02/24 09:00 08/03/24 08:29 Isosorbide [place] Extended Rel 30 Mg Tabcr PO 09/01/24 08:59 30 mg QAM JOSÉ MIGUEL Administration Memantine 10 mg 08/02/24 09:00 08/03/24 08:29 Memantine Hcl 10 Mg Tab PO 09/01/24 08:59 10 mg QAM JOSÉ MIGUEL Administration Montelukast Sodium 10 mg 08/02/24 21:00 08/02/24 20:24 Montelukast Sodium 10 Mg Tablet PO 09/01/24 20:59 10 mg HS JOSÉ MIGUEL Administration Quetiapine Fumarate 50 mg 08/02/24 21:00 08/02/24 20:23 Quetiapine Fumarate 25 Mg Tablet PO 09/01/24 20:59 50 mg HS JOSÉ MIGUEL Administration Rosuvastatin Calcium 20 mg 08/02/24 21:00 08/02/24 20:24 Rosuvastatin Calcium 20 Mg Tab PO 09/01/24 20:59 20 mg QPM JOSÉ MIGUEL Administration Valsartan 160 mg 08/02/24 09:00 08/03/24 08:30 Valsartan 80 Mg Tab PO 09/01/24 08:59 160 mg QAM JOSÉ MIGUEL Administration Past Medical History Medical History Migraine Past Family History Family History Other Stroke Past Surgical History Surgical History History of esophagogastroduodenoscopy (EGD) Social History Smoking Status: Former smoker Do You Dip or Chew Tobacco: No Hx Alcohol Use: No Hx Substance Use: No Physical Exam Vital Signs Last Vital Signs Temp 97.5 F L 08/03/24 07:46 Pulse 62 08/03/24 07:46 Resp 17 08/03/24 07:46 BP 142/74 H 08/03/24 07:46 Pulse Ox 97 08/03/24 07:46 O2 Del Method Room Air 08/03/24 07:46 Testing Laboratory Results 08/03/24 07:18 08/03/24 07:18 PT 11.1 Seconds (9.0-12.0) 08/02/24 02:55 INR 1.0 (0.9-1.1) 08/02/24 02:55 Urine Color Yellow 08/02/24 05:34 Urine Appearance Clear (Clear) 08/02/24 05:34 Urine pH 5.0 (4.5-7.5) 08/02/24 05:34 Ur Specific [place] > 1.045 (1.000-1.030) H 08/02/24 05:34 Urine Protein Trace (Negative) H 08/02/24 05:34 Urine Glucose (UA) Negative (Negative) 08/02/24 05:34 Urine Ketones Trace (Negative) H 08/02/24 05:34 Urine Nitrite Negative (Negative) 08/02/24 05:34 Ur Leukocyte Esterase Negative (Negative) 08/02/24 05:34 Urine WBC (Auto) 0-5 /hpf (0-5) 08/02/24 05:34 Urine RBC (Auto) 0-2 /hpf (0-2) 08/02/24 05:34 U Hyaline Cast (Auto) 0-2 /lpf (0-2) 08/02/24 05:34 U Epithel Cells (Auto) 0-2 /hpf (0-2) 08/02/24 05:34 Urine Bacteria (Auto) None Seen (None Seen) 08/02/24 05:34 Electrocardiogram Date: 08/02/24 Findings: + NSR @
[2024-08-03] MEDS: ONDANSETRON INJ 2 MG/ML 2 ML VIAL IV PRN (13:37)
--- NOTE | 2024-08-03 14:27 | GI REPORT ---
[facility] Patient: FREDRICK DELCID : 1940 Sex at : Male Age: 83 Years Procedure: Upper GI endoscopy Date: 08/03/2024 Attending Physician: Kirill Birmingham MD Referring MD: Ephraim Martinez Md Indications: - Nausea and vomiting history of ulcers Medications: - Monitored Anesthesia Care Complications: - No immediate complications. Estimated Blood Loss: - Estimated blood loss: None. Procedure: - The egd scope was introduced through the mouth and advanced to the second part of the duodenum. - The upper GI endoscopy was accomplished with ease. - The patient tolerated the procedure well. Findings: - Grade B esophagitis diffuse gastritis duodenitis in the bulb biopsy done for H. pylori Impression: - Grade B esophagitis diffuse gastritis duodenitis in the bulb biopsy done for H. pylori - No specimens collected. Recommendation: - PPI twice daily follow-up biopsies avoid NSAIDs okay to resume anticoagulation from GI standpoint but will defer to primary team follow-up with GI as outpatient Procedure Code(s): - 73368, Esophagogastroduodenoscopy, flexible, transoral; diagnostic, including collection of specimen(s) by brushing or washing, when performed (separate procedure) CPT(R) - 2023 copyright [employer]. All Rights Reserved. The CPT codes, CCI edits and ICD codes generated are intended as suggestions and were generated based on input data. These codes are preliminary and upon educational resource center teacher review may be revised to meet current compliance and payer requirements. The provider is responsible for the final determination of appropriate codes, and modifiers. Kirill Birmingham MD This document has been electronically signed. Note Initiated:08/03/2024 Note Completed:08/03/2024 2:27 PM [id number]
--- NOTE | 2024-08-03 14:50 | Anesthesiology Progress Note ---
Date of Service August 03, 2024 Anesthesia Post Procedure Vital Signs Vital Signs: Temp Pulse Pulse Resp BP Pulse Ox O2 Del Method 08/03/24 14:29 71 16 88/46 L 96 Room Air 08/03/24 13:58 99.1 F 58 L 16 174/62 H 96 Room Air 08/03/24 10:56 98.2 F 50 L 17 145/71 H 94 Room Air 08/03/24 07:46 97.5 F L 62 17 142/74 H 97 Room Air 08/03/24 03:05 98.1 F 65 18 157/61 H 94 Room Air 08/02/24 23:04 98.1 F 62 18 136/68 94 Room Air 08/02/24 23:00 62 08/02/24 19:51 100.2 F H 64 18 115/59 L 91 Room Air 08/02/24 16:00 73 08/02/24 15:50 98.4 F 67 20 147/66 H 93 Room Air Transfer of Care Handoff Completed per policy Notes Mental Status: alert / awake / arousable and participated in evaluation Patient Amnestic to Procedure: Yes Nausea / Vomiting: adequately controlled Pain: adequately controlled Airway Patency, RR, SpO2: stable & adequate BP & HR: stable & adequate Hydration State: stable & adequate Anesthetic Complications: no major complications apparent and Pt Satisfied with anesthetic care
[2024-08-03] MEDS: LIDOCAINE 2% 2 ML VIAL/AMP(20MG/ML) INFIL ONE (15:30)
[2024-08-03] MEDS: PROPOFOL IV EMULSION 10 MG/ML 20 ML VIAL IV ONE (15:30)
[2024-08-03 17:13] LABS: Adenovirus F 40/41 PCR Not Detected (NotDetected); Astrovirus PCR Not Detected (NotDetected); Campylobacter PCR Not Detected (NotDetected); Cryptosporidium PCR Not Detected (NotDetected); Cyclospora cayetanensis PCR Not Detected (NotDetected); Entamoeba histolytica PCR Not Detected (NotDetected); Enteroaggregative E.coli(EAEC) Not Detected (NotDetected); Enteropathogenic E.coli (EPEC) Not Detected (NotDetected); Enterotoxigenic E.coli (ETEC) Not Detected (NotDetected); Giardia lamblia PCR Not Detected (NotDetected); Norovirus GI/GII PCR DETECTED (NotDetected); Plesiomonas shigelloides PCR Not Detected (NotDetected); Rotavirus A PCR Not Detected (NotDetected); Salmonella PCR Not Detected (NotDetected); Shiga-like Toxin E.coli (STEC) Not Detected (NotDetected); Shigella/Enteroinvasive E.coli Not Detected (NotDetected); Vibrio cholerae PCR Not Detected (NotDetected); Vibrio species PCR Not Detected (NotDetected); Yersinia enterocolitica PCR Not Detected (NotDetected)
[2024-08-03 17:16] LABS: Sapovirus PCR Not Detected (NotDetected)
[2024-08-03] MEDS: ACETAMINOPHEN 1,000 MG/100 ML VIAL IV STA (23:12)
[2024-08-04 07:26] VITALS: O2SAT 94
[2024-08-04 08:23] LABS: Basophils # (auto) 0.03 K/uL (0.00-0.20); Basophils % (auto) 0.5 %; Eosinophils # (auto) 0.35 K/uL (0.00-0.50); Eosinophils % (auto) 6.1 %; Hemoglobin 13.9 g/dl (14.0-18.0); Immature Granulocytes # (auto) 0.02 K/uL (0.01-0.20); Immature Granulocytes % (auto) 0.3 %; Lymphocytes # (auto) 2.21 K/uL (1.20-3.40); Lymphocytes % (auto) 38.3 %; Mean Corpuscular Hemoglobin 30.3 pg (25.0-34.0); Mean Corpuscular Hgb Conc 33.1 g/dL (32.0-36.0); Mean Corpuscular Volume 91.7 fL (80.0-100.0); Mean Platelet Volume 10.6 fL (9.4-12.4); Monocytes % (auto) 17.3 %; Neutrophils # (auto) 2.16 K/uL (1.40-6.50); Neutrophils % (auto) 37.5 %; Platelet Count 164 K/uL (130-400); RDW Coefficient of Variation 15.6 % (11.5-14.5); RDW Standard Deviation 52.6 fL (36.4-46.3); Red Blood Count 4.58 M/uL (4.70-6.10); White Blood Count 5.77 K/ul (4.8-10.8)
[2024-08-04 08:25] VITALS: RESP 18
[2024-08-04 08:56] LABS: Anion Gap 6 (3-11); BUN Creatinine Ratio 20.7 (10-20); Blood Urea Nitrogen 25 mg/dl (6-23); Calcium 8.8 mg/dl (8.6-10.3); Carbon Dioxide 27 mmol/L (21-32); Chloride 107 mmol/L (98-107); Creatinine Clr Calc Pharmacy 50.1 ml/min; Glucose 91 mg/dl (70-99(Fasting)); Sodium 140 mmol/L (136-145); Troponin I High Sensitivity 9.8 pg/ml (0-20)
--- NOTE | 2024-08-04 10:20 | Hospitalist Progress Note ---
Date of Service August 04, 2024 Assessment & Plan (1) Upper GI bleed: Plan: Esophagitis Norovirus infection Patient had an episode of vomiting which was Hemoccult positive. Hemoglobin is stable around 13 EGD done on 08/03 shows grade B esophagitis, diffuse gastritis duodenitis; biopsies done for H. pylori Continue on IV PPI daily Encourage oral hydration for diarrhea Hold Colchicine for the time being for diarrhea. Patient reports significant weakness and diarrhea today; would like to go home tomorrow. Prescription for Protonix sent. Also prescription for Sinemet sent as per patient's request. (2) Hypertension, essential: Plan: Continue on Imdur 30 mg daily, amlodipine 5 mg daily, valsartan 160 mg daily, bisoprolol 5 mg 3 times daily (3) Parkinsons disease: Plan: Resume Sinemet 25/100 mg 1 tablet 3 times daily. Patient probably has some element of dementia for which he is on memantine, buspirone and quetiapine at night which will be continued. (4) Hyperlipidemia: Plan: Continue with Crestor 20 mg daily. (5) Chronic gout: Plan: hold colchicine 0.6 mg once a day given the diarrhea Plan Full code DVT prophylaxis SCDs Please note the above document was generated using voice recognition software. It may contain grammatical, syntax or spelling errors. Any formal questions or c oncerns about the content, text or information contained within the body of this dictation should be directly addressed to the provider for clarification Admission and Anticipated Discharge Date Admission Date: August 02, 2024 Subjective Patient seen and examined at bedside He reports chest pain for which EKG and high sensitive troponin was obtained. EKG showed sinus bradycardia. High sensitive troponin negative Suspect chest pain is from GERD; resolved when sitting up Review of Systems Review of Systems: All systems reviewed & are unremarkable except as noted in Subjective Physical Exam Physical Exam: Constitutional: Alert oriented x 3; not in distress. Respiratory: normal respiratory effort, lungs clear to auscultation, no wheeze, rales, rhonchi. Normal insp/exp effort, no accessory muscle use Cardiovascular: RRR, no murmur, no edema Vessels: no JVD or carotid bruit Chest: normal inspection of chest Abdomen: normal bowel sounds, soft, nontender, no hepatosplenomegaly Musculoskeletal: no cyanosis or clubbing, extremities motor strength 5/5 Skin: no rashes, warm and dry normal turgor Neurologic: PERRL, EOMI, accommodation nl, no face palsy, no dysarthria CN's II- XI intact bilaterally and moves all extremities Psychiatric: A+Ox3, euthymic affect Results & Data Results & Data Vital Signs (Past 12 Hours) Vital Signs Temp Pulse Pulse Resp BP BP Pulse Ox 08/04/24 08:24 36.8 C 54 L 18 168/79 H 94 08/04/24 07:25 36.6 C 60 16 195/83 H 94 08/04/24 03:44 36.6 C 52 L 18 162/84 H 96 08/04/24 00:00 56 L 08/03/24 23:27 36.7 C 62 18 149/77 H 93 O2 Del Method 08/04/24 08:24 Room Air 08/04/24 07:25 Room Air 08/04/24 03:44 Room Air 08/04/24 00:00 08/03/24 23:27 Room Air (3) Parkinsons disease Dyskinesia presence: without dyskinesia Fluctuating manifestations: without fluctuating manifestations Qualified Code(s): G20.A1 - Parkinson's disease without dyskinesia, without mention of fluctuations (4) Hyperlipidemia Hyperlipidemia type: mixed hyperlipidemia Qualified Code(s): E78.2 - Mixed hyperlipidemia (5) Chronic gout Gout etiology: idiopathic Gout site: unspecified site Presence of tophus: without tophus Qualified Code(s): M1A.00X0 - Idiopathic chronic gout, unspecified site, without tophus (tophi)
[2024-08-04 10:24] VITALS: BP 164/72; TEMP 98.4
[2024-08-04] MEDS: PNEUMOCOCCAL VACCINE (PCV20) 20-VAL CONJ-DIP CRM/PF 0.5 ML SYR IM ONE (14:09)
[2024-08-04] MEDS: INFLUENZA VACC TS2024-25(65y+)/PF (IIV3) 0.5mL Syr IM ONE (14:12)
--- NOTE | 2024-08-04 15:01 | Discharge Summary ---
Date of Service August 04, 2024 Admission HPI Per Admitting Provider Patient is a 83-year-old gentleman with prior history of hypertension, prior stroke, multiple myeloma, Parkinson disease, coronary artery disease who started developing some abdominal discomfort which was associated with shortness of breath prior to this admission, reportedly he took nitroglycerin and that helped with his pain and shortness of breath. Here in the emergency room I was told that he had an episode of emesis which appeared to be positive for occult blood. Patient did have prior history of peptic ulcer disease but currently is on no treatment apparently. Initial H&H were stable, troponin was negative, EKG was unremarkable showing normal sinus rhythm, normal axis deviation, no ST-T changes. Patient was seen and examined, so far clinically stable, will be admitted for further evaluation and possible endoscopy if needed, patient will be managed with Protonix IV twice daily. Admission Exam Per Admitting Provider VITALS: Reviewed. WEIGHT/BMI reviewed. GEN: Healthy appearing, well-developed, NAD. PSYCH: Good Judgment. AOx3. Normal memory, mood, and affect. HEENT -Head: NC/AT; -Eyes: PERRL, EOMI. No discharge or redness; -Ears: External ears are normal. Normal TMs. -Nose: Normal nares. -Mouth and throat: MMM. Normal gums, mucosa, palate,. Good dentition.NECK: Supple, with no masses. CV: RRR, no m/r/g. LUNGS: CTAB, no w/r/c. ABD: Soft, NT/ND, NBS, no masses or organomegaly. : N/A SKIN: Warm, well perfused. No skin rashes or abnormal lesions. MSK: No deformities, Normal gait. EXT: No clubbing, cyanosis, or edema. NEURO: Ambulating with no limitations. Normal muscle strength and tone. No focal deficits. Principal Diagnosis Esophagitis Norovirus infection Discharge Exam Constitutional: Alert oriented x 3; not in distress. Respiratory: normal respiratory effort, lungs clear to auscultation, no wheeze, rales, rhonchi. Normal insp/exp effort, no accessory muscle use Cardiovascular: RRR, no murmur, no edema Vessels: no JVD or carotid bruit Chest: normal inspection of chest Abdomen: normal bowel sounds, soft, nontender, no hepatosplenomegaly Musculoskeletal: no cyanosis or clubbing, extremities motor strength 5/5 Skin: no rashes, warm and dry normal turgor Neurologic: PERRL, EOMI, accommodation nl, no face palsy, no dysarthria CN's II- XI intact bilaterally and moves all extremities Psychiatric: A+Ox3, euthymic affect Discharge Data Allergies Allergy/AdvReac Type Severity Reaction Status Date / Time amlodipine Allergy Unknown Verified 11/29/23 13:41 pork derived (porcine) Allergy Verified 11/30/23 12:11 Pork/Porcine Containing Allergy Verified 11/30/23 12:11 Products Consultations 08/02/24 07:58 ED Decision to Admit Stat Procedures Performed Operation Date: 08/03/24 17:25 Actual Procedures p EGD Biopsy Cytology - Kirill Birmingham MD Ordered Studies 08/02/24 04:05 CT abd pelvis IV con only Stat Hospital Course (1) Upper GI bleed: Esophagitis Norovirus infection Patient had an episode of vomiting which was Hemoccult positive. Hemoglobin is stable around 13 EGD done on 08/03 shows grade B esophagitis, diffuse gastritis duodenitis; biopsies done for H. pylori Biopsy result chronic inactive gastritis. H. pylori staining was negative Patient was treated with IV Protonix. Hemoglobin remained stable throughout the hospitalization. He was switched over to oral Protonix at the time of the discharge. He was asked to follow precautions for GERD which is likely cause for his chest pain. Patient's diarrhea has improved and he felt comfortable going home. (2) Hypertension, essential: Continue on Imdur 30 mg daily, amlodipine 5 mg daily, valsartan 160 mg daily, bisoprolol 5 mg 3 times daily (3) Parkinsons disease: Resume Sinemet 25/100 mg 1 tablet 3 times daily. Patient probably has some element of dementia for which he is on memantine, buspirone and quetiapine at night which will be continued. (4) Hyperlipidemia: Continue with Crestor 20 mg daily. (5) Chronic gout: hold colchicine 0.6 mg once a day given the diarrhea Plan Please note the above document was generated using voice recognition software. It may contain grammatical, syntax or spelling errors. Any formal questions or concerns about the content, text or information contained within the body of this dictation should be directly addressed to the provider for clarification Total Time Total Time Spent Total Time Spent (In Minutes): 45 Total Time Includes: Examination of the Patient, Discharge Planning, Medication Reconciliation, Communication With Other Providers and Other Discharge Plan Discharge Items Patient Disposition: Home - Self-Care Reason For Visit: UPPER GI BLEED Discharge Diagnosis: Esophagitis Activity: Resume your previous activity Non-emergency contact: Primary Care Provider Call non-emergency contact if: you have any medication questions and your symptoms worsen Follow-up/Referrals: Julianna Abel MD [Primary Care Provider] - Diet: Regular Addtl Attending Provider Instructions: You were admitted to the hospital due to chest pain. You underwent endoscopy by GI; you are found to have esophagitis and gastritis (inflammation of the lining of your food pipe and stomach by the acid). Please take Protonix 40 mg twice daily. Do not lie flat after eating as it can exacerbate the symptoms; have your head elevated. Sit upright for at least 30 minutes after having a meal. Avoid any spicy food. Avoid caffeine/milk on empty stomach. You are also found to have norovirus infection which is a common viral infection causing diarrhea. Start taking the colchicine only after the diarrhea has resolved. Pending Studies at Discharge: No Stand-Alone Forms: [facility], Smoking Cessation Medications and DC Order Prescriptions: New carbidopa-levodopa [Sinemet] 25-100 mg Tablet 1 tab PO TID 30 Days Qty: 90 0RF pantoprazole [Protonix] 40 mg tablet,delayed release (DR/EC) 40 mg PO BID 90 Days Qty: 180 0RF Continued carvedilol 6.25 mg tablet 6.25 mg PO BID clopidogrel 75 mg tablet 75 mg PO DAILY nitroglycerin 0.4 mg tablet, sublingual 0.4 mg sublingual DIRECTED PRN (Reason: Chest Pain) zinc 50 mg Tablet 50 mg PO DAILY vitamin E 268 mg (400 unit) Capsule 268 mg PO DAILY rosuvastatin 20 mg tablet 20 mg PO HS simethicone [Gas Relief (simethicone)] 80 mg Tablet,Chewable 80 mg PO Q6H PRN (Reason: dyspepsia) Qty: 30 0RF montelukast 10 mg tablet 10 mg PO HS valsartan 160 mg tablet 160 mg PO QAM quetiapine 25 mg tablet 50 mg PO HS buspirone 5 mg tablet 5 mg PO DAILY Qty: 30 0RF lorazepam [Ativan] 0.5 mg tablet 0.5 mg PO DAILY PRN (Reason: severe anxiety) Qty: 7 0RF bisoprolol fumarate 5 mg tablet 5 mg PO TID memantine 10 mg tablet 10 mg PO BID amlodipine-valsartan 5-160 mg tablet 1 tab PO DAILY dapagliflozin propanediol [Farxiga] 5 mg tablet 5 mg PO QAM isosorbide mononitrate 30 mg tablet extended release 24 hr 60 mg PO QAM albuterol sulfate 90 mcg/actuation HFA aerosol inhaler 2 puff INHALATION Q6H PRN (Reason: shortness of breath or coughing) Qty: 8.5 0RF Held colchicine 0.6 mg tablet 0.6 mg PO QAM Hold Instructions: Resume on 08/10/24. Hold until your diarrhea improves Discontinued carbidopa-levodopa 25-100 mg tablet 1 tab PO TID omeprazole 40 mg capsule,delayed release(DR/EC) 40 mg PO QAM famotidine 20 mg tablet 20 mg PO QAM Discharge Orders: Discharge Order (Routine); Ordered 08/04/24 Ordered By: Ephraim Martinez Admission Data Admit Date/Time: 08/02/24 08:42 Attending Provider: Ephraim Martinez Admit Provider: Janel Montenegro Primary Care Provider: Julianna Abel Other Providers: Janel Montenegro Other Interventions: Discharge Summary Assessment (RN) Last Done: 08/03/24 14:59
[2024-08-04 15:09] VITALS: PULSE 50
--- NOTE | 2024-08-04 16:21 | Electrocardiogram Report ---
Test Reason : Blood Pressure : */* mmHG Vent. Rate : 55 BPM Atrial Rate : 55 BPM P-R Int : 166 ms QRS Dur : 92 ms QT Int : 434 ms P-R-T Axes : 17 17 17 degrees QTcB Int : 415 ms Sinus bradycardia Otherwise normal ECG When compared with ECG of 02-Aug-2024 05:24, (unconfirmed) No significant change was found Confirmed by Rene Gonzalez [id number]) on 08/04/2024 4:20:59 PM Referred By: REFERRED SELF Confirmed By: Rene Gonzalez
[2024-08-04] MEDS ORDERED: PANTOprazole 40 MG TAB PO SCH (21:00)
== END 2024-08-04 16:45 | disposition home or self-care (01) | DRG 378 ==
LOC: SUATTDRO → ED 02:26 → 2S 08:42 → SUATTDRO 08:42 → 2S 09:50

== ENCOUNTER 2025-07-22 12:02 | Inpatient (IN) ==
--- NOTE | 2025-07-22 12:45 | Emergency Department Note ---
History of Present Illness General Chief complaint: Vertigo Stated complaint: WEAKNESS, LETHARGIC, BLURRED VISION Time Seen by Provider: 07/22/25 12:09 Source: patient Mode of arrival: EMS Limitations: no limitations History of Present Illness Patient is an 84-year-old male with history of anxiety, adrenal adenoma, hyperlipidemia, Parkinson's disease, CAD, COPD, MGUS, prior TIA without residual deficits who presents today for dizziness. He was in [facility] about an hour prior to arrival when he started to feel sudden onset of dizziness and difficulty walking. He also states that he has difficulty keeping his eyes open and the back of his head feels heavy. Denies any vision loss, speech change, facial droop, numbness in his extremities. He was noted to have low blood pressure per EMS and was given 600 mL of normal saline prior to arrival. He is concerned his symptoms are secondary to his blood pressure medication as he took 25 mg of carvedilol this morning which is atypical for him in addition to his typical isosorbide 60 mg. Home Medications Medication Instructions Recorded Confirmed Type clopidogrel 75 mg tablet 75 mg PO DAILY 05/09/23 07/22/25 History nitroglycerin 0.4 mg sublingual 0.4 mg sublingual DIRECTED PRN 05/09/23 07/22/25 History tablet Chest Pain rosuvastatin 20 mg tablet 20 mg PO HS 05/09/23 07/22/25 History vitamin E 268 mg (400 unit) capsule 268 mg PO DAILY 05/09/23 07/22/25 History zinc 50 mg tablet 50 mg PO DAILY 05/09/23 07/22/25 History amlodipine 5 mg-valsartan 160 mg 1 tab PO DAILY 08/02/24 07/22/25 History tablet isosorbide mononitrate 30 mg 60 mg PO QAM 08/02/24 07/22/25 History tablet,extended release 24 hr memantine 10 mg tablet 10 mg PO BID 08/02/24 07/22/25 History finasteride 5 mg tablet 5 mg PO DAILY #90 tabs 08/25/24 07/22/25 Rx carbidopa 25 mg-levodopa 100 mg 1 tab PO DAILY 12/29/24 07/22/25 History tablet quetiapine 25 mg tablet 25 mg PO HS 12/29/24 07/22/25 History vitamin B complex 1 cap PO DAILY 12/29/24 07/22/25 History albuterol sulfate 90 mcg/actuation 2 puff inhalation Q6H PRN 07/22/25 07/22/25 History aerosol inhaler SOB/Wheezing pantoprazole 40 mg tablet,delayed 40 mg PO DAILY 07/22/25 07/22/25 History release Allergies Allergy/AdvReac Type Severity Reaction Status Date / Time amlodipine Allergy Unknown Verified 01/27/25 08:28 pork derived (porcine) Allergy Verified 01/27/25 08:28 Pork/Porcine Containing Allergy Verified 01/27/25 08:28 Products Past Med/Surg History Problem List (Updated 07/22/25 @ 16:09 by Xavier Uriostegui MD) Dizziness (Acute) Stroke-like episode Stroke-like symptoms Anxiety Adrenal adenoma BPH w urinary obs/LUTS (Chronic) Gross hematuria (Chronic) Hyperlipidemia Parkinsons disease Coronary artery calcification seen on CAT scan Dysphagia COPD (chronic obstructive pulmonary disease) MGUS (monoclonal gammopathy of unknown significance) Hx TIA/stroke w/o resid Depression (Acute) Hypertension (Acute) Sleep apnea (Acute) Medical History Chronic gout History of GI bleed Hypertensive urgency Anemia Migraine Surgical History History of esophagogastroduodenoscopy (EGD) Family History Other Stroke Social History Smoking Status: Former smoker Tobacco Type: Cigarettes Second Hand Exposure: No; Do You Dip or Chew Tobacco: No; Hx Alcohol Use: No Hx Substance Use: No Preferred Language: Khmer Communication Ability: Effective 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 Physical Exam Vital Signs Vital Signs - 24 hr 07/22/25 12:13 07/22/25 12:13 07/22/25 12:38 Temperature 36.7 C 36.7 C Temperature Source Oral Oral Pulse Rate - Lying Pulse Rate - Sitting Pulse Rate - Standing Pulse Rate 54 L 59 L Pulse Rate [Apical] 54 L Respiratory Rate 16 16 Respiratory Effort / Characteristics Non-Labored Spontaneous Non-Labored Spontaneous Respiratory Depth Normal Normal Blood Pressure - Lying Blood Pressure - Sitting Blood Pressure- Standing Blood Pressure 130/69 Blood Pressure [Right Arm] 130/69 Blood Pressure Mean 89 Blood Pressure Mean [Right Arm] 89 Blood Pressure Position Semi-fowlers Blood Pressure Position [Right Arm] Pulse Oximetry 95 95 Oxygen Delivery Method Room Air Room Air Sepsis Recent Fever Within 48 Hours No Sepsis New/Unexplained Change in Mental Status N/A Sepsis Action Taken by Nursing No Action Required 07/22/25 14:15 07/22/25 14:32 Temperature Temperature Source Pulse Rate - Lying 56 L Pulse Rate - Sitting 55 L Pulse Rate - Standing 58 L Pulse Rate Pulse Rate [Apical] 49 L Respiratory Rate 17 Respiratory Effort / Characteristics Non-Labored Spontaneous Respiratory Depth Normal Blood Pressure - Lying 153/80 H Blood Pressure - Sitting 145/77 H Blood Pressure- Standing 154/83 H Blood Pressure Blood Pressure [Right Arm] 155/96 H Blood Pressure Mean Blood Pressure Mean [Right Arm] 115 Blood Pressure Position Blood Pressure Position [Right Arm] Semi-fowlers Pulse Oximetry 97 Oxygen Delivery Method Room Air Sepsis Recent Fever Within 48 Hours Sepsis New/Unexplained Change in Mental Status Sepsis Action Taken by Nursing See below Constitutional WD/WN, vitals as above Eyes PERRL, conjunctivae normal, anicteric sclerae Respiratory normal respiratory effort, lungs clear to auscultation Cardiovascular RRR, no murmur, no edema Gastrointestinal (Abdomen) normal bowel sounds, soft, nontender, no hepatosplenomegaly Neurologic Cranial nerves II through XII are intact, no visual field cut deficits, negative test of skew, no vertical nystagmus, 5 out of 5 strength in the upper extremities bilaterally, no sensation deficits noted to the large dermatomes, 4- 5 strength in the lower extremities bilaterally, no dysmetria in all 4 limbs, normal speech Course Administered Medications Discontinued Medications Aspirin (Aspirin Chew 324 Mg) 324 mg PO NOW STA Stop: 07/22/25 14:18 Last Admin: 07/22/25 15:01 Dose: Not Given Documented By: ARIANNA Clopidogrel Bisulfate (Clopidogrel Bisulfate 300 Mg Tab) 300 mg PO NOW STA Stop: 07/22/25 14:18 Last Admin: 07/22/25 15:01 Dose: Not Given Documented By: ARIANNA Ioversol (Optiray 320 125ml) 112 ml IV ONCE ONE Stop: 07/22/25 12:49 Last Admin: 07/22/25 12:48 Dose: 112 ml Documented By: DIEGO Medical Decision Making Differential Diagnosis DDx includes but not limited to: vertigo, orthostatic hypotension, medication side effect, infection, metabolic abnormality, TIA, CVA Medical Records Attestation: I reviewed the patient's medical records. Home Medications Current Medication List: was personally reviewed by me Laboratory Data Attestation: I reviewed the patient's lab results. 07/22/25 12:11 07/22/25 12:11 Lab Results 07/22/25 Range/Units 12:11 WBC 6.31 (4.8-10.8) K/ul RBC 3.61 L (4.70-6.10) M/uL Hgb 11.5 L (14.0-18.0) g/dL Hct 33.0 L (42.0-52.0) % MCV 91.4 (80.0-100.0) fL MCH 31.9 (25.0-34.0) pg MCHC 34.8 (32.0-36.0) g/dL RDW Std Deviation 49.2 H (36.4-46.3) fL RDW Coeff of Claire 14.6 H (11.5-14.5) % Plt Count 181 (130-400) K/uL MPV 11.0 (9.4-12.4) fL Immature Gran % (Auto) 0.2 % Neut % (Auto) 52.1 % Lymph % (Auto) 31.7 % [place] % (Auto) 10.8 % Eos % (Auto) 4.6 % Baso % (Auto) 0.6 % Neut # (Auto) 3.29 (1.40-6.50) K/uL Lymph # (Auto) 2.00 (1.20-3.40) K/uL [place] # (Auto) 0.68 H (0.11-0.59) K/uL Eos # (Auto) 0.29 (0.00-0.50) K/uL Baso # (Auto) 0.04 (0.00-0.20) K/uL Immature Gran # (Auto) 0.01 (0.01-0.20) K/uL PT 12.4 H (9.0-12.0) Seconds INR 1.2 H (0.9-1.1) APTT 25 (21-31) Seconds PTT Ratio 0.9 Sodium 137 (136-145) mmol/L Potassium 3.8 (3.5-5.1) mmol/L Chloride 108 H (98-107) mmol/L Carbon Dioxide 25 (21-32) mmol/L Anion Gap 4 (3-11) BUN 28 H (6-23) mg/dl Creatinine 0.85 (0.6-1.4) mg/dl Est Cr Clr Drug Dosing 68.0 ml/min eGFR 86.22 BUN/Creatinine Ratio 32.9 H (10-20) Glucose 112 H (70-99(Fasting)) mg/dl Calcium 8.2 L (8.6-10.3) mg/dl Magnesium 1.7 (1.7-2.4) mg/dl Total Bilirubin 0.6 (0.2-1.0) mg/dl AST 25 (13-39) U/L ALT 14 (7-52) U/L Alkaline Phosphatase 52 (34-104) U/L Troponin I High Sens 4.0 (0-20) pg/ml Total Protein 6.3 (6.0-8.3) gm/dl Albumin 3.5 (3.4-5.0) gm/dl Globulin 2.8 (2.5-4.0) gm/dl Albumin/Globulin Ratio 1.3 (0.9-2) Imaging Data Radiologist's Impression: Chest X-Ray 07/22/25 12:36 XR chest 1V portable CLINICAL HISTORY: neuro deficit, acute stroke suspected COMPARISON STUDY: Chest radiograph August 02, 2024. FINDINGS: Lung volumes are normal. Lungs are clear. There is no pneumothorax or pleural effusion. The heart is mildly enlarged. Mediastinal contours are normal. There is no evidence for pulmonary edema. IMPRESSION: No acute cardiopulmonary findings. ACT 112: Negative or not required by law. Electronically signed by: Rodrigo Carvalho M.D. 07/22/2025 1:[address] 07/22/25 12:36 CT SCAN OF THE BRAIN WITHOUT IV CONTRAST CLINICAL HISTORY: Neurological deficit. Stroke like symptoms. COMPARISON STUDY: CT of the brain dated 11/29/2023. TECHNIQUE: Unenhanced CT scan of the brain is performed from the vertex to the skull base. Images are reviewed in the axial, sagittal, coronal planes. A dose lowering technique was utilized adhering to the principles of ALARA. FINDINGS: Brain parenchyma: There is age-related involutional change noting moderate subcortical and periventricular microangiopathic disease. There is no hemorrhage, mass effect, or evidence of acute territorial ischemia by CT criteria. Davila-white matter differentiation is preserved. No extra-axial fluid collection is seen. Ventricles, sulci, cisterns: Prominent secondary to involutional change. Intracranial vasculature: There is minimal atherosclerotic calcification of the cavernous carotid arteries. Calvarium: Unremarkable. Sinuses and mastoids: There is mild mucosal thickening in the maxillary sinuses. Retention cyst in the maxillary antra measuring up to 2.4 cm. Moderate mucosal thickening is also seen within the ethmoid sinuses. The mastoid air cells are well pneumatized. Cerumen is noted in the external auditory canals. Orbits: The bony orbits are grossly intact. There is a left ocular lens implant. IMPRESSION: There is no hemorrhage, mass effect, or evidence of acute territorial ischemia by CT criteria. ACT 112: Negative or not required by law. Electronically signed by: Bharathi Nguyen M.D. 07/22/2025 1:09 PM Head CTA 07/22/25 12:36 CT angio head w con CLINICAL HISTORY: 84 years-old Male with neuro deficit, acute stroke suspected. Acute stroke like symptoms COMPARISON STUDY: Head CT of same day and 11/29/2023 TECHNIQUE: Following the IV administration of 112 cc of Optiray, CT angiogram of the brain was performed from the skull base to the vertex. Images are reviewed in the axial, sagittal, and coronal planes. 3-D MIPS images are created and assessed. IV contrast was administered without complication. All measurements were obtained according to NASCET criteria. A dose lowering technique was utilized adhering to the principles of ALARA. CT DOSE: 1160.79 mGy.cm FINDINGS: CT BRAIN: Dictated separately. Polypoid mucosal thickening of the maxillary sinuses. Involutional changes with chronic microvascular ischemic disease. CT ANGIOGRAM OF THE BRAIN: The imaged bilateral internal carotid arteries are patent. The bilateral anterior and middle cerebral arteries are also patent. The vertebrobasilar system and posterior cerebral arteries are widely patent. There is no aneurysm, high-grade stenosis, or proximal branch occlusion identified. Dural sinuses appear patent. IMPRESSION: Unremarkable CTA of the head. ACT 112: Negative or not required by law. The above report was generated using voice recognition software. It may contain grammatical, syntax or spelling errors. Electronically signed by: Trevor Gibbons M.D. 07/22/2025 1:10 PM Neck CTA 07/22/25 12:36 CT ANGIOGRAPHY OF THE NECK WITH CONTRAST CLINICAL HISTORY: neuro deficit, acute stroke suspected COMPARISON STUDY: Cervical spine CT July 10, 2013. Technique: CT angiography of the carotid and vertebral arteries was obtained using Optiray and 3D reconstruction on an independent workstation. NASCET criteria was utilized. Automated exposure control was utilized for the study. A dose lowering technique was utilized adhering to the principles of ALARA. Findings: This exam is moderately compromised by motion artifact. Visualized lung apices are unremarkable. No cervical spinal fractures are present. There is no cervical lymphadenopathy. Moderate multilevel degenerative changes with reversal the cervical lordosis are noted. There is extensive calcified atherosclerotic plaque within the proximal right internal carotid artery. Evaluation is compromised by motion artifact however there is approximate 70% stenosis of this vessel. There is moderate plaque within the proximal left internal carotid artery without severe stenosis. Vertebral artery origins are suboptimally assessed. There is no aneurysm or dissection within the neck. IMPRESSION: 1. Exam moderately compromised by motion artifact. Approximate 70% stenosis of the proximal right internal carotid artery due to extensive calcified atherosclerotic plaque. 2. Moderate plaque within the proximal left internal carotid artery without stenosis. ACT 112: Negative or not required by law. Electronically signed by: Rodrigo Carvalho M.D. 07/22/2025 1:13 PM ECG Data Attestation: I personally reviewed and interpreted this ECG as follows: Indication: + bradycardia Rate (beats per minute): 52 74 my job Rhythm: + sinus rhythm ECG Intervals/blocks: + Normal QRS, + Normal QT and + Normal NH ECG [place]: + Normal ECG ST segments: + Normal ST segments Comparison ECG Date: from (12/29/2024) MDM Narrative Patient is an 84-year-old male presents with dizziness and ambulatory dysfunction while at [facility] an hour prior to arrival. He does still describe dizziness when he got here but no focal neurologic deficits noted on my exam. He does exhibit some generalized weakness. Exam is not characteristic of BPPV or central cause of his dizziness however based on his history and persistent reported symptoms I did activate a stroke alert. CT imaging of the head as well as CTA of the head and neck were negative for acute findings related to his symptoms. Teleneurologist with [facility] did evaluate patient and notes that patient's symptoms have resolved and he is back to baseline. He does recommend admission for CVA rule out and dual antiplatelet therapy with loading dose of aspirin and Plavix ordered here in the ED. He also recommends orthostatic vital signs to assess for orthostatic hypotension. Patient is stable for admission to the hospitalist service. Impression & Plan Dizziness Discharge Plan Visit Data Chief Complaint: Vertigo Stated Complaint: WEAKNESS, LETHARGIC, BLURRED VISION ED Provider: Xavier Uriostegui Discharge Problem: Dizziness Patient Disposition: Admitted As Inpatient Condition: Good Forms Stand Alone Forms: My [facility] Prescriptions Prescriptions: No Action vitamin B complex Capsule 1 cap PO DAILY carbidopa-levodopa 25-100 mg tablet 1 tab PO DAILY finasteride 5 mg tablet 5 mg PO DAILY Qty: 90 3RF clopidogrel 75 mg tablet 75 mg PO DAILY nitroglycerin 0.4 mg tablet, sublingual 0.4 mg sublingual DIRECTED PRN (Reason: Chest Pain) zinc 50 mg Tablet 50 mg PO DAILY vitamin E 268 mg (400 unit) Capsule 268 mg PO DAILY rosuvastatin 20 mg tablet 20 mg PO HS quetiapine 25 mg tablet 25 mg PO HS pantoprazole 40 mg tablet,delayed release (DR/EC) 40 mg PO DAILY albuterol sulfate 90 mcg/actuation HFA aerosol inhaler 2 puff INHALATION Q6H PRN (Reason: SOB/Wheezing) memantine 10 mg tablet 10 mg PO BID amlodipine-valsartan 5-160 mg tablet 1 tab PO DAILY isosorbide mononitrate 30 mg tablet extended release 24 hr 60 mg PO QAM Referrals Referrals: Jasmyn Rich MD [Primary Care Provider] -
[2025-07-22] MEDS: OPTIRAY 320 125ml IV ONE (12:48)
[2025-07-22 12:54] LABS: Hematocrit (blood only) 33.0 % (42.0-52.0); Hemoglobin 11.5 g/dL (14.0-18.0); Immature Granulocytes # (auto) 0.01 K/uL (0.01-0.20); Immature Granulocytes % (auto) 0.2 %; Mean Corpuscular Hemoglobin 31.9 pg (25.0-34.0); Mean Corpuscular Volume 91.4 fL (80.0-100.0); Platelet Count 181 K/uL (130-400); RDW Standard Deviation 49.2 fL (36.4-46.3); Red Blood Count 3.61 M/uL (4.70-6.10); White Blood Count 6.31 K/ul (4.8-10.8)
--- NOTE | 2025-07-22 13:11 | CT Scan Report ---
CT SCAN OF THE BRAIN WITHOUT IV CONTRAST CLINICAL HISTORY: Neurological deficit. Stroke like symptoms. COMPARISON STUDY: CT of the brain dated 11/29/2023. TECHNIQUE: Unenhanced CT scan of the brain is performed from the vertex to the skull base. Images are reviewed in the axial, sagittal, coronal planes. A dose lowering technique was utilized adhering to the principles of ALARA. FINDINGS: Brain parenchyma: There is age-related involutional change noting moderate subcortical and periventri cular microangiopathic disease. There is no hemorrhage, mass effect, or evidence of acute territorial ischemia by CT criteria. Davila-white matter differentiation is preserved. No extra-axial fluid collec tion is seen. Ventricles, sulci, cisterns: Prominent secondary to involutional change. Intracranial vasculature: There is minimal atherosclerotic calcification of the cavernous carotid art eries. Calvarium: Unremarkable. Sinuses and mastoids: There is mild mucosal thickening in the maxillary sinuses. Retention cyst in th e maxillary antra measuring up to 2.4 cm. Moderate mucosal thickening is also seen within the ethmoid sinuses. The mastoid air cells are well pneumatized. Cerumen is noted in the external auditory canal s. Orbits: The bony orbits are grossly intact. There is a left ocular lens implant. IMPRESSION: There is no hemorrhage, mass effect, or evidence of acute territorial ischemia by CT jose a ramos. ACT 112: Negative or not required by law. Electronically signed by: Bharathi Nguyen M.D. 07/22/2025 1:09 PM
--- NOTE | 2025-07-22 13:12 | CT Scan Report ---
CT angio head w con CLINICAL HISTORY: 84 years-old Male with neuro deficit, acute stroke suspected. Acute stroke like symptoms COMPARISON STUDY: Head CT of same day and 11/29/2023 TECHNIQUE: Following the IV administration of 112 cc of Optiray, CT angiogram of the brain was perfor med from the skull base to the vertex. Images are reviewed in the axial, sagittal, and coronal planes . 3-D MIPS images are created and assessed. IV contrast was administered without complication. All me asurements were obtained according to NASCET criteria. A dose lowering technique was utilized adherin g to the principles of ALARA. CT DOSE: 1160.79 mGy.cm FINDINGS: CT BRAIN: Dictated separately. Polypoid mucosal thickening of the maxillary sinuses. Involutional changes with chronic microvascular ischemic disease. CT ANGIOGRAM OF THE BRAIN: The imaged bilateral internal carotid arteries are patent. The bilateral anterior and middle cerebral arteries are also patent. The vertebrobasilar system and posterior cerebral arteries are widely pérez nt. There is no aneurysm, high-grade stenosis, or proximal branch occlusion identified. Dural sinuses appear patent. IMPRESSION: Unremarkable CTA of the head. ACT 112: Negative or not required by law. The above report was generated using voice recognition software. It may contain grammatical, syntax o r spelling errors. Electronically signed by: Trevor Gibbons M.D. 07/22/2025 1:10 PM
--- NOTE | 2025-07-22 13:15 | CT Scan Report ---
CT ANGIOGRAPHY OF THE NECK WITH CONTRAST CLINICAL HISTORY: neuro deficit, acute stroke suspected COMPARISON STUDY: Cervical spine CT July 10, 2013. Technique: CT angiography of the carotid and vertebral arteries was obtained using Optiray and 3D rec onstruction on an independent workstation. NASCET criteria was utilized. Automated exposure control was utilized for the study. A dose lowering technique was utilized adhering to the principles of ALA RA. Findings: This exam is moderately compromised by motion artifact. Visualized lung apices are unremark able. No cervical spinal fractures are present. There is no cervical lymphadenopathy. Moderate multil evel degenerative changes with reversal the cervical lordosis are noted. There is extensive calcified atherosclerotic plaque within the proximal right internal carotid artery. Evaluation is compromised by motion artifact however there is approximate 70% stenosis of this vessel. There is moderate plaque within the proximal left internal carotid artery without severe stenosis. Vertebral artery origins a re suboptimally assessed. There is no aneurysm or dissection within the neck. IMPRESSION: 1. Exam moderately compromised by motion artifact. Approximate 70% stenosis of the proximal right int ernal carotid artery due to extensive calcified atherosclerotic plaque. 2. Moderate plaque within the proximal left internal carotid artery without stenosis. ACT 112: Negative or not required by law. Electronically signed by: Rodrigo Carvalho M.D. 07/22/2025 1:13 PM
[2025-07-22 13:24] LABS: Alanine Aminotransferase 14.0 U/L (7-52); Albumin Globulin Ratio 1.3 (0.9-2); Albumin Level 3.5 gm/dl (3.4-5.0); Alkaline Phosphatase 52.0 U/L (34-104); Anion Gap 4.0 (3-11); Bilirubin,Total 0.6 mg/dl (0.2-1.0); Blood Urea Nitrogen 28.0 mg/dl (6-23); Calcium 8.2 mg/dl (8.6-10.3); Carbon Dioxide 25.0 mmol/L (21-32); Chloride 108.0 mmol/L (98-107); Creatinine Clr Calc Pharmacy 68.0 ml/min; Globulin 2.8 gm/dl (2.5-4.0); Glucose 112.0 mg/dl (70-99(Fasting)); Magnesium 1.7 mg/dl (1.7-2.4); Potassium 3.8 mmol/L (3.5-5.1); Sodium 137.0 mmol/L (136-145); Total Protein 6.3 gm/dl (6.0-8.3)
[2025-07-22 13:25] LABS: INR 1.2 (0.9-1.1); Partial Thromboplastin Time 25 Seconds (21-31); Prothrombin Time 12.4 Seconds (9.0-12.0)
--- NOTE | 2025-07-22 13:27 | XRay Report ---
XR chest 1V portable CLINICAL HISTORY: neuro deficit, acute stroke suspected COMPARISON STUDY: Chest radiograph August 02, 2024. FINDINGS: Lung volumes are normal. Lungs are clear. There is no pneumothorax or pleural effusion. The heart is mildly enlarged. Mediastinal contours are normal. There is no evidence for pulmonary edema. IMPRESSION: No acute cardiopulmonary findings. ACT 112: Negative or not required by law. Electronically signed by: Rodrigo Carvalho M.D. 07/22/2025 1:26 PM
--- NOTE | 2025-07-22 14:36 | History & Physical Report ---
Date of Service July 22, 2025 Assessment & Plan (1) Stroke-like episode: Plan Patient is an 84-year-old male with past medical history significant for moderate nonocclusive CAD, HLD, HTN, history of atypical chest pain with recent dobutamine stress testing done in December 2024 which was negative for inducible ischemia, adrenal nodules, chronic gout, COPD with asthma, fatty liver, esophageal dysmotility, achalasia, history of esophagitis, PUD, BPH with LUTS, osteoarthritis, essential tremors, history of TIA in 1989 with transient LUE weakness, IgG kappa proteinemia, RADHA and insomnia who presented to the ED via EMS with c/o strokelike sx. Developed acute onset of lightheadedness/dizziness, left-sided postauricular pain and perioral numbness whilst shopping at [employer] earlier today with his . Was significantly hypotensive with SBP in the 80s per EMS. S/p 600cc NSS bolus en route to ED with improvement in BP. NIHSS 6 upon arrival to ED. Called stroke alert in ED. Head CT unremarkable. Head CTA unremarkable. Neck CTA: 70% stenosis of the proximal R internal carotid artery 2/2 extensive calcified atherosclerotic plaque, moderate plaque within the proximal L internal carotid artery w/o stenosis. Sx mostly resolved in ED with exception of his L-sided postauricular pain, which is improving. Seen by telestroke neuro in ED. No indication for TNK given overall improvement in sx. Recommended ASA and Plavix loading, admission for full stroke eval. 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 from pharmacy -Took dose of Imdur on top of prior Coreg dose and developed above sx shortly after -Hypotension correlating with sx, as per above BP stable in ED while at rest Will check orthostatics Does have significant R internal carotid artery stenosis on neck CTA so certainly need to r/o CVA, especially given his comorbidities Pt declined ASA and Plavix loading in ED -Took 75mg Plavix this AM; not currently on ASA therapy -States he has a h/o upper GI bleeding but has been tolerating Plavix w/o issue for several years -Last GI bleed was over a year ago per pt's recollection -Was on ASA "years ago" however stopped this 2/2 GI upset, fear of rebleeding -No current bleeding concerns, H/H stable -Education provided on the reasoning behind DAPT loading however pt wishes to hold on this for now Continue Plavix 75mg daily Will hold off on the addition of daily ASA 81mg per pt's request however pt strongly advised to consider this Check brain MRI, TTE with bubble study Hold home antiHTN meds for now to allow for permissive HTN as per protocol Appreciate formal neuro consult Check AM lipid panel, Hgb A1c Continue statin therapy ? 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 Jun Martin #BPH F/w [facility] urology Continue finasteride #GERD #H/o peptic ulcer disease Continue PPI #Insomnia Continue Seroquel DVT Prophylaxis: SCDs/TEDs only for now Code Status: FULL CODE Disposition: Admit to med/telemetry Patient seen in collaboration with Dr. Diggs. Please see addendum. I spent a total of 70 minutes coordinating, documenting, and providing care for this patient excluding time spent in the performance of separately billed services or time spent by another provider/QHP. This included personally reviewing all current laboratories and imaging studies, medical reconciliation, outpatient chart review and discussion with specialists. History of Present Illness Chief Complaint: Strokelike sx Primary Care Provider: Jasmyn Rich MD Patient is an 84-year-old male with past medical history significant for moderate nonocclusive CAD, HLD, HTN, history of atypical chest pain with recent dobutamine stress testing done in December 2024 which was negative for inducible ischemia, adrenal nodules, chronic gout, COPD with asthma, fatty liver, esophageal dysmotility, achalasia, history of esophagitis, PUD, BPH with LUTS, osteoarthritis, essential tremors, history of TIA in 1989 with transient LUE weakness, IgG kappa proteinemia, RADHA and insomnia who presented to the ED via EMS with c/o strokelike sx. Developed acute onset of lightheadedness/dizziness, left-sided postauricular pain and perioral numbness whilst shopping at [facility] earlier today with his . called EMS. Was significantly hypotensive with SBP in the 80s per EMS. S/p 600cc NSS bolus en route to ED with improvement in BP. NIHSS 6 upon arrival to ED. Called stroke alert in ED. Head CT unremarkable. Head CTA unremarkable. Neck CTA noting approximate 70% stenosis of the proximal right internal carotid artery due to extensive calcified atherosclerotic plaque, moderate plaque within the proximal left internal carotid artery without stenos is. Sx mostly resolved in ED with exception of his left-sided postauricular pain, which is somewhat improved compared to prior yet still remains. Patient admits that he was out of his Imdur this morning. So instead, he took a dose of 6.25mg carvedilol that he had leftover. He then went to [facility] and picked up a prescription for his Imdur. He ended up taking a dose of Imdur on top of the carvedilol he'd already taken. Shortly after that is when he started to develop the above sx. Patient was seen by telestroke neurology in ED. No indication for TNK given overall improvement in sx. Recommended ASA and Plavix loading, admission for full stroke eval. Allergies Allergy/AdvReac Type Severity Reaction Status Date / Time amlodipine Allergy Unknown Verified 01/27/25 08:28 pork derived (porcine) Allergy Verified 01/27/25 08:28 Pork/Porcine Containing Allergy Verified 01/27/25 08:28 Products Home Medications Medication Instructions Recorded Confirmed Type clopidogrel 75 mg tablet 75 mg PO DAILY 05/09/23 07/22/25 History nitroglycerin 0.4 mg sublingual 0.4 mg sublingual DIRECTED PRN 05/09/23 07/22/25 History tablet Chest Pain rosuvastatin 20 mg tablet 20 mg PO HS 05/09/23 07/22/25 History vitamin E 268 mg (400 unit) capsule 268 mg PO DAILY 05/09/23 07/22/25 History zinc 50 mg tablet 50 mg PO DAILY 05/09/23 07/22/25 History amlodipine 5 mg-valsartan 160 mg 1 tab PO DAILY 08/02/24 07/22/25 History tablet isosorbide mononitrate 30 mg 60 mg PO QAM 08/02/24 07/22/25 History tablet,extended release 24 hr memantine 10 mg tablet 10 mg PO BID 08/02/24 07/22/25 History finasteride 5 mg tablet 5 mg PO DAILY #90 tabs 08/25/24 07/22/25 Rx carbidopa 25 mg-levodopa 100 mg 1 tab PO DAILY 12/29/24 07/22/25 History tablet quetiapine 25 mg tablet 25 mg PO HS 12/29/24 07/22/25 History vitamin B complex 1 cap PO DAILY 12/29/24 07/22/25 History albuterol sulfate 90 mcg/actuation 2 puff inhalation Q6H PRN 07/22/25 07/22/25 History aerosol inhaler SOB/Wheezing pantoprazole 40 mg tablet,delayed 40 mg PO DAILY 07/22/25 07/22/25 History release Past Med/Surg History Problem List (Updated 07/22/25 @ 16:09 by Xavier Uriostegui MD) Dizziness (Acute) Stroke-like episode Stroke-like symptoms Anxiety Adrenal adenoma BPH w urinary obs/LUTS (Chronic) Gross hematuria (Chronic) Hyperlipidemia Parkinsons disease Coronary artery calcification seen on CAT scan Dysphagia COPD (chronic obstructive pulmonary disease) MGUS (monoclonal gammopathy of unknown significance) Hx TIA/stroke w/o resid Depression (Acute) Hypertension (Acute) Sleep apnea (Acute) Medical History Chronic gout History of GI bleed Hypertensive urgency Anemia Migraine Surgical History History of esophagogastroduodenoscopy (EGD) Family History Other Stroke Social History (Reviewed 07/22/25 @ 16:02 by OSCAR Dick Smoking Status: Former smoker Tobacco Type: Cigarettes Second Hand Exposure: No; Do You Dip or Chew Tobacco: No; Hx Alcohol Use: No Hx Substance Use: No Preferred Language: [place] Communication Ability: Effective Private Detective Required: No Beliefs That Will Affect Care: Spiritual marital status: Current Living Situation: Spouse and Family Current Living Situation Comment: , daughter and son current occupational status: retired Feels Safe at Home: Yes Assistive Devices: Cane Review of Systems Review of Systems: At least ten systems reviewed and negative, except as noted in the HPI. Physical Exam Physical Exam: Please refer to Dr. Diggs's addendum for physical examination findings. Results & Data Results & Data Vital Signs (Past 12 Hours) Vital Signs Temp Pulse Pulse Resp BP BP Pulse Ox 07/22/25 12:38 59 L 07/22/25 12:13 36.7 C 54 L 16 130/69 95 07/22/25 12:13 36.7 C 54 L 16 130/69 95 O2 Del Method 07/22/25 12:38 07/22/25 12:13 Room Air 07/22/25 12:13 Room Air Laboratory Results Short CBC 07/22/25 Range/Units 12:11 WBC 6.31 (4.8-10.8) K/ul Hgb 11.5 L (14.0-18.0) g/dL Hct 33.0 L (42.0-52.0) % Plt Count 181 (130-400) K/uL BMP 07/22/25 12:11 Sodium 137 Potassium 3.8 Chloride 108 H Carbon Dioxide 25 BUN 28 H Creatinine 0.85 Glucose 112 H Calcium 8.2 L Liver Function 07/22/25 Range/Units 12:11 Total Bilirubin 0.6 (0.2-1.0) mg/dl AST 25 (13-39) U/L ALT 14 (7-52) U/L Alkaline Phosphatase 52 (34-104) U/L Albumin 3.5 (3.4-5.0) gm/dl Diagnostic Findings Chest X-Ray 07/22/25 12:36 XR chest 1V portable CLINICAL HISTORY: neuro deficit, acute stroke suspected COMPARISON STUDY: Chest radiograph August 02, 2024. FINDINGS: Lung volumes are normal. Lungs are clear. There is no pneumothorax or pleural effusion. The heart is mildly enlarged. Mediastinal contours are normal. There is no evidence for pulmonary edema. IMPRESSION: No acute cardiopulmonary findings. ACT 112: Negative or not required by law. Electronically signed by: Rodrigo Carvalho M.D. 07/22/2025 1:[address] 07/22/25 12:36 CT SCAN OF THE BRAIN WITHOUT IV CONTRAST CLINICAL HISTORY: Neurological deficit. Stroke like symptoms. COMPARISON STUDY: CT of the brain dated 11/29/2023. TECHNIQUE: Unenhanced CT scan of the brain is performed from the vertex to the skull base. Images are reviewed in the axial, sagittal, coronal planes. A dose lowering technique was utilized adhering to the principles of ALARA. FINDINGS: Brain parenchyma: There is age-related involutional change noting moderate subcortical and periventricular microangiopathic disease. There is no hemorrhage, mass effect, or evidence of acute territorial ischemia by CT criteria. Davila-white matter differentiation is preserved. No extra-axial fluid collection is seen. Ventricles, sulci, cisterns: Prominent secondary to involutional change. Intracranial vasculature: There is minimal atherosclerotic calcification of the cavernous carotid arteries. Calvarium: Unremarkable. Sinuses and mastoids: There is mild mucosal thickening in the maxillary sinuses. Retention cyst in the maxillary antra measuring up to 2.4 cm. Moderate mucosal thickening is also seen within the ethmoid sinuses. The mastoid air cells are well pneumatized. Cerumen is noted in the external auditory canals. Orbits: The bony orbits are grossly intact. There is a left ocular lens implant. IMPRESSION: There is no hemorrhage, mass effect, or evidence of acute territorial ischemia by CT criteria. ACT 112: Negative or not required by law. Electronically signed by: Bharathi Nguyen M.D. 07/22/2025 1:09 PM Head CTA 07/22/25 12:36 CT angio head w con CLINICAL HISTORY: 84 years-old Male with neuro deficit, acute stroke suspected. Acute stroke like symptoms COMPARISON STUDY: Head CT of same day and 11/29/2023 TECHNIQUE: Following the IV administration of 112 cc of Optiray, CT angiogram of the brain was performed from the skull base to the vertex. Images are reviewed in the axial, sagittal, and coronal planes. 3-D MIPS images are created and assessed. IV contrast was administered without complication. All measurements were obtained according to NASCET criteria. A dose lowering technique was utilized adhering to the principles of ALARA. CT DOSE: 1160.79 mGy.cm FINDINGS: CT BRAIN: Dictated separately. Polypoid mucosal thickening of the maxillary sinuses. Involutional changes with chronic microvascular ischemic disease. CT ANGIOGRAM OF THE BRAIN: The imaged bilateral internal carotid arteries are patent. The bilateral anterior and middle cerebral arteries are also patent. The vertebrobasilar system and posterior cerebral arteries are widely patent. There is no aneurysm, high-grade stenosis, or proximal branch occlusion identified. Dural sinuses appear patent. IMPRESSION: Unremarkable CTA of the head. ACT 112: Negative or not required by law. The above report was generated using voice recognition software. It may contain grammatical, syntax or spelling errors. Electronically signed by: Trevor Gibbons M.D. 07/22/2025 1:10 PM Neck CTA 07/22/25 12:36 CT ANGIOGRAPHY OF THE NECK WITH CONTRAST CLINICAL HISTORY: neuro deficit, acute stroke suspected COMPARISON STUDY: Cervical spine CT July 10, 2013. Technique: CT angiography of the carotid and vertebral arteries was obtained using Optiray and 3D reconstruction on an independent workstation. NASCET criteria was utilized. Automated exposure control was utilized for the study. A dose lowering technique was utilized adhering to the principles of ALARA. Findings: This exam is moderately compromised by motion artifact. Visualized lung apices are unremarkable. No cervical spinal fractures are present. There is no cervical lymphadenopathy. Moderate multilevel degenerative changes with reversal the cervical lordosis are noted. There is extensive calcified atherosclerotic plaque within the proximal right internal carotid artery. Evaluation is compromised by motion artifact however there is approximate 70% stenosis of this vessel. There is moderate plaque within the proximal left internal carotid artery without severe stenosis. Vertebral artery origins are suboptimally assessed. There is no aneurysm or dissection within the neck. IMPRESSION: 1. Exam moderately compromised by motion artifact. Approximate 70% stenosis of the proximal right internal carotid artery due to extensive calcified atherosclerotic plaque. 2. Moderate plaque within the proximal left internal carotid artery without stenosis. ACT 112: Negative or not required by law. Electronically signed by: Rodrigo Carvalho M.D. 07/22/2025 1:13 PM Medications Administered Discontinued Medications Aspirin (Aspirin Chew 324 Mg) 324 mg PO NOW STA Stop: 07/22/25 14:18 Last Admin: 07/22/25 15:01 Dose: Not Given Documented By: ARIANNA Clopidogrel Bisulfate (Clopidogrel Bisulfate 300 Mg Tab) 300 mg PO NOW STA Stop: 07/22/25 14:18 Last Admin: 07/22/25 15:01 Dose: Not Given Documented By: ARIANNA Ioversol (Optiray 320 125ml) 112 ml IV ONCE ONE Stop: 07/22/25 12:49 Last Admin: 07/22/25 12:48 Dose: 112 ml Documented By: DIEGO Supervising Physician Co-Signing Physician Notes Attending Addendum: Case reviewed with the advanced practitioner. I have personally performed a history and physical examination on the patient. I have reviewed the advanced practitioner's documentation on the date of service referenced in note, and I agree with, and take responsibility for the plan of care. please refer to her notes for full details patient seen and examined, records reviewed by myself as well on exam, patient seen resting in bed, sitting up, comfortable, in good spirits, oriented x 3, answering all questions appropriately States all of his neurologic symptoms have resolved including dizziness, aphasia, generalized weakness and loss of balance Does report a mild parieto-occipital headache on the left side Otherwise no chest pain, shortness of breath, palpitations no other symptoms VS noted and reviewed oriented x3 , not in distress, speaks in sentences with no effort nor accessory muscle use normal rate, regular rhythm, no murmurs clear breath sounds bilaterally non distended, soft, nontender no bipedal edema, erythema, warmth no neuro deficits all labs, imaging noted and reviewed ASSESSMENT AND PLAN> Presyncopal episode associated with strokelike symptoms including aphasia, episode of hypotension Rule out TIA versus acute CVA History of TIA neurologic symptoms have resolved Noted to be hypotensive upon presentation, patient admits to taking carvedilol in addition to his usual blood pressure medication regimen today he took carvedilol in place of his isosorbide mononitrate early in the morning, but then took his usual isosorbide mononitrate upon filling the prescription at the pharmacy later on this morning already on Plavix daily CT head: No acute CVA CT angiogram head and neck: +70% stenosis of the RCA, moderate plaque on the left ICA Stroke protocol order set Brain MRI ordered permissive hypertension continue usual Plavix Neurology service evaluation other diagnoses and plan of care as per advanced practitioner's notes I spent a total of 45 minutes coordinating, documenting, and providing care for this patient, excluding time spent in the performance of separately billed services or time spent by another provider/QHP. Jim Diggs MD
[2025-07-22] MEDS: ASPIRIN CHEW 324 MG PO STA (15:01)
[2025-07-22] MEDS: CLOPIDOGREL BISULFATE 300 MG TAB PO STA (15:01)
--- NOTE | 2025-07-22 16:00 | Electrocardiogram Report ---
Test Reason : Blood Pressure : */* mmHG Vent. Rate : 52 BPM Atrial Rate : 52 BPM P-R Int : 196 ms QRS Dur : 92 ms QT Int : 454 ms P-R-T Axes : 45 16 25 degrees QTcB Int : 422 ms Sinus bradycardia Otherwise normal ECG When compared with ECG of 29-Dec-2024 15:56, No significant change was found Confirmed by Guicho Andrew ([id number]) on 07/22/2025 3:59:31 PM Referred By: REFERRED SELF Confirmed By: Guicho Andrew
--- NOTE | 2025-07-22 17:43 | Magnetic Resonance Report ---
Clinical History: Dizziness and hypertension Technique: Multiple T1 and T2-weighted magnetic resonance images were obtained of the brain without gadolinium contrast Comparison is made with a head CT dated 11/29/2023 Findings: There is no sign of acute or old infarction with normal-appearing diffusion weighted images. There is cerebral atrophy, within expected limits for the patient's age. There are focal and confluent areas of increased T2 signal intensity within the periventricular white matter of the cerebral hemispheres bilaterally. This is most likely due to chronic small vessel ischemic disease. There are prominent perivascular spaces in the basal ganglia No definite mass lesion is seen on this noncontrast study. There is no intracranial hemorrhage or other fluid collection. No midline shift or other form of herniation is seen. There is no hydrocephalus. Normal flow-voids are seen within the arteries of the [id number]. There are mucus retention cysts in the maxillary sinuses bilaterally. The mastoid air cells appear clear. Impression: 1. Cerebral atrophy and chronic small vessel ischemic disease 2. No sign of infarction or mass lesion 3. Chronic sinusitis Electronically signed by Ryan Iyer 07-22-2025 5:43 PM
[2025-07-22] MEDS ORDERED: ONDANSETRON INJ 2 MG/ML 2 ML VIAL IV PRN (19:43)
[2025-07-22] MEDS ORDERED: MAGNESIUM HYDROXIDE SUSP 30 ML UDC PO PRN (19:43)
[2025-07-22] MEDS ORDERED: PHARMACIST DISCHARGE MED REC CONSULT PRN (19:43)
[2025-07-22] MEDS ORDERED: POLYETHYLENE (MIRALAX) 17 GM PACK PO PRN (19:43)
[2025-07-22] MEDS: ROSUVASTATIN CALCIUM 20 MG TAB PO SCH (22:01)
[2025-07-22] MEDS: MEMANTINE HCL 10 MG TAB PO SCH (22:02)
[2025-07-22] MEDS ORDERED: ALBUTEROL HFA 8 GM INHALER INH PRN (22:43)
[2025-07-23 07:06] LABS: Hematocrit (blood only) 38.5 % (42.0-52.0); Hemoglobin 13.1 g/dL (14.0-18.0); Mean Corpuscular Hemoglobin 30.8 pg (25.0-34.0); Mean Corpuscular Volume 90.6 fL (80.0-100.0); Platelet Count 195 K/uL (130-400); RDW Standard Deviation 49.7 fL (36.4-46.3); Red Blood Count 4.25 M/uL (4.70-6.10); White Blood Count 5.74 K/ul (4.8-10.8)
[2025-07-23 07:30] LABS: Anion Gap 7.0 (3-11); Blood Urea Nitrogen 24.0 mg/dl (6-23); Calcium 9.2 mg/dl (8.6-10.3); Carbon Dioxide 27.0 mmol/L (21-32); Chloride 105.0 mmol/L (98-107); Cholesterol 106.0 mg/dl (0-200); Creatinine Clr Calc Pharmacy 57.4 ml/min; Glucose 89.0 mg/dl (70-99(Fasting)); HDL Cholesterol 46.0 mg/dl; Magnesium 1.8 mg/dl (1.7-2.4); Potassium 4.1 mmol/L (3.5-5.1); Sodium 139.0 mmol/L (136-145); Triglycerides 100.0 mg/dl (0-150)
--- NOTE | 2025-07-23 07:47 | Hospitalist Progress Note ---
Date of Service July 23, 2025 Assessment & Plan (1) Hypotensive episode: (2) Benign essential tremor: (3) Memory impairment: (4) BPH w urinary obs/LUTS: (5) GERD (gastroesophageal reflux disease): Plan Patient is an 84-year-old male with PMH significant for moderate nonocclusive CAD, HLD, HTN, adrenal nodules, chronic gout, COPD with asthma, fatty liver, esophageal dysmotility, achalasia, history of esophagitis, PUD, BPH with LUTS, osteoarthritis, essential tremors, history of TIA in 1989, IgG kappa proteinemia (under observation), RADHA and insomnia who presented to the ED on 07/22/2025 via EMS with c/o strokelike sx. Hypotensive episode Carotid stenosis Patient presenting with acute onset of dizziness, left postauricular pain, perioral numbness Found to be hypotensive per EMS, given fluids in route, normotensive upon arrival to hospital Likely secondary to taking Coreg in addition to Imdur-> patient was out of Imdur and took Coreg instead and then took Imdur once filled at pharmacy Stroke alert in ED and telestroke recommended ASA and plavix loading doses however patient declined due to history of GI bleeding Head CT and CTA unremarkable Neck CTA revealed 70% stenosis of proximal LATANYA due to extensive calcified atherosclerotic plaque, moderate plaque in proximal LICA without stenosis Brain MRI negative Carotid doppler revealed no hemodynamically significant stenosis in right or left carotid arterial system TTE revealed mild LVH, EF 60-65%, mild aortic valve sclerosis without stenosis, no thrombus/ASD/PFO/shunt OT evaluation recommending return home Neurology consulted and recommending continued annual surveillance, home Plavix and statin Anticipate dc to home tomorrow Essential tremors Follows with [facility] Neurology Continue Sinemet Memory impairment Continue memantine BPH Continue finasteride GERD Continue PPI Insomnia Continue Seroquel DVT Prophylaxis: TEDs/SCDs Code Status: FULL CODE PCP: Jasmyn Rich Disposition: DC to home tomorrow Patient seen in collaboration with Dr. Phipps. Please see addendum. I spent a total of 60 minutes coordinating, documenting and providing care for this patient excluding time spent in the performance of separately billed services or time spent by another provider/QHP. Admission and Anticipated Discharge Date Admission Date: July 22, 2025 Supervising Physician Co-Signing Physician Notes Patient was seen and evaluated at bedside as a follow-up of his strokelike symptoms which is most likely a hypotensive episode given patient has taken an additional 25 mg of Coreg preceding the event prior to arrival. Otherwise today patient does not have any neurological complaints, Carotid Doppler ultrasound with no hemodynamically significant stenosis. Neurology evaluated. On exam: Patient on room air, bilateral extremities power 5/5. Rest of the examination as above. Total time spent independently: 25 minutes. I have seen and examined the patient and have discussed the case with the provider above. I agree with the assessment and plan as stated. Subjective Patient seen resting in bed Reports feeling much better than yesterday Denies dizziness, chest pain, SOB, abdominal pain, N/V/D, weakness Review of Systems Review of Systems: All systems reviewed & are unremarkable except as noted in HPI & below Physical Exam Physical Exam: General/Psych: WD/WN, sitting up in bed, NAD, conversing easily Head: normocephalic, atraumatic Eyes: normal inspection, PERRL, conjunctivae pink Neck: normal visual inspection, trachea midline Respiratory: normal respiratory effort, lungs clear to auscultation, no wheeze/rales/rhonchi, no accessory muscle use Cardiovascular: regular rate and rhythm, no murmur/rub/gallop Extremities: no cyanosis or clubbing, normal peripheral pulses, no BLE edema Abdomen/GI: normal bowel sounds, soft, nontender Neurologic/MSK: A+Ox3, motor strength 5/5, moves all extremities Skin: no rashes, normal color, warm and dry Results & Data Results & Data Vital Signs (Past 12 Hours) Vital Signs Temp Pulse Pulse Resp BP Pulse Ox O2 Del Method 07/23/25 07:31 58 L 07/23/25 03:55 36.5 C 58 L 16 127/54 L 95 Room Air 07/22/25 23:27 55 L 07/22/25 23:05 36.3 C L 68 14 150/62 H 96 Room Air 07/22/25 20:00 61 Laboratory Results Short CBC 07/22/25 07/23/25 Range/Units 12:11 06:43 WBC 6.31 5.74 (4.8-10.8) K/ul Hgb 11.5 L 13.1 L (14.0-18.0) g/dL Hct 33.0 L 38.5 L (42.0-52.0) % Plt Count 181 195 (130-400) K/uL BMP 07/22/25 07/23/25 12:11 06:43 Sodium 137 139 Potassium 3.8 4.1 Chloride 108 H 105 Carbon Dioxide 25 27 BUN 28 H 24 H Creatinine 0.85 0.97 Glucose 112 H 89 Calcium 8.2 L 9.2 Liver Function 07/22/25 Range/Units 12:11 Total Bilirubin 0.6 (0.2-1.0) mg/dl AST 25 (13-39) U/L ALT 14 (7-52) U/L Alkaline Phosphatase 52 (34-104) U/L Albumin 3.5 (3.4-5.0) gm/dl I have independently reviewed and interpreted patient's labs including CBC and BMP Medications Administered Current Inpatient Medications Albuterol (Albuterol Hfa 8 Gm Inhaler) 2 puffs INH Q6H PRN PRN Reason: SOB/Wheezing Stop: 08/21/25 22:42 Carbidopa/Levodopa (Carbidopa/Levodopa 25/100mg Tab) 1 tab PO DAILY JOSÉ MIGUEL Stop: 08/22/25 08:59 Clopidogrel Bisulfate (Clopidogrel Bisulfate 75 Mg Tab) 75 mg PO DAILY JOSÉ MIGUEL Stop: 08/22/25 08:59 Finasteride (Finasteride 5 Mg Tab) 5 mg PO DAILY JOSÉ MIGUEL Stop: 08/22/25 08:59 Magnesium Hydroxide (Magnesium Hydroxide Susp 30 Ml Udc) 30 ml PO Q12H PRN PRN Reason: Constipation Stop: 08/21/25 19:42 Memantine (Memantine Hcl 10 Mg Tab) 10 mg PO BID JOSÉ MIGUEL Stop: 08/21/25 20:59 Last Admin: 07/22/25 22:02 Dose: 10 mg Miscellaneous Information (Pharmacist Discharge Med Rec Consult) 1 each N/A UD PRN PRN Reason: Consult Stop: 08/21/25 19:42 Ondansetron HCl (Ondansetron Inj 2 Mg/Ml 2 Ml Vial) 4 mg IV Q6H PRN PRN Reason: Nausea Stop: 08/21/25 19:42 Pantoprazole Sodium (Pantoprazole 40 Mg Tab) 40 mg PO DAILY JOSÉ MIGUEL Stop: 08/22/25 08:59 Polyethylene Glycol (Polyethylene (Miralax) 17 Gm Pack) 17 gm PO DAILY PRN PRN Reason: Constipation Stop: 08/21/25 19:42 Quetiapine Fumarate (Quetiapine Fumarate 25 Mg Tablet) 25 mg PO [facility] Stop: 08/21/25 20:59 Last Admin: 07/22/25 22:02 Dose: 25 mg Rosuvastatin Calcium (Rosuvastatin Calcium 20 Mg Tab) 20 mg PO [facility] Stop: 08/21/25 20:59 Last Admin: 07/22/25 22:01 Dose: 20 mg
[2025-07-23 08:07] LABS: Hemoglobin A1C 5.8 % (4.5-5.6)
[2025-07-23] MEDS: CLOPIDOGREL BISULFATE 75 MG TAB PO SCH (09:32)
[2025-07-23] MEDS: CARBIDOPA/LEVODOPA 25/100MG TAB PO SCH ×2 (09:32→20:22)
[2025-07-23] MEDS: FINASTERIDE 5 MG TAB PO SCH (09:32)
--- NOTE | 2025-07-23 09:59 | XCELERA ---
[id number] [email or web address]\[id number]
--- NOTE | 2025-07-23 11:38 | Neurology Consultation ---
Date of Consultation July 23, 2025 Assessment & Plan (1) Medication side effect: (2) Carotid stenosis: Plan -continue clopidogrel 75 mg daily - continue rosuvastatin 20 mg daily, LDL is at goal at 40 -I offered aspirin to the patient however he has a history of bleeding ulcer disease and he has previously been told to avoid aspirin therefore we will defer at this time -recommend repeat carotid ultrasound as right carotid artery stenoses shows 70% on CT angiogram head and neck. At times CT angiogram head and neck can overestimate the degree of stenoses. -if carotid Doppler shows greater than 70% stenoses, would recommend cardiovascular surgeon consultation for consideration of carotid artery stent -if carotid Doppler shows less than 70% stenoses, would recommend annual surveillance as patient has been doing - pharmacy assistance appreciated with medical reconciliation, patient is taking multiple blood pressure medications which resulted in medication side effects prior to arrival - advised patient to continue his home exercises and healthy lifestyle I discussed my recommendations with OPERATING ROOM TECHNICIAN Delmis Mcgee. Thank you for this consult. Please call with questions. Telehealth Consultation Telehealth Information Telehealth Information: I performed this visit using a real-time telehealth connection between my location and the patients originating location ([facility]). After connecting through interactive tele-video, patient was identified by name and date of and/or wristband check.Patient (or authorized healthcare corporate sales representative) was informed that this was a telemedicine visit and it was being conducted confidentially over secure lines. My office door was closed and no one else was present in the room with me.Patient (or authorized healthcare corporate sales representative) provided consent to proceed with the visit, expressed an understanding of privacy and security of the telemedicine visit, and gave permission to have a hospital corporate sales representative in the room in order to assist with the visit and to conduct portions of the visit, as needed. I informed the patient (or authorized healthcare corporate sales representative) that I reviewed their record and presented the opportunity for them to ask any questions regarding the visit today. The patient agreed to participate. History of Present Illness Reason for Consultation: transient dizziness, perioral numbness, visual blurring Attending Physician: Bob Phipps MD History of Present Illness Amanda Davies is an 84-year-old male with a past medical history of coronary artery disease, hypertension, hyperlipidemia, gout, COPD, asthma, fatty liver, esophageal dysmotility, achalasia, esophagitis, peptic ulcer disease with prior bleeding ulcer, BPH, osteoarthritis, essential tremor, TIA, IgG kappa proteine junior, and insomnia who presents to [facility] on 07/22[facility]2025 with acute onset dizziness, heaviness "in the head", perioral numbness, and blurred vision. The patient explains that prior to symptom onset he went to the pharmacy to refill his medications and he asked if he could take a prior prescription of carvedilol and a new prescription of isosorbide mononitrate together. It seems that his physician had previously discontinued carvedilol (data deficit). Per report, the patient was told by his pharmacist that he could take these medications together so he did and he subsequently developed these symptoms. I suspect medication side effect as the cause of these symptoms. I discussed with the patient's treating hospitalist and the patient also takes bisoprolol at night prior to sleep which per report was not his medication list. He does obtain medications from [employer] and a provider in [place]. Full medication reconciliation will be done. The patient was initially thought to have stroke symptoms and therefore a CT head was obtained in the Emergency Department which was unremarkable. CT angiogram head and neck revealed a 70% right ICA stenoses. The patient tells me that he gets an annual carotid Doppler in [place] and 4 months ago he was told that his right carotid artery had 40% stenoses. He inquires how it could have progressed 30% in 4 months. I explained that often CT angiogram head and neck while overestimate the degree of stenoses. Will plan to obtain a repeat carotid Doppler which patient agrees with. He currently takes clopidogrel and rosuvastatin as treatment for his extracranial atherosclerotic disease. He was previously advised per his report not to take aspirin given his history of peptic ulcer disease and bleeding ulcer. He prefers not to start aspirin at this time. I did explain that maximal medical therapy for treatment of extracranial atherosclerotic disease is aspirin, clopidogrel, and high-intensity statin. I did explain that if he is not able to take the maximal medical therapy, it is reasonable that the degree of stenoses well increase. We did discuss carotid revascularization in the instance that his carotid artery disease is greater than 70% per carotid Doppler. He is interested in getting more information about this, although he believes he will not be a good candidate secondary to advanced age. Carotid artery stenting is not particularly invasive and I think it would be reasonable discuss with a cardiovascular surgeon if carotid Doppler shows more than 70% stenoses. Overall, the patient is in good health for his age. He exercises daily. Discussed with the patient's hospitalist, plan to restart patient's blood pressure medications today after medication reconciliation. At present, the patient feels back to his baseline. Allergies Allergy/AdvReac Type Severity Reaction Status Date / Time amlodipine Allergy Unknown Verified 01/27/25 08:28 pork derived (porcine) Allergy Verified 01/27/25 08:28 Pork/Porcine Containing Allergy Verified 01/27/25 08:28 Products Home Medications Medication Instructions Recorded Confirmed Type clopidogrel 75 mg tablet 75 mg PO DAILY 05/09/23 07/22/25 History nitroglycerin 0.4 mg sublingual 0.4 mg sublingual DIRECTED PRN 05/09/23 07/22/25 History tablet Chest Pain rosuvastatin 20 mg tablet 20 mg PO HS 05/09/23 07/22/25 History vitamin E 268 mg (400 unit) capsule 268 mg PO DAILY 05/09/23 07/22/25 History zinc 50 mg tablet 50 mg PO DAILY 05/09/23 07/22/25 History amlodipine 5 mg-valsartan 160 mg 1 tab PO DAILY 08/02/24 07/22/25 History tablet isosorbide mononitrate 30 mg 60 mg PO QAM 08/02/24 07/22/25 History tablet,extended release 24 hr memantine 10 mg tablet 10 mg PO BID 08/02/24 07/22/25 History finasteride 5 mg tablet 5 mg PO DAILY #90 tabs 08/25/24 07/22/25 Rx carbidopa 25 mg-levodopa 100 mg 1 tab PO DAILY 12/29/24 07/22/25 History tablet quetiapine 25 mg tablet 25 mg PO HS 12/29/24 07/22/25 History vitamin B complex 1 cap PO DAILY 12/29/24 07/22/25 History albuterol sulfate 90 mcg/actuation 2 puff inhalation Q6H PRN 07/22/25 07/22/25 History aerosol inhaler SOB/Wheezing pantoprazole 40 mg tablet,delayed 40 mg PO DAILY 07/22/25 07/22/25 History release bisoprolol fumarate 5 mg tablet 5 mg PO TID 07/23/25 07/23/25 History Patient History Medical History (Updated 07/23/25 @ 11:38 by Addie Urena MD) GERD (gastroesophageal reflux disease) Memory impairment Benign essential tremor Chronic gout History of GI bleed Hypertensive urgency Anemia Migraine Surgical History History of esophagogastroduodenoscopy (EGD) Family History Other Stroke Social History Smoking Status: Former smoker Tobacco Type: Cigarettes Second Hand Exposure: No; Do You Dip or Chew Tobacco: No; Hx Alcohol Use: No Hx Substance Use: No Preferred Language: [place] Communication Ability: Effective Revival Clerk Required: No Beliefs That Will Affect Care: Orthodoxy Orthodoxy Beliefs: food Lilli marital status: Current Living Situation: Spouse Current Living Situation Comment: , daughter and son current occupational status: retired Feels Safe at Home: Yes Assistive Devices: Cane and Glasses Review of Systems ROS reviewed and negative except as above Physical Exam NIHSS is 0. Mental status: Alert and oriented Strength: Antigravity in all extremities without drift Sensation: No numbness Gait: Normal, patient shows me the exercises that he does every morning, he is quite active Results & Data Vital Signs (Past 12 Hours) Vital Signs Temp Pulse Pulse Pulse Resp BP Pulse Ox 07/23/25 11:21 36.6 C 66 20 131/73 98 07/23/25 09:31 67 07/23/25 08:03 36.7 C 57 L 20 148/68 H 94 07/23/25 07:31 58 L 07/23/25 03:55 36.5 C 58 L 16 127/54 L 95 07/22/25 23:27 55 L O2 Del Method 07/23/25 11:21 Room Air 07/23/25 09:31 07/23/25 08:03 Room Air 07/23/25 07:31 07/23/25 03:55 Room Air 07/22/25 23:27 Laboratory Results Abnormal Lab Results 07/22/25 07/23/25 12:11 06:43 WBC 6.31 5.74 RBC 3.61 L 4.25 L Hgb 11.5 L 13.1 L Hct 33.0 L 38.5 L MCV 91.4 90.6 MCH 31.9 30.8 MCHC 34.8 34.0 RDW Std Deviation 49.2 H 49.7 H RDW Coeff of Claire 14.6 H 14.9 H Plt Count 181 195 MPV 11.0 10.4 Immature Gran % (Auto) 0.2 Neut % (Auto) 52.1 Lymph % (Auto) 31.7 Gosper % (Auto) 10.8 Eos % (Auto) 4.6 Baso % (Auto) 0.6 Neut # (Auto) 3.29 Lymph # (Auto) 2.00 Gosper # (Auto) 0.68 H Eos # (Auto) 0.29 Baso # (Auto) 0.04 Immature Gran # (Auto) 0.01 PT 12.4 H INR 1.2 H APTT 25 PTT Ratio 0.9 Sodium 137 139 Potassium 3.8 4.1 Chloride 108 H 105 Carbon Dioxide 25 27 Anion Gap 4 7 BUN 28 H 24 H Creatinine 0.85 0.97 Est Cr Clr Drug Dosing 68.0 57.4 eGFR 86.22 77.46 BUN/Creatinine Ratio 32.9 H 24.7 H Glucose 112 H 89 Estimat Average Glucose 120 Hemoglobin A1c 5.8 H Calcium 8.2 L 9.2 Magnesium 1.7 1.8 Total Bilirubin 0.6 AST 25 ALT 14 Alkaline Phosphatase 52 Troponin I High Sens 4.0 Total Protein 6.3 Albumin 3.5 Globulin 2.8 Albumin/Globulin Ratio 1.3 Triglycerides 100 Cholesterol 106 LDL Cholesterol, Calc 40 VLDL Cholesterol, Calc 20 HDL Cholesterol 46 Cholesterol/HDL Ratio 2.[address] 07/22/25 12:36 IMPRESSION: There is no hemorrhage, mass effect, or evidence of acute territorial ischemia by CT criteria. Electronically signed by: Bharathi Nguyen M.D. 07/22/2025 1:09 PM Head CTA 07/22/25 12:36 IMPRESSION: Unremarkable CTA of the head. Electronically signed by: Trevor Gibbons M.D. 07/22/2025 1:10 PM Neck CTA 07/22/25 12:36 IMPRESSION: 1. Exam moderately compromised by motion artifact. Approximate 70% stenosis of the proximal right internal carotid artery due to extensive calcified atherosclerotic plaque. 2. Moderate plaque within the proximal left internal carotid artery without stenosis. Electronically signed by: Rodrigo Carvalho M.D. 07/22/2025 1:13 PM Brain MRI 07/22/25 15:04 Impression: 1. Cerebral atrophy and chronic small vessel ischemic disease 2. No sign of infarction or mass lesion 3. Chronic sinusitis Electronically signed by Ryan Iyer 07-22-2025 5:43 PM Medications Administered Home Medications Medication Instructions Recorded Confirmed Last Taken clopidogrel 75 mg tablet 75 mg PO DAILY 05/09/23 07/22/25 11/29/23 nitroglycerin 0.4 mg sublingual 0.4 mg sublingual DIRECTED PRN 05/09/23 07/22/25 Unknown tablet Chest Pain rosuvastatin 20 mg tablet 20 mg PO HS 05/09/23 07/22/25 11/28/23 vitamin E 268 mg (400 unit) capsule 268 mg PO DAILY 05/09/23 07/22/25 11/29/23 zinc 50 mg tablet 50 mg PO DAILY 05/09/23 07/22/25 11/29/23 amlodipine 5 mg-valsartan 160 mg 1 tab PO DAILY 08/02/24 07/22/25 Unknown tablet isosorbide mononitrate 30 mg 60 mg PO QAM 08/02/24 07/22/25 Unknown tablet,extended release 24 hr memantine 10 mg tablet 10 mg PO BID 08/02/24 07/22/25 Unknown finasteride 5 mg tablet 5 mg PO DAILY #90 tabs 08/25/24 07/22/25 Unknown carbidopa 25 mg-levodopa 100 mg 1 tab PO DAILY 12/29/24 07/22/25 Unknown tablet quetiapine 25 mg tablet 25 mg PO HS 12/29/24 07/22/25 Unknown vitamin B complex 1 cap PO DAILY 12/29/24 07/22/25 Unknown albuterol sulfate 90 mcg/actuation 2 puff inhalation Q6H PRN 07/22/25 07/22/25 Unknown aerosol inhaler SOB/Wheezing pantoprazole 40 mg tablet,delayed 40 mg PO DAILY 07/22/25 07/22/25 Unknown release bisoprolol fumarate 5 mg tablet 5 mg PO TID 07/23/25 07/23/25 Unknown Active Medications Generic Name Dose Route Start Last Admin Trade Name Freq PRN Reason Stop Dose Admin Carbidopa/Levodopa 1 tab 07/23/25 09:00 07/23/25 09:32 Carbidopa/Levodopa 25/100mg Tab PO 08/22/25 08:59 1 tab DAILY JOSÉ MIGUEL Administration Clopidogrel Bisulfate 75 mg 07/23/25 09:00 07/23/25 09:32 Clopidogrel Bisulfate 75 Mg Tab PO 08/22/25 08:59 75 mg DAILY JOSÉ MIGUEL Administration Finasteride 5 mg 07/23/25 09:00 07/23/25 09:32 Finasteride 5 Mg Tab PO 08/22/25 08:59 5 mg DAILY JOSÉ MIGUEL Administration Memantine 10 mg 07/22/25 21:00 07/23/25 09:32 Memantine Hcl 10 Mg Tab PO 08/21/25 20:59 10 mg BID JOSÉ MIGUEL Administration Pantoprazole Sodium 40 mg 07/23/25 09:00 07/23/25 09:32 Pantoprazole 40 Mg Tab PO 08/22/25 08:59 40 mg DAILY JOSÉ MIGUEL Administration Quetiapine Fumarate 25 mg 07/22/25 21:00 07/22/25 22:02 Quetiapine Fumarate 25 Mg Tablet PO 08/21/25 20:59 25 mg HS JOSÉ MIGUEL Administration Rosuvastatin Calcium 20 mg 07/22/25 21:00 07/22/25 22:01 Rosuvastatin Calcium 20 Mg Tab PO 08/21/25 20:59 20 mg HS JOSÉ MIGUEL Administration
[2025-07-23] MEDS: VALSARTAN 80 MG TAB PO SCH (12:52)
--- NOTE | 2025-07-23 13:41 | Pharmacy Report ---
- Date of Service July 23, 2025 - Pharmacy CVA/TIA Medication Review Medications to Prevent Stroke handout has been added to the patients discharge packet. Antiplatelet(s) * clopidogrel 75mg PO daily * Aspirin therapy deferred due to patient/family refusal and history of GI bleeding Cholesterol * High intensity statin: rosuvastatin 20 mg daily DVT Prophylaxis * SCD knee Therapeutic Anticoagulation * No history of Afib/Aflutter noted Type 2 Diabetes * Patient does not have T2DM
--- NOTE | 2025-07-23 14:42 | Ultrasound Report ---
ULTRASOUND OF THE CAROTID ARTERIES CLINICAL HISTORY: Carotid stenosis. COMPARISON STUDY: CT angiogram of the neck dated 07/22/2025 TECHNIQUE: Real-time, grayscale, and color Doppler sonography of the carotid arteries is performed. I mages are reviewed in the transverse and longitudinal planes. FINDINGS: The carotid arteries are patent bilaterally and demonstrate antegrade flow. Atherosclerotic plaque is seen in the carotid bulbs bilaterally, right side greater than left. Normal doppler arterial wavefor ms are seen throughout. Velocity measurements are listed below. Common carotid peak systolic velocity (cm/sec): RIGHT: 89 LEFT: 60 ICA proximal peak systolic velocity (cm/sec): RIGHT: 98 LEFT: 101 ICA mid peak systolic velocity (cm/sec): RIGHT: 87 LEFT: 82 ICA distal peak systolic velocity (cm/sec): RIGHT: 113 LEFT: 68 ICA/CC peak systolic ratio: RIGHT: 1.3 LEFT: 1.7 Antegrade flow was shown in the vertebral arteries. The external carotid arteries are patent. IMPRESSION: 1. There is no sonographic evidence of hemodynamically significant stenosis in the right or left morales tid arterial system by velocity criteria. 2. Antegrade flow is shown in the vertebral arteries. ACT 112: Negative or not required by law. Electronically signed by: Bharathi Nguyen M.D. 07/23/2025 2:41 PM
[2025-07-23] MEDS: ISOSORBIDE MONO EXTENDED REL 60 MG TABCR PO ONE (17:42)
[2025-07-23] MEDS: ACETAMINOPHEN 325 MG TAB PO PRN (19:54)
[2025-07-23] MEDS: BISOPROLOL FUMARATE 5 MG TAB PO SCH (19:55)
--- NOTE | 2025-07-23 20:16 | Communication Note ---
Date of Service: July 23, 2025 Patient requesting current memantine BID and sinemet TID medications to be administered as per home regimen as follows: Memantine once daily at noontime Sinemet twice daily (noontime and at bedtime) Clarified above request with patient given discrepancy with dosing frequency upon review of [facility] outpatient listing. Patient insists that his [facility] neurologist has been aware of requested home regimen since 2 years ago.
--- NOTE | 2025-07-23 21:10 | XRay Report ---
Exam(s): XR LEFT HIP EXAM: XR Left Hip With Pelvis When Performed, 2 or 3 Views CLINICAL HISTORY: Reason for exam: pain. TECHNIQUE: Two or three views of the left hip with pelvis when performed. COMPARISON: No relevant prior studies available. FINDINGS: Bones/joints: Left hip joint space is preserved. No fracture or malalignment. IMPRESSION: Normal left hip x-rays. Electronically signed by: Jude Strickland MD 07/23/25 21:09 PM
--- NOTE | 2025-07-23 22:36 | CT Scan Report ---
Exam(s): CT LEFT HIP Without Contrast EXAM: CT Left Lower Extremity Without Intravenous Contrast, Hip CLINICAL HISTORY: Reason for exam: pain. TECHNIQUE: Axial computed tomography images of the left hip without intravenous contrast. CTDI is 25 mGy and DLP is 449 mGy-cm. Automated exposure control was utilized for the study. A dose lowering technique was utilized adhering to the principles of ALARA. COMPARISON: X-ray 07/23/2025. FINDINGS: Bones/joints: Unremarkable. No acute fracture. No dislocation. Soft tissues: Unremarkable. IMPRESSION: No fracture or malalignment. Electronically signed by: Jude Strickland MD 07/23/25 22:35 PM
[2025-07-24] MEDS: ISOSORBIDE MONO EXTENDED REL 60 MG TABCR PO SCH (07:46)
[2025-07-24 07:56] VITALS: RESP 18; TEMP 98.2; O2SAT 93
[2025-07-24] MEDS ORDERED: VALSARTAN 80 MG TAB PO SCH (09:00)
[2025-07-24] MEDS ORDERED: STROKE PATIENT DISCHARGE STA (10:49)
[2025-07-24 11:02] VITALS: BP 157/75; PULSE 67
--- NOTE | 2025-07-24 11:08 | Discharge Summary ---
Discharge Summary Date of Service July 24, 2025 Principal Dx & Hospital Course #1 = Principal Diagnosis (1) Hypotensive episode: (2) Benign essential tremor: (3) Memory impairment: (4) BPH w urinary obs/LUTS: (5) GERD (gastroesophageal reflux disease): Plan Patient is an 84-year-old male with PMH significant for moderate nonocclusive CAD, HLD, HTN, adrenal nodules, chronic gout, COPD with asthma, fatty liver, esophageal dysmotility, achalasia, history of esophagitis, PUD, BPH with LUTS, osteoarthritis, essential tremors, history of TIA in 1989, IgG kappa proteinemia (under observation), RADHA and insomnia who presented to the ED on 07/22/2025 via EMS with c/o strokelike sx. Hypotensive episode Carotid stenosis Patient presenting with acute onset of dizziness, left postauricular pain, guanaco oral numbness Found to be hypotensive per EMS, given fluids in route, normotensive upon arrival to hospital Likely secondary to taking Coreg in addition to Imdur-> patient was out of Imdur and took Coreg instead and then took Imdur once filled at pharmacy Stroke alert in ED and telestroke recommended ASA and plavix loading doses however patient declined due to history of GI bleeding Head CT and CTA unremarkable, Brain MRI negative Neck CTA revealed 70% stenosis of proximal LATANYA due to extensive calcified atherosclerotic plaque, moderate plaque in proximal LICA without stenosis Carotid doppler revealed no hemodynamically significant stenosis in right or left carotid arterial system TTE revealed mild LVH, EF 60-65%, mild aortic valve sclerosis without stenosis, no thrombus/ASD/PFO/shunt Neurology consulted and recommending continued annual carotid doppler surveillance, home Plavix and statin OT evaluation recommending return to home Prediabetes A1C 5.8 Counseled on lifestyle changes including daily exercise and healthy diet Advise outpatient monitoring Essential tremors [facility] Continue Sinemet Memory impairment Continue memantine BPH Continue finasteride GERD Continue PPI Insomnia Continue Seroquel Patient seen in collaboration with Dr. Phipps. Please see addendum. Notes For Next Care Provider 84 year old male with significant PMH who was admitted at [facility] from 07/22- 07/24/2025 for stroke like episode. Upon further evaluation, suspect symptoms due to hypotension as patient overmedicated himself with BP meds. Stroke work up completed and negative. Neurology recommends continued annual surveillance of known carotid stenosis. No med changes. Medication Changes From Visit None Admission HPI Per Admitting Provider Patient is an 84-year-old male with past medical history significant for moderate nonocclusive CAD, HLD, HTN, history of atypical chest pain with recent dobutamine stress testing done in December 2024 which was negative for inducible ischemia, adrenal nodules, chronic gout, COPD with asthma, fatty liver, esophageal dysmotility, achalasia, history of esophagitis, PUD, BPH with LUTS, osteoarthritis, essential tremors, history of TIA in 1989 with transient LUE weakness, IgG kappa proteinemia, RADHA and insomnia who presented to the ED via EMS with c/o strokelike sx. Developed acute onset of lightheadedness/dizziness, left-sided postauricular pain and perioral numbness whilst shopping at [facility] earlier today with his . called EMS. Was significantly hypotensive with SBP in the 80s per EMS. S/p 600cc NSS bolus en route to ED with improvement in BP. NIHSS 6 upon arrival to ED. Called stroke alert in ED. Head CT unremarkable. Head CTA unremarkable. Neck CTA noting approximate 70% stenosis of the proximal right internal carotid artery due to extensive calcified atherosclerotic plaque, mode rate plaque within the proximal left internal carotid artery without stenosis. Sx mostly resolved in ED with exception of his left-sided postauricular pain, which is somewhat improved compared to prior yet still remains. Patient admits that he was out of his Imdur this morning. So instead, he took a dose of 6.25mg carvedilol that he had leftover. He then went to [facility] and picked up a prescription for his Imdur. He ended up taking a dose of Imdur on top of the carvedilol he'd already taken. Shortly after that is when he started to develop the above sx. Patient was seen by telestroke neurology in ED. No indication for TNK given overall improvement in sx. Recommended ASA and Plavix loading, admission for full stroke eval. Admission Exam Per Admitting Provider VS noted and reviewed oriented x3 , not in distress, speaks in sentences with no effort nor accessory muscle use normal rate, regular rhythm, no murmurs clear breath sounds bilaterally non distended, soft, nontender no bipedal edema, erythema, warmth no neuro deficits Discharge Exam General/Psych: WD/WN, sitting up in bed, NAD, conversing easily Head: normocephalic, atraumatic Eyes: normal inspection, PERRL, conjunctivae pink Neck: normal visual inspection, trachea midline Respiratory: normal respiratory effort, lungs clear to auscultation, no wheeze/rales/rhonchi, no accessory muscle use Cardiovascular: regular rate and rhythm, no murmur/rub/gallop Extremities: no cyanosis or clubbing, normal peripheral pulses, no BLE edema Abdomen/GI: normal bowel sounds, soft, nontender Neurologic/MSK: A+Ox3, motor strength 5/5, moves all extremities Skin: no rashes, normal color, warm and dry Updated Medication List Medication Instructions Recorded Confirmed Type clopidogrel 75 mg tablet 75 mg PO DAILY 05/09/23 07/22/25 History nitroglycerin 0.4 mg sublingual 0.4 mg sublingual DIRECTED PRN 05/09/23 07/22/25 History tablet Chest Pain rosuvastatin 20 mg tablet 20 mg PO HS 05/09/23 07/22/25 History vitamin E 268 mg (400 unit) capsule 268 mg PO DAILY 05/09/23 07/22/25 History zinc 50 mg tablet 50 mg PO DAILY 05/09/23 07/22/25 History amlodipine 5 mg-valsartan 160 mg 1 tab PO DAILY 08/02/24 07/22/25 History tablet isosorbide mononitrate 30 mg 60 mg PO QAM 08/02/24 07/22/25 History tablet,extended release 24 hr memantine 10 mg tablet 10 mg PO DAILY 08/02/24 07/23/25 History finasteride 5 mg tablet 5 mg PO DAILY #90 tabs 08/25/24 07/22/25 Rx carbidopa 25 mg-levodopa 100 mg 1 tab PO BID 12/29/24 07/23/25 History tablet quetiapine 25 mg tablet 25 mg PO HS 12/29/24 07/22/25 History vitamin B complex 1 cap PO DAILY 12/29/24 07/22/25 History albuterol sulfate 90 mcg/actuation 2 puff inhalation Q6H PRN 07/22/25 07/22/25 History aerosol inhaler SOB/Wheezing pantoprazole 40 mg tablet,delayed 40 mg PO DAILY 07/22/25 07/22/25 History release bisoprolol fumarate 5 mg tablet 5 mg PO HS 07/23/25 07/24/25 History Hospital Stay Data Consultations 07/22/25 14:34 ED Decision to Admit Stat 07/22/25 15:04 Consult Neurology Routine Diagnostic Imagining Performed Chest X-Ray 07/22/25 12:36 XR chest 1V portable CLINICAL HISTORY: neuro deficit, acute stroke suspected COMPARISON STUDY: Chest radiograph August 02, 2024. FINDINGS: Lung volumes are normal. Lungs are clear. There is no pneumothorax or pleural effusion. The heart is mildly enlarged. Mediastinal contours are normal. There is no evidence for pulmonary edema. IMPRESSION: No acute cardiopulmonary findings. ACT 112: Negative or not required by law. Electronically signed by: Rodrigo Carvalho M.D. 07/22/2025 1:[address] 07/22/25 12:36 CT SCAN OF THE BRAIN WITHOUT IV CONTRAST CLINICAL HISTORY: Neurological deficit. Stroke like symptoms. COMPARISON STUDY: CT of the brain dated 11/29/2023. TECHNIQUE: Unenhanced CT scan of the brain is performed from the vertex to the skull base. Images are reviewed in the axial, sagittal, coronal planes. A dose lowering technique was utilized adhering to the principles of ALARA. FINDINGS: Brain parenchyma: There is age-related involutional change noting moderate subcortical and periventricular microangiopathic disease. There is no hemorrhage, mass effect, or evidence of acute territorial ischemia by CT criteria. Davila-white matter differentiation is preserved. No extra-axial fluid collection is seen. Ventricles, sulci, cisterns: Prominent secondary to involutional change. Intracranial vasculature: There is minimal atherosclerotic calcification of the cavernous carotid arteries. Calvarium: Unremarkable. Sinuses and mastoids: There is mild mucosal thickening in the maxillary sinuses. Retention cyst in the maxillary antra measuring up to 2.4 cm. Moderate mucosal thickening is also seen within the ethmoid sinuses. The mastoid air cells are well pneumatized. Cerumen is noted in the external auditory canals. Orbits: The bony orbits are grossly intact. There is a left ocular lens implant. IMPRESSION: There is no hemorrhage, mass effect, or evidence of acute territorial ischemia by CT criteria. ACT 112: Negative or not required by law. Electronically signed by: Bharathi Nguyen M.D. 07/22/2025 1:09 PM Head CTA 07/22/25 12:36 CT angio head w con CLINICAL HISTORY: 84 years-old Male with neuro deficit, acute stroke suspected. Acute stroke like symptoms COMPARISON STUDY: Head CT of same day and 11/29/2023 TECHNIQUE: Following the IV administration of 112 cc of Optiray, CT angiogram of the brain was performed from the skull base to the vertex. Images are reviewed in the axial, sagittal, and coronal planes. 3-D MIPS images are created and assessed. IV contrast was administered without complication. All measurements were obtained according to NASCET criteria. A dose lowering technique was utilized adhering to the principles of ALARA. CT DOSE: 1160.79 mGy.cm FINDINGS: CT BRAIN: Dictated separately. Polypoid mucosal thickening of the maxillary sinuses. Involutional changes with chronic microvascular ischemic disease. CT ANGIOGRAM OF THE BRAIN: The imaged bilateral internal carotid arteries are patent. The bilateral anterior and middle cerebral arteries are also patent. The vertebrobasilar system and posterior cerebral arteries are widely patent. There is no aneurysm, high-grade stenosis, or proximal branch occlusion identified. Dural sinuses appear patent. IMPRESSION: Unremarkable CTA of the head. ACT 112: Negative or not required by law. The above report was generated using voice recognition software. It may contain grammatical, syntax or spelling errors. Electronically signed by: Trevor Gibbons M.D. 07/22/2025 1:10 PM Neck CTA 07/22/25 12:36 CT ANGIOGRAPHY OF THE NECK WITH CONTRAST CLINICAL HISTORY: neuro deficit, acute stroke suspected COMPARISON STUDY: Cervical spine CT July 10, 2013. Technique: CT angiography of the carotid and vertebral arteries was obtained using Optiray and 3D reconstruction on an independent workstation. NASCET criteria was utilized. Automated exposure control was utilized for the study. A dose lowering technique was utilized adhering to the principles of ALARA. Findings: This exam is moderately compromised by motion artifact. Visualized lung apices are unremarkable. No cervical spinal fractures are present. There is no cervical lymphadenopathy. Moderate multilevel degenerative changes with reversal the cervical lordosis are noted. There is extensive calcified atherosclerotic plaque within the proximal right internal carotid artery. Evaluation is compromised by motion artifact however there is approximate 70% stenosis of this vessel. There is moderate plaque within the proximal left int ernal carotid artery without severe stenosis. Vertebral artery origins are suboptimally assessed. There is no aneurysm or dissection within the neck. IMPRESSION: 1. Exam moderately compromised by motion artifact. Approximate 70% stenosis of the proximal right internal carotid artery due to extensive calcified atherosclerotic plaque. 2. Moderate plaque within the proximal left internal carotid artery without stenosis. ACT 112: Negative or not required by law. Electronically signed by: Rodrigo Carvalho M.D. 07/22/2025 1:13 PM Brain MRI 07/22/25 15:04 Clinical History: Dizziness and hypertension Technique: Multiple T1 and T2-weighted magnetic resonance images were obtained of the brain without gadolinium contrast Comparison is made with a head CT dated 11/29/2023 Findings: There is no sign of acute or old infarction with normal-appearing diffusion weighted images. There is cerebral atrophy, within expected limits for the patient's age. There are focal and confluent areas of increased T2 signal intensity within the periventricular white matter of the cerebral hemispheres bilaterally. This is most likely due to chronic small vessel ischemic disease. There are prominent perivascular spaces in the basal ganglia No definite mass lesion is seen on this noncontrast study. There is no intracranial hemorrhage or other fluid collection. No midline shift or other form of herniation is seen. There is no hydrocephalus. Normal flow-voids are seen within the arteries of the [id number]. There are mucus retention cysts in the maxillary sinuses bilaterally. The mastoid air cells appear clear. Impression: 1. Cerebral atrophy and chronic small vessel ischemic disease 2. No sign of infarction or mass lesion 3. Chronic sinusitis Electronically signed by Ryan Iyer 07-22-2025 5:43 PM Carotid Doppler Study 07/23/25 11:04 ULTRASOUND OF THE CAROTID ARTERIES CLINICAL HISTORY: Carotid stenosis. COMPARISON STUDY: CT angiogram of the neck dated 07/22/2025 TECHNIQUE: Real-time, grayscale, and color Doppler sonography of the carotid arteries is performed. Images are reviewed in the transverse and longitudinal planes. FINDINGS: The carotid arteries are patent bilaterally and demonstrate antegrade flow. Atherosclerotic plaque is seen in the carotid bulbs bilaterally, right side greater than left. Normal doppler arterial waveforms are seen throughout. Velocity measurements are listed below. Common carotid peak systolic velocity (cm/sec): RIGHT: 89 LEFT: 60 ICA proximal peak systolic velocity (cm/sec): RIGHT: 98 LEFT: 101 ICA mid peak systolic velocity (cm/sec): RIGHT: 87 LEFT: 82 ICA distal peak systolic velocity (cm/sec): RIGHT: 113 LEFT: 68 ICA/CC peak systolic ratio: RIGHT: 1.3 LEFT: 1.7 Antegrade flow was shown in the vertebral arteries. The external carotid arteries are patent. IMPRESSION: 1. There is no sonographic evidence of hemodynamically significant stenosis in the right or left carotid arterial system by velocity criteria. 2. Antegrade flow is shown in the vertebral arteries. ACT 112: Negative or not required by law. Electronically signed by: Bharathi Nguyen M.D. 07/23/2025 2:41 PM Hip X-Ray 07/23/25 19:49 Exam(s): XR LEFT HIP EXAM: XR Left Hip With Pelvis When Performed, 2 or 3 Views CLINICAL HISTORY: Reason for exam: pain. TECHNIQUE: Two or three views of the left hip with pelvis when performed. COMPARISON: No relevant prior studies available. FINDINGS: Bones/joints: Left hip joint space is preserved. No fracture or malalignment. IMPRESSION: Normal left hip x-rays. Electronically signed by: Jude Strickland MD 07/23/25 21:[address] 07/23/25 21:30 Exam(s): CT LEFT HIP Without Contrast EXAM: CT Left Lower Extremity Without Intravenous Contrast, Hip CLINICAL HISTORY: Reason for exam: pain. TECHNIQUE: Axial computed tomography images of the left hip without intravenous contrast. CTDI is 25 mGy and DLP is 449 mGy-cm. Automated exposure control was utilized for the study. A dose lowering technique was utilized adhering to the principles of ALARA. COMPARISON: X-ray 07/23/2025. FINDINGS: Bones/joints: Unremarkable. No acute fracture. No dislocation. Soft tissues: Unremarkable. IMPRESSION: No fracture or malalignment. Electronically signed by: Jude Strickland MD 07/23/25 22:35 PM Pending Results Patient Have Any Pending Studies at Discharge: No Discharge Instructions Given to Patient (Per Discharging Provider) You presented to the hospital after experiencing dizziness, numbness and tingling, and headache while at [facility]. When EMS was called you were found to have a low blood pressure. This was likely due to the combination of Coreg and Imdur that you took. You underwent various imaging studies which were negative for a stroke. You were evaluated by a Neurologist who feels that your symptoms were related to low blood pressure rather than a mini stroke. We completed a carotid doppler study which showed no significant stenosis or narrowing in either carotid artery. Therefore, neurology does not recommend referral to a vascular surgeon and instead feel you should continue yearly surveillance of your carotid arteries. You should continue all of your home medications. We recommend that you do not take any additional blood pressure medications than you are prescribed to prevent any low blood pressure episodes of this from happening again. Your hemoglobin A1C was 5.8, which indicates pre-diabetes. You should continue healthy lifestyle choices like daily exercise and healthy diet to prevent this from progressing to diabetes. Your PCP will need to monitor your labs on at outpatient basis for further management of this. MEDICATION CHANGES: None - please continue to take your medications as prescribed SUMMARY OF TEST RESULTS: Brain MRI negative Head CT negative Head CTA negative Neck CTA with 70% narrowing in left carotid artery Carotid ultrasound with no significant narrowing in either carotid artery Echocardiogram unchanged from prior, no holes PENDING TEST RESULTS: None RECOMMENDATIONS FOR FOLLOW-UP: Please follow up with your PCP as scheduled on 07/28/2025 at 10:20am OTHER INSTRUCTIONS: Seek medical attention if you have: * temperature above 101 * chest pain or trouble breathing * abdominal pain, nausea, vomiting * diarrhea, dark stools or bloody stools * any unanswered questions or concerns Call 911 if symptoms are severe. It has been a pleasure taking care of you. Please take care of yourself. If you have any questions regarding your recent hospitalization please contact [facility] and request yanira Gloriaist @ [phone]. Total Time Total Time Spent Total Time Spent (In Minutes): I spent a total of 35 minutes coordinating, documenting and providing care for this patient excluding time spent in the performance of separately billed services or time spent by another provider/QHP. Supervising Physician Co-Signing Physician Notes Patient was seen and evaluated at bedside as a follow-up of his strokelike symptoms which is most likely a hypotensive episode given patient has taken an additional 25 mg of Coreg preceding the event prior to arrival. Otherwise patient does not have any neurological complaints now, Carotid Doppler ultrasound with no hemodynamically significant stenosis. Neurology evaluated. On exam: Patient on room air, bilateral extremities power 5/5. Rest of the examination as above. Total time spent independently: 20 minutes. I have seen and examined the patient and have discussed the case with the provider above. I agree with the assessment and plan as stated.
[2025-07-24] MEDS ORDERED: MEMANTINE HCL 10 MG TAB PO SCH (12:00)
== END 2025-07-24 13:06 | disposition home or self-care (01) | DRG 312 ==
LOC: ED 12:02 → SUATTDRO 14:37 → 2N 14:37